=== PATIENT | female | born 1985 | race Caucasian/White ===

== ENCOUNTER 2017-07-03 02:22 | Emergency (ER) | payer SELFPAY ==
[2017-07-03 02:53] LABS: KETONE, URINE AUTO RFX NEGATIVE (NEGATIVE); LEUKOCYTE ESTERASE UR AUTO RFX NEGATIVE (NEGATIVE); NITRITE, URINE AUTO RFX NEGATIVE (NEGATIVE); RBC, URINE AUTO RFX 0 /HPF (0-3); SPECIFIC GRAVITY UR AUTO RFX 1.005 (1.002-1.035); SQUAM EPITHELIAL CELL UR AURFX 0 /HPF (0-6); WBC, URINE AUTO RFX 0 /HPF (0-3)
[2017-07-03 05:03] LABS: CONTROL LINE UCG INT CTR LINE PRESENT; URINE PREG TEST NEGATIVE (NEGATIVE)
[2017-07-03] MEDS: NORCO, ANEXSIA 5/325MG TABLET (HYDROcodone/ACETAMINOPHEN) PO (06:08)
[2017-07-03] MEDS: DOXYCYCLINE HYCLATE 100 MG TAB PO (06:45)
[2017-07-03] MEDS: cefTRIAXone SOD 250 MG VIAL (J0696) IM (06:45)
[2017-07-03] MEDS: NORCO 5/325MG TABLET (BULK FOR ED) PO (06:45)
[2017-07-03] MEDS ORDERED: LIDOCAINE 1% MDV 20ML VIAL As Ordered (06:49)
[2017-07-03 07:06] LABS: CHLAMYDIA DNA AMPLIFICATION NEGATIVE (NEGATIVE); GC DNA AMPLIFICATION NEGATIVE (NEGATIVE)
== END 2017-07-03 07:04 | disposition home or self-care (01) ==
LOC: M ED 02:22
DX: N73.9 Female pelvic inflammatory disease, unspecified (principal); Z87.42 Personal history of other diseases of the female genital tract
CPT/HCPCS: J0696

== ENCOUNTER 2017-07-07 06:07 | Emergency (ER) | payer SELFPAY ==
[2017-07-07 07:04] LABS: BASO % 0.2 % (0.0-1.0); EOS # 0.1 10^3/uL (0.0-0.50); HEMATOCRIT 39.6 % (36.0-47.0); HEMOGLOBIN 13.1 g/dl (12.0-15.5); IMMATURE GRANULOCYTE % 0.2 % (0-3.0); LYMPH # 1.7 10^3/uL (1.5-4.5); LYMPH % 28.5 % (24.0-44.0); MEAN CORPUSCULAR HEMOGLOBIN 30.5 pg (27.0-33.0); MEAN CORPUSCULAR HGB CONC 33.1 g/dl (32.0-36.5); MEAN CORPUSCULAR VOLUME 92.1 fl (80.0-96.0); MONO # 0.3 10^3/uL (0.0-0.8); MONO % 5.3 % (0.0-5.0); NEUTROPHILS # 3.9 10^3/uL (1.8-7.7); NEUTROPHILS % 64.8 % (36.0-66.0); PLATELET COUNT, AUTOMATED 238 10^3/uL (150-450); RED CELL DISTRIBUTION WIDTH 12.3 % (11.5-14.5)
[2017-07-07 07:07] LABS: KETONE, URINE AUTO RFX NEGATIVE (NEGATIVE); LEUKOCYTE ESTERASE UR AUTO RFX NEGATIVE (NEGATIVE); MUCUS, URINE RFX SMALL (NEGATIVE); NITRITE, URINE AUTO RFX NEGATIVE (NEGATIVE); RBC, URINE AUTO RFX 1 /HPF (0-3); SPECIFIC GRAVITY UR AUTO RFX 1.017 (1.002-1.035); SQUAM EPITHELIAL CELL UR AURFX 1 /HPF (0-6); WBC, URINE AUTO RFX 0 /HPF (0-3)
[2017-07-07 07:22] LABS: ANION GAP 5 MEQ/L (8-16); BLOOD UREA NITROGEN 10 MG/DL (7-18); CALCIUM LEVEL 9.3 MG/DL (8.5-10.1); CARBON DIOXIDE LEVEL 28 MEQ/L (21-32); CHLORIDE LEVEL 109 MEQ/L (98-107); CREATININE FOR GFR 0.78 MG/DL (0.55-1.30); GLOMERULAR FILTRATION RATE > 60.0 (>60); GLUCOSE, FASTING 100 MG/DL (70-100); SODIUM LEVEL 142 MEQ/L (136-145)
== END 2017-07-07 08:35 | disposition home or self-care (01) ==
LOC: M ED 06:07
DX: N73.9 Female pelvic inflammatory disease, unspecified (principal)
CPT/HCPCS: 80048

== ENCOUNTER 2017-12-01 17:17 | Emergency (ER) | payer OTHER, SELFPAY ==
[2017-12-01 17:55] LABS: CONTROL LINE UCG INT CTR LINE PRESENT; URINE PREG TEST NEGATIVE (NEGATIVE)
[2017-12-01 18:05] LABS: APPEARANCE, URINE CLEAR (CLEAR); BACTERIA, URINE AUTO 2+ (NEGATIVE); BILIRUBIN, URINE AUTO NEGATIVE (NEGATIVE); BLOOD, URINE BLOOD NEGATIVE (NEGATIVE); COLOR, URINE STRAW (YELLOW); GLUCOSE, URINE (UA) AUTO NEGATIVE (NEGATIVE); KETONE, URINE AUTO NEGATIVE (NEGATIVE); LEUKOCYTE ESTERASE, URINE AUTO NEGATIVE (NEGATIVE); NITRITE, URINE AUTO NEGATIVE (NEGATIVE); PROTEIN, URINE AUTO NEGATIVE (NEGATIVE); RBC, URINE AUTO 1 /HPF (0-3); SPECIFIC GRAVITY URINE AUTO 1.005 (1.002-1.035); SQUAMOUS EPITHELIAL CELL UR AU 0 /HPF (0-6); UROBILINOGEN, URINE AUTO 0.2 mg/dL (0.0-2.0); WBC, URINE AUTO 1 /HPF (0-3)
== END 2017-12-01 18:48 | disposition home or self-care (01) ==
LOC: M ED 17:17
DX: S30.1XXA Contusion of abdominal wall, initial encounter (principal); W51.XXXA Accidental striking against or bumped into by another person, initial encounter; Y92.210 Daycare center as the place of occurrence of the external cause; Y99.0 Civilian activity done for income or pay
CPT/HCPCS: 84703

== ENCOUNTER → 2018-02-08 | Outpatient (CLI) | payer OTHER ==
[2018-02-08 14:21] LABS: BASO % 0.2 % (0.0-1.0); EOS % 0.6 % (0.0-3.0); HEMATOCRIT 39.7 % (36.0-47.0); HEMOGLOBIN 13.6 g/dl (12.0-15.5); IMMATURE GRANULOCYTE % 0.2 % (0-3.0); LYMPH # 1.5 10^3/uL (1.5-4.5); LYMPH % 23.2 % (24.0-44.0); MEAN CORPUSCULAR HEMOGLOBIN 31.9 pg (27.0-33.0); MEAN CORPUSCULAR HGB CONC 34.3 g/dl (32.0-36.5); MONO # 0.4 10^3/uL (0.0-0.8); MONO % 5.6 % (0.0-5.0); NEUTROPHILS # 4.7 10^3/uL (1.8-7.7); NEUTROPHILS % 70.2 % (36.0-66.0); PLATELET COUNT, AUTOMATED 204 10^3/uL (150-450); RED BLOOD COUNT 4.27 10^6/uL (4.00-5.40); RED CELL DISTRIBUTION WIDTH 12.9 % (11.5-14.5); WHITE BLOOD COUNT 6.6 10^3/uL (4.0-10.0)
[2018-02-08 16:36] LABS: CHLAMYDIA DNA AMPLIFICATION NEGATIVE (NEGATIVE); GC DNA AMPLIFICATION NEGATIVE (NEGATIVE)
[2018-02-09 10:12] LABS: HBsAg Prenatal NEGATIVE (NEGATIVE); HIV 1&2 SCREEN CENTAUR NEGATIVE (NEGATIVE); RUBELLA IgG QUALITATIVE IMMUNE (IMMUNE)
[2018-02-09 10:12] LABS: HEPATITIS C VIRUS ABY INDEX < 0.0 INDEX (<0.8)
== END ==
LOC: M SMT 09:46
DX: Z34.81 Encounter for supervision of other normal pregnancy, first trimester (principal); Z3A.08 8 weeks gestation of pregnancy
CPT/HCPCS: 86762

== ENCOUNTER 2018-02-21 20:40 | Emergency (ER) | payer OTHER ==
[2018-02-21] MEDS: NS 1,000 ML IV (22:32)
[2018-02-21 22:40] LABS: BASO % 0.2 % (0.0-1.0); EOS # 0.1 10^3/uL (0.0-0.50); EOS % 0.7 % (0.0-3.0); HEMATOCRIT 35.6 % (36.0-47.0); IMMATURE GRANULOCYTE % 0.3 % (0-3.0); LYMPH # 2.4 10^3/uL (1.5-4.5); LYMPH % 24.7 % (24.0-44.0); MEAN CORPUSCULAR HEMOGLOBIN 31.3 pg (27.0-33.0); MEAN CORPUSCULAR HGB CONC 33.7 g/dl (32.0-36.5); MEAN CORPUSCULAR VOLUME 92.7 fl (80.0-96.0); MONO # 0.7 10^3/uL (0.0-0.8); MONO % 6.8 % (0.0-5.0); NEUTROPHILS # 6.6 10^3/uL (1.8-7.7); NEUTROPHILS % 67.3 % (36.0-66.0); PLATELET COUNT, AUTOMATED 209 10^3/uL (150-450); RED BLOOD COUNT 3.84 10^6/uL (4.00-5.40); RED CELL DISTRIBUTION WIDTH 12.6 % (11.5-14.5); WHITE BLOOD COUNT 9.8 10^3/uL (4.0-10.0)
[2018-02-21 23:07] LABS: ANION GAP 8 MEQ/L (8-16); BLOOD UREA NITROGEN 10 MG/DL (7-18); CALCIUM LEVEL 8.9 MG/DL (8.5-10.1); CARBON DIOXIDE LEVEL 26 MEQ/L (21-32); CHLORIDE LEVEL 108 MEQ/L (98-107); CK-MB VALUE MASS < 1.0 NG/ML (<3.6); CPK CREATINE PHOSPHOKINASE 72 U/L (26-192); CREATININE FOR GFR 0.66 MG/DL (0.55-1.30); GLOMERULAR FILTRATION RATE > 60.0 (>60); GLUCOSE, FASTING 96 MG/DL (70-100); MB/CK RELATIVE INDEX 1.39 (< OR =4); POTASSIUM SERUM 3.8 MEQ/L (3.5-5.1); SODIUM LEVEL 142 MEQ/L (136-145); TROPONIN I < 0.02 NG/ML (< 0.10)
== END 2018-02-22 01:17 | disposition home or self-care (01) ==
LOC: M ED 20:40
DX: O99.89 Other specified diseases and conditions complicating pregnancy, childbirth and the puerperium (principal); R00.2 Palpitations; Z3A.08 8 weeks gestation of pregnancy
CPT/HCPCS: 93005

== ENCOUNTER 2018-03-31 04:12 | Emergency (ER) | payer OTHER ==
[~2018-03-31] VITALS: Ht 162.6 cm; Wt 100.0 kg
[~2018-03-31 04:12] MED LIST: DOXY100C37 PO; IBUP-1022 PO
[2018-03-31 05:18] LABS: BASO % 0.1 % (0.0-1.0); EOS # 0.1 10^3/uL (0.0-0.50); EOS % 0.6 % (0.0-3.0); HEMATOCRIT 35.1 % (36.0-47.0); HEMOGLOBIN 12.3 g/dl (12.0-15.5); LYMPH # 1.7 10^3/uL (1.5-4.5); LYMPH % 21.2 % (24.0-44.0); MEAN CORPUSCULAR HEMOGLOBIN 32.1 pg (27.0-33.0); MEAN CORPUSCULAR VOLUME 91.6 fl (80.0-96.0); MONO # 0.4 10^3/uL (0.0-0.8); MONO % 5.5 % (0.0-5.0); NEUTROPHILS # 5.7 10^3/uL (1.8-7.7); NEUTROPHILS % 72.3 % (36.0-66.0); PLATELET COUNT, AUTOMATED 146 10^3/uL (150-450); RED BLOOD COUNT 3.83 10^6/uL (4.00-5.40); WHITE BLOOD COUNT 7.8 10^3/uL (4.0-10.0)
[2018-03-31 05:47] LABS: BLOOD UREA NITROGEN 8 MG/DL (7-18); CALCIUM LEVEL 8.2 MG/DL (8.5-10.1); CARBON DIOXIDE LEVEL 22 MEQ/L (21-32); CHLORIDE LEVEL 110 MEQ/L (98-107); CREATININE FOR GFR 0.52 MG/DL (0.55-1.30); GLOMERULAR FILTRATION RATE > 60.0 (>60); GLUCOSE, FASTING 86 MG/DL (70-100); POTASSIUM SERUM 3.7 MEQ/L (3.5-5.1); SODIUM LEVEL 142 MEQ/L (136-145)
[2018-03-31] MEDS ORDERED: ACETAMINOPHEN TAB 650MG DOSE (2X325MG) PO ONE (06:45)
[2018-03-31] MEDS ORDERED: KEFL500C17 PO (08:01)
--- NOTE | 2018-03-31 08:30 | REP ---
Clinical: Trauma/Fall. Evaluate for well being. Comparison: None . Findings: Examination demonstrates a single live intrauterine in cephalic presentation. motion is identified by technologist. Placenta is noted right lateral and grade 0 without evidence for placenta previa or abruption. Amniotic fluid volume is normal. Cervix measures 4.1 cm in length and appears closed. No evidence for nuchal cord. Gestational age by LMP 14 weeks 1 day with CHESTER 09/28/2018 . FHR equals 152 beats per minute. No gross abnormalities appreciated. Impression: Single live intrauterine at 14 weeks 1 day gestational age. No gross abnormalities are identified. Cervix appears closed. Amniotic fluid volume within normal limits. Electronically Signed by Enrique Valverde MD 03/31/2018 08:22 A
[2018-03-31 08:39] VITALS: BP 121/62
== END 2018-03-31 08:42 | disposition home or self-care (01) ==
LOC: M ED 04:12
DX: O23.42 Unspecified infection of urinary tract in pregnancy, second trimester (principal); O99.89 Other specified diseases and conditions complicating pregnancy, childbirth and the puerperium; R55 Syncope and collapse; M54.32 Sciatica, left side; W19.XXXA Unspecified fall, initial encounter; Y92.9 Unspecified place or not applicable; Y93.9 Activity, unspecified; Y99.9 Unspecified external cause status; Z87.440 Personal history of urinary (tract) infections; Z3A.14 14 weeks gestation of pregnancy

== ENCOUNTER → 2018-04-11 | Outpatient (REF) | payer OTHER ==
[~2018-04-11] MED LIST changes: +KEFL500C17 PO
[2018-04-11 21:52] LABS: APPEARANCE, URINE CLEAR (CLEAR); BACTERIA, URINE AUTO 1+ (NEGATIVE); BILIRUBIN, URINE AUTO NEGATIVE (NEGATIVE); BLOOD, URINE BLOOD NEGATIVE (NEGATIVE); COLOR, URINE STRAW (YELLOW); GLUCOSE, URINE (UA) AUTO NEGATIVE (NEGATIVE); KETONE, URINE AUTO NEGATIVE (NEGATIVE); LEUKOCYTE ESTERASE, URINE AUTO NEGATIVE (NEGATIVE); NITRITE, URINE AUTO NEGATIVE (NEGATIVE); PROTEIN, URINE AUTO NEGATIVE (NEGATIVE); RBC, URINE AUTO 0 /HPF (0-3); SPECIFIC GRAVITY URINE AUTO 1.004 (1.002-1.035); SQUAMOUS EPITHELIAL CELL UR AU 0 /HPF (0-6); UROBILINOGEN, URINE AUTO 0.2 mg/dL (0.0-2.0); WBC, URINE AUTO 0 /HPF (0-3)
[2018-04-11 22:14] LABS: INFLUENZA A AMPLIFICATION NEGATIVE (NEGATIVE); INFLUENZA B AMPLIFICATION NEGATIVE (NEGATIVE)
== END ==
LOC: M LAB REF 10:18
PROVIDERS: ATTEND Physician Assistant
DX: N39.0 Urinary tract infection, site not specified (principal)

== ENCOUNTER → 2018-04-22 | Outpatient (REF) | payer OTHER | LOC: M LAB REF 10:57 | PROVIDERS: ATTEND Physician Assistant | DX: J02.9 Acute pharyngitis, unspecified (principal) ==

== ENCOUNTER → 2018-05-02 | Outpatient (REF) | payer OTHER | LOC: M LAB REF 17:12 | PROVIDERS: ATTEND Specialist | DX: R30.0 Dysuria (principal) ==

== ENCOUNTER → 2018-05-07 | Outpatient (CLI) | payer OTHER ==
--- NOTE | 2018-05-07 14:20 | REP ---
Clinical: Anatomical evaluation. Comparison: 03/31/2018 . Findings: Examination demonstrates a single live intrauterine in breech presentation. motion is identified by technologist. Placenta is noted right fundal and grade grade 1 without evidence for placenta previa or abruption. Amniotic fluid volume is normal. Cervix measures 3.4 cm in length and appears closed. No evidence for nuchal cord. Gestational age by LMP 19 weeks 3 days with CHESTER 09/28/2018 . Gestational age by current measurements 19 weeks 4 days with CHESTER 09/27/2018 . FHR equals 144 beats per minute. BPD 4.5 cm 19 weeks 4 days HC 16.4 cm 19 weeks 1 day AC 14.8 cm 20 weeks 1 day FL 3.3 cm 20 weeks 1 day HL 3.1 cm 20 weeks 3 days HC/AC ratio 1.11 Estimated weight 326 grams ( 70th percentile). Anatomical assessment demonstrates normal structures including cranium, choroid plexus, cavum, cerebellum/posterior fossa, lungs, diaphragm, stomach, cord insertion/three-vessel cord, kidneys/bladder, and extremities. Limited evaluation of the facial features, heart/ventricular outflow tracts and spine. Impression: Single live intrauterine in breech presentation demonstrating appropriate interval growth. Anatomical limitations as described above warrant reevaluation and follow-up. No gross abnormality identified. Electronically Signed by Enrique Valverde MD 05/07/2018 02:11 P
== END ==
LOC: M SMT 13:06
PROVIDERS: ATTEND Advanced Practice Midwife
DX: O32.1XX0 Maternal care for breech presentation, not applicable or unspecified (principal); Z36.89 Encounter for other specified antenatal screening; Z3A.19 19 weeks gestation of pregnancy

== ENCOUNTER → 2018-05-27 | Outpatient (REF) | payer OTHER ==
[2018-05-27 21:52] LABS: AMORPHOUS SEDIMENT SMALL (NEGATIVE); APPEARANCE, URINE HAZY (CLEAR); BACTERIA, URINE AUTO 3+ (NEGATIVE); BILIRUBIN, URINE AUTO NEGATIVE (NEGATIVE); BLOOD, URINE BLOOD NEGATIVE (NEGATIVE); COLOR, URINE STRAW (YELLOW); GLUCOSE, URINE (UA) AUTO NEGATIVE (NEGATIVE); KETONE, URINE AUTO NEGATIVE (NEGATIVE); LEUKOCYTE ESTERASE, URINE AUTO TRACE (NEGATIVE); MUCUS, URINE SMALL (NEGATIVE); NITRITE, URINE AUTO NEGATIVE (NEGATIVE); PROTEIN, URINE AUTO NEGATIVE (NEGATIVE); RBC, URINE AUTO 1 /HPF (0-3); SPECIFIC GRAVITY URINE AUTO 1.004 (1.002-1.035); SQUAMOUS EPITHELIAL CELL UR AU 1 /HPF (0-6); UROBILINOGEN, URINE AUTO 0.2 mg/dL (0.0-2.0); WBC, URINE AUTO 1 /HPF (0-3)
== END ==
LOC: M LAB REF 09:46
PROVIDERS: ATTEND Physician Assistant Medical
DX: N39.0 Urinary tract infection, site not specified (principal)

== ENCOUNTER → 2018-06-13 | Outpatient (REF) | payer OTHER | LOC: M LAB REF 13:19 | PROVIDERS: ATTEND Advanced Practice Midwife | DX: Z34.02 Encounter for supervision of normal first pregnancy, second trimester (principal); Z3A.00 Weeks of gestation of pregnancy not specified ==

== ENCOUNTER → 2018-06-13 | Outpatient (CLI) | payer OTHER ==
--- NOTE | 2018-06-14 03:23 | REP ---
Clinical: Anatomical evaluation. Comparison: 05/07/2018 . Findings: Examination demonstrates a single live intrauterine in breech presentation. motion is identified by technologist. Placenta is noted anterior and grade 1 without evidence for placenta previa or abruption. Posterior fundal fibroid measures 2.4 cm maximal diameter. Amniotic fluid volume is normal. Cervix measures 4.2 cm in length and appears closed. Nuchal cord noted. Gestational age by LMP 24 weeks 5 days with CHESTER 09/28/2018 . Gestational age by current measurements 24 weeks 4 day with CHESTER 09/29/2018 . FHR equals 136 beats per minute. Estimated weight 777 grams ( 57th percentile). Anatomical assessment demonstrates normal structures including cranium, choroid plexus, cavum, cerebellum/posterior fossa, lungs, four-chamber heart/ left ventricular outflow tract, diaphragm, stomach, three-vessel cord, kidneys/bladder, spine, and extremities. Impression: 1. Single live intrauterine in breech presentation demonstrating appropriate interval growth. 2. Nuchal cord noted. 3. Continued limited evaluation of the facial features and right cardiac ventricular outflow tract. Remainder of the anatomical assessment is complete and normal. Electronically Signed by Enrique Valverde MD 06/14/2018 03:15 A
== END ==
LOC: M SMT 07:54
PROVIDERS: ATTEND Specialist
DX: O32.1XX0 Maternal care for breech presentation, not applicable or unspecified (principal); Z36.2 Encounter for other antenatal screening follow-up; Z3A.24 24 weeks gestation of pregnancy

== ENCOUNTER → 2018-07-04 | Outpatient (CLI) | payer OTHER ==
[2018-07-04 14:56] LABS: BASO % 0.1 % (0.0-1.0); EOS % 0.4 % (0.0-3.0); HEMATOCRIT 35.5 % (36.0-47.0); HEMOGLOBIN 12.1 g/dl (12.0-15.5); LYMPH # 0.9 10^3/uL (1.5-4.5); LYMPH % 12.3 % (24.0-44.0); MEAN CORPUSCULAR HGB CONC 34.1 g/dl (32.0-36.5); MEAN CORPUSCULAR VOLUME 93.9 fl (80.0-96.0); MONO # 0.5 10^3/uL (0.0-0.8); MONO % 7.2 % (0.0-5.0); NEUTROPHILS % 79.6 % (36.0-66.0); PLATELET COUNT, AUTOMATED 189 10^3/uL (150-450); RED BLOOD COUNT 3.78 10^6/uL (4.00-5.40); WHITE BLOOD COUNT 7.5 10^3/uL (4.0-10.0)
== END ==
LOC: M LAB 13:00
PROVIDERS: ATTEND Specialist
DX: Z34.82 Encounter for supervision of other normal pregnancy, second trimester (principal); Z3A.00 Weeks of gestation of pregnancy not specified

== ENCOUNTER → 2018-07-13 | Outpatient (CLI) | payer OTHER ==
[~2018-07-13] MED LIST changes: +OXYC1TAB23 PO
--- NOTE | 2018-07-13 13:32 | REP ---
OB ULTRASOUND: Real-time sonographic evaluation of the gravid uterus is performed. There is a single living intrauterine gestation. Estimated gestational age 29 weeks, EDC 09/28/2018. Today's measurements indicate appropriate growth. BPD 74 mm = 29 weeks 4 days, 62nd percentile HC 263 mm = 20 weeks 4 days, 42nd percentile AC 257 mm = 29 weeks 6 days, 68th percentile Femur length 58 mm = 30 weeks 3 days, 71st percentile HC/AC ratio 1.02 within normal range. Estimated weight 1475 grams, 63rd percentile. Cervix is closed and measures 5.4 cm in length. heart rate 141 beats per minute. Amniotic fluid appears lower limits of normal, ALTAGRACIA is 9.0. Normal range is 9.2-23.1. S/D ratio 2.30 is below normal range of 2.5 to 3.5. RI 0.56 is below normal range of 0.59-0.75. SEEN/GROSSLY UNREMARKABLE Lateral ventricles Yes Posterior fossa Yes Upper lip No Four-chamber heart No LVOT No RVOT No Stomach Yes Cord insertion No Three vessel cord Yes Kidneys Yes Bladder Yes Spine Yes position: Vertex. Placenta: Fundal and grade 1, to the right, with no previa or abruption. Please note the patient has a bicornuate uterus and the fetus appears to be located in the left horn of the uterus. Posterior fibroid is seen measuring 2.7 x 1.9 x 2.5 cm. Electronically Signed by Mendoza Mcgovern MD 07/13/2018 04:19 P
== END ==
LOC: M SMT 10:36
PROVIDERS: ATTEND Specialist
DX: O99.89 Other specified diseases and conditions complicating pregnancy, childbirth and the puerperium (principal); Z3A.29 29 weeks gestation of pregnancy

== ENCOUNTER 2018-07-19 07:57 | Outpatient (CLI) | payer OTHER ==
[~2018-07-19] VITALS: Ht 162.6 cm; Wt 108.1 kg
[~2018-07-19 07:57] MED LIST changes: -OXYC1TAB23 PO
[2018-07-19] MEDS ORDERED: OXYC1TAB23 PO (08:14)
[2018-07-19 08:28] VITALS: BP 134/87
[2018-07-19 09:58] LABS: HEMATOCRIT 36.8 % (36.0-47.0); HEMOGLOBIN 12.5 g/dl (12.0-15.5); MEAN CORPUSCULAR VOLUME 94.1 fl (80.0-96.0); PLATELET COUNT, AUTOMATED 177 10^3/uL (150-450); RED BLOOD COUNT 3.91 10^6/uL (4.00-5.40); WHITE BLOOD COUNT 8.8 10^3/uL (4.0-10.0)
[2018-07-19 10:24] LABS: ALBUMIN 2.7 GM/DL (3.2-5.2); ALT/SGPT 12 U/L (12-78); BILIRUBIN,TOTAL 0.3 MG/DL (0.2-1.0); BLOOD UREA NITROGEN 3 MG/DL (7-18); CALCIUM LEVEL 8.9 MG/DL (8.5-10.1); CARBON DIOXIDE LEVEL 25 MEQ/L (21-32); CHLORIDE LEVEL 107 MEQ/L (98-107); CREATININE FOR GFR 0.59 MG/DL (0.55-1.30); GLOMERULAR FILTRATION RATE > 60.0 (>60); GLUCOSE, FASTING 85 MG/DL (70-100); POTASSIUM SERUM 3.9 MEQ/L (3.5-5.1); SODIUM LEVEL 138 MEQ/L (136-145)
[2018-07-19 10:57] LABS: AMPHETAMINES URINE REFLEX NEGATIVE (NEGATIVE); BARBITURATES URINE REFLEX NEGATIVE (NEGATIVE); BENZODIAZEPINES URINE REFLEX NEGATIVE (NEGATIVE); CANNABINOIDS URINE REFLEX NEGATIVE (NEGATIVE); COCAINE METABOLITE URINE REFLE NEGATIVE (NEGATIVE); METHADONE URINE REFLEX NEGATIVE (NEGATIVE); OPIATES URINE REFLEX NEGATIVE (NEGATIVE); PHENCYCLIDINE URINE REFLEX NEGATIVE (NEGATIVE)
== END 2018-07-19 12:35 | disposition home or self-care (01) ==
LOC: M LDO 07:57
PROVIDERS: ATTEND Obstetrics & Gynecology
DX: O26.893 Other specified pregnancy related conditions, third trimester (principal); O99.613 Diseases of the digestive system complicating pregnancy, third trimester; K59.00 Constipation, unspecified; O26.813 Pregnancy related exhaustion and fatigue, third trimester; Z3A.30 30 weeks gestation of pregnancy

== ENCOUNTER → 2018-07-20 | Outpatient (CLI) | payer OTHER ==
[~2018-07-20] MED LIST changes: +OXYC1TAB23 PO
== END ==
LOC: M LAB 06:57
PROVIDERS: ATTEND Advanced Practice Midwife
DX: Z34.02 Encounter for supervision of normal first pregnancy, second trimester (principal); Z3A.00 Weeks of gestation of pregnancy not specified

== ENCOUNTER 2018-09-02 08:52 | Outpatient (CLI) | payer MEDICAID, OTHER ==
[~2018-09-02] VITALS: Ht 162.6 cm; Wt 111.7 kg
[2018-09-02] VITALS (16 sets, daily range): BP systolic 98–148; BP diastolic 59–90
[2018-09-02] MEDS ORDERED: TUMS500C PO (09:21)
[2018-09-02] MEDS ORDERED: PRENTAB9 PO (09:21)
[2018-09-02] MEDS ORDERED: LR 1,000 ML IV SCH (10:00)
[2018-09-02] MEDS ORDERED: LACTATED RINGER'S 1000 ML IV STA (10:00)
[2018-09-02 10:22] LABS: HEMATOCRIT 38.5 % (36.0-47.0); MEAN CORPUSCULAR HEMOGLOBIN 31.9 pg (27.0-33.0); MEAN CORPUSCULAR HGB CONC 33.8 g/dl (32.0-36.5); MEAN CORPUSCULAR VOLUME 94.4 fl (80.0-96.0); PLATELET COUNT, AUTOMATED 182 10^3/uL (150-450); RED BLOOD COUNT 4.08 10^6/uL (4.00-5.40); WHITE BLOOD COUNT 7.6 10^3/uL (4.0-10.0)
[2018-09-02 14:06] LABS: ALT/SGPT 12 U/L (12-78); BILIRUBIN,TOTAL 0.2 MG/DL (0.2-1.0); CREATININE FOR GFR 0.68 MG/DL (0.55-1.30); GLOMERULAR FILTRATION RATE > 60.0 (>60); LDH LACTATE DEHYDROGENASE 145 U/L (84-246); URIC ACID 5.8 MG/DL (2.6-6.0)
[2018-09-02 14:54] LABS: CREATININE,RANDOM URINE 37.5 MG/DL; TOTAL PROTEIN,RANDOM URINE < 5.0 MG/DL (0.0-12.0)
--- NOTE | 2018-09-02 23:11 | NUR ---
L&D Triage Note: S: 33yo G1 at 36wks presents with c/o LOF. She reports active movement. No vaginal bleeding or ctx. O: vss, AF cat 1 tracing gen: well appearing abd: soft, gravid, nttp cx: ft/long SSE: neg Nitrazine, neg ferning and pooling TAUS: ceph, ALTAGRACIA >14cm cbc and fingestick WNL -pt vagale syncope. Prolonged monitoring without further issued A/P: 33yo G1 at 36wks w/o c/o LOF, not ROM reassuring status -home with PTL precautions -FKCs -f/u at next OB appt this week Hilary Foster MD
== END 2018-09-02 16:49 | disposition home or self-care (01) ==
LOC: M LDO 08:52
PROVIDERS: ATTEND Obstetrics & Gynecology
DX: O26.893 Other specified pregnancy related conditions, third trimester (principal); N89.8 Other specified noninflammatory disorders of vagina; R55 Syncope and collapse; Z3A.36 36 weeks gestation of pregnancy

== ENCOUNTER 2018-09-05 01:38 | Inpatient (IN) | payer MEDICAID, OTHER, SELFPAY ==
[2018-09-05] VITALS (10 sets, daily range): BP systolic 132–156; BP diastolic 68–94
[~2018-09-05] VITALS: Ht 162.6 cm; Wt 110.4 kg
[~2018-09-05 01:38] MED LIST changes: +PRENTAB9 PO; +TUMS500C PO
[2018-09-05] MEDS ORDERED: LR 1,000 ML IV SCH (02:44)
[2018-09-05] MEDS ORDERED: LACTATED RINGER'S 1000 ML IV STA (02:44)
[2018-09-05 03:44] LABS: HEMATOCRIT 38.6 % (36.0-47.0); HEMOGLOBIN 13.3 g/dl (12.0-15.5); MEAN CORPUSCULAR HEMOGLOBIN 32.4 pg (27.0-33.0); MEAN CORPUSCULAR HGB CONC 34.5 g/dl (32.0-36.5); MEAN CORPUSCULAR VOLUME 94.1 fl (80.0-96.0); PLATELET COUNT, AUTOMATED 206 10^3/uL (150-450); WHITE BLOOD COUNT 11.7 10^3/uL (4.0-10.0)
[2018-09-05] MEDS ORDERED: RHOGAM 300 MCG (1500 IU) INJ (J2790) IM SCH (05:30)
[2018-09-05] MEDS ORDERED: LIDOCAINE 1% MDV 20ML VIAL INFIL ONE (05:30)
[2018-09-05] MEDS ORDERED: DOCUSATE SODIUM 100 MG CAP PO PRN (05:30)
[2018-09-05] MEDS ORDERED: METHYLERGONOVINE MALEATE 0.2 MG TAB PO PRN (05:30)
[2018-09-05] MEDS ORDERED: MEASLES,MUMPS,RUBELLA VACCINE INJ (MMR-II) (90707) SC SCH (05:30)
[2018-09-05] MEDS ORDERED: OXYTOCIN INJ 10 UNITS/ML VIAL (J2590) IM ONE (05:30)
[2018-09-05] MEDS ORDERED: METHYLERGONOVINE MALEATE 0.2 MG/ML VIAL (J2210) IM ONE (05:30)
[2018-09-05] MEDS ORDERED: ONDANSETRON 4MG/2ML VIAL (J2405) IV PRN (05:30)
[2018-09-05] MEDS ORDERED: DIBUCAINE 1% OINTMENT 30GM TOP PRN (05:30)
[2018-09-05] MEDS: ACETAMINOPHEN 500 MG TAB PO PRN ×3 (05:57→20:13)
[2018-09-05] MEDS: IBUPROFEN 800 MG TAB PO PRN (05:57)
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
[2018-09-05] MEDS: PRENATAL VITAMINS CHEWABLE TABLET PO SCH (08:12)
--- NOTE | 2018-09-05 09:53 | DN ---
DATE OF DELIVERY: 09/05/2018 PREDELIVERY DIAGNOSIS: 36 and 5/7 weeks gestation, active labor. POSTDELIVERY DIAGNOSIS: Delivered. PROCEDURE: Spontaneous vaginal delivery. STAMP PAD MAKER: Dr. Brian Gastelum ANESTHESIA: None. ESTIMATED BLOOD LOSS: 300 mL. FINDINGS: 5 pounds 3 ounce female with scores of 7 and 9. DELIVERY SUMMARY: After a short second stage, consisting of approximately 10 minutes, the patient had spontaneous delivery of a 5 pounds 3 ounce female with no delivery anesthesia. There was no nuchal cord. Shoulders delivered with ease. The was handed to the mother and cried. The cord was doubly clamped and cut. Placenta delivered spontaneously and appeared to be intact. The patient received Pitocin intramuscularly after delivery of the placenta. A second degree perineal laceration was repaired under local anesthesia with 2-0 chromic in the usual fashion. Sponge and needle counts were correct.
[2018-09-06 05:57] VITALS: BP 111/59
[2018-09-06] MEDS: IBUPROFEN 800 MG TAB PO PRN ×2 (06:29→17:54)
[2018-09-06] MEDS: PRENATAL VITAMINS CHEWABLE TABLET PO SCH (08:48)
[2018-09-06] MEDS: ACETAMINOPHEN 500 MG TAB PO PRN ×2 (12:31→22:20)
--- NOTE | 2018-09-06 15:39 | NUR ---
PPD# 1 S: Doing well w/o complaints. +voids, +ambulation and pain well controlled O: vss, AF gen: well appearing abd: soft, nttp ff@U ext: neg calf tenderness A/P: PPD # 1 s/p NSD, recovering in stable condition -continue routine care -d/c plans for tomorrow Hilary Foster MD
[2018-09-06 18:00] VITALS: BP 132/73
[2018-09-07 05:42] VITALS: BP 128/82
[2018-09-07] MEDS: PRENATAL VITAMINS CHEWABLE TABLET PO SCH (08:33)
[2018-09-07] MEDS ORDERED: MAPA500T2 PO (09:48)
[2018-09-07] MEDS ORDERED: COLA100C5 PO (09:48)
[2018-09-07] MEDS ORDERED: IBUP-1114 PO (09:48)
== END 2018-09-07 16:40 | disposition home or self-care (01) | DRG 560 ==
LOC: M LDO 01:38 → M LDI 02:38 → M OBS 09:50
PROVIDERS: ADMIT Specialist; ATTEND Specialist
PROC: 10E0XZZ Delivery of Products of Conception, External Approach (ICD-10-PCS; principal; 2018-09-05)
PROC: 0KQM0ZZ Repair Perineum Muscle, Open Approach (ICD-10-PCS; 2018-09-05)
DX: O60.14X0 Preterm labor third trimester with preterm delivery third trimester, not applicable or unspecified (principal); O24.420 Gestational diabetes mellitus in childbirth, diet controlled; Z3A.36 36 weeks gestation of pregnancy; O70.1 Second degree perineal laceration during delivery; Z37.0 Single live birth

== ENCOUNTER → 2019-05-09 | Outpatient (REF) | payer OTHER ==
[~2019-05-09] MED LIST changes: +COLA100C5 PO; +IBUP-1114 PO; +MAPA500T2 PO
== END ==
LOC: M SFHCWAGY 09:44
PROVIDERS: ATTEND Nurse Practitioner Women's Health
DX: Z12.4 Encounter for screening for malignant neoplasm of cervix (principal)

== ENCOUNTER → 2019-07-02 | Outpatient (CLI) | payer SELFPAY, OTHER ==
--- NOTE | 2019-07-02 13:35 | REPPI ---
Clinical: Recent pneumonia . Comparison: 03/21/2011 Technique: PA and lateral. Findings: The mediastinum and cardiac silhouette are normal. The lung sanon are clear and without acute consolidation, effusion, or pneumothorax. The skeletal structures are intact and normal. Impression: 1. No acute cardiopulmonary process. Electronically Signed by Enrique Valverde MD 07/02/2019 01:27 P
== END ==
LOC: M PLAIMG 13:09
PROVIDERS: ATTEND Nurse Practitioner Family
DX: J20.9 Acute bronchitis, unspecified (principal)

== ENCOUNTER → 2019-12-13 | Outpatient (CLI) | payer OTHER ==
[~2019-12-13] MED LIST changes: +ISOVUE-370 76% 100ML VIAL As Ordered ONE
--- NOTE | 2020-01-01 09:05 | REP ---
CHEST CT CLINICAL: Chest pain and shortness of breath. TECHNIQUE: Axial contrast enhanced images from the thoracic inlet to the upper abdomen with multiplanar reformations using pulmonary embolus technique. 75 mL Isovue-370 intravenous contrast material administered without complication. FINDINGS: Satisfactory enhancement of the pulmonary vasculature is achieved and no filling defects are identified to suggest pulmonary embolus. Thoracic aorta is normal and without aneurysm or dissection. Heart and pericardium are normal. No axillary, hilar, or mediastinal adenopathy is appreciated. The tracheobronchial tree is patent. The bilateral lung sanon are well-aerated and without acute consolidation, effusion, or pneumothorax. No obvious nodule or mass lesion. Surrounding musculoskeletal structures are intact. IMPRESSION: 1. No evidence for pulmonary embolus. Normal thoracic aorta. 2. No acute mediastinal or pleural parenchymal process. MTDD
== END ==
LOC: M RAD 07:42
PROVIDERS: ATTEND Nurse Practitioner Family
DX: R06.02 Shortness of breath (principal); R07.89 Other chest pain
CPT/HCPCS: 71275; Q9967

== ENCOUNTER → 2020-01-29 | Outpatient (CLI) | payer OTHER ==
[~2020-01-29] MED LIST changes: -ISOVUE-370 76% 100ML VIAL As Ordered ONE
--- NOTE | 2020-01-29 10:27 | REP ---
INDICATION: COUGH COMPARISON: 07/02/2019 TECHNIQUE: PA and lateral. FINDINGS: The mediastinum and cardiac silhouette are normal. The lung sanon are clear and without acute consolidation, effusion, or pneumothorax. The skeletal structures are intact and normal. IMPRESSION: No acute cardiopulmonary process. <Electronically signed by Enrique Valverde > 01/29/20 1022
== END ==
LOC: M LAB 09:30
PROVIDERS: ATTEND Nurse Practitioner Family
DX: R05 Cough (principal)

== ENCOUNTER 2020-04-09 17:31 | Emergency (ER) | payer OTHER ==
[~2020-04-09] VITALS: Ht 162.6 cm; Wt 107.3 kg
[2020-04-09 17:32] VITALS: BP 140/67
--- NOTE | 2020-04-09 18:19 | REP ---
INDICATION: cough COMPARISON: 01/29/2020 TECHNIQUE: PA and lateral. FINDINGS: The mediastinum and cardiac silhouette are normal. The lung sanon are clear and without acute consolidation, effusion, or pneumothorax. The skeletal structures are intact and normal. IMPRESSION: No acute cardiopulmonary process. <Electronically signed by Enrique Valverde > 04/09/20 3505
== END 2020-04-09 19:00 | disposition home or self-care (01) ==
LOC: M ED 17:31
DX: J06.9 Acute upper respiratory infection, unspecified (principal); B34.9 Viral infection, unspecified; Z79.899 Other long term (current) drug therapy

== ENCOUNTER 2020-05-05 22:57 | Emergency (ER) | payer OTHER ==
[~2020-05-05] VITALS: Ht 162.6 cm; Wt 107.1 kg
--- OUTSIDE RECORDS SUMMARY | 2020-05-05 23:04 | CCD | Continuity of Care Document ---
Author Author Malorie CLOUD [facility] Organization Unknown Address [address] [place] [address] Phone [phone] Care Team Providers Care Escort Car Driver Name Role Phone Sara Murrieta MD [facility] [phone] [facility] D[facility]at[facility] Problems Description No Information Available Social History Type Date Description Comments Sex Unknown Tobacco Use Start: Unknown Never Used Smokeless Tobacco ETOH Use Occasionally consumes alcohol Tobacco Use Start: Unknown Patient has never smoked Recreational Drug Use Never Used Drugs Smoking Status Reviewed: 04/21/20 Patient has never smoked Exercise Type/Frequency Exercises regularly Tattoo/Piercing Pierced ears Sun Exposure Moderate amount of sun exposure Seat Belt/Car Seat Always uses seat belt Bike Helmet Never Smoke Alarms Yes Smoke Alarms Carbon Monoxide Detector: Yes Allergies, Adverse Reactions, Alerts Description No Known Drug Allergies Medications Active Medications SIG Qnty Indications Ordering Provide r Date Levocetirizine Dihydrochloride 5mg Tablets 1 tab by mouth every evening 90tabs Zac Mcdaniel FNP 04/21/2020 Fluticasone Propionate 50mcg/Act Suspension two sprays each side of nose daily 48gm R0Pamella Echavarria ch, FNP 04/21/2020 Tessalon Perles 100mg Capsules one by mouth three times a day as needed 30caps Tao Mcdaniel FNP 04/21/2020 Biotin 5000 5mg Capsules Unknown B12 Folate 800-800mcg Capsules Unknown Woman's Vitamins OTC Tablets Unknown Immune Support With Vit.C And Elderberry/Zinc 2 daily Unknown Immunizations Description No Information Available Vital Signs Date Vital Result Comment 04/21/2020 1:35pm BP Systolic 118 mmHg BP Diastolic 89 mmHg Heart Rate 90 /min Body Temperature 96.9 F Respiratory Rate 18 /min Height 64.0 inches 5'4" Weight 236.12 lb O2 % BldC Oximetry 98 % Peak Expiratory Flow Rate 382 Estimated Peak Flow Rate [place] Body Weight 120 lb BMI (Body Mass Index) 40.5 kg/m2 01/29/2020 8:59am BP Systolic 115 mmHg BP Diastolic 78 mmHg Heart Rate 98 /min Body Temperature 98.0 F Respiratory Rate 16 /min Height 64.0 inches 5'4" Weight 238.12 lb O2 % BldC Oximetry 98 % Peak Expiratory Flow Rate 382 Estimated Peak Flow Rate Last Menstrual Period [id number] [place] Body Weight 120 lb BMI (Body Mass Index) 40.9 kg/m2 Results Description No Information Available Procedures Description No Information Available Medical Devices Description No Information Available Encounters Type Date Location Provider Dx Diagnosis Office Visit 04/21/2020 1:15p Main Office Pamella Cloud FNP R05 Cough Office Visit 01/29/2020 8:45a Main Office PlePamella newman, SENIOR NET DEVELOPER R05 Cough Office Visit 12/11/2019 11:45a Main Office Pamella Cloud, SENIOR NET DEVELOPER R06.0 2 Shortness of breath R07.89 Other chest pain Assessments Date Code Description Provider 04/21/2020 R05 Cough Pamella Cloud, SENIOR NET DEVELOPER 01/29/2020 R05 Cough Pamella Cloud, SENIOR NET DEVELOPER 12/11/2019 R06.02 Shortness of breath Zac Cloud, SENIOR NET DEVELOPER 12/11/2019 R07.89 Other chest pain Pamella Cloud , SENIOR NET DEVELOPER Plan of Treatment 04/21/2020 - Pamella Cloud FNP* R05 Cough* New Medication:* Levocetirizine Dihydrochloride 5 mg - 1 tab by mouth every evening * Fluticasone Propionate 50 mcg/Act - two sprays each side of nose daily * Tessalon Perles 100 mg - one by mouth three times a day as needed * Comments:* post viral with a component of chronic rhinitis Functional Status Functional Condition Comment Date Status .None Active Independent with all ADL's Activ e Independent with all IADL's Acti ve Mental Status Mental Condition Comment Date Status None Active Referrals Description No Information Available
--- OUTSIDE RECORDS SUMMARY | 2020-05-05 23:04 | CCD | Continuity of Care Document ---
Author Author Malorie CLOUD [facility] Organization Unknown Address [address] [place] [address] Phone [phone] Care Team Providers Care Od Grinder Operator Name Role Phone Sara Murrieta MD [facility] [phone] [facility] - Dermatology [facility] Problems Description [...] Flow Rate 382 Estimated Peak Flow Rate [place] Body Weight 120 lb BMI (Body Mass Index) 40.5 kg/m2 01/29/2020 8:59am BP Systolic 115 mmHg BP Diastolic 78 mmHg Heart Rate 98 /min Body Temperature 98.0 F Respiratory Rate 16 /min Height 64.0 inches 5'4" Weight 238.12 lb O2 % BldC Oximetry 98 % Peak Expiratory Flow Rate 382 Estimated Peak Flow Rate Last Menstrual Period [id number] [place] Body Weight 120 lb BMI (Body Mass Index) 40.9 kg/m2 Results Description No Information Available Procedures Description No Information Available Medical Devices Description No Information Available Encounters Type Date Location Provider Dx Diagnosis Office Visit 01/29/2020 8:45a Main Office Pamella Cloud FNP R05 Cough Office Visit 12/11/2019 11:45a Main Office Pamella Cloud, [employer] R06.0 2 Shortness of breath R07.89 Other chest pain Assessments Date Code Description Provider 04/21/2020 R05 Cough Pamella Cloud FNP 01/29/2020 R05 Cough Pamella Cloud FNP 12/11/2019 R06.02 Shortness of breath Zac Cloud, [employer] 12/11/2019 R07.89 Other chest pain Pamella Cloud FNP Plan of Treatment 04/21/2020 - Pamella Cloud FNP* R05 Cough* New Medication:* Levocetirizine Dihydrochloride 5 mg - 1 tab by mouth every evening * Fluticasone Propionate 50 mcg/Act - two sprays each side of nose daily * Tessalon Perles 100 mg - one by mouth three times a day as needed Functional Status Functional Condition Comment Date Status .None Active Independent with all ADL's Activ e Independent with all IADL's Acti ve Mental Status Mental Condition Comment Date Status None Active Referrals Description No Information Available
--- OUTSIDE RECORDS SUMMARY | 2020-05-05 23:04 | CCD ---
Author Author [facility] Organization [facility] Address Unknown Phone Unavailable Care Team Providers Care Platform Worker Name Role Phone Plepaty Pamella EDUCATIONAL DIAGNOSTICIAN Unavailable Unavailable Pleskach, Pamella EDUCATIONAL DIAGNOSTICIAN Unavailable Unavailable Pleskach, Pamella EDUCATIONAL DIAGNOSTICIAN Unavailable Unavailable Pleskach, Pamella EDUCATIONAL DIAGNOSTICIAN Unavailable Unavailable Pleskach, Pamella EDUCATIONAL DIAGNOSTICIAN Unavailable Unavailable Pleskach, Pamella EDUCATIONAL DIAGNOSTICIAN Unavailable Unavailable Pleskach, Pamella EDUCATIONAL DIAGNOSTICIAN Unavailable Unavailable Pleskach, Pamella EDUCATIONAL DIAGNOSTICIAN Unavailable Unavailable Pleskach, Pamella EDUCATIONAL DIAGNOSTICIAN Unavailable Unavailable Pleskach, Pamella EDUCATIONAL DIAGNOSTICIAN Unavailable Unavailable Pleskach, Pamella EDUCATIONAL DIAGNOSTICIAN Unavailable Unavailable Pleskach, Pamella EDUCATIONAL DIAGNOSTICIAN Unavailable Unavailable Pleskach, Pamella EDUCATIONAL DIAGNOSTICIAN Unavailable Unavailable Pleskach, Pamella EDUCATIONAL DIAGNOSTICIAN Unavailable Unavailable Pleskach, Pamella EDUCATIONAL DIAGNOSTICIAN Unavailable Unavailable Pleskach, Pamella EDUCATIONAL DIAGNOSTICIAN Unavailable Unavailable Pleskach, Pamella EDUCATIONAL DIAGNOSTICIAN Unavailable Unavailable Pleskach, Pamella EDUCATIONAL DIAGNOSTICIAN Unavailable Unavailable Pleskach, Pamella EDUCATIONAL DIAGNOSTICIAN Unavailable Unavailable Pleskach, Pamella EDUCATIONAL DIAGNOSTICIAN Unavailable Unavailable Pleskach, Pamella EDUCATIONAL DIAGNOSTICIAN Unavailable Unavailable Pleskach, Pamella EDUCATIONAL DIAGNOSTICIAN Unavailable Unavailable Pleskach, Pamella EDUCATIONAL DIAGNOSTICIAN Unavailable Unavailable Pleskach, Pamella EDUCATIONAL DIAGNOSTICIAN Unavailable Unavailable Pleskach, Pamella EDUCATIONAL DIAGNOSTICIAN Unavailable Unavailable Pleskach, Pamella EDUCATIONAL DIAGNOSTICIAN Unavailable Unavailable Pleskach, Pamella EDUCATIONAL DIAGNOSTICIAN Unavailable Unavailable Pleskach, Pamella EDUCATIONAL DIAGNOSTICIAN Unavailable Unavailable TURRIN, ALEJANDRA Unavailable Unavailable TURRIN, ALEJANDRA Unavailable Unavailable TURRIN, ALEJANDRA Unavailable Unavailable TURRIN, ALEJANDRA Unavailable Unavailable DilleManuel DDS Unavailable Unavailable DilleManuel Kendra DDS Unavailable Unavailable DilManuel gonzalez DDS Unavailable Unavailable Dille E Kendra DDS Unavailable Unavailable Abdifatah Javed MD Unavailable Unavailable Abdifatah Javed MD Unavailable Unavailable Abdifatah Javed MD Unavailable Unavailable Abdifatah Javed MD Unavailable Unavailable Abdifatah Javed MD Unavailable Unavailable Abdifatah Javed MD Unavailable Unavailable Abdifatah Javed MD Unavailable Unavailable Abdifatah Javed MD Unavailable Unavailable Abdifatah Javed MD Unavailable Unavailable Abdifatah Javed MD Unavailable Unavailable Abdifatah Javed MD Unavailable Unavailable Abdifatah Javed MD Unavailable Unavailable Abdifatah Javed MD Unavailable Unavailable Abdifatah Javed MD Unavailable Unavailable Abdifatah Javed MD Unavailable Unavailable Abdifatah Javed MD Unavailable Unavailable Abdifatah Javed MD Unavailable Unavailable Abdifatah Javed MD Unavailable Unavailable Abdifatah Javed MD Unavailable Unavailable Abdifatah Javed MD Unavailable Unavailable Abdifatah Javed MD Unavailable Unavailable Abdifatah Javed MD Unavailable Unavailable Abdifatah Javed MD Unavailable Unavailable Abdifatah Javed MD Unavailable Unavailable Abdifatah Javed MD Unavailable Unavailable Abdifatah Javed MD Unavailable Unavailable Abdifatah Javed MD Unavailable Unavailable Abdifatah Javed MD Unavailable Unavailable Abdifatah Javed MD Unavailable Unavailable Abdifatah Javed MD Unavailable Unavailable Abdfiatah Javed MD Unavailable Unavailable Abdifatah Javed MD Unavailable Unavailable Abdifatah Javed MD Unavailable Unavailable Abdifatah Javed MD Unavailable Unavailable Abdifatah Javed MD Unavailable Unavailable Abdifatah Javed MD Unavailable Unavailable Abdifatah Javed MD Unavailable Unavailable Abdifatah Javed MD Unavailable Unavailable Abdifatah Javed MD Unavailable Unavailable Abdifatah Javed MD Unavailable Unavailable Abdifatah Javed MD Unavailable Unavailable Abdifatah Javed MD Unavailable Unavailable Abdifatah Javed MD Unavailable Unavailable Abdifatah Javed MD Unavailable Unavailable Abdifatah Javed MD Unavailable Unavailable Abdifatah Javed MD Unavailable Unavailable Abdifatah Javed MD Unavailable Unavailable Abdifatah Javed MD Unavailable Unavailable Abdifatah Javed MD Unavailable Unavailable Abdifatah Javed MD Unavailable Unavailable Abdifatah Javed MD Unavailable Unavailable Abdifatah Javed MD Unavailable Unavailable Abdifatah Javed MD Unavailable Unavailable Abdifatah Javed MD Unavailable Unavailable Abdifatah Javed MD Unavailable Unavailable Abdifatah Javed MD Unavailable Unavailable Abdifatah Javed MD Unavailable Unavailable Abdifatah Javed MD Unavailable Unavailable Abdifatah Javed MD Unavailable Unavailable Abdifatah Javed MD Unavailable Unavailable Abdifatah Javed MD Unavailable Unavailable Abdifatah Javed MD Unavailable Unavailable Abdifatah Javed MD Unavailable Unavailable Abdifatah Javed MD Unavailable Unavailable Abdifatah Javed MD Unavailable Unavailable Abdifatah Javed MD Unavailable Unavailable Abdifatah Javed MD Unavailable Unavailable Abdifatah Javed MD Unavailable Unavailable Abdifatah Javed MD Unavailable Unavailable Abdifatah Javed MD Unavailable Unavailable Abdifatah Javed MD Unavailable Unavailable Abdifatah Javed MD Unavailable Unavailable Abdifatah Javed MD Unavailable Unavailable Abdifatah Javed MD Unavailable Unavailable Abdifatah Javed MD Unavailable Unavailable Abdifatah Javed MD Unavailable Unavailable Abdifatah Javed MD Unavailable Unavailable Abdifatah Javed MD Unavailable Unavailable Abdifatah Javed MD Unavailable Unavailable Abdifatah Javed MD Unavailable Unavailable Abdifatah Javed MD Unavailable Unavailable Abdifatah Javed MD Unavailable Unavailable Abdifatah Javed MD Unavailable Unavailable Abdifatah Javed MD Unavailable Unavailable Abdifatah Javed MD Unavailable Unavailable Abdifatah Javed MD Unavailable Unavailable Abdifatah Javed MD Unavailable Unavailable Abdifatah Javed MD Unavailable Unavailable Abdifatah Javed MD Unavailable Unavailable Agnieszka ABEBE MD Unavailable Unavailable Agnieszka ABEBE MD Unavailable Unavailable Agnieszka ABEBE MD Unavailable Unavailable Agnieszka ABEBE MD Unavailable Unavailable Agnieszka ABEBE MD Unavailable Unavailable Agnieszka ABEBE MD Unavailable Unavailable VENERUSAngieszka MD Unavailable Unavailable VENERUSAgnieszka MD Unavailable Unavailable VENERUS, Agnieszka JOEL MD Unavailable Unavailable BELEN, F COLIN DO Unavailable Unavailable BELEN, F COLIN DO Unavailable Unavailable BELEN, F COLIN DO Unavailable Unavailable BELEN, F COLIN DO Unavailable Unavailable BELEN, F COLIN DO Unavailable Unavailable BELEN, F COLIN DO Unavailable Unavailable BELEN, F COLIN DO Unavailable Unavailable BELEN, F COLIN DO Unavailable Unavailable BELEN, F COLIN DO Unavailable Unavailable BELEN, F COLIN DO Unavailable Unavailable BELEN, F COLIN DO Unavailable Unavailable BELEN, F COLIN DO Unavailable Unavailable BELEN, F COLIN DO Unavailable Unavailable BELEN, F COLIN DO Unavailable Unavailable BELEN, F COLIN DO Unavailable Unavailable BELEN, F COLIN DO Unavailable Unavailable BELEN, F COLIN DO Unavailable Unavailable BELEN, F COLIN DO Unavailable Unavailable BELEN, F COLIN DO Unavailable Unavailable BELEN, F COLIN DO Unavailable Unavailable BELEN, F COLIN DO Unavailable Unavailable BELEN, F COLIN DO Unavailable Unavailable BELEN, F COLIN DO Unavailable Unavailable BELEN, F COLIN DO Unavailable Unavailable BELEN, F COLIN DO Unavailable Unavailable BELEN, F COLIN DO Unavailable Unavailable BELEN, F COLIN DO Unavailable Unavailable BELEN, F COLIN DO Unavailable Unavailable BELEN, F COLIN DO Unavailable Unavailable BELEN, F COLIN DO Unavailable Unavailable BELEN, F COLIN DO Unavailable Unavailable BELEN, F COLIN DO Unavailable Unavailable NIR, M KIM PA Unavailable Unavailable NIR, M KIM PA Unavailable Unavailable NIR, M KIM PA Unavailable Unavailable NIR, M KIM PA Unavailable Unavailable NIR, M KIM PA Unavailable Unavailable NIR, M KIM PA Unavailable Unavailable NIR, M KIM PA Unavailable Unavailable NIR, M KIM PA Unavailable Unavailable NIR, M KIM PA Unavailable Unavailable NIR, M KIM PA Unavailable Unavailable NIR, M KIM PA Unavailable Unavailable NIR, M KIM PA Unavailable Unavailable NIR, M KIM PA Unavailable Unavailable NIR, M KIM PA Unavailable Unavailable NIR, M KIM PA Unavailable Unavailable NIR, M KIM PA Unavailable Unavailable NIR, M KIM PA Unavailable Unavailable NIR, M KIM PA Unavailable Unavailable NIR, M KIM PA Unavailable Unavailable NIR, M KIM PA Unavailable Unavailable NIR, M KMI PA Unavailable Unavailable Lorenza LOYOLA Unavailable Unavailable Lorenza LOYOLABEBO GIANG Unavailable Unavailable NIR Lorenza KIM GIANG Unavailable Unavailable Re-disclosure Warning The records that you are about to access may contain information from federally-assisted alcohol or drug abuse programs. If such information is present, then the following federally mandated warning applies: This information has been disclosed to you from records protected by federal confidentiality rules (42 CFR part 2). The federal rules prohibit you from making any further disclosure of this information unless further disclosure is expressly permitted by the written consent of the person to whom it pertains or as otherwise permitted by 42 CFR part 2. A general authorization for the release of medical or other information is NOT sufficient for this purpose. The Federal rules restrict any use of the information to criminally investigate or prosecute any alcohol or drug abuse patient.The records that you are about to access may contain highly sensitive health information, the redisclosure of which is protected by Article 27-F of the [facility] Public Health law. If you continue you may have access to information: Regarding HIV / AIDS; Provided by facilities licensed or operated by the [facility] Office of Mental Health; or Provided by the [facility] Office for People With Developmental Disabilities. If such information is present, then the following [facility] mandated warning applies: This information has been disclosed to you from confidential records which are protected by state law. State law prohibits you from making any further disclosure of this information without the specific written consent of the person to whom it pertains, or as otherwise permitted by law. Any unauthorized further disclosure in violation of state law may result in a fine or penitentiary sentence or both. A general authorization for the release of medical or other information is NOT sufficient authorization for further disc losure. Family History Family Member Name Family Member Gender Family Member Status Date o f Status Description Data Source(s) Unknown Unknown Problem [facility] ([facility]) Unknown Unknown Problem [facility] ([facility]) mother Encounters Encounter Providers Location Date Indications Data Source(s ) Outpatient Attender: Pamella Cloud [facility] Main Office 04/21/2020 1 2:15:00 PM EST [facility] ([facility] Outpatient Attender: KIM GIANG Physical Therapy 02/10 05:45:00 PM EST [facility] ([facility]) Outpatient Attender: Pamella Cloud [facility] Main Office 01/29/2020 0 8:45:00 AM EDT [facility] ([facility] Outpatient Attender: Pamella Cloud [facility] Main Office 12/11/2019 1 1:45:00 AM EDT [facility] ([facility] Outpatient 11/03/2019 05:20:00 AM EDT [facility] Emergency Attender: COLIN YEAGER DOConsultant: Tevin Javed MD 11/03/2019 03:42:00 AM EDT - 11/03/2019 08:23:00 AM EDT [facility] Patient discharged. Outpatient Attender: Pamella Cloud [facility] Main Office 06/27/2019 1 0:30:00 AM EDT [facility] ([facility] Outpatient Attender: Pamella Cloud [facility] Main Office 06/10/2019 0 9:00:00 AM EST [facility] ([facility] Outpatient Attender: Kendra RENEE 06/04/2019 07:13:00 A [facility] Outpatient Attender: Kendra RENEE 05/21/2019 03:18:01 P [facility] Outpatient Attender: Kendra RENEE 05/21/2019 03:17:01 P [facility] Outpatient Attender: Kendra ANDERSON 05/21/2019 02:11:02 P [facility] Outpatient Attender: Kendra ANDERSON 05/21/2019 01:17:00 P [facility] Outpatient Attender: Kendra RENEE 05/21/2019 01:15:01 P [facility] Outpatient Attender: Kendra ANDERSON 05/21/2019 10:18:01 A [facility] Outpatient Attender: Kendra RENEE 05/21/2019 10:17:01 A M [facility] [address] [place] [address] 05/09/2019 12:00:00 AM EST eCW1 ([facility]) Emergency Attender: ALEJANDRA HERNANDEZConsultant: Tevin Javed MD 04/25/2019 03:24:00 PM EST - 04/25/2019 05:15:00 PM [facility] Patient discharged. Emergency Attender: LEON ABEBE MDConsultant: Tevin castro MD 04/23/2019 06:02:00 PM EST - 04/23/2019 09:12:00 PM [facility] Patient discharged. Outpatient Attender: Kendra Dinero DDS [facility] 04/09/2019 10:07:01 A [facility] 03:57:59 P [facility] Outpatient Attender: Kendra Dniero DDS [facility] 03/22/2019 03:57:02 P [facility] Medications Medication Brand Name Start Date Product Form Dose Route Admi nistrative Instructions Pharmacy Instructions Status Indications Reaction Description Data Source(s) levocetirizine dihydrochloride 5 MG Oral Tablet Levocetirizi ne Dihydrochloride 04/21/2020 12:00:00 AM EST ORAL active [facility] ([facility] Fluticasone Propionate Fluticasone Propionate 04/21/2020 12:00:[address] active [facility] ([facility] benzonatate 100 MG Oral Capsule [Tessalon Perles] Tessalon P erles 04/21/2020 12:00:00 AM EST ORAL active M [facility] ([facility] 100,000 unit/gram 04/08/2020 12:00:00 AM EST cream 30 APPLY 1 APPLICATION TOPICALLY THREE TIMES A DAY FOR 7-14 DAYS APPLY 1 APPLICATION TOPICALLY THREE TIMES A DAY FOR 7-14 DAYS SOLD: 04/08/2020 [facility] Amoxicillin 875 MG / Clavulanate 125 MG Oral Tablet Am oxicillin/Clavulanate Potassium 06/27/2019 12:00:00 AM EDT ORAL completed [facility] ([facility] 250 mg 04/24/2019 12:00:00 AM EST tablet 6 TAKE TWO TABLETS BY MOUTH AT ONCE ON THE FIRST DAY THEN TAKE ONE DAILY THEREAFTER TAKE TWO TABLETS BY MOUTH AT ONCE ON THE FIRST DAY THEN TAKE ONE DAILY THEREAFTER SOLD: 04/24/2019 [facility] 2.5 mg /3 mL (0.083 %) 04/23/2019 12:00:00 AM EST solu tion for nebulization 150 INHALE CONTENTS OF 1 VIAL A NEBULIZER EVERY 4 HOURS NEEDED FOR COUGH FOR SHORTNESS OF BREATH WHEEZING INHALE CONTENTS OF 1 VIAL VIA NEBULIZER EVERY 4 HOURS NEEDED FOR COUGH FOR SHORTNESS OF BREATH WHEEZING SOLD: 04/24/2019 [facility] 875 mg 04/22/2019 12:00:00 AM EST tablet 20 TAKE ONE TABLET BY MOUTH EVERY 12 HOURS FOR 10 DAYS TAKE ONE TABLET BY MOUTH EVERY 12 HOURS FOR 10 DAYS SO LD: 04/22/2019 [facility] Insurance Providers Payer name Policy type / Coverage type Policy ID Covered green party ID Covered green party's relationship to benjamin Policy Benjamin Plan Information [facility] COMM[facility] [id number] SP [id number] [facility] COMMUNITY PLAN [facility] [id number] SP [id number] [facility] COMMUNITY PLAN [id number] 18 [id number] SELF PAY ONLY [id number] SP [id number] [employer] Essential Plan P [id number] S [id number] United Healthcare Essential Plan P [id number] S [id number] United Healthcare Essential Plan P UNAVAILABLE S UNAVAILABLE Managed Care - [facility] Community Plan P [id number] S [id number] Medicaid S UNAVAILABLE S UNAVAILA BLE MEDICAID [id number] SP [id number] [facility] COMMUNITY PL[facility] [id number] SP [id number] [facility] [id number] SP [id number] [facility] COMMUNITY PLAN [facility] [id number] SP [id number] UNITED HE[employer]CARE(MCAID) O [id number] S [id number] UNITED HE[employer]CARE [id number] SP [id number] UNITED HEALTHCARE [id number] SP [id number] SELF PAY ONLY UNAVAILABLE UNAV AILABLE TOTAL CARE INC O [id number] S [id number] MEDICAID M [id number] S [id number] SELF PAY UNAVAILABLE SP UNAVAILA BLE TOTAL CARE-MEDICAID MANAGED CR [id number] SELF [id number] MEDICAID [id number] SELF [id number] [place] [id number] SP [id number] BLUE CROSS [place] PLAN [id number] SP [id number] EXCELL[employer] BCBS P [id number] S [id number] NICE AND EASY [id number] SP [id number] Problems, Conditions, and Diagnoses Code Display Name Description Problem Type Effective Dates Data Source(s) J205 Acute bronchitis due to respiratory sync ytial virus Acute bronchitis due to respiratory syncytial virus Diagnosis 11/03/2019 03:42:[address] [facility] R509 Fever, unspecified Fever, unspecified Diagnosis 0 03:42:00 AM EDT [facility] J159 Unspecified bacterial pneumonia Unspecified bacterial pneumonia Diagnosis 04/25/2019 03:24:00 PM EST [facility] R05 Cough Cough Diagnosis 04/25/2019 03:24:[address] [facility] J180 Bronchopneumonia, unspecified organism B ronchopneumonia, unspecified organism Diagnosis 04/23/2019 06:02:00 PM EST [facility] Surgeries/Procedures Procedure Description Date Indications Data Source(s) RADEX TOE MINIMUM 2 VIEWS 03/09/2020 12:00:00 AM EST [facility] ([facility]) URINE TEST 05/09/2019 12:00:00 AM EST eCW1 ([facility]) Results ID Date Data Source [id number] 04/08/2020 12:00:00 AM EST [facility] Name Value Range Interpretation Code Description Data Svetlana rce(s) Supporting Document(s) Carestart Rapid COVID Antigen Test [facility] This lab was reported by [facility] silas. ID Date Data Source [id number] 04/08/2020 12:00:00 AM EST [facility] Name Value Range Interpretation Code Description Data Svetlana rce(s) Supporting Document(s) SARS coronavirus 2 RNA [Presence] in Res piratory specimen by ANATOLY with probe detection [facility] This lab was ordered by Pierce [facility] and reported by [address]. ID Date Data Source [id number] 11/03/2019 03:42:00 AM EDT [facility] 1 OrderSheet [facility] Emergency Department [address] [place] [address] Phone #: ext- [phone] 11/03/2019 03:41 Patient: CLARE LORENZO Sex: F : 1985 Age: 34yWEIGHT:112.2 kg (M) HEIGHT:64 inches (S) BMI:42.5ALLERGIES: No Known Drug AllergyCHIEF COMPLAINT: fever, cough, chills, muscle achesDIAGNOSIS: BronchitisLAB ORDERSOrder Description Priority Entered Acknowledged InitialedCBC w Diff STAT 04:11/03/2019 04:45 Flip Evans RN Physician;CMP STAT 04:11/03/2019 04:45 Flip Evans RN Physician;Beta-HCG, Qual STAT 04:11/03/2019 04:45 Wilbur Evans RN Physician;D-Dimer STAT 04:11/03/2019 04:45 Flip Evans RN Physician;Troponin-T STAT 04:11/03/2019 04:45 Flip Evans RN Physician;Urinalysis (Clean STAT 04:11/03/2019 Ack'd: 04:45 06:30 Nayeyl) Colin Evans RN Physician;Influenza Nasal A B STAT 04:11/03/2019 04:45 Flip Evans RN Physician;CORONAVIRUS STAT 04:11/03/2019 04:45 FavioenCOVID-19 Colin Evans RN Physician;Ferritin STAT 04:11/03/2019 04:45 Flip Evans RN Physician;Lactic Acid STAT 04:11/03/2019 06:31 Flip Evans RN Physician;Bl ood Culture STAT 04:25 11/03/2019 06:31 Flip 2 OrderSheet [facility] Emergency Department [address] [place] [address] Phone #: ext- [phone] 11/03/2019 03:41 Patient: CLARE LORENZO Sex: F : 1985 Age: [age]g X2 (Sched Colin Evans RN04:25 11/03/2019) Physician;Blood Culture STAT 04:11/03/2019 06:31 [id number] X2 (Sched Colin Evans RN04:35 11/03/2019) Physician;DIAGNOSTIC STUDY ORDERSOrder Description Priority Entered Acknowledged InitialedChest Portable 1 STAT 04:23 11/03/2019 Ack'd: 04:45 06:52 Jane Evans RN(Oxygen?(No)) Physician; Reason for Study: CoughMEDICATION/IV/DRIP/FLUID ORDERSOrder Description Priority Entered Acknowledged InitialedGENERAL ORDERSOrder Description Priority Entered Acknowledged InitialedEKG 04:23 11/03/2019 04:45 Flip Evans RN Physician;[Electronically signed by Colin Yeager Physician (06:59 11/03/2019)][Electronically signed by Flip Evans RN (07:13 11/03/2019)][Electronically locked by Flip Evans RN (07:13 11/03/2019)] Name Value Range Interpretation Code Description Data Svetlana rce(s) Supporting Document(s) ID Date Data Source [id number] 11/03/2019 03:42:00 AM EDT [facility] 1 Medication Reconciliation Report [facility] Emergency Department [address] [place] [address] Phone #: ext- [phone] 11/03/2019 03:41 [id number] Sex: F : 1985 Age: 34yWeight: 112.2 kgHeight/Length: 64 in.BMI: 42.5ALLERGIES: No Known Drug AllergyThe patient's Home Medications are listed below:NONE.The source(s) of the original Home Medication information:Not obtained.The following Medications were given to the patient in the Emergency Department:None.The follo wing Medications were prescribed to the patient:None. Name Value Range Interpretation Code Description Data Svetlana [facility](s) Supporting Document(s) ID Date Data Source [id number] 11/03/2019 03:42:00 AM EDT [place] [address] Medication Administration Record [facility] Emergency Department [address] [place] [address] Phone #: ext- [phone] 11/03/2019 03:41 Patient: CLARE LORENZO Sex: F : 1985 Age: 34yWeight: 112.2 kgHeight/Length: 64 inBMI: 42.5ALLERGIES: No Known Drug AllergyDate/Time Medication Administered Medication Ordered Name Value Range Interpretation Code Description Data Svetlana rce(s) Supporting Document(s) ID Date Data Source [id number] 11/03/2019 03:42:00 AM EDT [place] [address] General Instructions [facility] Emergency Department [address] [place] [address] Phone #: wdi- [phone] 11/03/2019 03:41 Patient: CLARE LORENZO Sex: F : 1985 Age: 34yAcute viral (RSV) bronchitis.INSTRUCTIONSNo strenuous activity.Drink plenty of fluids.(Tylenol or Ibuprofen.).Your Current Medications: .No home medication.Follow-up:Follow up with your healthcare provider in two days. Summary of care provided to patient via paper. ADDITIONAL INFORMATIONViral Bronchitis (Adult) 2 General Instructions [facility] Emergency Department [address] [place] [address] Phone #: ext- [phone] 11/03/2019 03:41 Patient: CLARE LORENZO Sex: F : 1985 Age: 34yYou have a viral bronchitis. Bronchitis is inflammation and swelling of the lining of the lungs. This isoften caused by an infection. Symptoms include a dry, hacking cough that is worse at night. Thecough may bring up yellow-green mucus. You may also feel short of breath or wheeze. Othersymptoms may include tiredness, chest discomfort, and chills.Bronchitis that is caused by a virus is not treated with antibiotics. Instead, medicines may be given tohelp relieve symptoms. Symptoms can last up to 2 weeks, although the cough may last much longer.This illness is contagious during the first few days and is spread thr ough the air by coughing andsneezing, or by direct contact (touching the sick person and then touching your own eyes, nose, ormouth).Most viral illnesses resolve within 10 to 14 days with rest and simple home remedies, although theymay sometimes last for several weeks.Home care If symptoms are severe, rest at home for the first 2 to 3 days. When you go back to your usual 3 General Instructions [facility] Emergency Department [address] [place] [address] Phone #: icd- [phone] 11/03/2019 03:41 Patient: CLARE LORENZO Sex: F : 1985 Age: 34y activities, don't let yourself get too tired. Do not smoke. Also avoid being exposed to secondhand smoke. You may use wvtq-efq-zjisfna medicine to control fever or pain, unless another pain medicine was prescribed. If you have chronic liver or kidney disease or have ever had a stomach ulcer or gastrointestinal bleeding, talk with your healthcare provider before using these medicines. Also talk to your provider if you are taking medicine to prevent blood clots. Aspirin should never be given to anyone younger than 18 years of age who is ill with a viral infection or fever. It may cause severe liver or brain damage. Your appetite may be poor, so a light diet is fine. Avoid dehydration by drinking 6 to 8 glasses of fluids per day (such as water, soft drinks, sports drinks, juices, tea, or soup). Extra fluids will help loosen secretions in the nose and lungs. Jngc-nvz-qpsbtaa cough, cold, and sore-throat medicines will not shorten the length of the illness, but they may help to reduce symptoms. Don't use decongestants if you have high blood pressure.Follow-up careFollow up with your healthcare provider, or as advised. If you had an X-ray or ECG(electrocardiogram), a specialist will review it. You will be notified of any new findings that may affectyour care.If you are age 65 or older, or if you have a chronic lung disease or condition that affects your immunesystem, or you smoke, ask your healthcare provider about getting a pneumococcal vaccine and ayearly flu shot (influenza vaccine).When to seek medical adviceCall your healthcare provider right away if any of these occur: Fever of 100.4F (38C) or higher, or as directed by your healthcare provider Coughing up increased amounts of colored sputum Weakness, drowsiness, headache, facial pain, ear pain, or a stiff neckCall 911Call 911 if any of these occur: Coughing up blood Worsening weakness, drowsiness, headache, or stiff neck 4 General Instructions [facility] Emergency Department [address] [place] [address] Phone #: ext- [phone] 11/03/2019 03:41 Patient: CLARE LORENZO Sex: F : 1985 Age: 34y Trouble breathing, wheezing, or pain with breathing [phone] [employer] [place] [address]. All rights reserved. This information is not intended as asubstitute for professional medical care. Always follow your healthcare professional's instructions. You have been given the following additional information: Bronchitis, No Antibiotic (Adult) No strenuous activity.(Electronically signed by Colin Yeager, Physician 11/03/2019 06:59) Name Value Range Interpretation Code Description Data Svetlana rce(s) Supporting Document(s) ID Date Data Source [id number] 11/03/2019 03:42:00 AM EDT [facility] 1 Clinical Report - Nurses [facility] Emergency Department [address] [place] [address] Phone #: ils- [phone] 11/03/2019 03:41 Patient: CLARE LORENZO Sex: F : 1985 Age: 34yTRIAGEArrived by EMS. Historian: patient.Triage time: 03:45 11/03/2019. Acuity: LEVEL 4.Chief Complaint: FEVER, CHILLS and "NOT FEELING WELL".Onset was gradual. Symptoms are constant and still present (3 days ago). She has had a coughproductive of clear sputum.SEPSIS SCREEN: Sepsis Screen negative. No suspected or confirmed signs of infection present. --03:5011/03/19 Flip Evans RN03:45 11/03/19. BP: 126/77 (regular adult cuff) taken on the right arm, via an automated monitor, whilelying. MAP: 93. HR: 95 (regular, normal rate and strong). RR: 16 (regular, unlabored and normal). L4orijhtctzz: 100% on room air. Temp: 97.6 F (oral). Pain level now: 0/10. --03:50 11/03/19 Flip Evans RNTreatment VETERINARY PRACTITIONER:None. --03:50 11/03/19 Flip Evans RN( chest tightness). --03:51 11/03/19 Flip Evans RN.Weight: 112.2 kg measured. Height/Length: 64 inches Per Patient. BMI: 42.5. --03:45 11/03/19 DOMINIQUE Ray.MedicationsNone. --03:47 11/03/19 Flip Evans RN.AllergiesNo Known Drug Allergy. --03:47 11/03/19 Flip Evans RN.HistoryPAST MEDICAL HX: Negative. Immunizations: up-to-date. Last normal menstrual period was 1 weekago.SURGERY HX: No history of previous surgery.SOCIAL HX: Never smoker. No alcohol use or drug use. No recent travel. No known contact with a sickindividual. She was offered HIV testing but declined and hepatitis C testing but declined. She has nottraveled outside the [place]Infectious disease exposure: No infectious disease exposure. 2 Clinical Report - Nurses [facility] Emergency Department [address] [place] [address] Phone #: ext- [phone] 11/03/2019 03:41 Patient: CLARE LORENZO [facility]#: [id number] Sex: F : 1985 Age: 34y SELF HARM ASSESSMENT: Self harm assessment was performed. The patient answered "no" to the question(s) "Have you recently felt down, depressed, or hopeless?", "Do you have thoughts of harming or killing yourself?", "Do you have a plan for harming or killing yourself?", "Have you recently had thoughts about harming or killing others?", "Do you have any dangerous items in your possession?", "Have you noticed less interest or pleasure in doing things?", "Are you here because you tried to hurt yourself?" and "Have you ever tried to hurt yourself before today?". ABUSE ASSESSMENT: No report of abuse. FALL RISK ASSESSMENT: Fall risk assessment completed. No risk factors identified. --03:50 11/03/19 Flip Evans RN. FAMILY HX: Negative. --04:24 11/03/19 Colin Yeager Physician. Assessment The patient states feels the same. --03:50 11/03/19 Flip Evans RN.PHYSICAL ASSESSMENTTo room via stretcher.GENERAL / NEURO / PSYCH: Alert. Oriented X 4. Appears in no acute distress.HEENT: Pupils equal, round and reactive to light. Mucous membranes are pink.RESPIRATORY: Respirations not labored. Chest nontender. Breath sounds within normal limits.CVS: Capillary refill less than 2 seconds. Pulses within normal limits.GI / : Abdomen nontender and normal bowel sounds.SKIN: Skin intact. Skin is warm and dry. Normal skin turgor. --03:51 11/03/19 Flip Evans RN.NURSING PROGRESS NOTESCardiac rhythm. Patient gowned. Reassurance given to the patient. Call light placed in reach of patient.Bed placed in lowest position. Brakes of bed on. Patient ready for evaluation- ED physician notified.--03:51 11/03/19 Flip Evans RN.DISPOSITION / DISCHARGE Andrew Coma Scale: 15- eyes open- spontaneous (4); best verbal response- oriented (5); best motor response- obeys commands (6). Departure time: 07:13 11/03/2019. Condition at departure: improved. No learning barriers present. Discharge instructions provided and reviewed with the patient. Reviewed fever care instructions. Reviewed referral to family practice for followup. Reviewed need for increased fluid intake. Patient verbalized understanding. Written instructions provided in Jordanian. The patient was discharged home and accompanied by spouse. She left ambulatory and via private vehicle. Spouse driving. --07:13 11/03/19 Flip Evans RN 07:11 11/03/19. BP: 114/68 (regular adult cuff) taken on the right arm, via an automated monitor, while lying. MAP: 83. HR: 82 (regular, normal rate and strong). RR: 16 (regular, unlabored and normal). O2 saturation: 97% on room air. Temp: 97.8 F (oral). Pain level now: 0/10. --07:13 11/03/19 Flip Evans RN. 3 Clinical Report - Nurses [facility] Emergency Department [address] [place] [address] Phone #: ext- [phone] 11/03/2019 03:41 Patient: CLARE LORENZO [facility]#: [id number] Sex: F : 1985 Age: 34yLocked/Released at 11/03/2019 07:13 by Flip Evans RN Name Value Range Interpretation Code Description Data Svetlana rce(s) Supporting Document(s) ID Date Data Source [id number] 11/03/2019 03:42:00 AM EDT [facility] 1 Clinical Report - Physicians/Mid Levels [facility] Emergency Department [address] [place] [address] Phone #: ext- [phone] 11/03/2019 03:41 Patient: CLARE LORENZO Sex: F : 1985 Age: 34y Time Seen: 04:06 11/03/2019. Arrived- By ambulance. Historian- patient. Disposition decision: 06:57 11/03/2019.HISTORY OF PRESENT ILLNESS Chief Complaint: COUGH, FEVER, CHILLS and MUSCLE ACHES. This started 4 days ago and is still present and worsening. The illness is described as moderate. The patient has had a cough, chest discomfort, difficulty breathing, nasal congestion and fever. She has had chills. No sputum production, chest pain, muscle aches, sore throat or hoarseness. No nasal discharge, sinus pressure, sinus drainage or ear pain. Additional history - No known contact with a sick individual. No recent travel. Similar symptoms previously. Patient has had similar symptoms occasionally. Recent medical care: Not recently seen/assessed.PAST HISTORYSee nurses notes. Problems: Pneumonia. Additional Surgeries: no known surgeries. Med ications: None. Allergies: No Known Drug Allergy.SOCIAL HISTORYNever smoker. Not exposed to second-hand smoke at home. No alcohol use or drug use. No recenttravel. She lives with spouse and a family member.FAMILY HISTORYNegative.ADDITIONAL NOTESThe nursing notes have been reviewed with agreement regarding the chief complaint, HPI, ROS, PMH andpatient medications and allergies. 2 Clinical Report - Physicians/Mid Levels [facility] Emergency Department [address] [place] [address] Phone #: ext- [phone] 11/03/2019 03:41 Patient: CLARE LORENZO Sex: F : 1985 Age: 34yPHYSICAL EXAMVital Signs: 11/03/2019 03:45 BP: lying 126/77. MAP: 93. HR: 95. RR: 16. O2 saturation: 100% on roomair. Temp: 97.6 F. Pain level now: 0/10. Have been reviewed as normal. Blood pressure normal. Heartrate normal. Respiratory rate normal. Temperature normal. Oxygen saturation normal.Appearance: Alert. No acute distress.Eyes: Pupils equal, round and reactive to light. Eyes normal inspection.ENT: Ears normal. Nose normal. Pharynx normal. Uvula midline.Neck: Normal inspection. Neck supple.CVS: Normal heart rate and rhythm. Heart sounds normal. Pulses normal.Respiratory: No respiratory distress. Painless inspiration. Breath sounds normal.Abdomen: Soft and nontender. No organomegaly. Obese.Back: Normal inspection.Skin: Skin warm and dry. Normal skin color. No rash. Normal skin turgor.Extremities: Extremities exhibit normal ROM. No lower extremity edema.Neuro: Oriented X 3. No motor deficit. No sensory deficit.LABS, X-RAYS, AND EKGEKG: Normal EKG(good tracing): independently viewed and interpreted contemporaneously by me.Normal sinus rhythm. Normal LA interval. Normal QRS complexes. Normal STs and T waves. No ectopy.Chest X-ray: Normal Chest X-Ray (AP and portable): independently viewed and interpretedcontemporaneously by me. Normal heart size. Normal mediastinum. Normal soft tissues. No infiltratespresent. No pneumothorax present.Laboratory Tests: Laboratory tests have been ordered, with results reviewed and considered in themedical decision making process. Lactic Acid: (IVELISSE: 11/03/2019 05:20) ( [facility] 11/03/2019 05:38) Final results Test Result Flag Units (Reference) LACTIC ACID 1.9 MMOL/L (0.2 - 2.2) CBC w Diff: (IVELISSE: 11/03/2019 04:45) ( [facility] 11/03/[facility] 04:55) Final results Test Result Flag Units (Reference) CBC W/AUTOMATED DIFF COMPLETE BLOOD COUNT WBC 9.0 10/uL (4.2 - 11.0) RBC 4.83 10/uL (4.20 - 5.40) HEMOGLOBIN 14.3 g/dL (12.0 - 16.0) HEMATOCRIT 44.0 % (37.0 - 47.0) MCV 91.1 fL (81.0 - 101) MCH 29.6 pg (27.0 - 34.0) MCHC 32.5 g/dL (31.0 - 36.0) RDW 12.5 % (11.5 - 14.5) PLATELETS 244 10/uL (150 - 450) MPV 11.8 H fL (7.4 - 10.4) NEUT 65.2 % (37.0 - 80.0) LYMPH 28.2 % (25.0 - 40.0) MONO 5.1 % (3.0 - 8.0) EOS 1.0 % (0.0 - 7.0) BASO 0.3 % (0.0 - 2.5) %IG 0.2 H % (0.0 - 0.0) 3 Clinical Report - Physicians/Mid Levels [facility] Emergency Department [address] [place] [address] Phone #: ext- [phone] 11/03/2019 03:41 Patient: CLARE LORENZO Sex: F : 1985 Age: 34y %NRBC 0.0 % (0.0 - 0.0) #NEUT 5.89 10/uL (2.00 - 6.90) #LYMPH 2.55 10/uL (0.60 - 3.40) #MONO 0.46 10/uL (0.00 - 0.90) #EOS 0.09 10/uL (0.00 - 0.70) #BASO 0.03 10/uL (0.00 - 0.20) #IG 0.02 10/uL (0.00 - 0.10) #NRBC 0.00 10/uL (0.00 - 0.00) MANUAL DIFF NOT INDICATED RBC MORPH NOT INDICATEDCMP: (IVELISSE: 11/03/2019 04:45) ( MsgRcvd 11/03/2019 05:45) Final results Test Result Flag Units (Reference) COMPREHENSIVE METABOLIC PANEL COMPREHENSIVE METABOLIC PANEL SODIUM 140 mEq/L (134 - 153) POTASSIUM 3.7 mEq/L (3.6 - 5.0) CHLORIDE 104 mEq/L (98 - 107) CO2 24 MEQ/L (22 - 30) GLUCOSE 102 MG/DL (65 - 110) BUN 7 MG/DL (7 - 21) CREATININE 0.6 L MG/DL (0.7 - 1.5) BUN/CREAT 12 (8 - 27) TOTAL PROTEIN 7.9 G/DL (6.3 - 8.2) ALBUMIN 5.0 G/DL (3.9 - 5.0) GLOBULIN 2.9 GM/DL (2.4 - 3.2) A/G RATIO 1.7 (0.8 - 2.0) CALCIUM 9.7 MG/DL (8.4 - 10.2) TOTAL BILI <0.7 MG/DL (0.2 - 1.3) ALKALINE PHOS 123 U/L (38 - 126) SGOT/AST 25 U/L (5 - 40) SGPT/ALT 25 U/L (7 - 56) ANION GAP 12.0 mmol/L (8.0 - 16.0) AGE 34 yrs NON-AA GFR >60 mL/min AFR AMER GFR >60 mL/min Male GFR Interprentation 20-49 yrs >60 mL/min Edaqcj57-05 yrs >56 mL/min Normal 60-69 yrs >49 mL/min Normal 70-79yrs>42 mL/min Normal 80 and above >35 mL/min Normal Female GFRInterpretation 20-39 yrs >60 mL/min Normal 40-49 yrs >58 mL/minNormal 50-59 yrs >51 mL/min Normal 60-69 yrs >45 mL/min Fbpohe22-34 yrs >39 mL/min Normal 80 and above >32 mL/min NormalBeta-HCG, Qual Urine: (IVELISSE: 11/03/2019 06:15) ( MsgRcvd 11/03/2019 06:39) Final results Test Result Flag Units (Reference) HCG URINE QUAL NEGATIVE (NORMAL: NEGAT HCG URINE QL REENTER NEGATIVE (NORMAL: NEGAT { KIT LOT # [id number] ){ KIT EXP DATE01.20.21 ){ PROCEDURAL CONTROL VALID)D-Dimer: (IVELISSE: 11/03/2019 05:20) ( [facility] 11/03/2019 05:46) Final results Test Result Flag Units (Reference) D-DIMER QUANT 0.44 ug/mL (0.27 - 0.50)Troponin-T: (IVELISSE: 11/03/2019 04:45) ( [facility] 11/03/2019 05:45) Final results 4 Clinical Report - Physicians/Mid Levels [facility] Emergency Department [address] [place] [address] Phone #: ext- [phone] 11/03/2019 03:41 Patient: CLARE LORENZO Sex: F : 1985 Age: 34y Test Result Flag Units (Reference) TROPONIN T <0.01 NG/ML (0.00 - 0.10) TROPONIN T0.1 ng/ml Recommended as the clinical threshold value forTroponin T. Urinalysis: (IVELISSE: 11/03/2019 06:15) ( [facility] 11/03/2019 06:37) Final results Test Result Flag Units (Reference) URINALYSIS URINALYSIS SOURCE R COLOR yellow (NORMAL: Yello CLARITY clear (NORMAL: Clear SPEC GRAVITY 1.015 (1.001 - 1.030 pH 6 (5 - 9) GLUCOSE NORM (NORMAL: Negat BILIRUBIN NEG (NORMAL: Negat KETONE NEG (NORMAL: Negat PROTEIN NEG (NORMAL: Negat NITRITE NEG (NORMAL: Negat BLOOD NEG (NORMAL: Negat LEUK EST NEG (NORMAL: Negat UROBILINOGEN NOR (less than 1.0 MICROSCOPIC Not Indicate Influenza Nasal A B: (IVELISSE: 11/03/2019 04:45) ( [facility] 11/03/2019 05:36) Final results Test Result Flag Units (Reference) INFLUENZA A NEGATIVE (NORMAL: NEGAT INFLUENZA B NEGATIVE (NORMAL: NEGAT INFLUENZA A REENTER NEGATIVE (NORMAL: NEGAT INFLUENZA B REENTER NEGATIVE (NORMAL: NEGAT PROCEDURAL CONTROL VALID KIT LOT # _[id number] 11/03/19.36.SID. KIT EXP DATE _02-74-23 11/03/1936.SID.The Influenza A utilizing an isothermal nucleic acid amplification technology for thequalitative detection of influenza A and B viral RNA.Negative results do not preclude influenza virus infection and should not beused as the sole basis for diagnosis, treatment or other patient managementdecisions. Ferritin: (IVELISSE: 11/03/2019 04:45) ( MsgRcvd 11/03/2019 05:55) Final results Test Result Flag Units (Reference) FERRITIN 34.0 ng/mL (3.0 - 105).PROGRESS AND PROCEDURESCourse of Care: 04:Nov 03 2019. (Patient's history obtained and exam completed. Treatment plandiscussed and agreed upon. Labs , Chest x-ray and Flu and Covid swabs obtained. EKG ordered.). 06:56 Nov 03 2019. (Follow up with PMD or return if worsen. Increase fluids , use Tylenol or Ibuprofen.). Disposition: Condition: stable.CLINICAL IMPRESSION 5 Clinical Report - Physicians/Mid Levels [facility] Emergency Department [address] [place] [address] Phone #: ext- [phone] 11/03/2019 03:41 Patient: CLARE LORENZO Sex: F : 1985 Age: 34y Acute viral (RSV) bronchitis.INSTRUCTIONS No strenuous activity. Drink plenty of fluids. (Tylenol or Ibuprofen.). Your Current Medications: . No home medication. Follow-up: Follow up with your healthcare provider in two days. Summary of care provided to patient via paper.(Electronically signed by Colin Yeager, Physician 11/03/2019 06:59) Name Value Range Interpretation Code Description Data [facility] rce(s) Supporting Document(s) ID Date Data Source [id number] 11/03/2019 03:42:00 AM EDT [facility] Addenda for CLARE LORENZO VisitID: [id number] Date: 10:24Lab results reviewed, SARS-CoV-2 Coronavirus NOT DETECTED. Communicated information [facility].(Electronically signed by Maria Schilling RN - 11/06/2019 10:24) Name Value Range Interpretation Code Description Data [facility] rce(s) Supporting Document(s) ID Date Data Source [id number] 11/04/2019 12:12:00 [place] [address] PHONE: [phone] FAX: [phone] Name .................. : MAURA Hermosillo Acct Number.................. : [id number] ROOM. ................. : TR-1B MR Number ................... : [id number] Stay type ............. : E/R Discharge Date......... ... : 11/03/19 Admit Date ... ...... : 11/03/19 Admit Phys .................... : BELEN GIANG Date of ....... : 1985 Family Phys ................... : JAVED SCOT Phone .................. : [phone] Age ................................ : 34 Film# .................. .:[id number] Sex ................................. : F Unsigned transcriptions are preliminary reports and do not represent a medical or legal document CHEST PORTABLE [id number] COMPLETE:11/03/19 06:53 PRICE [id number] Reason(s): Cough PORTABLE CHEST X-RAY: SINGLE VIEW COMPARISON: 04/25/19 FINDINGS: The cardiac and mediastinal silhouettes appear normal and the lungs are clear. The bones and soft tissues are normal. The upper abdomen is unremarkable. IMPRESSION: No acute disease identifiable. Electronically Reviewed and Signed By Chris Le MD , 11/04/19 12:12, TDS Transcribe Initials: DZ , Transcribe Date: 11/03/19 08:45, Dictation Date: Copy for: EMERGENCY DEPT via modem Copy for: 710 MED REC DISCHARGED Page 1 of 1 Name Value Range Interpretation Code Description Data Svetlana rce(s) Supporting Document(s) ID Date Data Source [id number] 11/03/2019 01:31:00 PM EDT [address] [address] RESPIRATORY CARE REPORT ==== ---------NAME------- NUMBER SEX AGE ADMIT DISC. XRAY# F/C [facility] Jaimee [id number] F 34 11/03/19 11/03/19 [id number] E/R DATE OF : 1985 M/R# [id number] PH#: [phone] TR-1B LOCATION: EMERGENCY DEPT [facility] [address] COMPLE TE:11/03/19 07:[place] [id number] PHYSICIAN: BELEN GIANG Name Value Range Interpretation Code Description Data Svetlana rce(s) Supporting Document(s) ID Date Data Source [id number] 11/03/2019 06:38:00 AM EDT [facility] Name Value Range Interpretation Code Description Data Svetlana rce(s) Supporting Document(s) HCG URINE QUAL NEGATIVE NORMAL: NEGATIVE [facility] HCG URINE QL REENTER NEGATIVE NORMAL: NEGATIVE [facility] { KIT LOT # [id number] ){ KIT EXP DATE 01.20.21 ){ PROCEDURAL CONTROL VALID ) ID Date Data Source [id number] 11/03/2019 06:37:00 AM EDT [facility] Name Value Range Interpretation Code Description Data Svetlana rce(s) Supporting Document(s) URINALYSIS [facility] julianne URINALYSIS SOURCE R [facility] COLOR yellow NORMAL: Yellow [facility] CLARITY clear NORMAL: Clear [facility] Specific gravity of Urine by Test strip 1.015 1.001 - 1.030 [facility] 6 5 - [facility] Gl[facility] [Mass/volume] in Urine by Test strip NORM NORMAL: Negat [facility] Bilirubin.total [Presence] in Urine by Test strip NEG NORMAL: Negative [facility] Ketones [Presence] in Urine by Test strip NEG NORMAL: Negative [facility] Protein [Mass/volume] in Urine by Test strip NEG NORMAL: Negat [facility] Nitrite [Presence] in Urine by Test strip NEG NORMAL: Negative [facility] BLOOD NEG NORMAL: Negative [facility] Leukocyte esterase [Presence] in Urine by Test strip NEG SEKOU L: Negative [facility] Urobilinogen [Mass/volume] in Urine by Test strip NOR less mario n 1.0 mg/dL [facility] MICROSCOPIC Not Indicate [facility] ID Date Data Source [id number] 11/08/2019 12:30:00 PM EDT [facility] [address] Name Value Range Interpretation Code Description Data Svetlana rce(s) Supporting Document(s) Bacteria identified in Blood by Culture [facility] NO GROWTH AFTER 5 DAYS ID Date Data Source [id number] 11/09/2019 01:05:00 PM EDT [facility] Name Value Range Interpretation Code Description Data Svetlana rce(s) Supporting Document(s) CULTURE BLOOD [facility] spital _CULTURE BLOOD_{ PRELIM TEST PERFORMED AT [address] [address] CLIA# [id number] SEE SCANNED REPORT ID Date Data Source [id number] 11/09/2019 01:05:00 PM EDT [facility] Name Value Range Interpretation Code Description Data Svetlana rce(s) Supporting Document(s) CULTURE BLOOD [facility] spital _CULTURE BLOOD_{ PRELIM TEST PERFORMED AT [address] [address] CLIA# [id number] SEE SCANNED REPORT ID Date Data Source [id number] 11/03/2019 05:46:00 AM EDT [facility] Name Value Range Interpretation Code Description Data Svetlana rce(s) Supporting Document(s) Fibrin D-dimer FEU [Mass/volume] in Platelet poor plasma 0.44 ug /mL 0.27 - 0.50 [facility] ID Date Data Source [id number] 11/03/2019 05:38:00 AM EDT [facility] Name Value Range Interpretation Code Description Data Svetlana rce(s) Supporting Document(s) Lactate [Moles/volume] in Serum or Plasma 1.9 MMOL/L 0.2 - 2.2 [facility] ID Date Data Source [id number] 11/03/2019 04:45:00 AM EDT [facility] Name Value Range Interpretation Code Description Data Svetlana rce(s) Supporting Document(s) SARS coronavirus 2 RNA [facility] This lab was ordered by [facility] rosalvatal and reported by [facility]. ID Date Data Source [id number] 11/06/2019 06:25:00 AM EDT [facility] Value Range Interpretation Code Description Data Svetlana rce(s) Supporting Document(s) SARS-CoV-2, ANATOLY Not Detected Not Detected [facility] Testing was performed using the [employer] ARS-CoV-2 assay.This test was developed and its performance characteristics determinedby [employer]. This test has not been FDA cleared orapproved. This test has been authorized by FDA under an Emergency UseAuthorization (EUA). This test is only authorized for the duration oftime the declaration that circumstances exist justifying theauthorization of the emergency use of in vitro diagnostic tests fordetection of SARS-CoV-2 virus and/or diagnosis of COVID-19 infectionunder section 564(b)(1) of the Act, 21 U.S.C. 360bbb-3(b)(1), unlessthe authorization is terminated or revoked sooner.When diagnostic testing is negative, the possibility of a falsenegative result should be considered in the context of a patient'srecent exposures and the presence of clinical signs and symptomsconsistent with COVID-19. An individual without symptoms of COVID-19and who is not shedding SARS-CoV-2 virus would expect to have anegative (not detected) result in this assay. ID Date Data Source [id number] 11/03/2019 05:55:00 AM EDT [facility] Value Range Interpretation Code Description Data Svetlana rce(s) Supporting Document(s) Ferritin [Mass/volume] in Serum or Plasma 34.0 ng/mL 3.0 - 105 [facility] ID Date Data Source [id number] 11/03/2019 05:45:00 AM EDT [facility] Value Range Interpretation Code Description Data Svetlana rce(s) Supporting Document(s) TROPONIN T <0.01 NG/ML 0.00 - 0.10 [facility] ospital TROPONIN T0.1 ng/ml Recommended as the c linical threshold value forTroponin T. ID Date Data Source [id number] 11/03/2019 05:45:00 AM EDT [facility] Value Range Interpretation Code Description Data Svetlana rce(s) Supporting Document(s) COMPREHENSIVE METABOLIC PANEL [facility] COMPREHENSIVE METABOLIC PANEL Sodium [Moles/volume] in Serum or Plasma 140 mEq/L 134 - 153 [facility] Potassium [Moles/volume] in Serum or Plasma 3.7 mEq/L 3.6 - 5.0 [facility] Chloride [Moles/volume] in Serum or Plasma 104 mEq/L 98 - 107 [facility] Carbon dioxide, total [Moles/volume] in Serum or Plasma 24 MEQ/L 22 - 30 [facility] Glucose [Mass/volume] in Serum or Plasma 102 MG/DL 65 - 110 [facility] BUN 7 MG/DL 7 - 21 [facility] al Creatinine [Mass/volume] in Serum or Plasma 0.6 MG/DL 0.7 - 1.5 L [facility] BUN/CREAT 12 8 - 27 [facility] Protein [Mass/volume] in Serum or Plasma 7.9 G/DL 6.3 - 8.2 [facility] Albumin [Mass/volume] in Serum or Plasma 5.0 G/DL 3.9 - 5.0 [facility] Globulin [Mass/volume] in Serum by calculation 2.9 GM/DL 2.4 - 3.2 [facility] A/G RATIO 1.7 0.8 - 2.0 [facility] Calcium [Mass/volume] in Serum or Plasma 9.7 MG/DL 8.4 - 10.2 [facility] Bilirubin.total [Mass/volume] in Serum or Plasma <0.7 MG/DL 0.2 - 1.3 [facility] Alkaline phosphatase [Enzymatic activity/volume] in Serum or Plasma 123 U/L 38 - 126 [facility] Aspartate aminotransferase [Enzymatic activity/volume] in Serum or Plasma 25 U/L 5 - 40 [facility] Alanine aminotransferase [Enzymatic activity/volume] in Seru m or Plasma 25 U/L 7 - 56 [facility] Anion gap 3 in Serum or Plasma 12.0 mmol/L 8.0 - 16.0 [facility] AGE 34 yrs [facility] al NON-AA GFR >60 mL/min [facility] ital AFR AMER GFR >60 mL/min [facility] Ho spital Male GFR In terprentation 20-49 yrs >60 mL/min Normal 50-59 yrs >56 mL/min Normal 60-69 yrs >49 mL/min Normal 70-79yrs >42 mL/min Normal 80 and above >35 mL/min Normal Female GFR Interpretation 20-39 yrs >60 mL/min Normal 40-49 yrs >58 mL/min Normal 50-59 yrs >51 mL/min Normal 60-69 yrs >45 mL/min Normal 70-79 yrs >39 mL/min Normal 80 and above >32 mL/min Normal ID Date Data Source [id number] 11/03/2019 05:36:00 AM EDT [facility] Name Value Range Interpretation Code Description Data Svetlana rce(s) Supporting Document(s) Influenza virus A Ag [Presence] in Nasopharynx by Immunoassa y NEGATIVE NORMAL: NEGATIVE [facility] Influenza virus B Ag [Presence] in Nasopharynx by Immunoassa y NEGATIVE NORMAL: NEGATIVE [facility] NEGATIVENEGATIVE PROCEDURAL CO NTROL VALID KIT LOT # _[id number] 11/03/19.0536.SID. KIT EXP DATE _[id number] 11/03/19.0536.SID.The Influenza A & B assay is a rapid molecular in vitro diagnostic testutilizing an isothermal nucleic acid amplification technology for thequalitative detection of influenza A and B viral RNA.Negative results do not preclude influenza virus infection and should not beused as the sole basis for diagnosis, treatment or other patient managementdecisions. ID Date Data Source [id number] 11/03/2019 04:55:00 AM EDT [facility] Name Value Range Interpretation Code Description Data Svetlana rce(s) Supporting Document(s) CBC W/AUTOMATED DIFF [facility] COMPLETE BLOOD COUNT Leukocytes [#/volume] in Blood by Automated count 9.0 10^3/uL 4.2 - 1 1.0 [facility] Erythrocytes [#/volume] in Blood by Automated count 4.83 10^6/uL 4. 20 - 5.40 [facility] Hemoglobin [Mass/volume] in Blood 14.3 g/dL 12.0 - 16.0 [facility] Hematocrit [Volume Fraction] of Blood by Automated count 44.0 % 3 7.0 - 47.0 [facility] Erythrocyte mean corpuscular volume [Entitic volume] by Auto mated count 91.1 fL 81.0 - 101 [facility] Erythrocyte mean corpuscular hemoglobin [Entitic mass] by Automated count 29.6 pg 27.0 - 34.0 [facility] Erythrocyte mean corpuscular hemoglobin concentration [Mass/volume] by Automated count 32.5 g/dL 31.0 - 36.0 [facility] Erythrocyte distribution width [Ratio] by Automated count 12.5 % 11.5 - 14.5 [facility] Platelets [#/volume] in Blood by Automated count 244 10^3/uL 150 - 45 0 [facility] Platelet mean volume [Entitic volume] in Blood by Automated count 11.8 fL 7.4 - 10.4 H [facility] Neutrophils/100 leukocytes in Blood by Automated count 65.2 % 37. 0 - 80.0 [facility] Lymphocytes/100 leukocytes in Blood by Manual count 28.2 % 25.0 - 40.0 [facility] Monocytes/100 leukocytes in Blood by Automated count 5.1 % 3.0 - 8.0 [facility] Eosinophils/100 leukocytes in Blood by Automated count 1.0 % 0.0 - 7.0 [facility] Basophils/100 leukocytes in Blood by Automated count 0.3 % 0.0 - 2.5 [facility] %IG 0.2 % 0.0 - 0.0 H [facility] al %NRBC 0.0 % 0.0 - 0.0 [facility] al Neutrophils [#/volume] in Blood by Automated count 5.89 10^3/uL 2.00 - 6.90 [facility] Lymphocytes [#/volume] in Blood by Automated count 2.55 10^3/uL 0.60 - 3.40 [facility] Monocytes [#/volume] in Blood by Automated count 0.46 10^3/uL 0.00 - 0.90 [facility] Eosinophils [#/volume] in Blood by Automated count 0.09 10^3/uL 0.00 - 0.70 [facility] Basophils [#/volume] in Blood by Automated count 0.03 10^3/uL 0.00 - 0.20 [facility] #IG 0.02 10^3/uL 0.00 - 0.10 [facility] ospital #NRBC 0.00 10^3/uL 0.00 - 0.00 [facility] MANUAL DIFF NOT INDICATED [facility] RBC MORPH NOT INDICATED [facility] Ho spital ID Date Data Source [id number] 05/21/2019 01:14:13 PM [facility] Current Problems: Dental caries (ICD-521 .00) (XAF22-K35.9)Glidden teeth impaction (ICD-520.6) (NCL63-Z23.1) Dental Chart: Procedures:Type - CDT Code - Description C - (D0120) Periodic oral evaluation - established patient (Performed by Kendra Dinero DDS) C - (D1110) Prophylaxis, adult (Performed by Marialuisa Mendes RDH) Chart Notes:ariana (May 21 2019 1:55PM): OH-GoodAdult prophy, No x-rays indicatedPt states she is brushing at least once a day, flossing 1-2 times a week. Stressed TB bid, flossing and Fl2/antimicrobial rinse QD. Trace biofilm and calculus. Tissue mild papillary inflammation; minimal bleeding with hand scaling. No caries detected on exam. Med Hx reviewed with pt- no changes. Exc ptReferral to OS for extraction of #1 and 32. Placed again pt stated she had to reschedule her consult appointment. Marialuisa Mendes RDH by ariana (05/21/2019 1:45 PM): ; vicki (May 21 2019 2:10PM): [facility]). CC: none. Reviewed Xrays. Exam: no caries detected. OCS: WNL, IO/ EO completed, No significant hard findings upon clinical exam Pt was cooperative.OHI givenReferral: OS # 1 and 32NV:recallMarialuisa Mendes RDH by vicki (05/21/2019 2:09 PM): Tooth Notes and Watches: Note: There are Un- Billed (C Type) procedures on this document.Assessment & Plan Allergies:No Known Allergies (updated 05/21/2019) Orders:Oral Surgery Referral [CPT-41108] Clinical Visit Summary Declined Curren t Problems: Dental caries (ICD-521.00) (AOC80-A20.9)Glidden teeth impaction (ICD- 520.6) (QIV68-N62.1) Dental Chart: Procedures:Type - CDT Code - Description B - (D0120) Periodic oral evaluation - established patient (Performed by Kendra Dinero DDS) B - (D1110) Prophylaxis, adult (Performed by Marialuisa Mendes RDH) Tooth Notes and Watches: Name Value Range Interpretation Code Description Data Svetlana rce(s) Supporting Document(s) ID Date Data Source [id number] 04/26/2019 02:04:00 PM [facility] [address] [place] [address] PHONE: [phone] FAX: [phone] Name .................. : MAURA Hermosillo Acct Number.................. : [id number] ROOM. ................. : [place]- Number ................... : [id number] Stay type ............. : E/R Discharge Date......... ... : 04/25/19 Admit Date ....... .. : 04/25/19 Admit Phys .................... : DAVID ASHBY Date of ....... : 1985 Family Phys ................... : JAVED SCOT Phone .................. : [phone] Age ................................ : 34 Film# .................. .:[id number] Sex ................................. : F Unsigned transcriptions are preliminary reports and do not represent a medical or legal document CHEST 2 VIEWS [id number] COMPLETE:04/25/19 16:52 [facility] [id number] Reason(s): worsening cough, recent RML infiltrate ? worsening pneumonia CHEST X-RAY: 2-VIEWS INDICATION: Worsening cough. FINDINGS: The cardiac and mediastinal silhouettes appear normal and the lungs are clear. The bones and soft tissues are normal. The upper abdomen is unremarkable. IMPRESSION: No acute disease identifiable. Electronically Reviewed and Signed By Jabier Oshea M.D. , 04/26/19 14:04, SCY Transcribe Initials: NEHEMIAS , Transcribe Date: 04/25/19 23:29, Dictation Date: Copy for: CHEPE Aaron via fax Copy for: EMERGENCY DEPT via mode Copy for: 710 MED REC DISCHARGED Page 1 of 1 Name Value Range Interpretation Code Description Data Svetlana rce(s) Supporting Document(s) ID Date Data Source [id number] 04/25/2019 03:24:00 PM [facility] 1 OrderSheet [facility] Emergency Department [address] [place] [address] Phone #: [phone]- [phone] 04/25/2019 15:24 Patient: CLARE LORENZO Sex: F : 1985 Age: 34yWEIGHT:95.2 kg (S) HEIGHT:64 inches (S) BMI:36.1ALLERGIES: No Known Drug AllergyCHIEF COMPLAINT: coughDIAGNOSIS: PneumoniaLAB ORDERSOrder Description Priority Entered Acknowledged InitialedCBC w Diff STAT 16:04 04/25/2019 Ack'd: 16:05 17:13 Filipe Veliz; Aleyda Rincon R.N., R.N.DIAGNOSTIC STUDY ORDERSOrder Description Priority Entered Acknowledged InitialedChest 2 View STAT 16:04 04/25/2019 Ack'd: 16:05 17:13 Keren,(Oxygen?(No)) Filipe GIANG; Aleyda Rincon R.N., R.N. Reason for Study: worsening cough, recent RML infiltate ? worsening pneumoniaMEDICATION/IV/DRIP/FLUID ORDERSOrder Description Priority Entered Acknowledged InitialedGENERAL ORDERSOrder Description Priority Entered Acknowledged Initialed[Electronically signed by Jacqueline Shi R.N. (17:59 04/25/2019)][Electronically signed by Filipe Velasquez (18:06 04/25/2019)][Electronically locked by Jacqueline Shi R.N. (17:59 04/25/2019)] Name Value Range Interpretation Code Description Data Svetlana rce(s) Supporting Document(s) ID Date Data Source [id number] 04/25/2019 03:24:00 PM EST [facility] 1 Medication Reconciliation Report [facility] Emergency Department [address] [place] [address] Phone #: ext- [phone] 04/25/2019 15:24 Patient: CLARE LORENZO Sex: F : 1985 Age: 34yWeight: 95.2 kgHeight/Length: 64 in.BMI: 36.1ALLERGIES: No Known Drug AllergyThe patient's Home Medications are listed below:CONTINUE TAKING THE FOLLOWING MEDICATIONS: Albuterol Sulfate HFA Inhalation Zithromax OralThe source(s) of the original Home Medication information:Not obtained.The f ollowing Medications were given to the patient in the Emergency Department:None.The following Medications were prescribed to the patient:None. Name Value Range Interpretation Code Description Data [facility](s) Supporting Document(s) ID Date Data Source [id number] 04/25/2019 03:24:00 PM [place] [address] Medication Administration Record [facility] Emergency Department [address] [place] [address] Phone #: ext- [phone] 04/25/2019 15:24 Patient: CLARE LORENZO Sex: F : 1985 Age: 34yWeight: 95.2 kgHeight/Length: 64 inBMI: 36.1ALLERGIES: No Known Drug AllergyDate/Time Medication Administered Medication Ordered Name Value Range Interpretation Code Description Data Svetlana rce(s) Supporting Document(s) ID Date Data Source [id number] 04/25/2019 03:24:00 PM [facility] 1 General Instructions [facility] Emergency Department [address] [place] [address] Phone #: ext- [phone] 04/25/2019 15:24 Patient: CLARE LORENZO Sex: F : 1985 Age: 34yBacterial pneumonia. (resolving right middle lobe pneumonia). No hypoxemia, respiratory failure or sepsis.INSTRUCTIONSNo strenuous activity until better.Drink plenty of fluids for the next 48 hours as needed.(continue azithromycin as prescribed.).Warnings: Further evaluation is necessary. It is very important to follow up with a healthcare provider.GENERAL WARNINGS: Return or contact your physician immediately if your condition worsens orchanges unexpectedly, if not improving as expected, or if other problems arise. Specifically return if pain,vomiting, bleeding, breathing difficulty or fever.Your Current Medications: Your current home medications have been revie wed.CONTINUE TAKING THE FOLLOWING MEDICATIONS:Albuterol Sulfate HFA Inhalation.Zithromax Oral.Follow-up:Follow up with your healthcare provider in three days even if well. Call for the next available appointment.Reason for referral: evaluation. Summary of care provided to patient and family via paper.Understanding of the discharge instructions verbalized by patient and family. Expected course of illness,discharge instructions, activity level, follow-up appointment and risks and benefits of treatment reviewedwith patient and understanding verbalized. Agrees to plan of care.No strenuous activity until better.(Electronically signed by PADMAJA Okeefe 04/25/2019 18:06) 2 General Instructions [facility] Emergency Department [address] [place] [address] Phone #: ext- [phone] 04/25/2019 15:24 Patient: CLARE LORENZO Sex: F : 1985 Age: 34y Name Value Range Interpretation Code Description Data Svetlana rce(s) Supporting Document(s) ID Date Data Source [id number] 04/25/2019 03:24:00 PM EST [facility] 1 Clinical Report - Nurses [facility] Emergency Department [address] [place] [address] Phone #: ext- [phone] 04/25/2019 15:24 Patient: CLARE LORENZO Sex: F : 1985 Age: 34yTRIAGEHistorian: patient.Triage time: 15:27 04/25/2019. Acuity: LEVEL 4.Chief Complaint: (pneumonia).Alert. No acute distress.( pt dx with pneumonia two days ago. here for f/u for pneumonia, pt does not have a pcp and told to f/uhere.).SEPSIS SCREEN: NEGATIVE. Infection suspected/documented. --15:34 04/25/19 Jose Guadalupe July, R.N.15:27 04/25/19. BP: 133/72. MAP: 92. HR: 100. RR: 18. O2 saturation: 99%. Temp: 97.1 F. Pain levelnow: 0/10. --15:34 04/25/19 Jose Guadalupe July, R.N.Weight: 95.2 kg stated. Height/Length: 64 inches Per Patient. BMI: 36.1. --15:27 04/25/19 Jose Guadalupe July, R.N.MedicationsZithromax Oral. --15:29 04/25/19 Corrinejuly, R.N. Albuterol Sulfate HFA Inhalation. --15:29 04/25/19 Jose GuadalupeJuly, R.N.AllergiesNo Known Drug Allergy. --15:30 04/25/19 Jose Guadalupe July, R.N.ADDITIONAL SURGERIES:no known surgeries.HistoryPAST MEDICAL HX: Last normal menstrual period- unknown.SOCIAL HX: Never smoker. No alcohol use or drug use. She was offered HIV testing but declined. Shehas not traveled outside the [place]Infectious disease exposure: No infectious disease exposure. Patient is not a known carrier of tuberculosis,hepatitis, HIV, MRSA or VRE. Patient is not a known carrier of CRE.SELF HARM ASSESSMENT: Self harm assessment was performed. The patient answered "no" to thequestion(s) "Have you recently felt down, depressed, or hopeless?", "Do you have thoughts of harming orkilling yourself?", "Do you have a plan for harming or killing yourself?", "Have you recently had thoughtsabout harming or killing others?", "Do you have any dangerous items in your possession?", "Have younoticed less interest or pleasure in doing things?", "Are you here because you tried to hurt yourself?" and"Have you ever tried to hurt yourself before today?". 2 Clinical Report - Nurses [facility] Emergency Department [address] [place] [address] Phone #: ext- [phone] 04/25/2019 15:24 Patient: CLARE LORENZO Sex: F : 1985 Age: 34y ABUSE ASSESSMENT: Abuse assessment. yes. The patient had positive responses to the question(s) "Do you feel safe in your home?". No report of abuse. NUTRITIONAL RISK ASSESSMENT: The nutritional risk assessment revealed no deficiencies. FUNCTIONAL ASSESSMENT: Functional assessment: no impairments noted. LEARNING NEEDS ASSESSMENT: The learning needs assessment revealed no barriers. FALL RISK ASSESSMENT: Fall risk assessment completed. No risk factors identified. SKIN INTEGRITY ASSESSMENT: Skin integrity risk assessment completed. No skin integrity risk identified. --15:34 04/25/19 Jacqueline Shi RJameN. Interventions To treatment room. --15:34 04/25/19 Jacqueline Shi RDougie.PHYSICAL ASSESSMENTGENERAL / NEURO / PSYCH: Alert. Oriented X 4.HEENT: Pupils equal, round and reactive to light. Mouth within normal limits upon inspection. Mucousmembranes are pink.RESPIRATORY: Respirations not labored. Breath sounds within normal limits.CVS: Capillary refill less than 2 seconds.SKIN: Skin is warm and dry. Normal skin turgor. --15:36 04/25/19 Aleyda Rincon R.N.NURSING PROGRESS NOTESHead of bed elevated. Reassurance given. Bed placed in lowest po sition. Brakes of bed on. Patientready for evaluation- ED physician and PA notified. --15:34 04/25/19 Jacqueline Shi R.N. Two patient identifiers checked. Call light placed in reach. Bed placed in lowest position. Brakes of bed on. --15:36 04/25/19 Aleyda Rincon R.N.DISPOSITION / DISCHARGE 17:15 04/25/19. Condition at departure: improved and stable. Discharge instructions provided and reviewed with the patient. Patient verbalized understanding. Written instructions provided in Jordanian. The patient was discharged by the physician activities assistant. She was discharged home. She left ambulatory and via private vehicle. Spouse driving. --17:59 04/25/19 Jacqueline Shi R.N. 17:15 04/25/19. BP: 118/79. MAP: 92. HR: 92. RR: 18. O2 saturation: 97%. Temp: 97.3 F. Pain level now: 0/10. --17:59 04/25/19 Jacqueline Shi R.N. 3 Clinical Report - Nurses [facility] Emergency Department [address] [place] [address] Phone #: ext- [phone] 04/25/2019 15:24 Patient: LCARE LORENZO Sex: F : 1985 Age: 34yLocked/Released at 04/25/2019 17:59 by Jacqueline Shi R.N. Name Value Range Interpretation Code Description Data Svetlana rce(s) Supporting Document(s) ID Date Data Source [id number] 04/25/2019 03:24:00 PM EST Table [facility] 1 Clinical Report - Physicians/Mid Levels [facility] Emergency Department [address] [place] [address] Phone #: ext- [phone] 04/25/2019 15:24 Patient: CLARE LORENZO Sex: F : 1985 Age: 34y Time Seen: 15:46 04/25/2019. Arrived- By private vehicle. Historian- patient. Disposition decision: 17:10 04/25/2019.HISTORY OF PRESENT ILLNESS Chief Complaint: COUGH. This started several days ago; Seen here 2 days ago with worsening cough, diagnosed with RML pneumonia, placed on z pack and states feeling somewhat worse with R sided achy chest pain with cough. States cough improved. Denies fever. The illness is described as moderate. The patient has had sputum production, a cough, nasal congestion, chest pain and a nasal discharge. No difficulty breathing, chest discomfort, sore throat, hoarseness or sinus pressure. No sinus drainage or ear pain. Additional history - The patient has had contact with a sick child. They have had similar symptoms. No recent travel. Similar symptoms previously. None. Recent medical care: The patient was seen recently in the emergency department.REVIEW OF SYSTEMSNo headache, eye discomfort, nausea, vomiting or diarrhea. No abdominal pain, hay fever, pedal edema,calf pain or difficulty with urination. No skin rash, enlarged lymph nodes, joint pain or tick bite. Currently: neg HCG 2 days ago here.PAST HISTORYSee nurses notes. Problems: Pneumonia. Additional Surgeries: no known surgeries. Medications: Albuterol Sulfate HFA Inhalation. Zithromax Oral. Allergies: No Known Drug Allergy.SOCIAL HISTORYNever smoker. Not exposed to second-hand smoke at home. No alcohol use or drug use. No recent 2 Clinical Report - Physicians/Mid Levels [facility] Emergency Department [address] [place] [address] Phone #: ext- [phone] 04/25/2019 15:24 Patient: CLARE LORENZO [facility]#: [id number] Sex: F : 1985 Age: 34y travel.ADDITIONAL NOTESThe nursing notes have been reviewed with agreement regarding the chief complaint, HPI, ROS, PMH andpatient medications and allergies.PHYSICAL EXAMVital Signs: 04/25/2019 15:27 BP: 133/72. MAP: 92. HR: 100. RR: 18. O2 saturation: 99%. Temp: 97.1 F.Pain level now: 0/10. Have been reviewed as abnormal and appear to be correct. Blood pressurenormal. Mean arterial pressure- normal. Heart rate normal. Respiratory rate normal. Temp eraturenormal. Oxygen saturation normal.Appearance: Alert. No acute distress.Eyes: Pupils equal, round and reactive to light. Eyes normal inspection.ENT: Ears normal. Nose normal. Pharynx normal. Uvula midline.Neck: Normal inspection. Neck supple.CVS: Normal heart rate and rhythm. Heart sounds normal. Pulses normal.Respiratory: No respiratory distress. Painless inspiration. Breath sounds normal.Abdomen: Soft and nontender. No organomegaly.Back: Normal inspection.Skin: Skin warm and dry. Normal skin color. No rash. Normal skin turgor.Extremities: Extremities exhibit normal ROM. No lower extremity edema.Neuro: Oriented X 3. No motor deficit. No sensory deficit. Reflexes normal.LABS, X-RAYS, AND EKGChest X-ray: No acute disease. Views: PA and lateral. A comparison with prior films reveals that thefindings are improved. Interpretation time: 16:49 04/25/2019.Laboratory Tests: Laboratory tests have been ordered, with results reviewed and considered in themedical decision making process. CBC w Diff: (IVELISES: 04/25/2019 16:22) ( MsgRcvd 04/25/2019 16:39) Final results Test Result Flag Units (Reference) CBC W/AUTOMAT ED DIFF COMPLETE BLOOD COUNT WBC 7.3 10/uL (4.2 - 11.0) RBC 4.69 10/uL (4.20 - 5.40) HEMOGLOBIN 14.1 g/dL (12.0 - 16.0) HEMATOCRIT 42.5 % (37.0 - 47.0) MCV 90.6 fL (81.0 - 101) MCH 30.1 pg (27.0 - 34.0) MCHC 33.2 g/dL (31.0 - 36.0) RDW 12.8 % (11.5 - 14.5) PLATELETS 272 10/uL (150 - 450) MPV 11.5 H fL (7.4 - 10.4) NEUT 65.5 % (37.0 - 80.0) LYMPH 28.1 % (25.0 - 40.0) MONO 4.8 % (3.0 - 8.0) EOS 1.2 % (0.0 - 7.0) BASO 0.1 % (0.0 - 2.5) %IG 0.3 H % (0.0 - 0.0) %NRBC 0.0 % (0.0 - 0.0) #NEUT 4.78 10/uL (2.00 - 6.90) #LYMPH 2.05 10/uL (0.60 - 3.40) #MONO 0.35 10/uL (0.00 - 0.90) 3 Clinical Report - Physicians/Mid Levels [facility] Emergency Department [address] [place] [address] Phone #: [phone]- [phone] 04/25/2019 15:24 Patient: CLARE LORENZO Sex: F : 1985 Age: 34y #EOS 0.09 10/uL (0.00 - 0.70) #BASO 0.01 10/uL (0.00 - 0.20) #IG 0.02 10/uL (0.00 - 0.10) #NRBC 0.00 10/uL (0.00 - 0.00) MANUAL DIFF NOT INDICATED RBC MORPH NOT INDICATED Chest 2 View: (IVELISSE: 04/25/2019 16:04) ( MsgRcvd 04/25/2019 16:52) In Progress CHEST 2 VIEWS Reason(s): worsening cough, recent RML infiltate ? worsening pneumonia TRANSPORTATION: IV? O2? Oxygen?(No) Room: ED : Will sign waiver.PROGRESS AND PROCEDURESCourse of Care: 18:05 Apr 25 2019. s/s c/w resolving RML pneumonia, advised return precautions,otherwise f/u with PCM x 3 days. Disposition: Disch arged home in good and improved condition.CLINICAL IMPRESSION Bacterial pneumonia. (resolving right middle lobe pneumonia). No hypoxemia, respiratory failure or sepsis.INSTRUCTIONS No strenuous activity until better. Drink plenty of fluids for the next 48 hours as needed. (continue azithromycin as prescribed.). Warnings: Further evaluation is necessary. It is very important to follow up with a healthcare provider. GENERAL WARNINGS: Return or contact your physician immediately if your condition worsens or changes unexpectedly, if not improving as expected, or if other problems arise. Specifically return if pain, vomiting, bleeding, breathing difficulty or fever. Your Current Medications: Your current home medications have been reviewed. CONTINUE TAKING THE FOLLOWING MEDICATIONS: Albuterol Sulfate HFA Inhalation. Zithromax Oral. Follow-up: Follow up with your healthcare provider in three days even if well. Call for the next available appointment. Reason for referral: evaluation. Summa ry of care provided to patient and family via paper. Understanding of the discharge instructions verbalized by patient and family. Expected course of illness, 4 Clinical Report - Physicians/Mid Levels [facility] Emergency Department [address] [place] [address] Phone #: ext- [phone] 04/25/2019 15:24 Patient: CLARE LORENZO Sex: F : 1985 Age: 34y discharge instructions, activity level, follow-up appointment and risks and benefits of treatment reviewed with patient and understanding verbalized. Agrees to plan of care.(Electronically signed by PADMAJA Okeefe 04/25/2019 18:06) Name Value Range Interpretation Code Description Data Svetlana rce(s) Supporting Document(s) ID Date Data Source [id number] 04/25/2019 04:39:00 PM EST [facility] Name Value Range Interpretation Code Description Data Svetlana rce(s) Supporting Document(s) CBC W/AUTOMATED DIFF [facility] COMPLETE BLOOD COUNT Leukocytes [#/volume] in Blood by Automated count 7.3 10^3/uL 4.2 - 1 1.0 [facility] Erythrocytes [#/volume] in Blood by Automated count 4.69 10^6/uL 4. 20 - 5.40 [facility] Hemoglobin [Mass/volume] in Blood 14.1 g/dL 12.0 - 16.0 [facility] Hematocrit [Volume Fraction] of Blood by Automated count 42.5 % 3 7.0 - 47.0 [facility] Erythrocyte mean corpuscular volume [Entitic volume] by Auto mated count 90.6 fL 81.0 - 101 [facility] Erythrocyte mean corpuscular hemoglobin [Entitic mass] by Automated count 30.1 pg 27.0 - 34.0 [facility] Erythrocyte mean corpuscular hemoglobin concentration [Mass/volume] by Automated count 33.2 g/dL 31.0 - 36.0 [facility] Erythrocyte distribution width [Ratio] by Automated count 12.8 % 11.5 - 14.5 [facility] Platelets [#/volume] in Blood by Automated count 272 10^3/uL 150 - 45 0 [facility] Platelet mean volume [Entitic volume] in Blood by Automated count 11.5 fL 7.4 - 10.4 H [facility] Neutrophils/100 leukocytes in Blood by Automated count 65.5 % 37. 0 - 80.0 [facility] Lymphocytes/100 leukocytes in Blood by Manual count 28.1 % 25.0 - 40.0 [facility] Monocytes/100 leukocytes in Blood by Automated count 4.8 % 3.0 - 8.0 [facility] Eosinophils/100 leukocytes in Blood by Automated count 1.2 % 0.0 - 7.0 [facility] Basophils/100 leukocytes in Blood by Automated count 0.1 % 0.0 - 2.5 [facility] %IG 0.3 % 0.0 - 0.0 H [facility] %NRBC 0.0 % 0.[facility] [#/volume] in Blood by Automated count 4.78 10^3/uL 2.00 - 6.90 [facility] Lymphocytes [#/volume] in Blood by Automated count 2.05 10^3/uL 0.60 - 3.40 [facility] Monocytes [#/volume] in Blood by Automated count 0.35 10^3/uL 0.00 - 0.90 [facility] Eosinophils [#/volume] in Blood by Automated count 0.09 10^3/uL 0.00 - 0.70 [facility] Basophils [#/volume] in Blood by Automated count 0.01 10^3/uL 0.00 - 0.20 [facility] #IG 0.02 10^3/uL 0.00 - 0.10 [facility] #NRBC 0.00 10^3/uL 0.00 - 0.00 [facility] MANUAL DIFF NOT INDICATED [facility] RBC MORPH NOT INDICATED [facility] ID Date Data Source [id number] 04/24/2019 01:59:00 PM EST [facility] [address] [place] [address] PHONE: [phone] FAX: [phone] Name .................. : MAURA SPARKS Acct Number.................. : [id number] ROOM. ................. : VT-01 Number ................... : [id number] Stay type ............. : E/R Discharge Date......... ... : 04/23/19 Admit Date ......... : 04/23/19 Admit Phys .................... : JAZMYNABHIJIT BR Date of ....... : 1985 Family Phys ................... : TEGAN COLES Phone .................. : [phone] Age ................................ : 34 Film# .................. .:[id number] Sex ................................. : F Unsigned transcriptions are preliminary reports and do not represent a medical or legal document CHEST 2 VIEWS [id number] COMPLETE:04/23/19 19:24 HOLLY [id number] Reason(s): Congestion CHEST X-RAY: FRONTAL AND LATERAL VIEWS COMPARISON: None available. FINDINGS: There is increased opacity in the right middle lobe consistent with apparent pneumonia and probable associated atelectasis. Clinical correlation is advised and consider follow up imaging if clinically warranted. The lungs are mildly hyperexpanded bilaterally. The heart is not enlarged. There is no obvious hilar adenopathy, although the right hilum is somewhat prominent. No pleural effusions. The upper spine is angled to the left. IMPRESSION: Findings suggest right middle lobe pneumonia. Consider follow up imaging if clinically warranted. Electronically Reviewed and Signed By Renard Lozoya MD , 04/24/19 13:59, AML Transcribe Initials: NEHEMIAS , Transcribe Date: 04/24/19 09:50, Dictation Date: Copy for: EMERGENCY DEPT via mode Copy for: 710 MED REC DISCHARGED Page 1 of 1 Name Value Range Interpretation Code Description Data Svetlana rce(s) Supporting Document(s) ID Date Data Source [id number] 04/23/2019 06:02:00 PM EST [facility] 1 OrderSheet [facility] Emergency Department [address] [place] [address] Phone #: [phone]- [phone] 04/23/2019 17:36 Patient: CLARE LORENZO Sex: F : 1985 Age: 34yWEIGHT:104.3 kg (S) HEIGHT:64 inches (S) BMI:39.5ALLERGIES: NoneCHIEF COMPLAINT: cough, "flu", possible, flu exposure:, runny noseDIAGNOSIS: PneumoniaLAB ORDERSOrder Description Priority Entered Acknowledged InitialedInfluenza Nasal A B STAT 18:16 04/23/2019 19:42 Leon Gary R.N. Physician;Rapid Strep Screen STAT 18:17 04/23/2019 Cancelled: Physician Order 19:45 Leon Abebe Physician Physician;HCG Serum Qual STAT 18:18 04/23/2019 19:38 Leon Gary R.N. Physician;CBC w Diff STAT 18:18 04/23/2019 19:38 Leon Gary R.N. Physician;RSV STAT 19:40 04/23/2019 19:42 Leon Gary R.N. Physician;DIAGNOSTIC STUDY ORDERSOrder Description Priority Entered Acknowledged InitialedChest 2 View STAT 19:15 04/23/2019 19:38 Cookie,(Oxygen?(No)) Leon Hisrch R.N. Physician; Reason for Study: Congestion, CoughMEDICATION/IV/DRIP/FLUID ORDERSOrder Description Priority Entered Acknowledged InitialedpredniSONE PO 60 19:40 04/23/2019 19:50 Cookiemg (NOW) Leno Hirsch R.N. Physician;DuoNeb Neb Tx 3 19:40 04/23/2019 19:57 CookiemL (NOW) Leon Hirsch R.N. Physician; 2 OrderSheet [facility] Emergency Department [address] [place] [address] Phone #: ext- [phone] 04/23/2019 17:36 Patient: CLARE LORENZO Sex: F : 1985 Age: 34yGENERAL ORDERSOrder Description Priority Entered Acknowledged Initialed[Electronically signed by Joycelyn Gary R.N. (:04/23/2019)][Electronically signed by Joycelyn Gary R.N. (:04/23/2019)][Electronically signed by Leon Abebe (10:04/24/2019)][Electronically locked by Joycelyn Gary R.N. (:04/23/2019)] Name Value Range Interpretation Code Description Data Svetlana rce(s) Supporting Document(s) ID Date Data Source [id number] 04/23/2019 06:02:00 PM EST [facility] 1 Medication Reconciliation Report [facility] Emergency Department [address] [place] [address] Phone #: ext- [phone] 04/23/2019 17:36 Patient: CLARE LORENZO Sex: F : 1985 Age: 34yWeight: 104.3 kgHeight/Length: 64 in.BMI: 39.5ALLERGIES: NoneThe patient's Home Medications are listed below:THE FOLLOWING MEDICATIONS NEED TO BE RECONCILED: Amoxicillin OralThe source(s) of the original Home Medication information:Not obtained.The following Medications were given to the patient in the Emergency Department:Prednisone [PO] PO 60 mg, administered: 04/23/2019 7:50:00 PMDuoneb [Neb Tx] Neb TX 1 unit dose, administered: 04/23/2019 7:57:00 PMThe following Medications were prescribed to the patient:albuterol sulfate 2.5 mg/3 mL (0.083 %) solution for nebulization Inhale 1 vial every four hours as neededfor 10 days -- for cough / SOB / wheezes. Dispense 60 vial. Refills: 1. Substitution permitted.HTP #15 - [address] [place] [address]. FaxNumber: [phone].Zithromax Z-Danielito 250 mg tablet Take as directed for 5 days -- Take packet as directed for pneumonia -2 tabs PO on day 1, then 1 tab each day for four days after. Dispense 6 tablet. Refills: 0. Substitutionpermitted.HTP #20 - [address] [facility] ; [place] [address]. . -- Leon Abebe, Physician Name Value Range Interpretation Code Description Data Svetlana rce(s) Supporting Document(s) ID Date Data Source [id number] 04/23/2019 06:02:00 PM EST [facility] 1 Medication Administration Record [facility] Emergency Department [address] [place] [address] Phone #: ext- [phone] 04/23/2019 17:36 Patient: CLARE LORENZO Sex: F : 1985 Age: 34yWeight: 104.3 kgHeight/Length: 64 inBMI: 39.5ALLERGIES: None Date/Time Medication Administered Medication OrderedGiven PREDNISONE [PO] predniSONE PO 60 mg (NOW)19:50 04/23/2019 Dose: 60 mg Tablets Joycelyn Shepherd R.N.Given DUONEB [NEB TX] DuoNeb Neb Tx 3 mL (NOW)19:57 04/23/2019 Dose: 1 unit dose Joycelyn Chong R.N. Name Value Range Interpretation Code Description Data Svetlana rce(s) Supporting Document(s) ID Date Data Source [id number] 04/23/2019 06:02:00 PM EST [facility] 1 General Instructions [facility] Emergency Department [address] [place] [address] Phone #: ext- [phone] 04/23/2019 17:36 Patient: CLARE LORENZO Sex: F : 1985 Age: 34yBronchopneumonia. No hypoxemia, respiratory failure or sepsis.INSTRUCTIONSAlternate Tylenol (Acetaminophen) or Motrin (Ibuprofen) for temperature greater than 100.4 degrees bytympanic thermometer. Take according to label instructions.Drink plenty of fluids.(Continue taking PO Amoxicillin (prior Rx)).Warnings: GENERAL WARNINGS: Return or contact your physician immediately if your conditionworsens or changes unexpectedly, if not improving as expected, or if other problems arise.Prescription Medications:albuterol sulfate 2.5 mg/3 mL (0.083 %) solution for nebulization Inhale 1 vial every four hours as neededfor 10 days -- for cough / SOB / wheezes. Dispense 60 vial. Refills: 1. Substitution permitted.HTP #47 - [address] [facility] ; [place] [address]. .Zithromax Z-Danielito 250 mg tablet Take as directed for 5 days -- Take packet as directed for pneumonia -2 tabs PO on day 1, then 1 tab each day for four days after. Dispense 6 tablet. Refills: 0. Substitutionpermitted.HTP #01 - [address] [facility] ; [place] [address]. .Follow-up:Follow up with your doctor in two days if not better. Call for an appointment. Reason for referral: evaluation,treatment and R pneumonia.Understanding of the discharge instructions verbalized by patient. ADDITIONAL INFORMATIONPneumonia (Adult)Pneumonia is an infection deep within the lungs. It is in the small air sacs (alveoli). Pneumonia maybe caused by a virus or bacteria. Pneumonia caused by bacteria is usually treated with an antibiotic.Severe cases may need to be treated in the hospital. Milder cases can be treated at home. 2 General Instructions [facility] Emergency Department [address] [place] [address] Phone #: ext- [phone] 04/23/2019 17:36 Patient: CLARE LORENZO Sex: F : 1985 Age: 34ySymptoms usually start to get better during the first 2 days of treatment.Home careFollow these guidelines when caring for yourself at home: Rest at home for the first 2 to 3 days, or until you feel stronger. Don't let yourself get overly tired when you go back to your activities. Stay away from cigarette smoke yours or other people's. 3 General Instructions [facility] Emergency Department [address] [place] [address] Phone #: ext- [phone] 04/23/2019 17:36 Patient: CLARE LORENZO Sex: F : 1985 Age: 34y You may use acetaminophen or ibuprofen to control fever or pain, unless another medicine was prescribed. If you have chronic liver or kidney disease, talk with your healthcare provider before using these medicines. Also talk with your provider if you've had a stomach ulcer or gastrointestinal bleeding. Don't give aspirin to anyone younger than 18 years of age who is ill with a fever. It may cause severe liver damage. Your appetite may be poor, so a light diet is fine. Drink 6 to 8 glasses of fluids every day to make sure you are getting enough fluids. Beverages can include water, sport drinks, sodas without caffeine, juices, tea, or soup. Fluids will help loosen secretions in the lung. This will make it easier for you to cough up the phlegm (sputum). If you also have heart or kidney disease, check with your healthcare provider before you drink extra fluids. Take antibiotic medicine prescribed until it is all gone, even if you are feeling better after a few days.Follow-up careFollow up with your healthcare provider in the next 2 to 3 days, or as advised. This is to be sure themedicine is helping you get better.If you are 65 or older, you should get a pneumococcal vaccine and a yearly flu (influenza) shot. Youshould also get these vaccines if you have chronic lung disease like asthma, emphysema, or COPD.Recently, a second type of pneumonia vaccine has become available for everyone over 65 years old.This is in addition to the previous vaccine. Ask your provider about this.When to seek medical adviceCall your healthcare provider right away if any of these occur: You don't get better within the first 48 hours of treatment Shortness of breath gets worse Rapid breathing (more than 25 breaths per minute) Coughing up blood Chest pain gets worse with breathing Fever of 100.4F (38C) or higher that doesn't get better with fever medicine Weakness, dizziness, or fainting that gets worse Thirst or dry mouth that gets worse 4 General Instructions [facility] Emergency Department [address] [place] [address] Phone #: ext- [phone] 04/23/2019 17:36 Patient: CLARE LORENZO Sex: F : 1985 Age: 34y Sinus pain, headache, or a stiff neck Chest pain not caused by coughing [id number] [employer] [place] [address]. All rights reserved. This information is not intended as asubstitute for professional medical care. Always follow your healthcare professional's instructions.Fever Control (Adult)A fever is a normal reaction of your body to an illness. The temperature itself usually isn't harmful. Itactually helps your body fight infections. You don't need to treat a fever unless you feel veryuncomfortable.Home careFollow these tips to take care of yourself at home: If you feel warm, check your temperature. Dress in light clothing. This will help you lose extra body heat through your skin. The fever will go up if you wear extra layers or wrap in blankets. Fever causes your body to lose water through evaporation. Drink plenty of fluids. These include water, juice, clear sodas, sheela jj, or lemonade.Fever medicinesYou can take acetaminophen every 4 to 6 hours if: You feel very uncomfortable Your oral temperature is 100.4F (38C) or higherIf you can't take or keep down oral medicine, ask your pharmacist for acetaminophen suppositories.You don't need a prescription for these.If the fever doesn't get better within 1 hour after you take acetaminophen, take ibuprofen. If thisworks, keep taking the ibuprofen every 6 to 8 hours.If you have chronic liver or kidney disease, talk with your healthcare provider before taking th esemedicines. Also talk with your provider if you ever had a stomach ulcer or GI (gastrointestinal)bleeding.If either medicine alone doesn't keep the fever down, you may switch off between the 2 medicinesevery 3 to 4 hours. But do this only if your healthcare provider has told you to. For example, takeibuprofen. Wait 3 hours. Then take acetaminophen. Wait 3 hours. Take ibuprofen, and so on. Followyour provider's instructions exactly. 5 General Instructions [facility] Emergency Department [address] [place] [address] Phone #: ext- [phone] 04/23/2019 17:36 Patient: CLARE LORENZO Sex: F : 1985 Age: 34yDon't give aspirin to anyone younger than age 19 who is ill with a fever. Aspirin can cause seriousside effects such as liver damage and Cassandra syndrome. Although rare, Cassandra syndrome is a veryserious illness usually found in children younger than age 15. The syndrome is closely linked to theuse of aspirin or aspirin-containing medicine during viral infection.Follow-up careFollow up with your healthcare provider if you don't get better after 48 hours.When to seek medical adviceCall your healthcare provider right away if any of these occur: Fever, as directed by your healthcare provider, or: o Fever of 100.4F (38C) or above lasting for 24 to 48 hours o Fever lasting more than 3 days, even without other symptoms o Fever that happens after visiting a foreign country o Fever that happens within a month after visiting a country with malaria. Malaria is a serious illness. A fever can still be malaria even if you took medicine to prevent it. The medicine does not work in all cases. Confusion or trouble thinking Headache or stiff neck Flat, small, purplish red spots on your skin Low blood pressure Fast heart rate Fast (rapid) breathing You are You just had surgery, another medical procedure, or were just discharged from the hospital Use of medicines that suppress the immune system (immunosuppressants). These include Prednisone, cancer medicines, and organ transplant rejection medicines. If you are not sure about whether your medicines suppress your immune system, ask your healthcare provider.Call 911Someone should call 911 if y ou: 6 General Instructions [facility] Emergency Department [address] [place] [address] Phone #: ext- [phone] 04/23/2019 17:36 -------- Patient: CLARE LORENZO Sex: F : 1985 Age: 34y Are having trouble breathing or shortness of breath Are unresponsiveImportant reminderCall your healthcare provider if you get a fever after visiting a place where infectious diseases arecommon. Many people slate picker a cold or other virus while traveling. This usually goes away without aproblem. But, some places have more serious diseases. Fever with certain other symptoms maymean you have a serious illness. Symptoms to watch for include diarrhea, skin rashes, insect bites,and skin boils, or infections. Your provider may ask you: What you did on your trip How long you were there Where you stayed (hotel, grindstone house, tent) What you ate and drank If you were bitten by insects or other bugs If you swam in freshwater If you had sex or got a tattoo or piercing while you were thereCheck the [facility] to get more information about specific infectious diseases in the areas you havetraveled. [id number] [employer]. [address] [place] [address]. All rights reserved. This information is not intended as asubstitute for professional medical care. Always follow your healthcare prof essional's instructions. You have been given the following additional information: Pneumonia (Adult) Fever Control (Adult)(Electronically signed by Leon Abebe, Physician 04/24/2019 10:02) Name Value Range Interpretation Code Description Data Svetlana rce(s) Supporting Document(s) ID Date Data Source [id number] 04/23/2019 06:02:00 PM EST [facility] 1 Clinical Report - Nurses [facility] Emergency Department [address] [place] [address] Phone #: [phone]- [phone] 04/23/2019 17:36 Patient: CLARE LORENZO Sex: F : 1985 Age: 34yTRIAGEArrived by private vehicle. Historian: patient. Accompanied by family. ( 04/05 had a cold went [facility] and was told that she has a upper respiratory infection given amoxicillin , does not beleivediagnosis, coughing up yellow mucous).Acuity: LEVEL 4.Chief Complaint: SHORTNESS OF BREATH.Alert.Onset. (1 week ago). She has had chills, a cough, chest pain (when deep breath and cough) and backpain. ( sweaty).SEPSIS SCREEN: Negative (no infection suspected/documented). --17:42 04/23/19 Sandra Rehman R.N.17:37 04/23/19. BP: 119/55. MAP: 76. HR: 105. RR: 20. O2 saturation: 94%. Temp: 97.3 F. Pain levelnow: 07/18. --17:42 04/23/19 Sandra Rehman R.N.Weight: 104.3 kg stated. Height/Length: 64 inches Per Patient. BMI: 39.5. --17:37 04/23/19 Sandra Rehman R.N.MedicationsAmoxicillin Oral. --17:39 04/23/19 Sandra Rehman R.N.AllergiesNone. --17:39 04/23/19 Sandra Rehman R.N.PROBLEMS:no known problems.ADDITIONAL SURGERIES:no known surgeries.HistoryPAST MEDICAL HX: Immunizations: up-to-date. Last normal menstrual period- Mar.SOCIAL HX: Never smoker. No alcohol use or drug use. She was offered HIV testing but declined. Shehas not traveled outside the [place]Infectious disease exposure: No infectious disease exposure. Patient is not a known carrier of tuberculosis,hepatitis, HIV, MRSA or VRE. Patient is not a known carrier of CRE.SELF HARM ASSESSMENT: Self harm assessment was performed. The patient answered "no" to thequestion(s) "Have you recently felt down, depressed, or hopeless?", "Do you have thoughts of harming orkilling yourself?", "Do you have a plan for harming or killing yourself?", "Have you recently had thoughts 2 Clinical Report - Nurses [facility] Department [address] [place] [address] Phone #: ext- [phone] 04/23/2019 17:36 [facility]: [id number] Sex: F : 1985 Age: 34y about harming or killing others?", "Do you have any dangerous items in your possession?", "Have you noticed less interest or pleasure in doing things?", "Are you here because you tried to hurt yourself?" and "Have you ever tried to hurt yourself before today?". ABUSE ASSESSMENT: Abuse assessment. Abuse denied. No suspicion of abuse. No report of abuse. NUTRITIONAL RISK ASSESSMENT: The nutritional risk assessment revealed no deficiencies. FUNCTIONAL ASSESSMENT: Functional assessment: no impairments noted. LEARNING NEEDS ASSESSMENT: The learning needs assessment revealed no barriers. FALL RISK ASSESSMENT: Fall risk assessment completed. No risk factors identified. SKIN INTEGRITY ASSESSMENT: Skin integrity risk assessment completed. No skin integrity risk identified. --17:42 04/23/19 Sandra Rehman R.N. Interventions Identification band on patient. To treatment room. --17:42 04/23/19 Sandra Rehman R.N.PHYSICAL JIQTOMQUEM15:19 04/23/19. BP: 139/88. MAP: 105. HR: 76. RR: 18. O2 saturation: 96%. Temp: 99.7 F. --18: Brian Roberts R.N. RESPIRATORY: No respiratory distress. Respirations not labored. Rhonchi present in the right lung base; rhonchi present in the left lung base. CVS: Normal sinus rhythm noted. Cardiac rhythm: normal sinus rhythm. Capillary refill less than 2 seconds. GI / : Bowel sounds within normal limits. SKIN: Skin is warm and dry. --18:23 04/23/19 Brian Roberts R.N. 18:23 04/23/19. Pain level now: 0/10. --18:23 04/23/19 Brian Roberts R.N.NURSING PROGRESS NOTESBlood samples drawn by tech. Head of bed elevated. Patient was carried to radiology with radiologytechnician. Two patient identifiers checked. Call light placed in reach. Side rails up x 1. Bed placed inlowest position. Brakes of bed on. Patient placed in chair. Brakes of chair on. Patient ready forevaluation- ED physician notified. --18:25 04/23/19 Brian Roberts R.N. Patient walked to radiology with data reduction technician. --19:19 04/23/19 Brian Roberts R.N. 19:50 04/23/2019 Prednisone PO Tablets 60 mg given. Allergies verified and confirmed 5 rights. Information reviewed with patient. --19:50 04/23/19 Joycelyn Gary R.N. 3 Clinical Report - Nurses [facility] Department [address] [place] [address] Phone #: ext- [phone] 04/23/2019 17:36 Patient: CLARE LORENZO Sex: F : 1985 Age: 34y 19:57 04/23/2019 Vivek MCKEON 1 unit dose given. Given by the nurse. Allergies verified and confirmed 5 rights. Information reviewed with patient. --19:57 04/23/19 Joycelyn Gary R.N.DISPOSITION / DISCHARGE No learning barriers present. Reviewed medication(s) side effects information. Prescription(s) given to the patient and sent electronically to pharmacy. Medication(s) for home use given to the patient per protocol. Reviewed fever care and nebulizer use instructions. Reviewed referral to a primary care physician. The patient has no activity restrictions. Patient verbalized understanding. --21:11 04/23/19 Joycelyn Gary R.N. 21:09 04/23/19. BP: 158/97. MAP: 117. HR: 107. RR: 18. O2 saturation: 99%. Temp: 98.5 F. Pain level now: 0/10. --21:11 04/23/19 Joycelyn Gary R.N. Departure time: 21:11 04/23/2019. --21:12 04/23/19 Joycelyn Gary R.N.Locked/Released at 04/23/2019 21:12 by Joycelyn Gary R.N. Name Value Range Interpretation Code Description Data Svetlana rce(s) Supporting Document(s) ID Date Data Source [id number] 04/23/2019 06:02:00 PM EST [facility] 1 Clinical Report - Physicians/Mid Levels [facility] Emergency Department [address] [place] [address] Phone #: ext- [phone] 04/23/2019 17:36 Patient: CLARE LORENZO Sex: F : 1985 Age: 34y Time Seen: 18:09 04/23/2019. Arrived- By private vehicle. Historian- patient. Disposition decision: 20:14 04/23/2019.HISTORY OF PRESENT ILLNESS Chief Complaint: COUGH and "FLU". RUNNY NOSE and possible FLU EXPOSURE. This started 7 days ago and is still present. It was abrupt in onset and has been waxing/waning. The illness is described as moderate. The patient has had a cough, chest discomfort, a sore throat, hoarseness and nasal congestion. She has had sinus pressure, sinus drainage, fever, chills and muscle aches. She has had a nasal discharge. She has had mild difficulty breathing at rest. No chest pain or ear pain. Additional history - The patient has had contact with a sick child. No recent travel. Similar symptoms previously. Patient has had similar symptoms occasionally. Recent medical care: Not recently seen/assessed.REVIEW OF SYS TEMSNo headache, eye discomfort, nausea, vomiting or diarrhea. No abdominal pain, hay fever, pedal edema,calf pain or difficulty with urination. No skin rash, enlarged lymph nodes, joint pain or tick bite. Deniescurrent .PAST HISTORYPast history not negative. See nurses notes.SOCIAL HISTORYNever smoker. Not exposed to second-hand smoke at home. No alcohol use. Recent travel.ADDITIONAL NOTESThe nursing notes have been reviewed with agreement regarding the chief complaint, HPI, ROS, PMH andpatient medications and allergies.PHYSICAL EXAMVital Signs: 04/23/2019 17:37 BP: 119/55. MAP: 76. HR: 105. RR: 20. O2 saturation: 94%. Temp: 97.3 F.Pain level now: 07/18. Have been reviewed and appear to be correct. Blood pressure normal.Tachycardic. Respiratory rate normal. Temperature normal. Oxygen saturation low.Appearance: Alert. Anxious. Patient in moderate distress. In distress.Eyes: Pupils equal, round and reactive to light. Eyes inspection not normal. Pale conjunctivae.ENT: Ears normal. Nose normal. Pharynx normal. Uvula midline.Neck: Normal inspection. Neck supple. 2 Clinical Report - Physicians/Mid Levels [facility] Emergency Department [address] [place] [address] Phone #: ext- [phone] 04/23/2019 17:36 Patient: CLARE LORENZO [facility]#: [id number] Sex: F : 1985 Age: 34y CVS: Normal heart rate and rhythm. Heart sounds normal. Pulses normal. Respiratory: No respiratory distress. Painless inspiration. Breath sounds normal. Abdomen: Soft and nontender. No organomegaly. Back: Normal inspection. Skin: Skin warm and dry. Normal skin color. No rash. Normal skin turgor. Extremities: Extremities exhibit normal ROM. No lower extremity edema. Neuro: Oriented X 3. No motor deficit. No sensory deficit.LABS, X-RAYS, AND EKGLaboratory Tests: Laboratory tests have been ordered, with results reviewed and considered in themedical decision making process. RSV: (IVELISSE: 04/23/2019 19:35) ( MsgRcvd 04/23/2019 20:09) Final results Test Result Flag Units (Re ference) RSV ANTIGEN NEGATIVE (NORMAL: NEGAT RSV ANTIGEN REENTER NEGATIVE (NORMAL: NEGAT { PROCEDURAL CONTROL VALID ){ KIT LOT # [id number] ){ KIT EXP DATE 02/08/20 ) Chest 2 View: (IVELISSE: 04/23/2019 19:15) ( MsgRcvd 04/24/2019 09:52) In Progress CHEST 2 VIEWS Reason(s): Congestion TRANSPORTATION: WC IV? O2? Oxygen?(No) Room: ED : HCG Negative Exam CHEST 2 VIEWS [facility] [address] [place] [address] PHONE: [phone] FAX: [phone] Name .................. : MAURA SPARKS Acct Number.................. : [id number] ROOM. ................. : VT-01 MR Number ................... : [id number] Stay type ............. : E/R Discharge Date......... ... : 04/23/19 Admit Date ......... : 04/23/19 Admit Phys .................... : ANDRAE ADAMS Date of ....... : 1985 Family Phys ................... : TEGAN COLES Phone .................. : [phone] Age ................................ : 34 Film# .................. .:[id number] Sex ................................. : F Unsigned transcriptions are preliminary reports and do not represent a medical or legal document CHEST 2 VIEWS [id number] COMPLETE:04/23/19 19:24 HOLLY [id number] Reason(s): Congestion Cough CHEST X- RAY: FRONTAL AND LATERAL VIEWS COMPARISON: None available. FINDINGS: There is increased opacity in the right middle lobe consistent with apparent pneumonia and probable associated atelectasis. Clinical correlation is advised and consider follow up imaging if clinically warranted. The lungs are mildly hyperexpanded bilaterally. The heart is not enlarged. There is no obvious hilar adenopathy, although the right hilum is somewhat prominent. No pleural effusions. The upper spine is angled to the left. 3 Clinical Report - Physicians/Mid Levels [facility] Emergency Department [address] [place] [address] Phone #: ext- [phone] 04/23/2019 17:36 Patient: CLARE LORNEZO Sex: F : 1985 Age: 34y IMPRESSION: Findings suggest right middle lobe pneumonia. Consider follow up imaging if clinically warranted. Electronically Reviewed and Signed By DCTNAME , SIGNDATE, AML Transcribe Initials: NEHEMIAS , Transcribe Date: 04/24/19 09:50, Dictation Date: <<REPDIST>> Page 1of 1Beta-HCG, Qual Serum: (IVELISSE: 04/23/2019 18:29) ( MsgRcvd 04/23/2019 18:59) Final results Test Result Flag Units (Reference) HCG SERUM QUAL NEGATIVE (NORMAL: NEGAT HCG SERUM QL REENTER NEGATIVE (NORMAL: NEGAT { KIT LOT # [id number] ){ KIT EXP DATE09/27/20 ){ PROCEDURAL CONTROL VALID)CBC w Diff: (IVELISSE: 04/23/2019 18:29) ( MsgRcvd 04/23/2019 18:48) Final results Test Result Flag Units (Reference) CBC W/AUTOMATED DIFF COMPLETE BLOOD COUNT WBC 7.3 10/uL (4.2 - 11.0) RBC 4.86 10/uL (4.20 - 5.40) HEMOGLOBIN 14.6 g/dL (12.0 - 16.0) HEMATOCRIT 44.1 % (37.0 - 47.0) MCV 90.7 fL (81.0 - 101) MCH 30.0 pg (27.0 - 34.0) MCHC 33.1 g/dL (31.0 - 36.0) RDW 12.6 % (11.5 - 14.5) PLATELETS 249 10/uL (150 - 450) MPV 11.2 H fL (7.4 - 10.4) NEUT 67.3 % (37.0 - 80.0) LYMPH 23.6 L % (25.0 - 40.0) MONO 7.1 % (3.0 - 8.0) EOS 1.4 % (0.0 - 7.0) BASO 0.3 % (0.0 - 2.5) %IG 0.3 H % (0.0 - 0.0) %NRBC 0.0 % (0.0 - 0.0) #NEUT 4.91 10/uL (2.00 - 6.90) #LYMPH 1.72 10/uL (0.60 - 3.40) #MONO 0.52 10/uL (0.00 - 0.90) #EOS 0.10 10/uL (0.00 - 0.70) #BASO 0.02 10/uL (0.00 - 0.20) #IG 0.02 10/uL (0.00 - 0.10) #NRBC 0.00 10/uL (0.00 - 0.00) MANUAL DIFF NOT INDICATED RBC MORPH NOT INDICATEDRapid Strep Screen: (IVELISSE: 04/23/2019 18:17) ( MsgRcvd 04/23/2019 19:51) CanceledInfluenza Nasal A B: (IVELISSE: 04/23/2019 19:35) ( MsgRcvd 04/23/2019 20:09) Final results Test Result Flag Units (Reference) 4 Clinical Report - Physicians/Mid Levels [facility] Emergency Department [address] [place] [address] Phone #: [phone]- [phone] 04/23/2019 17:36 Patient: CLARE LORENZO Sex: F : 1985 Age: 34y INFLUENZA A NEGATIVE (NORMAL: NEGAT INFLUENZA B NEGATIVE (NORMAL: NEGAT INFLUENZA A REENTER NEGATIVE (NORMAL: NEGAT INFLUENZA B REENTER NEGATIVE (NORMAL: NEGAT PROCEDURAL CONTROL VALID KIT LOT # _[id number] 04/23/19.SC . . . KIT EXP DATE _01/02/20 04/23/19.SC . . .The Influenza A utilizing an isothermal nucleic acid amplification technology for thequalitative detection of influenza A and B viral RNA.Negative results do not preclude influenza virus infection and should not beused as the sole basis for diagnosis, treatment or other patient managementdecisions. . Note - Tests: (CXR - R-sided infiltrate. RML).PROGRESS AND PROCEDURESCourse of Care: 19:22 Apr 23 2019. Patient is stable. Critical care performed (130 minutes). Time is exclusive of separately billable procedures. Time includes: direct patient care, patient reassessment, interpretation of data (laboratory data, pulse oximetry and chest xrays), review of patient's medical records and documentation of patient care- see progress notes. Procedures included in critical care time: phlebotomy- see progress notes. Disposition: Discharged home in good and improved condition (20:14 Apr 23 2019). Condition: good.CLINICAL IMPRESSION Bronchopneumonia. No hypoxemia, respiratory failure or sepsis.INSTRUCTIONS Alternate Tylenol (Acetaminophen) or Motrin (Ibuprofen) for temperature greater than 100.4 degrees by tympanic thermometer. Take according to label instructions. Drink plenty of fluids. (Continue taking PO Amoxicillin (prior Rx)). Warnings: GENERAL WARNINGS: Return or contact your physician immediately if your condition worsens or changes unexpectedly, if not improving as expected, or if other problems arise. Prescription Medications: albuterol sulfate 2.5 mg/3 mL (0.083 %) solution for nebulization Inhale 1 vial every four hours as needed for 10 days -- for cough / SOB / wheezes. Dispense 60 vial. Refills: 1. Substitution permitted. HTP #50 - [address] [facility] ; [place] [address]. . Zithromax Z-Danielito 250 mg tablet Take as directed for 5 days -- Take packet as directed for pneumonia - 2 tabs PO on day 1, then 1 tab each day for four days after. Dispense 6 tablet. Refills: 0. Substitution 5 Clinical Report - Physicians/Mid Levels [facility] Emergency Department [address] [place] [address] Phone #: [phone]- [phone] 04/23/2019 17:36 Patient: CLARE LORENZO Sex: F : 1985 Age: 34y permitted. HTP #66 - [address] [facility] ; [place] [address]. . Follow-up: Follow up with your doctor in two days if not better. Call for an appointment. Reason for referral: evaluation, treatment and R pneumonia. Understanding of the discharge instructions verbalized by patient.(Electronically signed by Leon Abebe, Physician 04/24/2019 10:02) Name Value Range Interpretation Code Description Data Svetlana rce(s) Supporting Document(s) ID Date Data Source [id number] 04/23/2019 08:09:00 PM [facility] Name Value Range Interpretation Code Description Data Svetlana rce(s) Supporting Document(s) Influenza virus A Ag [Presence] in Nasopharynx by Immunoassa y NEGATIVE NORMAL: NEGATIVE [facility] Influenza virus B Ag [Presence] in Nasopharynx by Immunoassa y NEGATIVE NORMAL: NEGATIVE [facility] NEGATIVENEGATIVE PROCEDURAL CO NTROL VALID KIT LOT # _[id number] 04/23/19.NH . . . KIT EXP DATE _01/02/20 04/23/19.NH . . .The Influenza A & B assay is a rapid molecular in vitro diagnostic testutilizing an isothermal nucleic acid amplification technology for thequalitative detection of influenza A and B viral RNA.Negative results do not preclude influenza virus infection and should not beused as the sole basis for diagnosis, treatment or other patient managementdecisions. ID Date Data Source [id number] 04/23/2019 08:09:00 PM [facility] Name Value Range Interpretation Code Description Data Svetlana rce(s) Supporting Document(s) RSV ANTIGEN NEGATIVE NORMAL: NEGATIVE [facility] RSV ANTIGEN REENTER NEGATIVE NORMAL: NEGATIVE [facility] { PROCEDURAL CONTROL VALID ){ KIT LOT # [id number] ){ KIT EXP DATE 02/08/20 ) ID Date Data Source [id number] 04/23/2019 06:59:00 PM [facility] Name Value Range Interpretation Code Description Data Svetlana rce(s) Supporting Document(s) HCG SERUM QUAL NEGATIVE NORMAL: NEGATIVE [facility] HCG SERUM QL REENTER NEGATIVE NORMAL: NEGATIVE [facility] { KIT LOT # [id number] ){ KIT EXP DATE 09/27/20 ){ PROCEDURAL CONTROL VALID ) ID Date Data Source [id number] 04/23/2019 06:48:00 PM [facility] Name Value Range Interpretation Code Description Data Svetlana rce(s) Supporting Document(s) CBC W/AUTOMATED DIFF [facility] COMPLETE BLOOD COUNT Leukocytes [#/volume] in Blood by Automated count 7.3 10^3/uL 4.2 - 1 1.0 [facility] Erythrocytes [#/volume] in Blood by Automated count 4.86 10^6/uL 4. 20 - 5.40 [facility] Hemoglobin [Mass/volume] in Blood 14.6 g/dL 12.0 - 16.0 [facility] Hematocrit [Volume Fraction] of Blood by Automated count 44.1 % 3 7.0 - 47.0 [facility] Erythrocyte mean corpuscular volume [Entitic volume] by Auto mated count 90.7 fL 81.0 - 101 [facility] Erythrocyte mean corpuscular hemoglobin [Entitic mass] by Automated count 30.0 pg 27.0 - 34.0 [facility] Erythrocyte mean corpuscular hemoglobin concentration [Mass/volume] by Automated count 33.1 g/dL 31.0 - 36.0 [facility] Erythrocyte distribution width [Ratio] by Automated count 12.6 % 11.5 - 14.5 [facility] Platelets [#/volume] in Blood by Automated count 249 10^3/uL 150 - 45 0 [facility] Platelet mean volume [Entitic volume] in Blood by Automated count 11.2 fL 7.4 - 10.4 H [facility] Neutrophils/100 leukocytes in Blood by Automated count 67.3 % 37. 0 - 80.0 [facility] Lymphocytes/100 leukocytes in Blood by Manual count 23.6 % 25.0 - 40.0 L [facility] Monocytes/100 leukocytes in Blood by Automated count 7.1 % 3.0 - 8.0 [facility] Eosinophils/100 leukocytes in Blood by Automated count 1.4 % 0.0 - 7.0 [facility] Basophils/100 leukocytes in Blood by Automated count 0.3 % 0.0 - 2.5 [facility] %IG 0.3 % 0.0 - [facility]BC 0.0 % 0.0 - 0.0 [facility] al Neutrophils [#/volume] in Blood by Automated count 4.91 10^3/uL 2.00 - 6.90 [facility] Lymphocytes [#/volume] in Blood by Automated count 1.72 10^3/uL 0.60 - 3.40 [facility] Monocytes [#/volume] in Blood by Automated count 0.52 10^3/uL 0.00 - 0.90 [facility] Eosinophils [#/volume] in Blood by Automated count 0.10 10^3/uL 0.00 - 0.70 [facility] Basophils [#/volume] in Blood by Automated count 0.02 10^3/uL 0.00 - 0.20 [facility] #IG 0.02 10^3/uL 0.00 - 0.10 [facility] #NRBC 0.00 10^3/uL 0.00 - 0.00 [facility] MANUAL DIFF NOT INDICATED [facility] RBC MORPH NOT INDICATED [facility]ital Procedure Social History Code Duration Value Status Description Data Source(s ) Smoking 04/21/2020 12:00:00 AM EST Patient has never smoked co mpleted Patient has never smoked [facility] ([facility] Vital Signs ID Date Data Source UNK Name Value Range Interpretation Code Description Data Source(s) Body mass index (BMI) [Ratio] 40.5 kg/m2 40.5 k g/m2 [facility] ([facility] [place] body weight 120 [lb_av] 120 [lb_av] [facility] T ([facility] Oxygen saturation in Arterial blood by Pulse oximetry 98 % 98 % [facility] ([facility] Body weight 236.12 [lb_av] 236.12 [lb_av] [facility] T ([facility] Body height 64.0 [in_i] 64.0 [in_i] [facility] ([facility] 5'4" Respiratory rate 18 /min 18 /min [facility] ( [facility] Body temperature 96.9 [degF] 96.9 [degF] [facility] ([facility] Heart rate 90 /min 90 /min [facility] ([facility] Diastolic blood pressure 89 mm[Hg] 89 mm[Hg] [facility] ([facility] Systolic blood pressure 118 mm[Hg] 118 mm[Hg] [facility] ([facility] Body mass index (BMI) [Ratio] 42.3 kg/m2 42.3 k g/m2 [facility] ([facility] ) Body weight 239.00 [lb_av] 239.00 [lb_av] [facility] T ([facility]) Body height 63 [in_i] 63 [in_i] [facility] ([facility]) 5'3" Body temperature 97.5 [degF] 97.5 [degF] [facility] ([facility]) Body mass index (BMI) [Ratio] 40.9 kg/m2 40.9 k g/m2 [facility] ([facility] [place] body weight 120 [lb_av] 120 [lb_av] [facility] T ([facility] Oxygen saturation in Arterial blood by Pulse oximetry 98 % 98 % [facility] ([facility] Body weight 238.12 [lb_av] 238.12 [lb_av] [facility] ([facility] Body height 64.0 [in_i] 64.0 [in_i] [facility] ([facility] 5'4" Respiratory rate 16 /min 16 /min [facility] ( [facility] Body temperature 98.0 [degF] 98.0 [degF] [facility] Heart rate 98 /min 98 /min [facility] Diastolic blood pressure 78 mm[Hg] 78 mm[Hg] [facility] Systolic blood pressure 115 mm[Hg] 115 mm[Hg] M [facility] ([facility] Body mass index (BMI) [Ratio] 41.6 kg/m2 41.6 k g/m2 [facility] ([facility] [place] body weight 120 [lb_av] 120 [lb_av] [facility] T ([facility] Oxygen saturation in Arterial blood by Pulse oximetry 98 % 98 % [facility] Body weight 242.50 [lb_av] 242.50 [lb_av] [facility] ([facility] Body height 64.0 [in_i] 64.0 [in_i] [facility] ([facility] 5'4" Respiratory rate 16 /min 16 /min [facility] ( [facility] Body temperature 98.0 [degF] 98.0 [degF] [facility] Heart rate 89 /min 89 /min [facility] Diastolic blood pressure 72 mm[Hg] 72 mm[Hg] [facility] Systolic blood pressure 111 mm[Hg] 111 mm[Hg] M [facility] ([facility] Body mass index (BMI) [Ratio] 40.6 kg/m2 40.6 k g/m2 [facility] Oxygen saturation in Arterial blood by Pulse oximetry 97 % 97 % [facility] Body weight 236.38 [lb_av] 236.38 [lb_av] [facility] T ([facility] Body height 64.0 [in_i] 64.0 [in_i] [facility] ([facility] 5'4" Respiratory rate 16 /min 16 /min [facility] ( [facility] Body temperature 99.2 [degF] 99.2 [degF] [facility] Heart rate 93 /min 93 /min [facility] Diastolic blood pressure 87 mm[Hg] 87 mm[Hg] [facility] ([facility] Systolic blood pressure 126 mm[Hg] 126 mm[Hg] M [facility] ([facility] Diastolic blood pressure 80 mm[Hg] 80 mm[Hg] eCW1 ([facility]) Systolic blood pressure 122 mm[Hg] 122 mm[Hg] e CW1 ([facility]) Body mass index (BMI) [Ratio] 40.5 kg/m2 40.5 k g/m2 eCW1 ([facility]) Body height 64 [in_us] 64 [in_us] eCW1 ([facility]) Body weight Measured 236 [lb_av] 236 [lb_av] eC W1 ([facility])
--- OUTSIDE RECORDS SUMMARY | 2020-05-06 01:34 | CCD | Continuity of Care Document ---
Author Author [facility] Organization Unknown Address [address] [place] [address] Phone [phone] Care Team Providers Care Cro Name Role Phone Sara Murrieta MD [facility] [phone] [facility] - Dermatology [facility] Problems Description [...] Flow Rate 382 Estimated Peak Flow Rate [place] Body Weight 120 lb BMI (Body Mass Index) 40.5 kg/m2 01/29/2020 8:59am BP Systolic 115 mmHg BP Diastolic 78 mmHg Heart Rate 98 /min Body Temperature 98.0 F Respiratory Rate 16 /min Height 64.0 inches 5'4" Weight 238.12 lb O2 % BldC Oximetry 98 % Peak Expiratory Flow Rate 382 Estimated Peak Flow Rate Last Menstrual Period [id number] [place] Body Weight 120 lb BMI (Body Mass Index) 40.9 kg/m2 Results Description No Information Available Procedures Description No Information Available Medical Devices Description No Information Available Encounters Type Date Location Provider Dx Diagnosis Office Visit 04/21/2020 1:15p Main Office Pleskach, Pamella, INSURANCE CLAIM APPROVER R05 Cough Office Visit 01/29/2020 8:45a Main Office Pleskach, Pamella, INSURANCE CLAIM APPROVER R05 Cough Office Visit 12/11/2019 11:45a Main Office Pleskach, Pamella, INSURANCE CLAIM APPROVER R06.0 2 Shortness of breath R07.89 Other chest pain Assessments Date Code Description Provider 04/21/2020 R05 Cough Pleskach, Pamella, INSURANCE CLAIM APPROVER 01/29/2020 R05 Cough Pleskach, Pamella, INSURANCE CLAIM APPROVER 12/11/2019 R06.02 Shortness of breath Pleskach, Mo lly, INSURANCE CLAIM APPROVER 12/11/2019 R07.89 Other chest pain Pleskach, Pamella , INSURANCE CLAIM APPROVER Plan of Treatment No Information Available Functional Status Functional Condition Comment Date Status .None Active Independent with all ADL's Activ e Independent with all IADL's Acti ve Mental Status Mental Condition Comment Date Status None Active Referrals Description No Information Available
--- OUTSIDE RECORDS SUMMARY | 2020-05-06 01:35 | CCD ---
Author Author [facility] Organization [facility] Address Unknown Phone Unavailable Care Team Providers Care Laborer Landscape Name Role Phone Pleskach, Pamella POLYMERIZATION ENGINEER Unavailable Unavailable Pleskach, Pamella POLYMERIZATION ENGINEER Unavailable Unavailable Pleskach, Pamella POLYMERIZATION ENGINEER Unavailable Unavailable Pleskach, Pamella POLYMERIZATION ENGINEER Unavailable Unavailable Pleskach, Pamella POLYMERIZATION ENGINEER Unavailable Unavailable Pleskach, Pamella POLYMERIZATION ENGINEER Unavailable Unavailable Pleskach, Pamella POLYMERIZATION ENGINEER Unavailable Unavailable Pleskach, Pamella POLYMERIZATION ENGINEER Unavailable Unavailable Pleskach, Pamella POLYMERIZATION ENGINEER Unavailable Unavailable Pleskach, Pamella POLYMERIZATION ENGINEER Unavailable Unavailable Pleskach, Pamella POLYMERIZATION ENGINEER Unavailable Unavailable Pleskach, Pamella POLYMERIZATION ENGINEER Unavailable Unavailable Pleskach, Pamella POLYMERIZATION ENGINEER Unavailable Unavailable Pleskach, Pamella POLYMERIZATION ENGINEER Unavailable Unavailable Pleskach, Pamella POLYMERIZATION ENGINEER Unavailable Unavailable Pleskach, Pamella POLYMERIZATION ENGINEER Unavailable Unavailable Pleskach, Pamella POLYMERIZATION ENGINEER Unavailable Unavailable Pleskach, Pamella POLYMERIZATION ENGINEER Unavailable Unavailable Pleskach, Pamella POLYMERIZATION ENGINEER Unavailable Unavailable Pleskach, Pamella POLYMERIZATION ENGINEER Unavailable Unavailable Pleskach, Pamella POLYMERIZATION ENGINEER Unavailable Unavailable Pleskach, Pamella POLYMERIZATION ENGINEER Unavailable Unavailable Pleskach, Pamella POLYMERIZATION ENGINEER Unavailable Unavailable Pleskach, Pamella POLYMERIZATION ENGINEER Unavailable Unavailable Pleskach, Pamella POLYMERIZATION ENGINEER Unavailable Unavailable Pleskach, Pamella POLYMERIZATION ENGINEER Unavailable Unavailable Pleskach, Pamella POLYMERIZATION ENGINEER Unavailable Unavailable Pleskach, Pamella POLYMERIZATION ENGINEER Unavailable Unavailable TURRIN, ALEJANDRA Unavailable Unavailable TURRIN, ALEJANDRA Unavailable Unavailable TURRIN, ALEJANDRA Unavailable Unavailable TURRIN, ALEJANDRA Unavailable Unavailable DilleManuel DDS Unavailable Unavailable Dille E Kendra DDS Unavailable Unavailable Dille E Kendra DDS Unavailable Unavailable Dilcarlos E Kendra DDS Unavailable Unavailable Abdifatah Javed MD Unavailable Unavailable Abdifatah Javed MD Unavailable Unavailable Abdifatah Javed MD Unavailable Unavailable Abdifatah Javed MD Unavailable Unavailable Abdifatah Javed MD Unavailable Unavailable Abdifatah Javed MD Unavailable Unavailable Abdifatah Javed MD Unavailable Unavailable Abdifatah Javed MD Unavailable Unavailable Abdifatah Javed MD Unavailable Unavailable Abdifatah Jaevd MD Unavailable Unavailable Abdifatah Javed MD Unavailable [...] Unavailable Unavailable Agnieszka ABEBE MD Unavailable Unavailable VENEAgnieszka LACEY MD Unavailable Unavailable BELEN, F COLIN DO Unavailable Unavailable BELEN, F COLIN DO Unavailable Unavailable BELEN, F COLIN DO Unavailable Unavailable BELEN, F COLIN DO Unavailable Unavailable BELEN, F CLOIN DO Unavailable Unavailable BELEN, F COLIN DO [...] Unavailable NIR, M KIM PA Unavailable Unavailable Lorenza LOYOLA Unavailable Unavailable Lorenza LOYOLA Unavailable Unavailable Re-disclosure Warning The records that [...] is protected by Article 27-F of the [facility] Public Health law. If you continue you may have access to information: Regarding HIV / AIDS; Provided by facilities licensed or operated by the [facility] Office of Mental Health; or Provided by the [facility] Office for People With Developmental Disabilities. If such information is present, then the following [facility] mandated warning applies: This information has [...] law may result in a fine or shelter sentence or both. A general authorization for [...] Data Source(s ) Outpatient Attender: Pamella Cloud [facility] Main Office 04/21/2020 1 2:15:00 PM EST [facility] ([facility] Outpatient Attender: KIM GIANG Physical Therapy 02/10 05:45:00 PM EST [facility] ([facility]) Outpatient Attender: Pamella Cloud [facility] Main Office 01/29/2020 0 8:45:00 AM EDT [facility] ([facility] Outpatient Attender: Pamella Cloud [facility] Main Office 12/11/2019 1 1:45:00 AM EDT [facility] ([facility] Outpatient 11/03/2019 05:20:00 AM EDT [facility] Emergency Attender: COLIN YEAGER DOConsultant: Tevin Javed MD 11/03/2019 03:42:00 AM EDT - 11/03/2019 08:23:00 AM EDT [facility] Patient discharged. Outpatient Attender: Pamella Cloud [facility] Main Office 06/27/2019 1 0:30:00 AM EDT [facility] ([facility] Outpatient Attender: Pamella Cloud [facility] Main Office 06/10/2019 0 9:00:00 AM EST [facility] ([facility] Outpatient Attender: Kendra RENEE 06/04/2019 07:13:00 A [facility] Outpatient Attender: Kendra RENEE 05/21/2019 03:18:01 P [facility] Outpatient Attender: Kendra RENEE 05/21/2019 03:17:01 P [facility] Outpatient Attender: Kendra ANDERSON 05/21/2019 02:11:02 P [facility] Outpatient Attender: Kendra RENEE 05/21/2019 01:17:00 P [facility] Outpatient Attender: Kendra RENEE 05/21/2019 01:15:01 P [facility] Outpatient Attender: Kendra RENEE 05/21/2019 10:18:01 A [facility] Outpatient Attender: Kendra RENEE 05/21/2019 10:17:01 A M [facility] [address] [place] [address] 05/09/2019 12:00:00 AM EST eCW1 ([facility]) Emergency Attender: ALEJANDRA HERNANDEZConsultant: Tevin Javed MD 04/25/2019 03:24:00 PM EST - 04/25/2019 05:15:00 PM [facility] Patient discharged. Emergency Attender: LEON ABEBE MDConsultant: Tevin castro MD 04/23/2019 06:02:00 PM EST - 04/23/2019 09:12:00 PM [facility] Patient discharged. Outpatient Attender: Kendra Dinero DDS [facility] 04/09/2019 10:07:01 A [facility]: [facility]/22/2019 03:57:59 P [facility] Outpatient Attender: Kendra Dinero DDS [facility] 03/22/2019 03:57:02 P [facility] Medications Medication Brand Name Start Date Product [...] A DAY FOR 7-14 DAYS SOLD: 04/08/2020 [facility] Amoxicillin 875 MG / Clavulanate 125 [...] THEN TAKE ONE DAILY THEREAFTER SOLD: 04/24/2019 [facility] 2.5 mg /3 mL (0.083 %) 04/23/2019 12:00:00 AM EST solu tion for nebulization 150 INHALE CONTENTS OF 1 VIAL A NEBULIZER EVERY 4 HOURS NEEDED FOR COUGH FOR SHORTNESS OF BREATH WHEEZING INHALE CONTENTS OF 1 VIAL VIA NEBULIZER EVERY 4 HOURS NEEDED FOR COUGH FOR SHORTNESS OF BREATH WHEEZING SOLD: 04/24/2019 [facility] 875 mg 04/22/2019 12:00:00 AM EST tablet 20 TAKE ONE TABLET BY MOUTH EVERY 12 HOURS FOR 10 DAYS TAKE ONE TABLET BY MOUTH EVERY 12 HOURS FOR 10 DAYS SO LD: 04/22/2019 [facility] Insurance Providers Payer name Policy type / Coverage type Policy ID Covered alliance party ID Covered alliance party's relationship to benjamin Policy Benjamin Plan Information [facility] COMMUNITY PLAN [facility] [id number] SP [id number] [facility] COMMUNITY PLAN [place] [id number] SP [id number] [facility] COMMUNITY PLAN XIX [id number] SELF PAY ONLY [id number] SP [id number] United [employer] Essential Plan P [id number] S [id number] United Healthcare Essential Plan P [id number] S [id number] United Healthcare Essential Plan P UNAVAILABLE S UNAVAILABLE Managed Care - [facility] Community Plan P [id number] S [id number] Medicaid S UNAVAILABLE S UNAVAILA BLE MEDICAID [id number] SP [id number] [facility] COMMUNITY PLAN [facility] [id number] SP [id number] [facility] COMMUNITY PLAN [place] [id number] SP [id number] [facility] COMMUNITY PLAN [place] [id number] SP [id number] UNITED HEALTHCARE(MCAID) O [id number] S [id number] UNITED HE[employer]CARE [id number] SP [id number] UNITED HE[employer]CARE [id number] SP [id number] SELF PAY ONLY UNAVAILABLE UNAV AILABLE TOTAL CARE INC O [id number] S [id number] MEDICAID M [id number] S [id number] SELF PAY UNAVAILABLE SP UNAVAILA BLE TOTAL CARE-MEDICAID MANAGED CR [id number] SELF [id number] MEDICAID [id number] SELF [id number] [place] [id number] SP [id number] BLUE CROSS ODEN PLAN [id number] SP [id number] EXCELLUS BCBS P [id number] S [id number] NICE AND EASY [id number] SP [id number] Problems, Conditions, and Diagnoses Code Display Name Description Problem Type Effective Dates Data Source(s) J205 Acute bronchitis due to respiratory sync ytial virus Acute bronchitis due to respiratory syncytial virus Diagnosis 11/03/2019 03:42:00 AM EDT [facility] R509 Fever, unspecified Fever, unspecified Diagnosis 0 03:42:00 AM EDT [facility] J159 Unspecified bacterial pneumonia Unspecified bacterial pneumonia Diagnosis 04/25/2019 03:24:00 PM EST [facility] R05 Cough Cough Diagnosis 04/25/2019 03:24:00 PM ES [facility] J180 Bronchopneumonia, unspecified organism B ronchopneumonia, unspecified organism Diagnosis 04/23/2019 06:02:00 PM EST [facility] Surgeries/Procedures Procedure Description Date Indications Data Source(s) RADEX TOE MINIMUM 2 VIEWS 03/09/2020 12:00:00 AM EST [facility] ([facility]) URINE TEST 05/09/2019 12:00:00 AM EST eCW1 ([facility]) Results ID Date Data Source [id number] 04/08/2020 12:00:00 AM EST [facility] Name Value Range Interpretation Code Description Data Svetlana rce(s) Supporting Document(s) Carestart Rapid COVID Antigen Test [facility] This lab was reported by Pierce [facility] silas. ID Date Data Source [id number] 04/08/2020 12:00:00 AM EST [facility] Name Value Range Interpretation Code Description Data Svetlana rce(s) Supporting Document(s) SARS coronavirus 2 RNA [Presence] in Res piratory specimen by ANATOLY with probe detection [facility] This lab was ordered by Pierce Quach and reported by code-laboration. ID Date Data Source [id number] 11/03/2019 03:42:00 AM EDT [facility] 1 OrderSheet [facility] Emergency Department [address] [place] [address] Phone #: ext- [phone] 11/03/2019 03:41 Patient: CLAER LORENZO Sex: F : 1985 Age: 34yWEIGHT:112.2 [...] Physician;Urinalysis (Clean STAT 04:11/03/2019 Ack'd: 04:45 06:30 Nayely) Colin Evans RN Physician;Influenza Nasal A B STAT 04:11/03/2019 04:45 Flip Evans RN Physician;CORONAVIRUS STAT 04:11/03/2019 04:45 FavioenCOVID-19 Colin Evans RN Physician;Ferritin STAT 04:11/03/2019 04:45 Flip Evans RN Physician;Lactic Acid STAT 04:11/03/2019 06:31 Flip Evans RN Physician;Bl ood Culture STAT 04:11/03/2019 06:31 Flip 2 OrderSheet [facility] Emergency Department [address] [place] [address] Phone #: ext- [phone] 11/03/2019 03:41 Patient: CLARE LORENZO Sex: F : 1985 Age: [age]y X2 (Sched Colin Evans RN04:25 11/03/2019) Physician;Blood Culture STAT 04:11/03/2019 06:31 [id number] X2 (Sched Colin Evans RN04:35 11/03/2019) Physician;DIAGNOSTIC STUDY ORDERSOrder Description Priority Entered Acknowledged InitialedChest Portable 1 STAT 04:11/03/2019 Ack'd: 04:45 06:52 Jane Evans RN(Oxygen?(No)) Physician; [...] rce(s) Supporting Document(s) ID Date Data Source [id number] 11/03/2019 03:42:00 AM EDT [facility] 1 Medication Reconciliation Report [facility] Emergency Department [address] [place] [address] Phone #: ext- [phone] 11/03/2019 03:41 [id number] Sex: F : 1985 Age: 34yWeight: 112.2 kgHeight/Length: 64 in.BMI: 42.5ALLERGIES: No Known Drug AllergyThe patient's Home Medications are listed below:NONE.The source(s) of the original Home Medication information:Not obtained.The following Medications were given to the patient in the Emergency Department:None.The follo wing Medications were prescribed to the patient:None. Name Value Range Interpretation Code Description Data Svetlana [facility](s) Supporting Document(s) ID Date Data Source [id number] 11/03/2019 03:42:00 AM EDT [place] [address] Medication Administration Record [facility] Emergency Department [address] [place] [address] Phone #: ext- [phone] 11/03/2019 03:41 Patient: CLARE LORENZO Sex: F : 1985 Age: 34yWeight: 112.2 kgHeight/Length: 64 inBMI: 42.5ALLERGIES: No Known Drug AllergyDate/Time Medication Administered Medication Ordered Name Value Range Interpretation Code Description Data Svetlana rce(s) Supporting Document(s) ID Date Data Source [id number] 11/03/2019 03:42:00 AM EDT [place] [address] General Instructions [facility] Emergency Department [address] [place] [address] Phone #: dnn- [phone] 11/03/2019 03:41 Patient: CLARE LORENZO Sex: F : 1985 Age: 34yAcute viral (RSV) bronchitis.INSTRUCTIONSNo strenuous activity.Drink plenty of fluids.(Tylenol or Ibuprofen.).Your Current Medications: .No home medication.Follow-up:Follow up with your healthcare provider in two days. Summary of care provided to patient via paper. ADDITIONAL INFORMATIONViral Bronchitis (Adult) 2 General Instructions [facility] Emergency Department [address] [place] [address] Phone #: ext- [phone] 11/03/2019 03:41 Patient: [...] back to your usual 3 General Instructions [facility] Emergency Department [address] [place], [place] [address] Phone #: neu- [phone] 11/03/2019 03:41 Patient: CLARE LORENZO Sex: F : 1985 Age: 34y activities, don't let yourself get too tired. Do not smoke. Also avoid being exposed to secondhand smoke. You may use auth-hgd-qenlqrf medicine to control fever or pain, unless [...] loosen secretions in the nose and lungs. Uzlq-pdl-ajlyast cough, cold, and sore-throat medicines will not [...] headache, or stiff neck 4 General Instructions [facility] Emergency Department [address] [place] [address] Phone #: ext- [phone] 11/03/2019 03:41 Patient: CLARE LORENZO Sex: F : 1985 Age: 34y Trouble breathing, wheezing, or pain with breathing [id number] [employer] [place] [address]. All rights reserved. This information is not intended as asubstitute for professional medical care. Always follow your healthcare professional's instructions. You have been given the following additional information: Bronchitis, No Antibiotic (Adult) No strenuous activity.(Electronically signed by Colin Yeager, Physician 11/03/2019 06:59) Name Value Range Interpretation Code Description Data Svetlana rce(s) Supporting Document(s) ID Date Data Source [id number] 11/03/2019 03:42:00 AM EDT [facility] 1 Clinical Report - Nurses [facility] Emergency Department [address] [place] [address] Phone #: ext- [phone] 11/03/2019 03:41 Patient: CLARE LORENZO Sex: F [...] strong). RR: 16 (regular, unlabored and normal). Z3irvrrpyngy: 100% on room air. Temp: 97.6 F (oral). Pain level now: 0/10. --03:50 11/03/19 Flip Evans RNTreatment BEAUTY PARLOR CLEANER:None. --03:50 11/03/19 Flip Evans RN( chest tightness). [...] disease exposure. 2 Clinical Report - Nurses [facility] Emergency Department [address] [place] [address] Phone #: ext- [phone] 11/03/2019 03:41 Patient: CLARE LORENZO Sex: F : 1985 Age: 34y SELF [...] notified.--03:51 11/03/19 Flip Evans RN.DISPOSITION / DISCHARGE Jelani Coma Scale: 15- eyes open- spontaneous (4); best verbal response- oriented (5); best motor response- obeys commands (6). Departure time: 07:13 11/03/2019. Condition at departure: improved. No learning barriers present. Discharge instructions provided and reviewed with the patient. Reviewed fever care instructions. Reviewed referral to family practice for followup. Reviewed need for increased fluid intake. Patient verbalized understanding. Written instructions provided in Ecuadorean. The patient was discharged home and accompanied [...] Evans RN. 3 Clinical Report - Nurses [facility] Emergency Department [address] [place] [address] Phone #: ext- [phone] 11/03/2019 03:41 Patient: CL[facility]EN[id number] Sex: F : 1985 Age: 34yLocked/Released at 11/03/2019 07:13 by Flip Evans RN Name Value Range Interpretation Code Description Data Svetlana rce(s) Supporting Document(s) ID Date Data Source [id number] 11/03/2019 03:42:00 AM EDT [facility] 1 Clinical Report - Physicians/Mid Levels [facility] Emergency Department [address] [place] [address] Phone #: ext- [phone] 11/03/2019 03:41 Patient: [...] allergies. 2 Clinical Report - Physicians/Mid Levels Health system Emergency Department [address] [place] [address] Phone #: ext- [phone] 11/03/2019 03:41 Patient: [...] interpreted contemporaneously by me.Normal sinus rhythm. Normal GA interval. Normal QRS complexes. Normal STs and T waves. No ectopy.Chest X-ray: Normal Chest X-Ray (AP and portable): independently viewed and interpretedcontemporaneously by me. Normal heart size. Normal mediastinum. Normal soft tissues. No infiltratespresent. No pneumothorax present.Laboratory Tests: Laboratory tests have been ordered, with results reviewed and considered in themedical decision making process. Lactic Acid: (IVELISSE: 11/03/2019 05:20) ( [facility] 11/03/2019 05:38) Final results Test Result Flag Units (Reference) LACTIC ACID 1.9 MMOL/L (0.2 - 2.2) CBC w Diff: (IVELISSE: 11/03/2019 04:45) ( [facility] 11/03/2019 04:55) Final results Test Result Flag [...] 0.0) 3 Clinical Report - Physicians/Mid Levels [facility] Emergency Department [address] [place] [address] Phone #: ext- [phone] 11/03/2019 03:41 Patient: [...] Male GFR Interprentation 20-49 yrs >60 mL/min Ocsqts00-99 yrs >56 mL/min Normal 60-69 yrs >49 mL/min Normal 70-79yrs>42 mL/min Normal 80 and above >35 mL/min Normal Female GFRInterpretation 20-39 yrs >60 mL/min Normal 40-49 yrs >58 mL/minNormal 50-59 yrs >51 mL/min Normal 60-69 yrs >45 mL/min Qaypzn67-11 yrs >39 mL/min Normal 80 and above >32 mL/min NormalBeta-HCG, Qual Urine: (IVELISSE: 11/03/2019 06:15) ( [facility] 11/03/2019 06:39) Final results Test Result Flag Units (Reference) HCG URINE QUAL NEGATIVE (NORMAL: NEGAT HCG URINE QL REENTER NEGATIVE (NORMAL: NEGAT { KIT LOT # [id number] ){ KIT EXP DATE01.20.21 ){ PROCEDURAL CONTROL VALID)D-Dimer: (IVELISSE: 11/03/2019 05:20) ( [facility] 11/03/2019 05:46) Final results Test Result Flag Units (Reference) D-DIMER QUANT 0.44 ug/mL (0.27 - 0.50)Troponin-T: (IVELISSE: 11/03/2019 04:45) ( [facility] 11/03/2019 05:45) Final results 4 Clinical Report - Physicians/Mid Levels [facility] Emergency Department [address] [place] [address] Phone #: ext- [phone] 11/03/2019 03:41 Patient: CLARE LORENZO Sex: F : 1985 Age: 34y Test Result Flag Units (Reference) TROPONIN T <0.01 NG/ML (0.00 - 0.10) TROPONIN T0.1 ng/ml Recommended as the clinical threshold value forTroponin T. Urinalysis: (IVELISSE: 11/03/2019 06:15) ( [facility] 11/03/2019 06:37) Final results Test [...] Nasal A B: (IVELISSE: 11/03/2019 04:45) ( [facility] 11/03/2019 05:36) Final results Test Result Flag Units (Reference) INFLUENZA A NEGATIVE (NORMAL: NEGAT INFLUENZA B NEGATIVE (NORMAL: NEGAT INFLUENZA A REENTER NEGATIVE (NORMAL: NEGAT INFLUENZA B REENTER NEGATIVE (NORMAL: NEGAT PROCEDURAL CONTROL VALID KIT LOT # [id number] 11/03/19.0536.SID. KIT EXP DATE _22-20-02 11/03/1936.SID.The Influenza A utilizing an isothermal nucleic [...] IMPRESSION 5 Clinical Report - Physicians/Mid Levels [facility] Emergency Department [address] [place] [address] Phone #: ext- [phone] 11/03/2019 03:41 Patient: [...] Name Value Range Interpretation Code Description Data [facility] rce(s) Supporting Document(s) ID Date Data Source [id number] 11/03/2019 03:42:00 AM EDT [facility] Addenda for CLARE LORENZO VisitID: [id number] Date: 10:24Lab results reviewed, SARS-CoV-2 Coronavirus NOT DETECTED. Communicated information [facility].(Electronically signed by Maria Schilling RN - 11/06/2019 10:24) Name Value Range Interpretation Code Description Data [facility] rce(s) Supporting Document(s) ID Date Data Source [id number] 11/04/2019 12:12:00 [place] [address] PHONE: [phone] FAX: [phone] Name .................. : MAURA Hermosillo Acct Number.................. : [id number] ROOM. ................. : TR-1B MR Number ................... : [id number] Stay type ............. : E/R Discharge Date......... ... : 11/03/19 Admit Date ... ...... : 11/03/19 Admit Phys .................... : BELEN GIANG Date of ....... : 1985 Family Phys ................... : JAVED SCOT Phone .................. : [phone] Age ................................ : 34 Film# .................. .:[id number] Sex ................................. : F Unsigned transcriptions are preliminary reports and do not represent a medical or legal document CHEST PORTABLE [id number] COMPLETE:11/03/19 06:53 PRICE [id number] Reason(s): Cough PORTABLE CHEST X-RAY: SINGLE VIEW [...] rce(s) Supporting Document(s) ID Date Data Source [id number] 11/03/2019 01:31:00 [place] [address] RESPIRATORY CARE REPORT ==== ---------NAME------- NUMBER SEX AGE ADMIT DISC. XRAY# F/C [facility] [id number] F 34 11/03/19 11/03/19 [id number] X6B E/R DATE OF : 1985 M/R# [id number] PH#: [phone] TR-1B LOCATION: EMERGENCY DEPT [facility] [address] COMPLE TE:11/03/19 07:39 [place] [id number] PHYSICIAN: BELEN GIANG Name Value Range Interpretation Code Description Data Svetlana rce(s) Supporting Document(s) ID Date Data Source [id number] 11/03/2019 06:38:00 AM EDT [facility] Name Value Range Interpretation Code Description Data Svetlana rce(s) Supporting Document(s) HCG URINE QUAL NEGATIVE NORMAL: NEGATIVE [facility] HCG URINE QL REENTER NEGATIVE NORMAL: NEGATIVE [facility] { KIT LOT # [id number] ){ KIT EXP DATE 01.20.21 ){ PROCEDURAL CONTROL VALID ) ID Date Data Source [id number] 11/03/2019 06:37:00 AM EDT [facility] Name Value Range Interpretation Code Description Data Svetlana rce(s) Supporting Document(s) [facility] COL[facility] yellow NORMAL: Yellow [facility] ospital CLARITY clear NORMAL: Clear [facility] Ho spital Specific gravity of Urine by Test strip 1.015 1.001 - 1.030 [facility] pH 6 5 - 9 [facility] Glucose [Mass/volume] in Urine by Test strip NORM NORMAL: Negat [facility] Bilirubin.total [Presence] in Urine by Test strip NEG NORMAL: Negative [facility] Ketones [Presence] in Urine by Test strip NEG NORMAL: Negative [facility] Protein [Mass/volume] in Urine by Test strip NEG NORMAL: Negat [facility] Nitrite [Presence] in Urine by Test strip NEG NORMAL: Negative [facility] BLOOD NEG NORMAL: Negative [facility] Leukocyte esterase [Presence] in Urine by Test strip NEG SEKOU L: Negative [facility] Urobilinogen [Mass/volume] in Urine by Test strip NOR less mario n 1.0 mg/dL [facility] MICROSCOPIC Not Indicate [facility] ospital ID Date Data Source [id number] 11/08/2019 12:30:00 PM EDT [facility] [address] Name Value Range Interpretation Code Description Data Svetlana rce(s) Supporting Document(s) Bacteria identified in Blood by Culture [facility] NO GROWTH AFTER 5 DAYS ID Date Data Source [id number] 11/09/2019 01:05:00 PM EDT [facility] Name Value Range Interpretation Code Description Data Svetlana rce(s) Supporting Document(s) CULTURE BLOOD [facility] spital _CULTURE BLOOD_{ PRELIM TEST PERFORMED AT [address] [address] CLIA# [id number] SEE SCANNED REPORT ID Date Data Source [id number] 11/09/2019 01:05:00 PM EDT [facility] Name Value Range Interpretation Code Description Data Svetlana rce(s) Supporting Document(s) CULTURE BLOOD [facility] spital _CULTURE BLOOD_{ PRELIM TEST PERFORMED AT [address] [address] CLIA# [id number] SEE SCANNED REPORT ID Date Data Source [id number] 11/03/2019 05:46:00 AM EDT [facility] Name Value Range Interpretation Code Description Data Svetlana rce(s) Supporting Document(s) Fibrin D-dimer FEU [Mass/volume] in Platelet poor plasma 0.44 ug /mL 0.27 - 0.50 [facility] ID Date Data Source [id number] 11/03/2019 05:38:00 AM EDT [facility] Name Value Range Interpretation Code Description Data Svetlana rce(s) Supporting Document(s) Lactate [Moles/volume] in Serum or Plasma 1.9 MMOL/L 0.2 - 2.2 [facility] ID Date Data Source [id number] 11/03/2019 04:45:00 AM EDT [facility] Name Value Range Interpretation Code Description Data Svetlana rce(s) Supporting Document(s) SARS coronavirus 2 RNA [facility] This lab was ordered by [facility] spital and reported by [facility]. ID Date Data Source [id number] 11/06/2019 06:25:00 AM EDT [facility] Value Range Interpretation Code Description Data Svetlana rce(s) Supporting Document(s) SARS-CoV-2, ANATOLY Not Detected Not Detected [facility] Testing was performed using the [employer] S ARS-CoV-2 assay.This test was developed and its performance characteristics determinedby [employer]. This test has not been FDA cleared [...] in this assay. ID Date Data Source [id number] 11/03/2019 05:55:00 AM EDT [facility] Value Range Interpretation Code Description Data Svetlana rce(s) Supporting Document(s) Ferritin [Mass/volume] in Serum or Plasma 34.0 ng/mL 3.0 - 105 [facility] ID Date Data Source [id number] 11/03/2019 05:45:00 AM EDT [facility] Value Range Interpretation Code Description Data Svetlana rce(s) Supporting Document(s) TROPONIN T <0.01 NG/ML 0.00 - 0.10 [facility] ospital TROPONIN T0.1 ng/ml Recommended as the c linical threshold value forTroponin T. ID Date Data Source [id number] 11/03/2019 05:45:00 AM EDT [facility] Value Range Interpretation Code Description Data Svetlana rce(s) Supporting Document(s) COMPREHENSIVE METABOLIC PANEL [facility] COMPREHENSIVE METABOLIC PANEL Sodium [Moles/volume] in Serum or Plasma 140 mEq/L 134 - 153 [facility] Potassium [Moles/volume] in Serum or Plasma 3.7 mEq/L 3.6 - 5.0 [facility] Chloride [Moles/volume] in Serum or Plasma 104 mEq/L 98 - 107 [facility] Carbon dioxide, total [Moles/volume] in Serum or Plasma 24 MEQ/L 22 - 30 [facility] Glucose [Mass/volume] in Serum or Plasma 102 MG/DL 65 - 110 [facility] BUN 7 MG/DL 7 - 21 [facility] Creatinine [Mass/volume] in Serum or Plasma 0.6 MG/DL 0.7 - 1.5 L [facility] BUN/CREAT 12 8 - 27 [facility] Protein [Mass/volume] in Serum or Plasma 7.9 G/DL 6.3 - 8.2 [facility] Albumin [Mass/volume] in Serum or Plasma 5.0 G/DL 3.9 - 5.0 [facility] Globulin [Mass/volume] in Serum by calculation 2.9 GM/DL 2.4 - 3.2 [facility] A/G RATIO 1.7 0.8 - 2.0 [facility] Calcium [Mass/volume] in Serum or Plasma 9.7 MG/DL 8.4 - 10.2 [facility] Bilirubin.total [Mass/volume] in Serum or Plasma <0.7 MG/DL 0.2 - 1.3 [facility] Alkaline phosphatase [Enzymatic activity/volume] in Serum or Plasma 123 U/L 38 - 126 [facility] Aspartate aminotransferase [Enzymatic activity/volume] in Serum or Plasma 25 U/L 5 - 40 [facility] Alanine aminotransferase [Enzymatic activity/volume] in Seru m or Plasma 25 U/L 7 - 56 [facility] Anion gap 3 in Serum or Plasma 12.0 mmol/L 8.0 - 16.0 [facility] AGE 34 yrs [facility] al NON-AA GFR >60 mL/min [facility] ital AFR AMER GFR >60 mL/min [facility] Ho spital Male GFR In terprentation 20-49 [...] >32 mL/min Normal ID Date Data Source [id number] 11/03/2019 05:36:00 AM EDT [facility] Name Value Range Interpretation Code Description Data Svetlana rce(s) Supporting Document(s) Influenza virus A Ag [Presence] in Nasopharynx by Immunoassa y NEGATIVE NORMAL: NEGATIVE [facility] Influenza virus B Ag [Presence] in Nasopharynx by Immunoassa y NEGATIVE NORMAL: NEGATIVE [facility] NEGATIVENEGATIVE PROCEDURAL CO NTROL VALID KIT LOT # _[id number] 11/03/19.0536.SID. KIT EXP DATE _46-22-41 11/03/19.0536.SID.The Influenza A & B assay is a rapid molecular in vitro diagnostic testutilizing an isothermal nucleic acid amplification technology for thequalitative detection of influenza A and B viral RNA.Negative results do not preclude influenza virus infection and should not beused as the sole basis for diagnosis, treatment or other patient managementdecisions. ID Date Data Source [id number] 11/03/2019 04:55:00 AM EDT [facility] Name Value Range Interpretation Code Description Data Svetlana rce(s) Supporting Document(s) CBC W/AUTOMATED DIFF [facility] COMPLETE BLOOD COUNT Leukocytes [#/volume] in Blood by Automated count 9.0 10^3/uL 4.2 - 1 1.0 [facility] Erythrocytes [#/volume] in Blood by Automated count 4.83 10^6/uL 4. 20 - 5.40 [facility] Hemoglobin [Mass/volume] in Blood 14.3 g/dL 12.0 - 16.0 [facility] Hematocrit [Volume Fraction] of Blood by Automated count 44.0 % 3 7.0 - 47.0 [facility] Erythrocyte mean corpuscular volume [Entitic volume] by Auto mated count 91.1 fL 81.0 - 101 [facility] Erythrocyte mean corpuscular hemoglobin [Entitic mass] by Automated count 29.6 pg 27.0 - 34.0 [facility] Erythrocyte mean corpuscular hemoglobin concentration [Mass/volume] by Automated count 32.5 g/dL 31.0 - 36.0 [facility] Erythrocyte distribution width [Ratio] by Automated count 12.5 % 11.5 - 14.5 [facility] Platelets [#/volume] in Blood by Automated count 244 10^3/uL 150 - 45 0 [facility] Platelet mean volume [Entitic volume] in Blood by Automated count 11.8 fL 7.4 - 10.4 H [facility] Neutrophils/100 leukocytes in Blood by Automated count 65.2 % 37. 0 - 80.0 [facility] Lymphocytes/100 leukocytes in Blood by Manual count 28.2 % 25.0 - 40.0 [facility] Monocytes/100 leukocytes in Blood by Automated count 5.1 % 3.0 - 8.0 [facility] Eosinophils/100 leukocytes in Blood by Automated count 1.0 % 0.0 - 7.0 [facility] Basophils/100 leukocytes in Blood by Automated count 0.3 % 0.0 - 2.5 [facility] %IG 0.2 % 0.0 - 0.0 H [facility] al %NRBC 0.0 % 0.0 - 0.0 [facility] Neutrophils [#/volume] in Blood by Automated count 5.89 10^3/uL 2.00 - 6.90 [facility] Lymphocytes [#/volume] in Blood by Automated count 2.55 10^3/uL 0.60 - 3.40 [facility] Monocytes [#/volume] in Blood by Automated count 0.46 10^3/uL 0.00 - 0.90 [facility] Eosinophils [#/volume] in Blood by Automated count 0.09 10^3/uL 0.00 - 0.70 [facility] Basophils [#/volume] in Blood by Automated count 0.03 10^3/uL 0.00 - 0.20 [facility] #IG 0.02 10^3/uL 0.00 - 0.10 [facility] ospital #NRBC 0.00 10^3/uL 0.00 - 0.00 [facility] ospital MANUAL DIFF NOT INDICATED [facility] RBC MORPH NOT INDICATED [facility] Ho spital ID Date Data Source [id number] 05/21/2019 01:14:13 PM [facility] Current Problems: Dental caries (ICD-521 .00) (QZT70-H08.9)[place] teeth impaction (ICD-520.6) (LXA80-U94.1) Dental Chart: Procedures:Type - CDT Code - [...] PM): ; vicki (May 21 2019 2:10PM): [facility](-). CC: none. Reviewed Xrays. Exam: no caries detected. OCS: WNL, IO/ EO completed, No significant hard findings upon clinical exam Pt was cooperative.OHI givenReferral: OS # 1 and 32NV:recallMarialuisa Mendes RDH by vicki (05/21/2019 2:09 PM): Tooth Notes and Watches: Note: There are Un- Billed (C Type) procedures on this document.Assessment & Plan Allergies:No Known Allergies (updated 05/21/2019) Orders:Oral Surgery Referral [CPT-[id number]] Clinical Visit Summary Declined Curren t Problems: Dental caries (ICD-521.00) (RJV63-Y12.9)[place] teeth impaction (ICD- 520.6) (SZC54-Q87.1) Dental Chart: Procedures:Type - CDT Code - Description B - (D0120) Periodic oral evaluation - established patient (Performed by Kendra Dinero DDS) B - (D1110) Prophylaxis, adult (Performed by Marialuisa Mendes RDH) Tooth Notes and Watches: Name Value Range Interpretation Code Description Data Svetlana rce(s) Supporting Document(s) ID Date Data Source [id number] 04/26/2019 02:04:00 [place] [address] PHONE: [phone] FAX: [phone] Name .................. : MAURA Hermosillo Acct Number.................. : [id number] ROOM. ................. : [place]- Number ................... : [id number] Stay type ............. : E/R Discharge Date......... ... : 04/25/19 Admit Date ....... .. : 04/25/19 Admit Phys .................... : DAVID ASHBY Date of ....... : 1985 Family Phys ................... : JAVED SCOT Phone .................. : [phone] Age ................................ : 34 Film# .................. .:[id number] Sex ................................. : F Unsigned transcriptions are preliminary reports and do not represent a medical or legal document CHEST 2 VIEWS [id number] COMPLETE:04/25/19 16:52 [facility] [address] Reason(s): worsening cough, recent RML infiltrate ? worsening pneumonia CHEST X-RAY: 2-VIEWS INDICATION: Worsening cough. FINDINGS: The cardiac and mediastinal silhouettes appear normal and the lungs are clear. The bones and soft tissues are normal. The upper abdomen is unremarkable. IMPRESSION: No acute disease identifiable. Electronically Reviewed and Signed By Jabier Oshea M.D. , 04/26/19 14:04, [facility] Transcribe Initials: NEHEMIAS , Transcribe Date: 04/25/19 23:29, Dictation Date: Copy for: CHEPE Aaron via fax Copy for: EMERGENCY DEPT via modem Copy for: 710 MED REC DISCHARGED Page 1 of 1 Name Value Range Interpretation Code Description Data Svetlana rce(s) Supporting Document(s) ID Date Data Source [id number] 04/25/2019 03:24:00 PM EST [facility] 1 OrderSheet [facility] Emergency Department [address] [place] [address] Phone #: [phone]- [phone] 04/25/2019 15:24 Patient: CLARE LORENZO Sex: F [...] rce(s) Supporting Document(s) ID Date Data Source [id number] 04/25/2019 03:24:00 PM EST [facility] 1 Medication Reconciliation Report [facility] Emergency Department [address] [place] [address] Phone #: ext- [phone] 04/25/2019 15:24 Patient: [...] Name Value Range Interpretation Code Description Data [facility](s) Supporting Document(s) ID Date Data Source [id number] 04/25/2019 03:24:00 PM [facility] 1 Medication Administration Record [facility] Emergency Department [address] [place] [address] Phone #: ext- [phone] 04/25/2019 15:24 Patient: CLARE LORENZO Sex: F : 1985 Age: 34yWeight: 95.2 kgHeight/Length: 64 inBMI: 36.1ALLERGIES: No Known Drug AllergyDate/Time Medication Administered Medication Ordered Name Value Range Interpretation Code Description Data Svetlana rce(s) Supporting Document(s) ID Date Data Source [id number] 04/25/2019 03:24:00 PM [facility] 1 General Instructions [facility] Emergency Department [address] [place] [address] Phone #: ext- [phone] 04/25/2019 15:24 Patient: [...] PADMAJA Okeefe 04/25/2019 18:06) 2 General Instructions [facility] Emergency Department [address] [place] [address] Phone #: ext- [phone] 04/25/2019 15:24 Patient: CLARE LORENZO Sex: F : 1985 Age: 34y Name Value Range Interpretation Code Description Data Svetlana rce(s) Supporting Document(s) ID Date Data Source [id number] 04/25/2019 03:24:00 PM EST [facility] 1 Clinical Report - Nurses [facility] Emergency Department [address] [place] [address] Phone #: ext- [phone] 04/25/2019 15:24 Patient: CLARE LORENZO Sex: F [...] Jose Guadalupe July, R.N.MedicationsZithromax Oral. --15:29 04/25/19 Jose GuadalupeJuly, R.N. Albuterol Sulfate HFA Inhalation. --15:29 04/25/19 Jose Guadalupe July, R.N.AllergiesNo Known Drug Allergy. --15:30 04/25/19 Jose [...] before today?". 2 Clinical Report - Nurses [facility] Emergency Department [address] [place] [address] Phone #: ext- [phone] 04/25/2019 15:24 Patient: [...] Patient verbalized understanding. Written instructions provided in Ecuadorean. 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 She was discharged home. She left ambulatory and via private vehicle. Spouse driving. --17:59 04/25/19 Jacqueline Shi R.N. 17:15 04/25/19. BP: 118/79. MAP: 92. HR: 92. RR: 18. O2 saturation: 97%. Temp: 97.3 F. Pain level now: 0/10. --17:59 04/25/19 Jacqueline Shi R.N. 3 Clinical Report - Nurses [facility] Emergency Department [address] [place] [address] Phone #: ext- [phone] 04/25/2019 15:24 Patient: CLARE LORENZO Sex: F : 1985 Age: 34yLocked/Released at 04/25/2019 17:59 by Jacqueline Shi R.N. Name Value Range Interpretation Code Description Data Svetlana rce(s) Supporting Document(s) ID Date Data Source [id number] 04/25/2019 03:24:00 PM EST [facility] 1 Clinical Report - Physicians/Mid Levels [facility] Emergency Department [address] [place] [address] Phone #: ext- [phone] 04/25/2019 15:24 [id number] Sex[facility] F : 1985 Age: 34y Time [...] recent 2 Clinical Report - Physicians/Mid Levels [facility] Emergency Department [address] [place] [address] Phone #: ext- [phone] 04/25/2019 15:24 Patient: CLARE LORENZO [facility]#: [id number] Sex: F : 1985 Age: 34y travel.ADDITIONAL [...] themedical decision making process. CBC w Diff: (IVELISSE: 04/25/2019 16:22) ( MsgRcvd 04/25/2019 16:39) Final [...] 0.90) 3 Clinical Report - Physicians/Mid Levels [facility] Emergency Department [address] [place] [address] Phone #: [phone]- [phone] 04/25/2019 15:24 Patient: CLARE LORENZO Sex: F [...] illness, 4 Clinical Report - Physicians/Mid Levels [facility] Emergency Department [address] [place] [address] Phone #: ext- [phone] 04/25/2019 15:24 Patient: CLARE LORENZO Sex: F : 1985 Age: 34y discharge instructions, activity level, follow-up appointment and risks and benefits of treatment reviewed with patient and understanding verbalized. Agrees to plan of care.(Electronically signed by PADMAJA Okeefe 04/25/2019 18:06) Name Value Range Interpretation Code Description Data Svetlana rce(s) Supporting Document(s) ID Date Data Source [id number] 04/25/2019 04:39:00 PM EST [facility] Name Value Range Interpretation Code Description Data Svetlana rce(s) Supporting Document(s) CBC W/AUTOMATED DIFF [facility] COMPLETE BLOOD COUNT Leukocytes [#/volume] in Blood by Automated count 7.3 10^3/uL 4.2 - 1 1.0 [facility] Erythrocytes [#/volume] in Blood by Automated count 4.69 10^6/uL 4. 20 - 5.40 [facility] Hemoglobin [Mass/volume] in Blood 14.1 g/dL 12.0 - 16.0 [facility] Hematocrit [Volume Fraction] of Blood by Automated count 42.5 % 3 7.0 - 47.0 [facility] Erythrocyte mean corpuscular volume [Entitic volume] by Auto mated count 90.6 fL 81.0 - 101 [facility] Erythrocyte mean corpuscular hemoglobin [Entitic mass] by Automated count 30.1 pg 27.0 - 34.0 [facility] Erythrocyte mean corpuscular hemoglobin concentration [Mass/volume] by Automated count 33.2 g/dL 31.0 - 36.0 [facility] Erythrocyte distribution width [Ratio] by Automated count 12.8 % 11.5 - 14.5 [facility] Platelets [#/volume] in Blood by Automated count 272 10^3/uL 150 - 45 0 [facility] Platelet mean volume [Entitic volume] in Blood by Automated count 11.5 fL 7.4 - 10.4 H [facility] Neutrophils/100 leukocytes in Blood by Automated count 65.5 % 37. 0 - 80.0 [facility] Lymphocytes/100 leukocytes in Blood by Manual count 28.1 % 25.0 - 40.0 [facility] Monocytes/100 leukocytes in Blood by Automated count 4.8 % 3.0 - 8.0 [facility] Eosinophils/100 leukocytes in Blood by Automated count 1.2 % 0.0 - 7.0 [facility] Basophils/100 leukocytes in Blood by Automated count 0.1 % 0.0 - 2.5 [facility] %IG 0.3 % 0.0 - 0.[address] [facility] al %NRBC 0.0 % 0.0 - 0.0 [facility] al Neutrophils [#/volume] in Blood by Automated count 4.78 10^3/uL 2.00 - 6.90 [facility] Lymphocytes [#/volume] in Blood by Automated count 2.05 10^3/uL 0.60 - 3.40 [facility] Monocytes [#/volume] in Blood by Automated count 0.35 10^3/uL 0.00 - 0.90 [facility] Eosinophils [#/volume] in Blood by Automated count 0.09 10^3/uL 0.00 - 0.70 [facility] Basophils [#/volume] in Blood by Automated count 0.01 10^3/uL 0.00 - 0.20 [facility] #IG 0.02 10^3/uL 0.00 - 0.10 [facility] ospital #NRBC 0.00 10^3/uL 0.00 - 0.00 [facility] MANUAL DIFF NOT INDICATED [facility] RBC MORPH NOT INDICATED [facility] spital ID Date Data Source [id number] 04/24/2019 01:59:00 PM EST [facility] [address] [place] [address] PHONE: [phone] FAX: [phone] Name .................. : MAURA SPARKS Acct Number.................. : [id number] ROOM. ................. : [place]- Number ................... : [id number] Stay type ............. : E/R Discharge Date......... ... : 04/23/19 Admit Date ......... : 04/23/19 Admit Phys .................... : VENERUS BR Date of ....... : 1985 Family Phys ................... : TEGAN COLES Phone .................. : [phone] Age ................................ : 34 Film# .................. .:[id number] Sex ................................. : F Unsigned transcriptions are preliminary reports and do not represent a medical or legal document CHEST 2 VIEWS [id number] COMPLETE:04/23/19 19:24 HOLLY [id number] Reason(s): Congestion CHEST X-RAY: FRONTAL AND LATERAL [...] rce(s) Supporting Document(s) ID Date Data Source [id number] 04/23/2019 06:02:00 PM EST [facility] 1 OrderSheet [facility] Emergency Department [address] [place] [address] Phone #: [phone]- [phone] 04/23/2019 17:36 Patient: CLARE LORENZO Sex: F [...] InitialedChest 2 View STAT 19:15 04/23/2019 19:38 [place],(Oxygen?(No)) Leon Hirsch R.N. Physician; Reason for Study: Congestion, CoughMEDICATION/IV/DRIP/FLUID ORDERSOrder Description Priority Entered Acknowledged InitialedpredniSONE PO 60 19:40 04/23/2019 19:50 Cookiemg (NOW) Loen Hirsch R.N. Physician;DuoNeb Neb Tx 3 19:40 04/23/2019 19:57 CookiemL (NOW) Leon Hirsch R.N. Physician; 2 OrderSheet [facility] Emergency Department [address] [place] [address] Phone #: ext- [phone] 04/23/2019 17:36 Patient: CLARE LORENZO Sex: F : 1985 Age: 34yGENERAL ORDERSOrder Description Priority Entered Acknowledged Initialed[Electronically signed by Joycelyn Gary R.N. (:04/23/2019)][Electronically signed by Joycelyn Gary R.N. (:04/23/2019)][Electronically signed by Leon Abebe (10:02 04/24/2019)][Electronically locked by Joycelyn Gary R.N. (:04/23/2019)] Name Value Range Interpretation Code Description Data Svetlana rce(s) Supporting Document(s) ID Date Data Source [id number] 04/23/2019 06:02:00 PM EST [facility] [facility] 1 Medication Reconciliation Report [facility] Emergency Department [address] [place] [address] Phone #: ext- [phone] 04/23/2019 17:36 Patient: [...] wheezes. Dispense 60 vial. Refills: 1. Substitution permitted.[facility] #[phone] - [phone] [facility] ; [place] [address]. FaxNumber: .Zithromax Z-Danielito 250 mg tablet Take as directed for 5 days -- Take packet as directed for pneumonia -2 tabs PO on day 1, then 1 tab each day for four days after. Dispense 6 tablet. Refills: 0. Substitutionpermitted.Swap[facility] #[phone] - [phone] [facility] ; [place] [address]. . -- Leon Abebe, Physician Name Value Range Interpretation Code Description Data Svetlana rce(s) Supporting Document(s) ID Date Data Source [id number] 04/23/2019 06:02:00 PM EST [facility] 1 Medication Administration Record [facility] Emergency Department [address] [place] [address] Phone #: ext- [phone] 04/23/2019 17:36 Patient: CLARE LORENZO Sex: F [...] rce(s) Supporting Document(s) ID Date Data Source [id number] 04/23/2019 06:02:00 PM EST [facility] 1 General Instructions [facility] Emergency Department [address] [place] [address] Phone #: ext- [phone] 04/23/2019 17:36 Patient: [...] wheezes. Dispense 60 vial. Refills: 1. Substitution permitted.Swapbox #40 - [address] [place] [address]. .Zithromax Z-Danielito 250 mg tablet Take as directed for 5 days -- Take packet as directed for pneumonia -2 tabs PO on day 1, then 1 tab each day for four days after. Dispense 6 tablet. Refills: 0. Substitutionpermitted.Swapbox #63 - [address] [facility] ; [place] [address]. .Follow-up:Follow up with your doctor in two [...] be treated at home. 2 General Instructions [facility] Emergency Department [address] [place] [address] Phone #: ext- [phone] 04/23/2019 17:36 Patient: [...] yours or other people's. 3 General Instructions [facility] Emergency Department [address] [place] [address] Phone #: ext- [phone] 04/23/2019 17:36 Patient: [...] mouth that gets worse 4 General Instructions [facility] Emergency Department [address] [place] [address] Phone #: ext- [phone] 04/23/2019 17:36 Patient: CLARE LORENZO Sex: F : 1985 Age: 34y Sinus pain, headache, or a stiff neck Chest pain not caused by coughing [id number] [employer] [place] [address]. All rights reserved. This information is not [...] Followyour provider's instructions exactly. 5 General Instructions [facility] Emergency Department [address] [place] [address] Phone #: ext- [phone] 04/23/2019 17:36 Patient: [id number] Sex: F : 1985 Age: 34yDon't give [...] 911 if y ou: 6 General Instructions [facility] Emergency Department [address] [place] [address] Phone #: ext- [phone] 04/23/2019 17:36 -------- Patient: CLARE LORENZO Sex: F : 1985 Age: 34y Are having trouble breathing or shortness of breath Are unresponsiveImportant reminderCall your healthcare provider if you get a fever after visiting a place where infectious diseases arecommon. Many people knot picker cloth a cold or other virus while traveling. [...] you were there Where you stayed (hotel, ute house, tent) What you ate and drank If you were bitten by insects or other bugs If you swam in freshwater If you had sex or got a tattoo or piercing while you were thereCheck the [facility] to get more information about specific infectious diseases in the areas you havetraveled. [phone] [employer]. [address] [place] [address]. All rights reserved. This information is not intended as asubstitute for professional medical care. Always follow your healthcare prof essional's instructions. You have been given the following additional information: Pneumonia (Adult) Fever Control (Adult)(Electronically signed by Leon Abebe, Physician 04/24/2019 10:02) Name Value Range Interpretation Code Description Data Svetlana rce(s) Supporting Document(s) ID Date Data Source [id number] 04/23/2019 06:02:00 PM EST [facility] 1 Clinical Report - Nurses [facility] Emergency Department [address] [place] [address] Phone #: [phone] ird- [phone] 04/23/2019 17:36 Patient: CLARE LORENZO Sex: F [...] had thoughts 2 Clinical Report - Nurses [facility] Emergency Department [address] [place] [address] Phone #: ext- [phone] 04/23/2019 17:36 Patient: CLARE LORENZO Sex: F : 1985 Age: 34y about [...] treatment room. --17:42 04/23/19 Sandra Rehman R.N.PHYSICAL [id number] 04/23/19. BP: 139/88. MAP: 105. HR: 76. [...] Roberts R.N. 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 --19:19 04/23/19 Brian Roberts R.N. 19:50 04/23/2019 Prednisone PO Tablets 60 mg given. Allergies verified and confirmed 5 rights. Information reviewed with patient. --19:50 04/23/19 Joycelyn Gary R.N. 3 Clinical Report - Nurses [facility] Emergency Department [address] [place] [address] Phone #: ext- [phone] 04/23/2019 17:36 Patient: [...] rce(s) Supporting Document(s) ID Date Data Source [id number] 04/23/2019 06:02:00 PM EST [facility] 1 Clinical Report - Physicians/Mid Levels [facility] Emergency Department [address] [place] [address] Phone #: ext- [phone] 04/23/2019 17:36 Patient: [...] supple. 2 Clinical Report - Physicians/Mid Levels [facility] Emergency Department [address] [place] [address] Phone #: ext- [phone] 04/23/2019 17:36 Patient: CL[facility]ORENZO [id number] Sex: F : 1985 Age: 34y CVS: [...] PROCEDURAL CONTROL VALID ){ KIT LOT # [id number] ){ KIT EXP DATE 02/08/20 ) Chest 2 View: (IVELISSE: 04/23/2019 19:15) ( MsgRcvd 04/24/2019 09:52) In Progress CHEST 2 VIEWS Reason(s): Congestion TRANSPORTATION: WC IV? O2? Oxygen?(No) Room: ED : HCG Negative Exam CHEST 2 VIEWS [facility] [address] [place] [address] PHONE: [phone] FAX: [phone] Name .................. : MAURA SPARKS Acct Number.................. : [id number] ROOM. ................. : VT-01 MR Number ................... : [id number] Stay type ............. : E/R Discharge Date......... ... : 04/23/19 Admit Date ......... : 04/23/19 Admit Phys .................... : ANDRAE ADAMS Date of ....... : 1985 Family Phys ................... : TEGAN COLES Phone .................. : [phone] Age ................................ : 34 Film# .................. .:[id number] Sex ................................. : F Unsigned transcriptions are preliminary reports and do not represent a medical or legal document CHEST 2 VIEWS [id number] COMPLETE:04/23/19 19:24 OHLLY [id number] Reason(s): Congestion Cough CHEST X- RAY: FRONTAL [...] left. 3 Clinical Report - Physicians/Mid Levels [facility] Emergency Department [address] [place] [address] Phone #: ext- [phone] 04/23/2019 17:36 Patient: CLARE LORENZO Sex: F : 1985 Age: 34y IMPRESSION: [...] NEGATIVE (NORMAL: NEGAT { KIT LOT # [id number] ){ KIT EXP DATE09/27/20 ){ PROCEDURAL CONTROL [...] (Reference) 4 Clinical Report - Physicians/Mid Levels [facility] Emergency Department [address] [place] [address] Phone #: [phone] ext- [phone] 04/23/2019 17:36 Patient: CLARE LORENZO Sex: F : 1985 Age: 34y INFLUENZA A NEGATIVE (NORMAL: NEGAT INFLUENZA B NEGATIVE (NORMAL: NEGAT INFLUENZA A REENTER NEGATIVE (NORMAL: NEGAT INFLUENZA B REENTER NEGATIVE (NORMAL: NEGAT PROCEDURAL CONTROL VALID KIT LOT # _[id number] 04/23/19.MA . . . KIT EXP DATE _01/02/20 04/23/19.MA . . .The Influenza A utilizing an isothermal nucleic acid amplification technology for thequalitative detection of influenza A and B viral RNA.Negative results do not preclude influenza virus infection and should not beused as the sole basis for diagnosis, treatment or other patient managementdecisions. . Note - Tests: (CXR - R-sided infiltrate. RML).PROGRESS AND PROCEDURESCourse of Care: 19:Apr 23 2019. Patient is stable. Critical care [...] Dispense 60 vial. Refills: 1. Substitution permitted. [facility]ap[facility] #60 - [address] [facility] ; [place] [address]. . Zithromax Z-Danielito 250 mg tablet Take as directed for 5 days -- Take packet as directed for pneumonia - 2 tabs PO on day 1, then 1 tab each day for four days after. Dispense 6 tablet. Refills: 0. Substitution 5 Clinical Report - Physicians/Mid Levels [facility] Emergency Department [address] [place] [address] Phone #: [phone] drq- [phone] 04/23/2019 17:36 Patient: CLARE LORENZO Sex: F : 1985 Age: 34y permitted. [facility] #[phone] - [address] [facility] ; [place] [address]. . Follow-up: Follow up with your doctor in two days if not better. Call for an appointment. Reason for referral: evaluation, treatment and R pneumonia. Understanding of the discharge instructions verbalized by patient.(Electronically signed by Leon Abebe, Physician 04/24/2019 10:02) Name Value Range Interpretation Code Description Data Svetlana rce(s) Supporting Document(s) ID Date Data Source [id number] 04/23/2019 08:09:00 PM [facility] Name Value Range Interpretation Code Description Data Svetlana rce(s) Supporting Document(s) Influenza virus A Ag [Presence] in Nasopharynx by Immunoassa y NEGATIVE NORMAL: NEGATIVE [facility] Influenza virus B Ag [Presence] in Nasopharynx by Immunoassa y NEGATIVE NORMAL: NEGATIVE [facility] NEGATIVENEGATIVE PROCEDURAL CO NTROL VALID KIT LOT [...] other patient managementdecisions. ID Date Data Source [id number] 04/23/2019 08:09:00 PM [facility] Name Value Range Interpretation Code Description Data Svetlana rce(s) Supporting Document(s) RSV ANTIGEN NEGATIVE NORMAL: NEGATIVE [facility] RSV ANTIGEN REENTER NEGATIVE NORMAL: NEGATIVE [facility] { PROCEDURAL CONTROL VALID ){ KIT LOT # [id number] ){ KIT EXP DATE 02/08/20 ) ID Date Data Source [id number] 04/23/2019 06:59:00 PM [facility] Name Value Range Interpretation Code Description Data Svetlana rce(s) Supporting Document(s) HCG SERUM QUAL NEGATIVE NORMAL: NEGATIVE [facility] HCG SERUM QL REENTER NEGATIVE NORMAL: NEGATIVE [facility] { KIT LOT # [id number] ){ KIT EXP DATE 09/27/20 ){ PROCEDURAL CONTROL VALID ) ID Date Data Source [id number] 04/23/2019 06:48:00 PM [facility] Name Value Range Interpretation Code Description Data Svetlana rce(s) Supporting Document(s) CBC W/AUTOMATED DIFF [facility] COMPLETE BLOOD COUNT Leukocytes [#/volume] in Blood by Automated count 7.3 10^3/uL 4.2 - 1 1.0 [facility] Erythrocytes [#/volume] in Blood by Automated count 4.86 10^6/uL 4. 20 - 5.40 [facility] Hemoglobin [Mass/volume] in Blood 14.6 g/dL 12.0 - 16.0 [facility] Hematocrit [Volume Fraction] of Blood by Automated count 44.1 % 3 7.0 - 47.0 [facility] Erythrocyte mean corpuscular volume [Entitic volume] by Auto mated count 90.7 fL 81.0 - 101 [facility] Erythrocyte mean corpuscular hemoglobin [Entitic mass] by Automated count 30.0 pg 27.0 - 34.0 [facility] Erythrocyte mean corpuscular hemoglobin concentration [Mass/volume] by Automated count 33.1 g/dL 31.0 - 36.0 [facility] Erythrocyte distribution width [Ratio] by Automated count 12.6 % 11.5 - 14.5 [facility] Platelets [#/volume] in Blood by Automated count 249 10^3/uL 150 - 45 0 [facility] Platelet mean volume [Entitic volume] in Blood by Automated count 11.2 fL 7.4 - 10.4 H [facility] Neutrophils/100 leukocytes in Blood by Automated count 67.3 % 37. 0 - 80.0 [facility] Lymphocytes/100 leukocytes in Blood by Manual count 23.6 % 25.0 - 40.0 L [facility] Monocytes/100 leukocytes in Blood by Automated count 7.1 % 3.0 - 8.0 [facility] Eosinophils/100 leukocytes in Blood by Automated count 1.4 % 0.0 - 7.0 [facility] Basophils/100 leukocytes in Blood by Automated count 0.3 % 0.0 - 2.5 [facility] %IG 0.3 % 0.0 - 0.0 [facility] 0.0 % 0.0 - 0.0 [facility] al Neutrophils [#/volume] in Blood by Automated count 4.91 10^3/uL 2.00 - 6.90 [facility] Lymphocytes [#/volume] in Blood by Automated count 1.72 10^3/uL 0.60 - 3.40 [facility] Monocytes [#/volume] in Blood by Automated count 0.52 10^3/uL 0.00 - 0.90 [facility] Eosinophils [#/volume] in Blood by Automated count 0.10 10^3/uL 0.00 - 0.70 [facility] Basophils [#/volume] in Blood by Automated count 0.02 10^3/uL 0.00 - 0.20 [facility] #IG 0.02 10^3/uL 0.00 - 0.10 [facility]ital #NRBC 0.00 10^3/uL 0.00 - 0.00 [facility] MANUAL DIFF NOT INDICATED [facility] RBC MORPH NOT INDICATED [facility] spital Procedure Social History Code Duration Value Status Description Data Source(s ) Smoking 04/21/2020 12:00:00 AM EST Patient has never smoked co mpleted Patient has never smoked [facility] ([facility] Vital Signs ID Date Data Source UNK Name Value Range Interpretation Code Description Data Source(s) Body mass index (BMI) [Ratio] 40.5 kg/m2 40.5 k g/m2 [facility] ([facility] [place] body weight 120 [lb_av] 120 [lb_av] MEDEN [...] Systolic blood pressure 118 mm[Hg] 118 mm[Hg] M EDENT ([facility] Body mass index (BMI) [Ratio] 42.3 kg/m2 42.3 k g/m2 [facility] ([facility] ) Body weight 239.00 [lb_av] 239.00 [lb_av] MEDEN T ([facility]) Body height 63 [in_i] 63 [in_i] [facility] ([facility]) 5'3" Body temperature 97.5 [degF] 97.5 [degF] [facility] ([facility]) Body mass index (BMI) [Ratio] 40.9 kg/m2 40.9 k g/m2 [facility] ([facility] [place] body weight 120 [lb_av] 120 [lb_av] MEDEN [...] rate 98 /min 98 /min [facility] ([facility] Diastolic blood pressure 78 mm[Hg] 78 mm[Hg] [facility] ([facility] Systolic blood pressure 115 mm[Hg] 115 mm[Hg] M EDENT ([facility] Body mass index (BMI) [Ratio] 41.6 kg/m2 41.6 k g/m2 [facility] ([facility] [place] body weight 120 [lb_av] 120 [lb_av] MEDEN [...] blood pressure 80 mm[Hg] 80 mm[Hg] eCW1 ([facility]) Systolic blood pressure 122 mm[Hg] 122 mm[Hg] e CW1 ([facility]) Body mass index (BMI) [Ratio] 40.5 kg/m2 40.5 k g/m2 eCW1 ([facility]) Body height 64 [in_us] 64 [in_us] eCW1 ([facility]) Body weight Measured 236 [lb_av] 236 [lb_av] eC W1 ([facility])
[2020-05-06 02:38] LABS: BASO % 0.1 % (0.0-1.0); EOS # 0.1 10^3/uL (0.0-0.5); HEMATOCRIT 39.7 % (36.0-47.0); HEMOGLOBIN 12.7 g/dl (12.0-15.5); LYMPH # 2.7 10^3/uL (1.5-5.0); MEAN CORPUSCULAR VOLUME 93.6 fl (80.0-96.0); MONO # 0.5 10^3/uL (0.0-0.8); MONO % 5.3 % (0.0-5.0); NEUTROPHILS % 64.4 % (36.0-66.0); PLATELET COUNT, AUTOMATED 207 10^3/uL (150-450); RED BLOOD COUNT 4.24 10^6/uL (4.00-5.40); WHITE BLOOD COUNT 9.3 10^3/uL (4.0-10.0)
[2020-05-06 03:08] LABS: CK-MB VALUE MASS < 1.0 NG/ML (<3.6); CPK CREATINE PHOSPHOKINASE 54 U/L (26-192); MB/CK RELATIVE INDEX 1.85 (< OR =4); TROPONIN I < 0.02 NG/ML (< 0.10)
[2020-05-06] MEDS ORDERED: ISOVUE-370 76% 100ML VIAL As Ordered ONE (03:26)
--- NOTE | 2020-05-06 03:46 | REPVR ---
PROCEDURE INFORMATION: Exam: XR Chest, 2 Views Exam date and time: 05/06/2020 2:42 AM Age: 35 years old Clinical indication: Shortness of breath; Additional info: SOB, chest discomfort TECHNIQUE: Imaging protocol: XR of the chest Views: 2 views. COMPARISON: CR Chest, 2 view PA, Lat 04/09/2020 5:46 PM FINDINGS: Lungs: There is no visualized lung consolidation. There is a tiny nodule or vessel en face at the right lung base measuring 2 mm. This is new compared to the prior study. Mild prominence of the pulmonary vascular markings. Pleural space: No pleural effusion. No pneumothorax. Heart/Mediastinum: No cardiomegaly. Bones/joints: No visualized acute osseous abnormality. IMPRESSION: 1. There is no visualized lung consolidation. 2. There is a tiny nodule or vessel en face at the right lung base measuring 2 mm. This is new compared to the prior study. Follow-up nonemergent radiographs or chest CT recommended. 3. Mild prominence of the pulmonary vascular markings. Electronically signed by: Johnathon Garcia On 05/06/2020 03:46:25 AM
--- NOTE | 2020-05-06 04:46 | REPVR ---
PROCEDURE INFORMATION: Exam: CT Angiography Chest With Contrast Exam date and time: 05/06/2020 3:21 AM Age: 35 years old Clinical indication: Chest pain; Type not specified; Additional info: Palpitations, pleuritic chest pain, ddimer TECHNIQUE: Imaging protocol: Computed tomographic angiography of the chest with intravenous contrast. 3D rendering (Not supervised by radiologist): MIP and/or 3D reconstructed images were created by the technologist. Radiation optimization: All CT scans at this facility use at least one of these dose optimization techniques: automated exposure control; mA and/or kV adjustment per patient size (includes targeted exams where dose is matched to clinical indication); or iterative reconstruction. Contrast material: ISO; Contrast volume: 75 ml; Contrast route: INTRAVENOUS (IV); COMPARISON: CT ANGIO CHEST 12/13/2019 8:44 AM FINDINGS: Pulmonary arteries: Artifact limits evaluation of proximal lobar pulmonary artery branches to the right upper lobe and right middle lobe, without occlusion. The main pulmonary trunk, right/left main pulmonary arteries, and the remaining proximal lobar branches demonstrate no definite intraluminal filling defect to suggest pulmonary embolism. Aorta: Artifact limits evaluation of the ascending aorta. No aneurysm or dissection of the remaining thoracic aorta. Lungs: Within the right upper lobe of the lung on series 401, image 69, there is a pleural-based nodule measuring 3-4 mm, without progression. Within the left lower lobe on series 401, image 115, there is a 3 mm nodule again visualized. Pleural spaces: No pneumothorax. No pleural effusion. Heart: No cardiomegaly. No pericardial effusion. Lymph nodes: No enlarged lymph nodes. Liver: Within the left lobe of the liver, there is a stable hypodense lesion measuring 1.2 cm, suggestive of a cyst. A small hypodense lesion is visualized within the right hepatic lobe, too small to characterize further. Spleen: Heterogeneous enhancement of the spleen, likely due to the phase of injection. Bones/joints: No acute fracture. Soft tissues: Unremarkable. IMPRESSION: 1. No occlusive pulmonary embolism. Artifact limits evaluation of proximal lobar pulmonary artery branches to the right upper lobe and right middle lobe. 2. A few small lung nodules are visualized, without progression. A follow-up chest CT in 6-12 months is suggested. 3. Within the left lobe of the liver, there is a stable hypodense lesion measuring 1.2 cm, suggestive of a cyst. A small hypodense lesion is visualized within the right hepatic lobe, too small to characterize further. 4. Additional findings described above. Electronically signed by: Johnathon Garcia On 05/06/2020 04:45:30 AM
--- NOTE | 2020-05-06 04:50 | REPVR ---
PROCEDURE INFORMATION: Exam: US Duplex Lower Extremity Veins, Bilateral Exam date and time: 05/06/2020 4:14 AM Age: 35 years old Clinical indication: Pain and abnormal findings; Abnormal lab test; Elevated d-dimer; Leg, upper and leg, lower; Bilateral; Additional info: Leg pain, ddimer TECHNIQUE: Imaging protocol: Real-time duplex ultrasound of the extremities with 2-D hansen scale, color Doppler flow and spectral waveform analysis with image documentation. Complete exam focused on the bilateral lower extremity veins. COMPARISON: No relevant prior studies available. FINDINGS: Right deep veins: The common femoral, femoral, proximal profunda femoral and popliteal veins are patent without thrombus. Normal compressibility and/or augmentation response. Right superficial veins: Saphenofemoral junction is patent without thrombus. Left deep veins: The common femoral, femoral, proximal profunda femoral and popliteal veins are patent without thrombus. Normal compressibility and/or augmentation response. Left superficial veins: Saphenofemoral junction is patent without thrombus. Soft tissues: Unremarkable. IMPRESSION: No evidence of deep venous thrombosis from the common femoral to the popliteal veins bilaterally. Electronically signed by: Johnathon Garcia On 05/06/2020 04:50:32 AM
[2020-05-06 05:00] VITALS: BP 148/97
--- NOTE | 2020-05-06 14:49 | ECGEPIP ---
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
--- NOTE | 2020-05-08 08:11 | ED PDOC ---
Post-Departure Follow-Up radiology report faxed to Jenny Menchaca MD May 08, 2020 08:11
== END 2020-05-06 05:25 | disposition home or self-care (01) ==
LOC: M ED 22:57
DX: R53.81 Other malaise (principal); M79.604 Pain in right leg; R91.8 Other nonspecific abnormal finding of lung field; K76.89 Other specified diseases of liver
CPT/HCPCS: 36415; 71046; 71275; 80047; 82550; 82553; 84702; 85025; 85379; 93005; 93970; 99284; Q9967

== ENCOUNTER 2020-05-29 05:06 | Emergency (ER) | payer OTHER ==
[~2020-05-29] VITALS: Ht 162.6 cm; Wt 107.0 kg
--- OUTSIDE RECORDS SUMMARY | 2020-05-29 05:12 | CCD | Continuity of Care Document ---
Author Author Malorie DHALIWAL M.D. Organization Unknown Address [address] [place] [address] Phone [phone] Care Team Providers Care Medical Parasitologist Name Role Phone Sara Dhaliwal MD AUTM [phone] [facility] Dermatology - Dermatology AUTM [phone] Problems Description No Information Available Social History [...] 1 tab by mouth every evening 90tabs R0Zac Rivera FNP 04/21/2020 Fluticasone Propionate 50mcg/Act Suspension two sprays each side of nose daily 48gm R05 Pamella Oliver ch, FNP 04/21/2020 Tessalon Perles 100mg Capsules [...] Flow Rate 382 Estimated Peak Flow Rate [place] Body Weight 120 lb BMI (Body Mass Index) 40.5 kg/m2 01/29/2020 8:59am BP Systolic 115 mmHg BP Diastolic 78 mmHg Heart Rate 98 /min Body Temperature 98.0 F Respiratory Rate 16 /min Height 64.0 inches 5'4" Weight 238.12 lb O2 % BldC Oximetry 98 % Peak Expiratory Flow Rate 382 Estimated Peak Flow Rate Last Menstrual Period [id number] [place] Body Weight 120 lb BMI (Body Mass Index) 40.9 kg/m2 Results Test Acquired Date Facility Test Result H/L Range Note CBC With Differential 05/06/2020 Patient Service [place], [place] [address]69 [phone] White Blood Count 9.3 10 Normal 4.0-10.0 Red Blood Count 4.24 10 Normal 4.00-5.40 Hemoglobin 12.7 g/dL Normal 12.0-15.5 Hematocrit 39.7 % Normal 36.0-47.0 Mean Corpuscular Volume 93.6 fl Normal 80.0-96.0 Mean Corpuscular Hemoglobin 30.0 pg Normal 27.0-33.0 Mean Corpuscular HGB Conc 32.0 g/dL Normal 32.0-36.5 Red Cell Distribution Width 12.7 % Normal 11.5-14.5 Platelet Count, Automated 207 10 Normal 150-450 Neutrophils % 64.4 % Normal 36.0-66.0 Lymph % 29.0 % Normal 24.0-44.0 [place] % 5.3 % High 0.0-5.0 Eos % 1.0 % Normal 0.0-3.0 Baso % 0.1 % Normal 0.0-1.0 Immature Granulocyte % 0.2 % Normal 0-3.0 Nucleated Red Blood Cell % 0.0 % Normal 0-0 Neutrophils # 6.0 10 Normal 1.5-8.5 Lymph # 2.7 10 Normal 1.5-5.0 [place] # 0.5 10 Normal 0.0-0.8 Eos # 0.1 10 Normal 0.0-0.5 Baso # 0.0 10 Normal 0.0-0.2 Laboratory test finding 05/06/2020 [place] [address] [phone] D-Dimer Quant 1005.41 ng/ml High <500 Laboratory test finding 05/06/2020 [place] [address] [phone] iSTAT B-hCG < 5.0 Normal 1 Istat Chem8+ Panel 05/06/2020 [place] [address] [phone] iSTAT HCT 41.0 % Normal 38.0-51.0 iSTAT Glucose 96 mg/dL Normal 70-105 iSTAT Sodium 138 mEq/L Normal 136-145 iSTAT Potassium 4.7 mEq/L Normal 3.5-5.1 iSTAT CA++ 4.5 mg/dL Normal 4.5-5.3 iSTAT Chloride 107 mEq/L Normal 98-109 iSTAT Co2 26.0 MM/L Normal 23.0-27.0 iSTAT BUN 11 mg/dL Normal 8-26 iSTAT Creatinine 0.7 mg/dL Normal 0.6-1.3 Cardiac Marker Panel 05/06/[address] [place] [address] [phone] CPK Creatine Phosphokinase 54 U/L Normal 26-19 2 CK-MB Value Mass < 1.0 NG/ML Normal <3.6 MB/CK Relative Index 1.85 Normal < Or =4 2 Troponin I < 0.02 NG/ML Normal < 0.10 3 1 QUANTITATIVE RESULT QUALITATIVE INTERPRETATION <5.0 IU/L NEGATIVE 5.0 - 25.0 IU/L INDETER MINATE >25.0 IU/L POSITIVE 2 DIAGNOSIS CRITERIA MMB ng/ml Relative Index (RI) NON-AMI < or = 5 N/A DASILVA ZONE > 5 < or = 4 AMI > 5 > 4 3 Troponin I Reference Interva l for Siemens [place] LOCI: 99th Percentile= 0.00-0.045 ng/ml Risk Stratification: <= 0.10 ng/ml Decreased Risk for Adverse Clinical Events. 0.10-1.50 ng/ml Increased Risk for Adv erse Clinical Events. Evaluation of additional criterion and/or repeat testing in 2-6 hours is suggested to rule out myocardial damage. >= 1.50 ng/ml Indicative of Myocardial Injury. Procedures Description No Information Available Medical Devices Description No Information Available Encounters Type Date Location Provider Dx Diagnosis Office Visit 05/05/2020 8:00a Main Office Pleskach, Pamella, YOU[employer] SERVICES LIBRARIAN J06.9 Acute upper respiratory infection, unspecified Office Visit 04/21/2020 1:15p Main Office Pleskach, Pamella, [employer] SERVICES LIBRARIAN R05 Cough Office Visit 01/29/2020 8:45a Main Office Pleskach, Pamella, YOU[employer] SERVICES LIBRARIAN R05 Cough Office Visit 12/11/2019 11:45a Main Office Pleskach, Pamella, YOU[employer] SERVICES LIBRARIAN R06.0 2 Shortness of breath R07.89 Other chest pain Assessments Date Code Description Provider 05/05/2020 J06.9 Acute upper respiratory infectio n, unspecified Pleskach, Pamella, YOU[employer] SERVICES LIBRARIAN 04/21/2020 R05 Cough Pleskach, Pamella, YOUTH SERVICES LIBRARIAN 01/29/2020 R05 Cough Pleskach, Pamella, YOU[employer] SERVICES LIBRARIAN 12/11/2019 R06.02 Shortness of breath Pleskach, Mo lly, YOU[employer] SERVICES LIBRARIAN 12/11/2019 R07.89 Other chest pain Pleskach, Pamella , YOU[employer] SERVICES LIBRARIAN Plan of Treatment 05/05/2020 - Pleskach, Pamella, YOU[employer] SERVICES LIBRARIAN* J06.9 Acute upper respiratory infection, unspecified* Comments:* discussed likely viral etiology and symptomatic care. Advised to have COVID testing done and f/u if symptoms change, worsen or continue beyond 7-10 days Functional Status Functional Condition Comment Date Status .None Active Independent with all ADL's Activ e Independent with all IADL's Acti ve Mental Status Mental Condition Comment Date Status None Active Referrals Description No Information Available
--- OUTSIDE RECORDS SUMMARY | 2020-05-29 05:12 | CCD | Continuity of Care Document ---
Author Author Malorie DHALIWAL M.D. Organization Unknown Address [address] [place] [address] Phone [phone] Care Team Providers Care Bundle Person Name Role Phone Sara Dhaliwal MD AUTM [phone] [facility] Dermatology - Dermatology AUTM [phone] Problems Description No Information Available Social History [...] Flow Rate 382 Estimated Peak Flow Rate [place] Body Weight 120 lb BMI (Body Mass Index) 40.5 kg/m2 01/29/2020 8:59am BP Systolic 115 mmHg BP Diastolic 78 mmHg Heart Rate 98 /min Body Temperature 98.0 F Respiratory Rate 16 /min Height 64.0 inches 5'4" Weight 238.12 lb O2 % BldC Oximetry 98 % Peak Expiratory Flow Rate 382 Estimated Peak Flow Rate Last Menstrual Period [id number] [place] Body Weight 120 lb BMI (Body Mass Index) 40.9 kg/m2 Results Test Acquired Date Facility Test Result H/L Range Note CBC With Differential 05/06/2020 Patient Service [place], [place] [address]30 [phone] White Blood Count 9.3 10 Normal 4.0-10.0 [...] 36.0-66.0 Lymph % 29.0 % Normal 24.0-44.0 [place] % 5.3 % High 0.0-5.0 Eos % 1.0 % Normal 0.0-3.0 Baso % 0.1 % Normal 0.0-1.0 Immature Granulocyte % 0.2 % Normal 0-3.0 Nucleated Red Blood Cell % 0.0 % Normal 0-0 Neutrophils # 6.0 10 Normal 1.5-8.5 Lymph # 2.7 10 Normal 1.5-5.0 [place] # 0.5 10 Normal 0.0-0.8 Eos # 0.1 10 Normal 0.0-0.5 Baso # 0.0 10 Normal 0.0-0.2 Laboratory test finding 05/06/2020 [place] [address] [phone] D-Dimer Quant 1005.41 ng/ml High <500 Laboratory test finding 05/06/2020 [place] [address] [phone] iSTAT B-hCG < 5.0 Normal 1 Istat Chem8+ Panel 05/06/2020 [place] [address] [phone] iSTAT HCT 41.0 % Normal 38.0-51.0 iSTAT Glucose 96 mg/dL Normal 70-105 iSTAT Sodium 138 mEq/L Normal 136-145 iSTAT Potassium 4.7 mEq/L Normal 3.5-5.1 iSTAT CA++ 4.5 mg/dL Normal 4.5-5.3 iSTAT Chloride 107 mEq/L Normal 98-109 iSTAT Co2 26.0 MM/L Normal 23.0-27.0 iSTAT BUN 11 mg/dL Normal 8-26 iSTAT Creatinine 0.7 mg/dL Normal 0.6-1.3 Cardiac Marker Panel 05/06/[address] [place] [address] [phone] CPK Creatine Phosphokinase 54 U/L Normal 26-19 [...] Troponin I Reference Interva l for Siemens [place] LOCI: 99th Percentile= 0.00-0.045 ng/ml Risk Stratification: [...] Visit 05/05/2020 8:00a Main Office Pleskach, Pamella, AIRCRAFT POWERTRAIN REPAIRER J06.9 Acute upper respiratory infection, unspecified Office Visit 04/21/2020 1:15p Main Office Pleskach, Pamella, AIRCRA[employer]OWERTRAIN REPAIRER R05 Cough Office Visit 01/29/2020 8:45a Main Office Pleskach, Pamella, AIRCRA[employer] POWERTRAIN REPAIRER R05 Cough Office Visit 12/11/2019 11:45a Main Office Pleskach, Pamella, AIRCRAFT POWERTRAIN REPAIRER R06.0 2 Shortness of breath R07.89 Other chest pain Assessments Date Code Description Provider 05/05/2020 J06.9 Acute upper respiratory infectio n, unspecified Pleskach, Pamella, AIRCRAFT POWERTRAIN REPAIRER 04/21/2020 R05 Cough Pleskach, Pamella, AIRCRAFT POWERTRAIN REPAIRER 01/29/2020 R05 Cough Pleskach, Pamella, AIRCRAFT POWERTRAIN REPAIRER 12/11/2019 R06.02 Shortness of breath Pleskach, Mo lly, AIRCRAFT POWERTRAIN REPAIRER 12/11/2019 R07.89 Other chest pain Pleskach, Pamella , AIRCRAFT POWERTRAIN REPAIRER Plan of Treatment 05/05/2020 - Pleskach, Pamella, AIRCRAFT POWERTRAIN REPAIRER* J06.9 Acute upper respiratory infection, unspecified* Comments:* [...]
--- OUTSIDE RECORDS SUMMARY | 2020-05-29 05:12 | CCD | Continuity of Care Document ---
Author Author Malorie DHALIWAL M.D. Organization Unknown Address [address] [place] [address] Phone [phone] Care Team Providers Care Air Tube Releaser Name Role Phone Sara Dhaliwal MD AUTM [phone] [facility] Dermatology - Dermatology AUTM [phone] Problems Description No Information Available Social History [...] Flow Rate 382 Estimated Peak Flow Rate [place] Body Weight 120 lb BMI (Body Mass Index) 40.5 kg/m2 01/29/2020 8:59am BP Systolic 115 mmHg BP Diastolic 78 mmHg Heart Rate 98 /min Body Temperature 98.0 F Respiratory Rate 16 /min Height 64.0 inches 5'4" Weight 238.12 lb O2 % BldC Oximetry 98 % Peak Expiratory Flow Rate 382 Estimated Peak Flow Rate Last Menstrual Period [id number] [place] Body Weight 120 lb BMI (Body Mass Index) 40.9 kg/m2 Results Test Acquired Date Facility Test Result H/L Range Note CBC With Differential 05/06/2020 Patient Service [place], [place] [address] [phone] White Blood Count 9.3 10 Normal 4.0-10.0 [...] 36.0-66.0 Lymph % 29.0 % Normal 24.0-44.0 [place] % 5.3 % High 0.0-5.0 Eos % 1.0 % Normal 0.0-3.0 Baso % 0.1 % Normal 0.0-1.0 Immature Granulocyte % 0.2 % Normal 0-3.0 Nucleated Red Blood Cell % 0.0 % Normal 0-0 Neutrophils # 6.0 10 Normal 1.5-8.5 Lymph # 2.7 10 Normal 1.5-5.0 [place] # 0.5 10 Normal 0.0-0.8 Eos # 0.1 10 Normal 0.0-0.5 Baso # 0.0 10 Normal 0.0-0.2 Laboratory test finding 05/06/2020 [place] [address] [phone] D-Dimer Quant 1005.41 ng/ml High <500 Laboratory test finding 05/06/2020 [place] [address] [phone] iSTAT B-hCG < 5.0 Normal 1 Istat Chem8+ Panel 05/06/[address] [place] [address] [phone] iSTAT HCT 41.0 % Normal 38.0-51.0 iSTAT Glucose 96 mg/dL Normal 70-105 iSTAT Sodium 138 mEq/L Normal 136-145 iSTAT Potassium 4.7 mEq/L Normal 3.5-5.1 iSTAT CA++ 4.5 mg/dL Normal 4.5-5.3 iSTAT Chloride 107 mEq/L Normal 98-109 iSTAT Co2 26.0 MM/L Normal 23.0-27.0 iSTAT BUN 11 mg/dL Normal 8-26 iSTAT Creatinine 0.7 mg/dL Normal 0.6-1.3 Cardiac Marker Panel 05/06/[address] [place] [address] [phone] CPK Creatine Phosphokinase 54 U/L Normal 26-19 [...] Troponin I Reference Interva l for Siemens [place] LOCI: 99th Percentile= 0.00-0.045 ng/ml Risk Stratification: [...] Visit 05/05/2020 8:00a Main Office Pleskach, Pamella, FISHING LURE ASSEMBLER J06.9 Acute upper respiratory infection, unspecified Office Visit 04/21/2020 1:15p Main Office Pleskach, Pamella, [employer]ING LURE ASSEMBLER R05 Cough Office Visit 01/29/2020 8:45a Main Office Pleskach, Pamella, FISHING LURE ASSEMBLER R05 Cough Office Visit 12/11/2019 11:45a Main Office Pleskach, Pamella, FISHING LURE ASSEMBLER R06.0 2 Shortness of breath R07.89 Other chest pain Assessments Date Code Description Provider 05/05/2020 J06.9 Acute upper respiratory infectio n, unspecified Pleskach, Pamella, FISHING LURE ASSEMBLER 04/21/2020 R05 Cough Pleskach, Pamella, FISHING LURE ASSEMBLER 01/29/2020 R05 Cough Pleskach, Pamella, FISHING LURE ASSEMBLER 12/11/2019 R06.02 Shortness of breath Pleskach, Mo lly, FISHING LURE ASSEMBLER 12/11/2019 R07.89 Other chest pain Pleskach, Pamella , FISHING LURE ASSEMBLER Plan of Treatment 05/05/2020 - Pleskach, Pamella, FISHING LURE ASSEMBLER* J06.9 Acute upper respiratory infection, unspecified* Comments:* [...]
--- OUTSIDE RECORDS SUMMARY | 2020-05-29 05:12 | CCD | Continuity of Care Document ---
Author Author Malorie DHALIWAL M.D. Organization Unknown Address [address] [place] [address] Phone [phone] Care Team Providers Care Area Sales Manager Name Role Phone Sara Dhaliwal MD AUTM [phone] [facility] Dermatology - Dermatology AUTM Problems Description No [...] Flow Rate 382 Estimated Peak Flow Rate [place] Body Weight 120 lb BMI (Body Mass Index) 40.5 kg/m2 01/29/2020 8:59am BP Systolic 115 mmHg BP Diastolic 78 mmHg Heart Rate 98 /min Body Temperature 98.0 F Respiratory Rate 16 /min Height 64.0 inches 5'4" Weight 238.12 lb O2 % BldC Oximetry 98 % Peak Expiratory Flow Rate 382 Estimated Peak Flow Rate Last Menstrual Period 6379000 [place] Body Weight 120 lb BMI (Body Mass Index) 40.9 kg/m2 Results Test Acquired Date Facility Test Result H/L Range Note CBC With Differential 05/06/2020 Patient Service [place], [place] [address] [phone] White Blood Count 9.3 10 Normal 4.0-10.0 [...] 36.0-66.0 Lymph % 29.0 % Normal 24.0-44.0 [place] % 5.3 % High 0.0-5.0 Eos % 1.0 % Normal 0.0-3.0 Baso % 0.1 % Normal 0.0-1.0 Immature Granulocyte % 0.2 % Normal 0-3.0 Nucleated Red Blood Cell % 0.0 % Normal 0-0 Neutrophils # 6.0 10 Normal 1.5-8.5 Lymph # 2.7 10 Normal 1.5-5.0 [place] # 0.5 10 Normal 0.0-0.8 Eos # 0.1 10 Normal 0.0-0.5 Baso # 0.0 10 Normal 0.0-0.2 Laboratory test finding 05/06/2020 [place] [address] [phone] D-Dimer Quant 1005.41 ng/ml High <500 Laboratory test finding 05/06/2020 [place] [address] [phone] iSTAT B-hCG < 5.0 Normal 1 Istat Chem8+ Panel 05/06/2020 [place] [address] [phone] iSTAT HCT 41.0 % Normal 38.0-51.0 iSTAT Glucose 96 mg/dL Normal 70-105 iSTAT Sodium 138 mEq/L Normal 136-145 iSTAT Potassium 4.7 mEq/L Normal 3.5-5.1 iSTAT CA++ 4.5 mg/dL Normal 4.5-5.3 iSTAT Chloride 107 mEq/L Normal 98-109 iSTAT Co2 26.0 MM/L Normal 23.0-27.0 iSTAT BUN 11 mg/dL Normal 8-26 iSTAT Creatinine 0.7 mg/dL Normal 0.6-1.3 Cardiac Marker Panel 05/06/[address] [place] [address] [phone] CPK Creatine Phosphokinase 54 U/L Normal 26-19 [...] Troponin I Reference Interva l for Siemens [place] LOCI: 99th Percentile= 0.00-0.045 ng/ml Risk Stratification: [...] Visit 05/05/2020 8:00a Main Office 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, 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, 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 J06.9 Acute upper respiratory infection, unspecified Office Visit 04/21/2020 1:15p Main Office Pleskach, Pamella, 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 R05 Cough Office Visit 01/29/2020 8:45a Main Office Pleskach, Pamella, 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 R05 Cough Office Visit 12/11/2019 11:45a Main Office Pleskach, Pamella, 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 R06.0 2 Shortness of breath R07.89 Other chest pain Assessments Date Code Description Provider 05/05/2020 J06.9 Acute upper respiratory infectio n, unspecified Pleskach, Pamella, 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 04/21/2020 R05 Cough Pleskach, Pmaella, 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 01/29/2020 R05 Cough Pleskach, Pamella, 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 12/11/2019 R06.02 Shortness of breath Pleskach, Mo lly, 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 12/11/2019 R07.89 Other chest pain Pleskach, Pamella , 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 Plan of Treatment 05/05/2020 - Pleskach, Pamella, 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* J06.9 Acute upper respiratory infection, unspecified* Comments:* [...]
--- OUTSIDE RECORDS SUMMARY | 2020-05-29 05:12 | CCD | Continuity of Care Document ---
Author Author Malorie TINAJERO [facility] Organization Unknown Address [address] [place] [address] Phone [phone] Care Team Providers Care Networks Software Consultant Name Role Phone Sara Murrieta MD AUTM [phone] [facility] - Dermatology AUTM Problems Description [...] Flow Rate 382 Estimated Peak Flow Rate [place] Body Weight 120 lb BMI (Body Mass Index) 40.5 kg/m2 01/29/2020 8:59am BP Systolic 115 mmHg BP Diastolic 78 mmHg Heart Rate 98 /min Body Temperature 98.0 F Respiratory Rate 16 /min Height 64.0 inches 5'4" Weight 238.12 lb O2 % BldC Oximetry 98 % Peak Expiratory Flow Rate 382 Estimated Peak Flow Rate Last Menstrual Period [id number] [place] Body Weight 120 lb BMI (Body Mass Index) 40.9 kg/m2 Results Test Acquired Date Facility Test Result H/L Range Note CBC With Differential 05/06/2020 Patient Service [place], [place] [address] [phone] White Blood Count 9.3 10 Normal 4.0-10.0 [...] 36.0-66.0 Lymph % 29.0 % Normal 24.0-44.0 [place] % 5.3 % High 0.0-5.0 Eos % 1.0 % Normal 0.0-3.0 Baso % 0.1 % Normal 0.0-1.0 Immature Granulocyte % 0.2 % Normal 0-3.0 Nucleated Red Blood Cell % 0.0 % Normal 0-0 Neutrophils # 6.0 10 Normal 1.5-8.5 Lymph # 2.7 10 Normal 1.5-5.0 [place] # 0.5 10 Normal 0.0-0.8 Eos # 0.1 10 Normal 0.0-0.5 Baso # 0.0 10 Normal 0.0-0.2 Laboratory test finding 05/06/2020 [place] [address] [phone] D-Dimer Quant 1005.41 ng/ml High <500 Laboratory test finding 05/06/2020 [place] [address] [phone] iSTAT B-hCG < 5.0 Normal 1 Istat Chem8+ Panel 05/06/[address] [place] [address] [phone] iSTAT HCT 41.0 % Normal 38.0-51.0 iSTAT Glucose 96 mg/dL Normal 70-105 iSTAT Sodium 138 mEq/L Normal 136-145 iSTAT Potassium 4.7 mEq/L Normal 3.5-5.1 iSTAT CA++ 4.5 mg/dL Normal 4.5-5.3 iSTAT Chloride 107 mEq/L Normal 98-109 iSTAT Co2 26.0 MM/L Normal 23.0-27.0 iSTAT BUN 11 mg/dL Normal 8-26 iSTAT Creatinine 0.7 mg/dL Normal 0.6-1.3 Cardiac Marker Panel 05/06/[address] [place] [address] [phone] CPK Creatine Phosphokinase 54 U/L Normal 26-19 [...] Troponin I Reference Interva l for Siemens [place] LOCI: 99th Percentile= 0.00-0.045 ng/ml Risk Stratification: [...] Visit 05/05/2020 8:00a Main Office Pleskach, Pamella, [employer] INTERNSHIP J06.9 Acute upper respiratory infection, unspecified Office Visit 04/21/2020 1:15p Main Office Pleskach, Pamella, [employer] INTERNSHIP R05 Cough Office Visit 01/29/2020 8:45a Main Office Pleskach, Pamella, [employer] INTERNSHIP R05 Cough Office Visit 12/11/2019 11:45a Main Office Pleskach, Pamella, [employer] INTERNSHIP R06.0 2 Shortness of breath R07.89 Other chest pain Assessments Date Code Description Provider 05/05/2020 J06.9 Acute upper respiratory infectio n, unspecified Pleskach, Pamella, [employer] INTERNSHIP 04/21/2020 R05 Cough Pleskach, Pamella, [employer] INTERNSHIP 01/29/2020 R05 Cough Pleskach, Pamella, [employer] INTERNSHIP 12/11/2019 R06.02 Shortness of breath Pleskach, Mo lly, [employer] INTERNSHIP 12/11/2019 R07.89 Other chest pain Pleskach, Pamella , [employer] INTERNS[employer]IP Plan of Treatment 05/05/2020 - Pleskach, Pamella, [employer] INTERNSHIP* J06.9 Acute upper respiratory infection, unspecified* Comments:* [...]
--- OUTSIDE RECORDS SUMMARY | 2020-05-29 05:13 | CCD ---
Author Author [facility] Organization [facility] Address Unknown Phone Unavailable Care Team Providers [employer] Instructor Name Role Phone Pleskach, Pamella PASSENGER ELEVATOR OPERATOR Unavailable Unavailable Pleskach, Pamella PASSENGER ELEVATOR OPERATOR Unavailable Unavailable Pleskach, Pamella PASSENGER ELEVATOR OPERATOR Unavailable Unavailable Pleskach, Pamella PASSENGER ELEVATOR OPERATOR Unavailable Unavailable Pleskach, Pamella PASSENGER ELEVATOR OPERATOR Unavailable Unavailable Pleskach, Pamella PASSENGER ELEVATOR OPERATOR Unavailable Unavailable Pleskach, Pamella PASSENGER ELEVATOR OPERATOR Unavailable Unavailable Pleskach, Pamella PASSENGER ELEVATOR OPERATOR Unavailable Unavailable Pleskach, Pamella PASSENGER ELEVATOR OPERATOR Unavailable Unavailable Pleskach, Pamella PASSENGER ELEVATOR OPERATOR Unavailable Unavailable Pleskach, Pamella PASSENGER ELEVATOR OPERATOR Unavailable Unavailable Pleskach, Pamella PASSENGER ELEVATOR OPERATOR Unavailable Unavailable Pleskach, Pamella PASSENGER ELEVATOR OPERATOR Unavailable Unavailable Pleskach, Pamella PASSENGER ELEVATOR OPERATOR Unavailable Unavailable Pleskach, Pamella PASSENGER ELEVATOR OPERATOR Unavailable Unavailable Pleskach, Pamella PASSENGER ELEVATOR OPERATOR Unavailable Unavailable Pleskach, Pamella PASSENGER ELEVATOR OPERATOR Unavailable Unavailable Pleskach, Pamella PASSENGER ELEVATOR OPERATOR Unavailable Unavailable Pleskach, Pamella PASSENGER ELEVATOR OPERATOR Unavailable Unavailable Pleskach, Pamella PASSENGER ELEVATOR OPERATOR Unavailable Unavailable Pleskach, Pamella PASSENGER ELEVATOR OPERATOR Unavailable Unavailable Pleskach, Pamella PASSENGER ELEVATOR OPERATOR Unavailable Unavailable Pleskach, Pamella PASSENGER ELEVATOR OPERATOR Unavailable Unavailable Pleskach, Pamella PASSENGER ELEVATOR OPERATOR Unavailable Unavailable Pleskach, Pamella PASSENGER ELEVATOR OPERATOR Unavailable Unavailable Pleskach, Pamella PASSENGER ELEVATOR OPERATOR Unavailable Unavailable Pleskach, Pamella PASSENGER ELEVATOR OPERATOR Unavailable Unavailable Pleskach, Pamella PASSENGER ELEVATOR OPERATOR Unavailable Unavailable Pleskach, Pamella PASSENGER ELEVATOR OPERATOR Unavailable Unavailable Pleskach, Pamella PASSENGER ELEVATOR OPERATOR Unavailable Unavailable TURRIN, ALEJANDRA Unavailable Unavailable TURRIN, ALEJANDRA Unavailable Unavailable TURRIN, ALEJANDRA Unavailable Unavailable TURRIN, ALEJANDRA Unavailable Unavailable Dille E Kendra DDS Unavailable Unavailable Dille, E Kendra DDS Unavailable Unavailable Dille, E Kendra DDS Unavailable Unavailable Dille, E Kendra DDS Unavailable Unavailable Abdifatah Javed [...] Unavailable Unavailable Abdifatah Javed MD Unavailable Unavailable Abdiftaah Javed MD Unavailable Unavailable Abdifatah Javed MD [...] Unavailable Unavailable Agnieszka ABEBE MD Unavailable Unavailable VENERUAgnieszka Medina MD Unavailable Unavailable VENERUSAgnieszka MD Unavailable Unavailable VENERUS, Agnieszka JOEL MD Unavailable Unavailable VENERUS, Agnieszka JOEL MD Unavailable Unavailable VENERUS, Agnieszka JOEL MD [...] Unavailable BELEN, F COLIN DO Unavailable Unavailable EBLEN, F COLIN DO Unavailable Unavailable BELEN, F COLIN DO Unavailable Unavailable BELEN, F COLIN DO Unavailable Unavailable BELEN, F COLIN DO Unavailable Unavailable BELNE, F COLIN DO Unavailable Unavailable BELEN, F [...] Unavailable BELEN, F CLOIN DO Unavailable Unavailable NIR, M KIM PA [...] Unavailable NIR, M KIM PA Unavailable Unavailable Feola, T Abi PA Unavailable Unavailable Feola, T Abi PA Unavailable Unavailable Feola, T Abi PA Unavailable Unavailable Feola, T Abi PA Unavailable Unavailable Feola, T Abi PA Unavailable Unavailable Feola, T Abi PA Unavailable Unavailable Feola, T Abi PA Unavailable Unavailable Feola, T Abi PA Unavailable Unavailable Feola, T Abi PA Unavailable Unavailable Feola, T Abi PA Unavailable Unavailable Feola, T Abi PA Unavailable Unavailable Feola, T Abi PA Unavailable Unavailable Feola, T Abi PA Unavailable Unavailable Feola, T Abi PA Unavailable Unavailable Feola, T Abi PA Unavailable Unavailable Feola, T Abi PA Unavailable Unavailable Feola, T Abi PA Unavailable Unavailable Feola, T Abi PA Unavailable Unavailable Feola, T Abi PA Unavailable Unavailable Feola, T Abi PA Unavailable Unavailable Feola, T Abi PA Unavailable Unavailable Feola, T Abi PA Unavailable Unavailable Feola, T Abi PA Unavailable Unavailable Feola, T Abi PA Unavailable Unavailable Feola, T Abi PA Unavailable Unavailable Feola, T Abi PA Unavailable Unavailable Feola, T Abi PA Unavailable Unavailable Feola, T Abi PA Unavailable Unavailable Feola, T Abi PA Unavailable Unavailable Feola, T Abi PA Unavailable Unavailable Feola, T Abi PA Unavailable Unavailable Feola, T Abi PA Unavailable Unavailable Feola, T Abi PA Unavailable Unavailable Feola, T Abi PA Unavailable Unavailable Feola, T Abi PA Unavailable Unavailable Feola, T Abi PA Unavailable Unavailable Feola, T Abi PA Unavailable Unavailable Re-disclosure Warning The records that [...] is protected by Article 27-F of the [facility] Public Health law. If you continue you may have access to information: Regarding HIV / AIDS; Provided by facilities licensed or operated by the [facility] Office of Mental Health; or Provided by the [facility] Office for People With Developmental Disabilities. If such information is present, then the following [facility] mandated warning applies: This information has [...] law may result in a fine or fpc sentence or both. A general authorization for [...] Date Indications Data Source(s ) Outpatient Attender: Abi GIANG 021 12:40:18 PM EST - 05/13/2020 01:14:25 PM EST [facility] ([facility] ) Outpatient Attender: Pamella Cloud [facility] Main Office 05/05/2020 0 7:00:00 AM EST [facility] ([facility] Outpatient Attender: Pamella Cloud [facility] Main Office 04/21/2020 1 2:15:00 PM EST [facility] ([facility] Outpatient Attender: KIM GIANG [facility] 02/10 05:45:00 PM EST [facility] ([facility] Outpatient Attender: Pamella Cloud [facility] Main Office 01/29/2020 0 8:45:00 AM EDT [facility] ([facility] Outpatient Attender: Pamella Cloud [facility] Main Office 12/11/2019 1 1:45:00 AM EDT [facility] ([facility] Outpatient 11/03/2019 05:20:00 AM EDT [facility] Emergency Attender: COLIN YEAGER DOConsultant: Tevin Javed MD 11/03/2019 03:42:00 AM EDT - 11/03/2019 08:23:00 AM EDT [facility] Patient discharged. Outpatient Attender: Pamella Cloud [facility] Main Office 06/27/2019 1 0:30:00 AM EDT [facility] ([facility] Outpatient Attender: Pamella Cloud [facility] Main Office 06/10/2019 0 9:00:00 AM EST [facility] ([facility] Outpatient Attender: Kendra RENEE 06/04/2019 07:13:[address] [facility] Outpatient Attender: Kendra ANDERSON 05/21/2019 03:18:[address] [facility] Outpatient Attender: Kendra ANDERSON 05/21/2019 03:17:[address] [facility] Outpatient Attender: Kendra ANDERSON 05/21/2019 02:11:[address] [facility] Outpatient Attender: Kendra ANDERSON 05/21/2019 01:17:[address] [facility] Outpatient Attender: Kendra ANDERSON 05/21/2019 01:15:[address] [facility] Outpatient Attender: Kendra ANDERSON 05/21/2019 10:18:[address] [facility] Outpatient Attender: Kendra ANDERSON 05/21/2019 10:17:[address] [address] 05/09/2019 12:00:00 AM EST eCW1 ([facility]) Emergency Attender: ALEJANDRA HERNANDEZConsultant: Tevin Javed MD 04/25/2019 03:24:00 PM EST - 04/25/2019 05:15:00 PM [facility] Patient discharged. Emergency Attender: LEON ABEBE MDConsultant: Tevin castro MD 04/23/2019 06:02:00 PM EST - 04/23/2019 09:12:00 PM EST [facility] Patient discharged. Outpatient Attender: Kendra Dinero Carol [facility] 04/09/2019 10:07:01 A M EST [facility] Medications Medication Brand Name Start Date Product Form Dose Route Admi nistrative Instructions Pharmacy Instructions Status Indications Reaction Description Data Source(s) silver sulfadiazine 10 MG/ML Topical Cream [SSD] SILVER SULF ADIAZINE 05/14/2020 12:00:00 AM EST cream 50 APPLY TO BURN ON LEFT HAND TWO TIMES A DAY UNTIL HEALED APPLY TO BURN ON LEFT HAND TWO TIMES A DAY UNTIL HEALED SOLD : 05/14/2020 [facility] 220 mg 05/13/2020 12:00:00 AM EST tablet 40 TAKE TWO TABLETS BY MOUTH TWICE A DAY NEEDED FOR PAIN FOR 10 DAYS TAKE TWO TABLETS BY MOUTH TWICE A DAY NEEDED FOR PAIN FOR 10 DAYS SOLD: 05/13/2020 [facility] Sulfamethoxazole 800 MG / Trimethoprim 160 MG Oral Tab let 800-160 mg SULFAMETHOXAZOLE/TRIMETHOPRIM 05/13/2020 12:00:00 AM EST tablet 20 TAKE ONE TABLET BY MOUTH TWICE A DAY FOR 10 DAYS TAKE ONE TABLET BY MOUTH TWICE A DAY FOR 10 DAYS SOLD: 05/13/2020 [facility] levocetirizine dihydrochloride 5 MG Oral Tablet Levocetirizi ne Dihydrochloride 04/21/2020 12:00:00 AM EST ORAL active [facility] ([facility] Fluticasone Propionate Fluticasone Propionate 04/21/2020 12:00:[address] active [facility] ([facility] benzonatate 100 MG Oral Capsule [Tessalon Perlwarner] Tessalon P erles 04/21/2020 12:00:00 AM EST [...] THEN TAKE ONE DAILY THEREAFTER SOLD: 04/24/2019 [facility] 2.5 mg /3 mL (0.083 %) [...] relationship to benjamin Policy Benjamin Plan Information [facility] COMMUNITY PLAN [facility] [id number] SP [id number] [employer] [facility] [id number] Self [id number] [facility] COMMUNITY PLAN [facility] [id number] SP [id number] [facility] COMMUNITY PLAN [id number] 18 [id number] SELF PAY ONLY [id number] SP [id number] United [employer] Essential Plan P [id number] S [id number] United [employer] Essential Plan P [id number] S [id number] [employer] Essential Plan P UNAVAILABLE S UNAVAILABLE Managed Care - [facility] Community Plan P [id number] S [id number] Medicaid S UNAVAILABLE S UNAVAILA BLE MEDICAID [id number] SP [id number] [facility] COMMUNITY PLAN [facility] [id number] SP [id number] [facility] [id number] SP [id number] UN COMMUNITY PLAN [facility] [id number] SP [id number] [facility]) O [id number] S [id number] [facility] [id number] SP [id number] [facility] [id number] SP [id number] SELF PAY ONLY UNAVAILABLE UNAV AILABLE TOTAL CARE INC O [id number] S [id number] MEDICAID M [id number] SELF PAY UNAVAILABLE SP UNAVAILA BLE TOTAL CARE-MEDICAID MANAGED CR [id number] SELF [id number] MEDICAID [id number] SELF [id number] [employer] [place] [id number] SP [id number] [employer] PLAN [id number] SP [id number] [employer]CE[employer] BCBS P [id number] S [id number] [employer] [id number] SP [id number] Problems, Conditions, and Diagnoses Code Display Name Description Problem Type Effective Dates Data Source(s) J205 Acute bronchitis due to respiratory sync ytial virus Acute bronchitis due to respiratory syncytial virus Diagnosis 11/03/2019 03:42:00 AM EDT [facility] R509 Fever, unspecified Fever, unspecified Diagnosis 0 03:42:00 AM EDT [facility] J159 Unspecified bacterial pneumonia Unspecified bacterial pneumonia Diagnosis 04/25/2019 03:24:00 PM [facility] R05 Cough Cough Diagnosis 04/25/2019 03:24:00 PM ES [facility] J180 Bronchopneumonia, unspecified organism B ronchopneumonia, unspecified organism Diagnosis 04/23/2019 06:02:00 PM [facility] Surgeries/Procedures Procedure Description Date Indications Data Source(s) RADEX TOE MINIMUM 2 VIEWS 03/09/2020 12:00:00 AM EST [facility] ([facility] ) URINE TEST 05/09/2019 12:00:00 AM EST eCW1 ([facility]) Results ID Date Data Source [id number] 05/06/2020 02:23:00 AM EST [facility] ([facility] Name Value Range Interpretation Code Description Data Svetlana rce(s) Supporting Document(s) Fibrin D-dimer FEU [Mass/volume] in Platelet poor plasma 1005.41 ng/m L [facility] ([facility] ID Date Data Source [id number] 05/06/2020 02:23:00 AM EST [facility] ([facility] Name Value Range Interpretation Code Description Data [facility](s) Supporting Document(s) White Blood Count 9.3 10 4.0-10.0 [facility] ([facility] Hemoglobin 12.7 g/dL 12.0-15.5 [facility] ([facility] Red Blood Count 4.24 10 4.00-5.40 [facility] ([facility] Hematocrit 39.7 % 36.0-47.0 [facility] ([facility] Mean Corpuscular Volume 93.6 fl 80.0-96.0 M EDENT ([facility] Mean Corpuscular Hemoglobin 30.0 pg 27.0-33.0 [facility] ([facility] Mean Corpuscular HGB Conc 32.0 g/dL 32.0-36.5 [facility] ([facility] Red Cell Distribution Width 12.7 % 11.5-14.5 [facility] ([facility] Platelet Count, Automated 207 10 150-450 [facility] ([facility] [place] % 5.3 % 0.0-5.0 [facility] ([facility] Neutrophils % 64.4 % 36.0-66.0 [facility] ([facility] Lymph % 29.0 % 24.0-44.0 [facility] Eos % 1.0 % 0.0-3.0 [facility] Baso % 0.1 % 0.0-1.0 [facility] Nucleated Red Blood Cell % 0.0 % 0-0 MED ENT ([facility] Immature Granulocyte % 0.2 % 0-3.0 [facility] ([facility] Neutrophils # 6.0 10 1.5-8.5 [facility] ([facility] Lymph # 2.7 10 1.5-5.0 [facility] Eos # 0.1 10 0.0-0.5 [facility] [place] # 0.5 10 0.0-0.8 [facility] Baso # 0.0 10 0.0-0.2 [facility] ID Date Data Source [id number] 05/06/2020 02:19:00 AM EST [facility] ([facility] Name Value Range Interpretation Code Description Data Svetlana rce(s) Supporting Document(s) Choriogonadotropin.beta subunit [Moles/volume] in Seru m or Plasma Laboratory test result [facility] <content>QUANTITATIVE RESULT QU ALITATIVE INTERPRETATION</content>
<content> </content>
<content><5.0 IU/L NEGATIVE</content>
<content>5.0 - 25.0 IU/L INDETERMINATE</content>
<content>>25.0 IU/L POSITIVE</content>
<content></content> ID Date Data Source [id number] 05/06/2020 01:53:00 AM EST [facility] ([facility] Name Value Range Interpretation Code Description Data Svetlana rce(s) Supporting Document(s) Laboratory test finding (navigational concept) 96 mg/dL 70-105 [facility] ([facility] Laboratory test finding (navigational concept) 41.0 % 38.0-51.0 [facility] ([facility] Laboratory test finding (navigational concept) 138 meq/L 136-145 [facility] ([facility] Laboratory test finding (navigational concept) 4.7 meq/L 3.5-5.1 [facility] ([facility] Laboratory test finding (navigational concept) 107 meq/L 98-109 [facility] ([facility] Laboratory test finding (navigational concept) 4.5 mg/dL 4.5-5.3 [facility] ([facility] Laboratory test finding (navigational concept) 26.0 MM/L 23.0-27.0 [facility] ([facility] Laboratory test finding (navigational concept) 11 mg/dL 8-26 [facility] ([facility] Laboratory test finding (navigational concept) 0.7 mg/dL 0.6-1.3 [facility] ([facility] ID Date Data Source [id number] 05/06/2020 01:36:00 AM EST [facility] ([facility] Name Value Range Interpretation Code Description Data Svetlana rce(s) Supporting Document(s) CPK Creatine Phosphokinase 54 U/L 26-192 [facility] ([facility] CK-MB Value Mass Laboratory test result [facility] ([facility] Troponin I Laboratory test result [facility] ([facility] <content>Troponin I Reference Interval f or Siemens Parsons LOCI:</content>
<content></content>
<content>99th Percentile= 0.00-0.045 ng/ml</content>
<content></content>
<content>Risk Stratification:</content>
<content><= 0.10 ng/ml Decreased Risk for Adverse Clinical</content>
<content>Events.</content>
<content>0.10-1.50 ng/ml Increased Risk for Adverse Clinical</content>
<content>Events. Evaluation of additional</content>
<content>criterion and/or repeat testing in 2-6</content>
<content>hours is suggested to rule out myocardial</content>
<content>damage.</content>
<content>>= 1.50 ng/ml Indicative of Myocardial Injury.</content>
<content></content> MB/CK Relative Index 1.85 [facility] ([facility] <content>DIAGNOSIS CRITERIA</content>
<content>MMB ng/ml Relative Index (RI)</content>
<content>NON-AMI < or = 5 N/A</content>
<content>DASILVA ZONE > 5 < or = 4</content>
<content>AMI > 5 > 4</content>
<content></content> ID Date Data Source [id number] 04/08/2020 12:00:00 AM EST [facility] Name Value Range Interpretation Code Description Data Svetlana rce(s) Supporting Document(s) Carestart Rapid COVID Antigen Test [facility] This lab was reported by Pierce rosen. ID Date Data Source [id number] 04/08/2020 12:00:00 AM EST [facility] Name Value Range Interpretation Code Description Data Svetlana rce(s) Supporting Document(s) SARS coronavirus 2 RNA [Presence] in Res piratory specimen by ANATOLY with probe detection [facility] This lab was ordered by Pierce Quach and reported by [employer]. ID Date Data Source [id number] 11/03/2019 03:42:00 AM EDT [facility] 1 OrderSheet [facility] [address] [place] [address] Phone #: ext- [phone] 11/03/2019 03:41 Patient: [...] Physician;Urinalysis (Clean STAT 04:11/03/2019 Ack'd: 04:45 06:30 StevenCatch) Colin Evans RN Physician;Influenza Nasal A B STAT 04:11/03/2019 04:45 Flip Evans RN Physician;CORONAVIRUS STAT 04:11/03/2019 04:45 FavioenCOVID-Lulu Evans RN Physician;Ferritin STAT 04:11/03/2019 04:45 Flip Evans RN Physician;Lactic Acid STAT 04:11/03/2019 06:31 Flip Evans RN Physician;Bl ood Culture STAT 04:11/03/2019 06:31 Flip Santos OrderSheet [facility] [address] [place] [address] Phone #: ext- [phone] 11/03/2019 03:41 Patient: CLARE LORENZO Sex: F : 1985 Age: [id number] X2 (Sched Colin Evans RN04:25 11/03/2019) Physician;Blood Culture STAT 04:11/03/2019 06:31 [id number] X2 (Sched Colin Evans RN04:35 11/03/2019) Physician;DIAGNOSTIC STUDY ORDERSOrder Description Priority Entered Acknowledged InitialedChest Portable 1 STAT 04:11/03/2019 Ack'd: 04:45 06:52 Jane Evans RN(Oxygen?(No)) Physician; Reason for Study: CoughMEDICATION/IV/DRIP/FLUID ORDERSOrder Description Priority Entered Acknowledged InitialedGENERAL ORDERSOrder Description Priority Entered Acknowledged InitialedEKG 04:11/03/2019 04:45 Flip Evans RN Physician;[Electronically signed by Colin Yeager Physician (06:59 11/03/2019)][Electronically signed by Flip Evans RN (07:13 11/03/2019)][Electronically locked by Flip Evans RN (07:13 11/03/2019)] Name Value Range Interpretation Code Description Data [facility](s) Supporting Document(s) ID Date Data Source [id number] 11/03/2019 03:42:00 AM EDT [facility] 1 Medication Reconciliation Report [facility] [address] [place] [address] Phone #: ext- [phone] 11/03/2019 03:41 Patient: CLARE LORENZO Sex: F : 1985 Age: 34yWeight: 112.2 kgHeight/Length: 64 in.BMI: 42.5ALLERGIES: No Known Drug AllergyThe patient's Home Medications are listed below:NONE.The source(s) of the original Home Medication information:Not obtained.The following Medications were given to the patient in the Emergency Department:None.The follo wing Medications were prescribed to the patient:None. Name Value Range Interpretation Code Description Data [facility](s) Supporting Document(s) ID Date Data Source [id number] 11/03/2019 03:42:00 AM EDT [facility] 1 Medication Administration Record [facility] [address] [place] [address] Phone #: ext [phone] 11/03/2019 03:41 Patient: CLARE LORENZO Sex: F : 1985 Age: 34yWeight: 112.2 kgHeight/Length: 64 inBMI: 42.5ALLERGIES: No Known Drug AllergyDate/Time Medication Administered Medication Ordered Name Value Range Interpretation Code Description Data [facility](s) Supporting Document(s) ID Date Data Source [id number] 11/03/2019 03:42:00 AM EDT [facility] 1 General Instructions [facility] [address] [place] [address] Phone #: [phone]- [phone] 11/03/2019 03:41 Patient: CLARE LORENZO Sex: F : 1985 Age: 34yAcute viral (RSV) bronchitis.INSTRUCTIONSNo strenuous activity.Drink plenty of fluids.(Tylenol or Ibuprofen.).Your Current Medications: .No home medication.Follow-up:Follow up with your healthcare provider in two days. Summary of care provided to patient via paper. ADDITIONAL INFORMATIONViral Bronchitis (Adult) 2 General Instructions [facility] [address] [place] [address] Phone #: ext- [phone] 11/03/2019 03:41 Patient: [...] back to your usual 3 General Instructions [facility] [address] [place] [address] Phone #: [phone]- [phone] 11/03/2019 03:41 [id number] Sex[facility] F : 1985 Age: 34y activities, don't let yourself get too tired. Do not smoke. Also avoid being exposed to secondhand smoke. You may use [id number] medicine to control fever or pain, unless [...] loosen secretions in the nose and lungs. Smma-[id number]-[id number] cough, cold, and sore-throat medicines will not [...] headache, or stiff neck 4 General Instructions [facility] [address] [place] [address] Phone #: ext- [phone] 11/03/2019 03:41 Patient: CLARE LORENZO Sex: F : 1985 Age: 34y Trouble breathing, wheezing, or pain with breathing [phone] [employer]. [address] [place] [address]. All rights reserved. This information is not intended as asubstitute for professional medical care. Always follow your healthcare professional's instructions. You have been given the following additional information: Bronchitis, No Antibiotic (Adult) No strenuous activity.(Electronically signed by Colin Yeager, Physician 11/03/2019 06:59) Name Value Range Interpretation Code Description Data Svetlana rce(s) Supporting Document(s) ID Date Data Source [id number] 11/03/2019 03:42:00 AM EDT [facility] 1 Clinical Report - Nurses [facility] [address] [place] [address] Phone #: [phone]- [phone] 11/03/2019 03:41 [facility]: [id number] Sex: F : 1985 Age: 34yTRIAGEArrived by [...] strong). RR: 16 (regular, unlabored and normal). [id number]: 100% on room air. Temp: 97.6 F (oral). Pain level now: 0/10. --03:50 11/03/19 Flip Evans RNTreatment ENGINEERING PSYCHOLOGIST:None. --03:50 11/03/19 Flip Evans RN( chest tightness). [...] disease exposure. 2 Clinical Report - Nurses [facility] [address] [place] [address] Phone #: ext- [phone] 11/03/2019 03:41 Patient: [...] RN. FAMILY HX: Negative. --04:24 11/03/19 Colin Yeager, Physician. Assessment The patient states feels the [...] Patient verbalized understanding. Written instructions provided in Liberian. The patient was discharged home and accompanied [...] Evans RN. 3 Clinical Report - Nurses [facility] [address] [place] [address] Phone #: ext- [phone] 11/03/2019 03:41 Patient: CLARE LORENZO Sex: F : 1985 Age: 34yLocked/Released at 11/03/2019 07:13 by Flip Evans RN Name Value Range Interpretation Code Description Data Svetlana rce(s) Supporting Document(s) ID Date Data Source [id number] 11/03/2019 03:42:00 AM EDT [facility] 1 Clinical Report - Physicians/Mid Levels [facility] [address] [place] [address] Phone #: ext- [phone] 11/03/2019 03:41 Patient: [...] allergies. 2 Clinical Report - Physicians/Mid Levels [facility] Emergency Department [address] [place] [address] Phone #: ext- [phone] 11/03/2019 03:41 Patient: CLARE LORENZO [facility]#: [id number] Sex: F : 1985 Age: 34yPHYSICAL EXAMVital [...] interpreted contemporaneously by me.Normal sinus rhythm. Normal MS interval. Normal QRS complexes. Normal STs and T waves. No ectopy.Chest X-ray: Normal Chest X-Ray (AP and portable): independently viewed and interpretedcontemporaneously by me. Normal heart size. Normal mediastinum. Normal soft tissues. No infiltratespresent. No pneumothorax present.Laboratory Tests: Laboratory tests have been ordered, with results reviewed and considered in themedical decision making process. Lactic Acid: (IVELISSE: 11/03/2019 05:20) ( MsgRcvd 11/03/2019 05:38) Final results Test Result Flag Units (Reference) LACTIC ACID 1.9 MMOL/L (0.2 - 2.2) CBC w Diff: (IVELISSE: 11/03/2019 04:45) ( MsgRcvd 11/03/2019 04:55) Final results Test Result Flag [...] 0.0) 3 Clinical Report - Physicians/Mid Levels [facility] Emergency Department [address] [place] [address] Phone #: ext- [phone] 11/03/2019 03:41 Patient: [...] Male GFR Interprentation 20-49 yrs >60 mL/min Ouimgq76-52 yrs >56 mL/min Normal 60-69 yrs >49 mL/min Normal 70-79yrs>42 mL/min Normal 80 and above >35 mL/min Normal Female GFRInterpretation 20-39 yrs >60 mL/min Normal 40-49 yrs >58 mL/minNormal 50-59 yrs >51 mL/min Normal 60-69 yrs >45 mL/min Jhidoz87-65 yrs >39 mL/min Normal 80 and above >32 mL/min NormalBeta-HCG, Qual Urine: (IVELISSE: 11/03/2019 06:15) ( [facility] 11/03/2019 06:39) Final results Test Result Flag Units (Reference) HCG URINE QUAL NEGATIVE (NORMAL: NEGAT HCG URINE QL REENTER NEGATIVE (NORMAL: NEGAT { KIT LOT # [id number] ){ KIT EXP DATE01.20.21 ){ PROCEDURAL CONTROL VALID)D-Dimer: (IVELISSE: 11/03/2019 05:20) ( [facility] 11/03/2019 05:46) Final results Test Result Flag Units (Reference) D-DIMER QUANT 0.44 ug/mL (0.27 - 0.50)Troponin-T: (IVELISSE: 11/03/2019 04:45) ( [facility] 11/03/2019 05:45) Final results 4 Clinical Report - Physicians/Mid Levels [facility] Emergency Department [address] [place] [address] Phone #: ext- [phone] 11/03/2019 03:41 Patient: CLARE LORENZO Sex: F : 1985 Age: 34y Test Result Flag Units (Reference) TROPONIN T <0.01 NG/ML (0.00 - 0.10) TROPONIN T0.1 ng/ml Recommended as the clinical threshold value forTroponin T. Urinalysis: (IVELISSE: 11/03/2019 06:15) ( [facility] 11/03/2019 06:37) Final results Test [...] A B: (IVELISSE: 11/03/2019 04:45) ( [facility] 11/03/2019 05:36) Final results Test Result Flag Units (Reference) INFLUENZA A NEGATIVE (NORMAL: NEGAT INFLUENZA B NEGATIVE (NORMAL: NEGAT INFLUENZA A REENTER NEGATIVE (NORMAL: NEGAT INFLUENZA B REENTER NEGATIVE (NORMAL: NEGAT PROCEDURAL CONTROL VALID KIT LOT # _[id number] 11/03/19.0536.SID. KIT EXP DATE _37-68-52 11/03/19.0536.SID.The Influenza A utilizing an isothermal nucleic acid amplification technology for thequalitative detection of influenza A and B viral RNA.Negative results do not preclude influenza virus infection and should not beused as the sole basis for diagnosis, treatment or other patient managementdecisions. Ferritin: (IVELISSE: 11/03/2019 04:45) ( [facility] 11/03/2019 05:55) Final results Test Result Flag [...] IMPRESSION 5 Clinical Report - Physicians/Mid Levels [facility] Emergency Department [address] [place] [address] Phone #: ext- [phone] 11/03/2019 03:41 Patient: [...] rce(s) Supporting Document(s) ID Date Data Source [id number] 11/03/2019 03:42:00 AM EDT [facility] VisitID: [id number] Date: 10:24Lab results reviewed, SARS-CoV-2 Coronavirus NOT DETECTED. Communicated information [facility].(Electronically signed by Maria Schilling RN - 11/06/2019 10:24) Name Value Range Interpretation Code Description Data Svetlana rce(s) Supporting Document(s) ID Date Data Source [id number] 11/04/2019 12:12:00 [place] [address] PHONE: [phone] FAX: [phone] Name .................. : MAURA Hermosillo Acct Number.................. : [id number] ROOM. ................. : TR-1B MR Number ................... : [id number] Stay type ............. : E/R Discharge Date......... ... : 11/03/19 Admit Date ... ...... : 11/03/19 Admit Phys .................... : BELEN GIANG Date of ....... : 1985 Family Phys ................... : JAVED SCOT Phone .................. : [phone] Age ................................ : 34 Film# .................. .:[id number] Sex ................................. : F Unsigned transcriptions are preliminary reports and do not represent a medical or legal document CHEST PORTABLE [id number] COMPLETE:11/03/19 06:53 PRICE [id number] Reason(s): Cough PORTABLE CHEST X-RAY: SINGLE VIEW [...] rce(s) Supporting Document(s) ID Date Data Source [id number] 11/03/2019 01:31:00 PM EDT [facility] [address] [place] [address] RESPIRATORY CARE REPORT ==== ---------NAME------- NUMBER SEX AGE ADMIT DISC. XRAY# [facility] [id number] F 34 11/03/19 11/03/19 [id number] X6B E/R DATE OF : 1985 M/R# [id number] PH#: [phone] TR-1B LOCATION: EMERGENCY DEPT EKG [id number] COMPLE TE:11/03/19 07:39 [place] [id number] PHYSICIAN: BELEN GIANG Name Value Range Interpretation Code Description Data Svetlana rce(s) Supporting Document(s) ID Date Data Source [id number] 11/03/2019 06:38:00 AM EDT [facility] Name Value Range Interpretation Code Description Data Svetlana rce(s) Supporting Document(s) HCG URINE QUAL NEGATIVE NORMAL: NEGATIVE [facility] HCG URINE QL REENTER NEGATIVE NORMAL: NEGATIVE [facility] { KIT LOT # [id number] ){ KIT EXP DATE 01.20.21 ){ PROCEDURAL CONTROL VALID ) ID Date Data Source [id number] 11/03/2019 06:37:00 AM EDT [facility] Name Value Range Interpretation Code Description Data Svetlana rce(s) Supporting Document(s) URINALYSIS [facility] julianne URINALYSIS SOURCE R [facility] COLOR yellow NORMAL: Yellow [facility] CLARITY clear NORMAL: Clear [facility] Specific gravity of Urine by Test strip 1.015 1.001 - 1.030 [facility] pH 6 5 - 9 [facility] Gl[facility] [Mass/volume] in Urine by Test strip NORM NORMAL: Negat linwood [facility] Bilirubin.total [Presence] in Urine by Test strip NEG NORMAL: Negative [facility] Ketones [Presence] in Urine by Test strip NEG NORMAL: Negative [facility] Protein [Mass/volume] in Urine by Test strip NEG NORMAL: Negat linwood [facility] Nitrite [Presence] in Urine by Test strip NEG NORMAL: Negative [facility] BLOOD NEG NORMAL: Negative [facility] Leukocyte esterase [Presence] in Urine by Test strip NEG SEKOU L: Negative [facility] Urobilinogen [Mass/volume] in Urine by Test strip NOR less mario n 1.0 mg/dL [facility] MICROSCOPIC Not Indicate [facility] ID Date Data Source [id number] 11/08/2019 12:30:00 PM EDT [facility] [address] Name Value Range Interpretation Code Description Data Svetlana rce(s) Supporting Document(s) Bacteria identified in Blood by Culture [facility] NO GROWTH AFTER 5 DAYS ID Date Data Source [id number] 11/09/2019 01:05:00 PM EDT [facility] Name Value Range Interpretation Code Description Data Svetlana rce(s) Supporting Document(s) CULTURE BLOOD [facility] spital _CULTURE BLOOD_{ PRELIM TEST PERFORMED AT [address] [address] CLIA# [id number] SEE SCANNED REPORT ID Date Data Source [id number] 11/09/2019 01:05:00 PM EDT [facility] Name Value Range Interpretation Code Description Data Svetlana rce(s) Supporting Document(s) CULTURE BLOOD [facility] spital _CULTURE BLOOD_{ PRELIM TEST PERFORMED AT [address] [address] CLIA# [id number] SEE SCANNED REPORT ID Date Data Source [id number] 11/03/2019 05:46:00 AM EDT [facility] Name Value Range Interpretation Code Description Data Svetlana rce(s) Supporting Document(s) Fibrin D-dimer FEU [Mass/volume] in Platelet poor plasma 0.44 ug /mL 0.27 - 0.50 [facility] ID Date Data Source [id number] 11/03/2019 05:38:00 AM EDT [facility] Name Value Range Interpretation Code Description Data Svetlana rce(s) Supporting Document(s) Lactate [Moles/volume] in Serum or Plasma 1.9 MMOL/L 0.2 - 2.2 [facility] ID Date Data Source [id number] 11/03/2019 04:45:00 AM EDT [facility] Name Value Range Interpretation Code Description Data Svetlana rce(s) Supporting Document(s) SARS coronavirus 2 RNA [facility] This lab was ordered by [facility] anup and reported by [facility]. ID Date Data Source [id number] 11/06/2019 06:25:00 AM EDT [facility] Name Value Range Interpretation Code Description Data Svetlana rce(s) Supporting Document(s) SARS-CoV-2, ANATOLY Not Detected Not Detected [facility] Testing was performed using the Ringio S ARS-CoV-2 assay.This test was developed and its performance characteristics determinedby [employer]. This test has not been FDA cleared [...] in this assay. ID Date Data Source [id number] 11/03/2019 05:55:00 AM EDT [facility] Name Value Range Interpretation Code Description Data Svetlana rce(s) Supporting Document(s) Ferritin [Mass/volume] in Serum or Plasma 34.0 ng/mL 3.0 - 105 [facility] ID Date Data Source [id number] 11/03/2019 05:45:00 AM EDT [facility] Name Value Range Interpretation Code Description Data Svetlana rce(s) Supporting Document(s) TROPONIN T <0.01 NG/ML 0.00 - 0.10 [facility] ospital TROPONIN T0.1 ng/ml Recommended as the c linical threshold value Brendaroponin T. ID Date Data Source [id number] 11/03/2019 05:45:00 AM EDT [facility] Name Value Range Interpretation Code Description Data Svetlana [facility](s) Supporting Document(s) COMPREHENSIVE METABOLIC PANEL [facility] COMPREHENSIVE METABOLIC PANEL Sodium [Moles/volume] in Serum or Plasma 140 mEq/L 134 - 153 [facility] Potassium [Moles/volume] in Serum or Plasma 3.7 mEq/L 3.6 - 5.0 [facility] Chloride [Moles/volume] in Serum or Plasma 104 mEq/L 98 - 107 [facility] Carbon dioxide, total [Moles/volume] in Serum or Plasma 24 MEQ/L 22 - 30 [facility] Glucose [Mass/volume] in Serum or Plasma 102 MG/DL 65 - 110 [facility] BUN 7 MG/DL 7 - 21 [facility] Creatinine [Mass/volume] in Serum or Plasma 0.6 MG/DL 0.7 - 1.5 L [facility] BUN/CREAT 12 8 - 27 [facility] Protein [Mass/volume] in Serum or Plasma 7.9 G/DL 6.3 - 8.2 [facility] Albumin [Mass/volume] in Serum or Plasma 5.0 G/DL 3.9 - 5.0 [facility] Globulin [Mass/volume] in Serum by calculation 2.9 GM/DL 2.4 - 3.2 [facility] A/G RATIO 1.7 0.8 - 2.0 [facility] Calcium [Mass/volume] in Serum or Plasma 9.7 MG/DL 8.4 - 10.2 [facility] Bilirubin.total [Mass/volume] in Serum or Plasma <0.7 MG/DL 0.2 - 1.3 [facility] Alkaline phosphatase [Enzymatic activity/volume] in Serum or Plasma 123 U/L 38 - 126 [facility] Aspartate aminotransferase [Enzymatic activity/volume] in Serum or Plasma 25 U/L 5 - 40 [facility] Alanine aminotransferase [Enzymatic activity/volume] in Seru m or Plasma 25 U/L 7 - 56 [facility] Anion gap 3 in Serum or Plasma 12.0 mmol/L 8.0 - 16.0 [facility] AGE 34 yrs [facility] NON-AA GFR >60 mL/min [facility] ital AFR AMER GFR >60 mL/min [facility] spital Male GFR In terprentation [...] >32 mL/min Normal ID Date Data Source [id number] 11/03/2019 05:36:00 AM EDT [facility] Name Value Range Interpretation Code Description Data Svetlana rce(s) Supporting Document(s) Influenza virus A Ag [Presence] in Nasopharynx by Immunoassa y NEGATIVE NORMAL: NEGATIVE [facility] Influenza virus B Ag [Presence] in Nasopharynx by Immunoassa y NEGATIVE NORMAL: NEGATIVE [facility] NEGATIVENEGATIVE PROCEDURAL CO NTROL VALID KIT LOT # _[id number] 11/03/19.0536.SID. KIT EXP DATE _15-58-25 11/03/19.0536.SID.The Influenza A & B assay is a rapid molecular in vitro diagnostic testutilizing an isothermal nucleic acid amplification technology for thequalitative detection of influenza A and B viral RNA.Negative results do not preclude influenza virus infection and should not beused as the sole basis for diagnosis, treatment or other patient managementdecisions. ID Date Data Source [id number] 11/03/2019 04:55:00 AM EDT [facility] Name Value Range Interpretation Code Description Data Svetlana rce(s) Supporting Document(s) CBC W/AUTOMATED DIFF [facility] COMPLETE BLOOD COUNT Leukocytes [#/volume] in Blood by Automated count 9.0 10^3/uL 4.2 - 1 1.0 [facility] Erythrocytes [#/volume] in Blood by Automated count 4.83 10^6/uL 4. 20 - 5.40 [facility] Hemoglobin [Mass/volume] in Blood 14.3 g/dL 12.0 - 16.0 [facility] Hematocrit [Volume Fraction] of Blood by Automated count 44.0 % 3 7.0 - 47.0 [facility] Erythrocyte mean corpuscular volume [Entitic volume] by Auto mated count 91.1 fL 81.0 - 101 [facility] Erythrocyte mean corpuscular hemoglobin [Entitic mass] by Automated count 29.6 pg 27.0 - 34.0 [facility] Erythrocyte mean corpuscular hemoglobin concentration [Mass/volume] by Automated count 32.5 g/dL 31.0 - 36.0 [facility] Erythrocyte distribution width [Ratio] by Automated count 12.5 % 11.5 - 14.5 [facility] Platelets [#/volume] in Blood by Automated count 244 10^3/uL 150 - 45 0 [facility] Platelet mean volume [Entitic volume] in Blood by Automated count 11.8 fL 7.4 - 10.4 H [facility] Neutrophils/100 leukocytes in Blood by Automated count 65.2 % 37. 0 - 80.0 [facility] Lymphocytes/100 leukocytes in Blood by Manual count 28.2 % 25.0 - 40.0 [facility] Monocytes/100 leukocytes in Blood by Automated count 5.1 % 3.0 - 8.0 [facility] Eosinophils/100 leukocytes in Blood by Automated count 1.0 % 0.0 - 7.0 [facility] Basophils/100 leukocytes in Blood by Automated count 0.3 % 0.0 - 2.5 [facility] %IG 0.2 % 0.0 - 0.0 [facility] %NRBC 0.0 % 0.0 - 0.0 [facility] Neutrophils [#/volume] in Blood by Automated count 5.89 10^3/uL 2.00 - 6.90 [facility] Lymphocytes [#/volume] in Blood by Automated count 2.55 10^3/uL 0.60 - 3.40 [facility] Monocytes [#/volume] in Blood by Automated count 0.46 10^3/uL 0.00 - 0.90 [facility] Eosinophils [#/volume] in Blood by Automated count 0.09 10^3/uL 0.00 - 0.70 [facility] Basophils [#/volume] in Blood by Automated count 0.03 10^3/uL 0.00 - 0.20 [facility] #IG 0.02 10^3/uL 0.00 - 0.10 [facility] ospital #NRBC 0.00 10^3/uL 0.00 - 0.00 [facility] ospital MANUAL DIFF NOT INDICATED [facility] RBC MORPH NOT INDICATED [facility] spital ID Date Data Source [id number] 05/21/2019 01:14:13 PM [facility] Current Problems: Dental caries (ICD-521 .00) (CLR85-O71.9)[place] teeth impaction (ICD-520.6) (FIR08-N66.1) Dental Chart: Procedures:Type - CDT Code - [...] PM): ; vicki (May 21 2019 2:10PM): [facility](-). CC: none. Reviewed Xrays. Exam: no caries detected. OCS: WNL, IO/ EO completed, No significant hard findings upon clinical exam Pt was cooperative.OHI givenReferral: OS # 1 and 32NV:recallMarialuisa Mendes RDH by vicki (05/21/2019 2:09 PM): Tooth Notes and Watches: Note: There are Un- Billed (C Type) procedures on this document.Assessment & Plan Allergies:No Known Allergies (updated 05/21/2019) Orders:Oral Surgery Referral [CPT-58115] Clinical Visit Summary Declined Curren t Problems: Dental caries (ICD-521.00) (JCN56-Y78.9)[place] teeth impaction (ICD- 520.6) (IVY13-X26.1) Dental Chart: Procedures:Type - CDT Code - Description B - (D0120) Periodic oral evaluation - established patient (Performed by Kendra Dinero DDS) B - (D1110) Prophylaxis, adult (Performed by Marialuisa Mendes RDH) Tooth Notes and Watches: Name Value Range Interpretation Code Description Data Svetlana rce(s) Supporting Document(s) ID Date Data Source [id number] 04/26/2019 02:04:00 PM [facility] [address] [place] [address] [place] [address] PHONE: [phone] FAX: [phone] Name .................. : MAURA Hermosillo Acct Number.................. : [id number] ROOM. ................. : MR Number ................... : [id number] Stay type ............. : E/R Discharge Date......... ... : 04/25/19 Admit Date ....... .. : 04/25/19 Admit Phys .................... : DAVID ASHBY Date of ....... : 1985 Family Phys ................... : JAVED SCOT Phone .................. : [phone] Age ................................ : 34 Film# .................. .:[id number] Sex ................................. : F Unsigned transcriptions are preliminary reports and do not represent a medical or legal document CHEST 2 VIEWS [id number] COMPLETE:04/25/19 16:52 [facility] [address] Reason(s): worsening cough, recent RML infiltrate ? worsening pneumonia CHEST X-RAY: 2-VIEWS INDICATION: Worsening cough. FINDINGS: The cardiac and mediastinal silhouettes appear normal and the lungs are clear. The bones and soft tissues are normal. The upper abdomen is unremarkable. IMPRESSION: No acute disease identifiable. Electronically Reviewed and Signed By Jabier Oshea M.D. , 04/26/19 14:04, [place] Transcribe Initials: NEHEMIAS , Transcribe Date: 04/25/19 23:29, Dictation Date: Copy for: CHEPE Aaron via fax Copy for: EMERGENCY DEPT via modem Copy for: 710 MED REC DISCHARGED Page 1 of 1 Name Value Range Interpretation Code Description Data Svetlana rce(s) Supporting Document(s) ID Date Data Source [id number] 04/25/2019 03:24:00 PM EST [facility] 1 OrderSheet [facility] Emergency Department [address] [place] [address] Phone #: [phone]- [phone] 04/25/2019 15:24 Patient: CLARE LORENZO Sex: F [...] Name Value Range Interpretation Code Description [facility] Supporting Document(s) ID Date Data Source [id number] 04/25/2019 03:24:00 PM [place] [address] Medication Reconciliation Report [facility] Department [address] [place] [address] Phone #: ext- [phone] 04/25/2019 15:24 Patient: [...] Name Value Range Interpretation Code Description Data [facility](s) Supporting Document(s) ID Date Data Source [id number] 04/25/2019 03:24:00 PM [place] [address] Medication Administration Record [facility] Department [address] [place] [address] Phone #: ext- [phone] 04/25/2019 15:24 Patient: CLARE LORENZO Sex: F : 1985 Age: 34yWeight: 95.2 kgHeight/Length: 64 inBMI: 36.1ALLERGIES: No Known Drug AllergyDate/Time Medication Administered Medication Ordered Name Value Range Interpretation Code Description Data [facility] rce(s) Supporting Document(s) ID Date Data Source [id number] 04/25/2019 03:24:00 PM EST [facility] 1 General Instructions [facility] Emergency Department [address] [place] [address] Phone #: ext- [phone] 04/25/2019 15:24 [facility]: [id number] Sex: F : 1985 Age: 34yBacterial pneumonia. [...] PADMAJA Okeefe 04/25/2019 18:06) 2 General Instructions [facility] Department [address] [place] [address] Phone #: ext- [phone] 04/25/2019 15:24 Patient: CLARE LORENZO Sex: F : 1985 Age: 34y Name Value Range Interpretation Code Description Data Svetlana rce(s) Supporting Document(s) ID Date Data Source [id number] 04/25/2019 03:24:00 PM EST [facility] 1 Clinical Report - Nurses [facility] Emergency Department [address] [place] [address] Phone #: ext- [phone] 04/25/2019 15:24 Patient: CLARE LORENZO Sex: F : 1985 Age: 34yTRIAGEHistorian: patient.Triage time: 15:27 04/25/2019. Acuity: LEVEL 4.Chief Complaint: (pneumonia).Alert. No acute distress.( pt dx with pneumonia two days ago. here for f/u for pneumonia, pt does not have a pcp and told to f/uhere.).SEPSIS SCREEN: NEGATIVE. Infection suspected/documented. --15:34 04/25/19July, R.N.15:27 04/25/19. BP: 133/72. MAP: 92. HR: 100. RR: 18. O2 saturation: 99%. Temp: 97.1 F. Pain levelnow: 0/10. --15:34 04/25/19July, R.N.Weight: 95.2 kg stated. Height/Length: 64 inches Per Patient. BMI: 36.1. --15:27 04/25/19July, R.N.MedicationsZithromax Oral. --15:29 04/25/19July, R.N. Albuterol Sulfate HFA Inhalation. --15:29 04/25/19July, R.N.AllergiesNo Known Drug Allergy. --15:30 04/25/19 Jacqueline Shi R.N.ADDITIONAL SURGERIES:no known surgeries.HistoryPAST MEDICAL HX: Last normal menstrual period- unknown.SOCIAL HX: Never smoker. No alcohol use or drug use. She was offered HIV testing but declined. Ellihas not traveled outside the [place]Infectious disease exposure: [...] before today?". 2 Clinical Report - Nurses [facility] Department [address] [place] [address] Phone #: ext- [phone] 04/25/2019 15:24 Patient: [...] integrity risk identified. --15:34 04/25/19 Jacqueline Shi R.N. Interventions To treatment room. --15:34 04/25/19 Jacqueline Shi R.N.PHYSICAL ASSESSMENTGENERAL / NEURO / PSYCH: Alert. Oriented [...] Patient verbalized understanding. Written instructions provided in [place]ian. 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 She was discharged home. She left ambulatory and via private vehicle. Spouse driving. --17:59 04/25/19 Jacqueline Shi R.N. 17:15 04/25/19. BP: 118/79. MAP: 92. HR: 92. RR: 18. O2 saturation: 97%. Temp: 97.3 F. Pain level now: 0/10. --17:59 04/25/19 Jacqueline Shi R.N. 3 Clinical Report - Nurses [facility] Emergency Department [address] [place] [address] Phone #: ext- [phone] 04/25/2019 15:24 Patient: CLARE LORENZO Sex: F : 1985 Age: 34yLocked/Released at 04/25/2019 17:59 by Jacqueline Shi R.N. Name Value Range Interpretation Code Description Data Svetlana rce(s) Supporting Document(s) ID Date Data Source [id number] 04/25/2019 03:24:00 PM EST [facility] 1 Clinical Report - Physicians/Mid Levels [facility] Emergency Department [address] [place] [address] Phone #: ext- [phone] 04/25/2019 15:24 Patient: [...] recent 2 Clinical Report - Physicians/Mid Levels [facility] Emergency Department [address] [place] [address] Phone #: ext- [phone] 04/25/2019 15:24 Patient: CLARE LORENZO Sex: F : 1985 Age: 34y travel.ADDITIONAL [...] 0.90) 3 Clinical Report - Physicians/Mid Levels [facility] Emergency Department [address] [place] [address] Phone #: [phone]- [phone] 04/25/2019 15:24 Patient: CLARE LORENZO Sex: F [...] illness, 4 Clinical Report - Physicians/Mid Levels [facility] Emergency Department [address] [place] [address] Phone #: ext- [phone] 04/25/2019 15:24 Patient: CLARE LORENZO [facility]#: [id number] Sex: F : 1985 Age: 34y discharge instructions, activity level, follow-up appointment and risks and benefits of treatment reviewed with patient and understanding verbalized. Agrees to plan of care.(Electronically signed by PADMAJA Okeefe 04/25/2019 18:06) Name Value Range Interpretation Code Description Data Svetlana rce(s) Supporting Document(s) ID Date Data Source [id number] 04/25/2019 04:39:00 PM EST [facility] Name Value Range Interpretation Code Description Data [facility] rce(s) Supporting Document(s) CBC W/AUTOMATED DIFF [facility] COMPLETE BLOOD COUNT Leukocytes [#/volume] in Blood by Automated count 7.3 10^3/uL 4.2 - 1 1.0 [facility] Erythrocytes [#/volume] in Blood by Automated count 4.69 10^6/uL 4. 20 - 5.40 [facility] Hemoglobin [Mass/volume] in Blood 14.1 g/dL 12.0 - 16.0 [facility] Hematocrit [Volume Fraction] of Blood by Automated count 42.5 % 3 7.0 - 47.0 [facility] Erythrocyte mean corpuscular volume [Entitic volume] by Auto mated count 90.6 fL 81.0 - 101 [facility] Erythrocyte mean corpuscular hemoglobin [Entitic mass] by Automated count 30.1 pg 27.0 - 34.0 [facility] Erythrocyte mean corpuscular hemoglobin concentration [Mass/volume] by Automated count 33.2 g/dL 31.0 - 36.0 [facility] Erythrocyte distribution width [Ratio] by Automated count 12.8 % 11.5 - 14.5 [facility] Platelets [#/volume] in Blood by Automated count 272 10^3/uL 150 - 45 0 [facility] Platelet mean volume [Entitic volume] in Blood by Automated count 11.5 fL 7.4 - 10.4 H [facility] Neutrophils/100 leukocytes in Blood by Automated count 65.5 % 37. 0 - 80.0 [facility] Lymphocytes/100 leukocytes in Blood by Manual count 28.1 % 25.0 - 40.0 [facility] Monocytes/100 leukocytes in Blood by Automated count 4.8 % 3.0 - 8.0 [facility] Eosinophils/100 leukocytes in Blood by Automated count 1.2 % 0.0 - 7.0 [facility] Basophils/100 leukocytes in Blood by Automated count 0.1 % 0.0 - 2.5 [facility] %IG 0.3 % 0.0 - 0.0 H [facility] Hospit al %NRBC 0.0 % 0.0 - 0.0 [facility] al Neutrophils [#/volume] in Blood by Automated count 4.78 10^3/uL 2.00 - 6.90 [facility] Lymphocytes [#/volume] in Blood by Automated count 2.05 10^3/uL 0.60 - 3.40 [facility] Monocytes [#/volume] in Blood by Automated count 0.35 10^3/uL 0.00 - 0.90 [facility] Eosinophils [#/volume] in Blood by Automated count 0.09 10^3/uL 0.00 - 0.70 [facility] Basophils [#/volume] in Blood by Automated count 0.01 10^3/uL 0.00 - 0.20 [facility] #IG 0.02 10^3/uL 0.00 - 0.10 [facility] ospital #NRBC 0.00 10^3/uL 0.00 - 0.00 [facility] H ospital MANUAL DIFF NOT INDICATED [facility] RBC MORPH NOT INDICATED [facility] spital ID Date Data Source [id number] 04/24/2019 01:59:00 PM EST [facility] [address] [place] [address] PHONE: [phone] FAX: [phone] Name .................. : MAURA SPARKS Acct Number.................. : [id number] ROOM. ................. : VT-01 MR Number ................... : [id number] Stay type ............. : E/R Discharge Date......... ... : 04/23/19 Admit Date ......... : 04/23/19 Admit Phys .................... : VENERUS BR Date of ....... : 1985 Family Phys ................... : JAVED SCOT Phone .................. : [phone] Age ................................ : 34 Film# .................. .:[id number] Sex ................................. : F Unsigned transcriptions are preliminary reports and do not represent a medical or legal document CHEST 2 VIEWS [id number] COMPLETE:04/23/19 19:24 HOLLY [id number] Reason(s): Congestion CHEST X-RAY: FRONTAL AND LATERAL [...] MD , 04/24/19 13:59, AML Transcribe Initials: DZ , Transcribe Date: 04/24/19 09:50, Dictation Date: Copy for: EMERGENCY DEPT via modem Copy for: 710 MED REC DISCHARGED Page 1 of 1 Name Value Range Interpretation Code Description Data Svetlana rce(s) Supporting Document(s) ID Date Data Source [id number] 04/23/2019 06:02:00 PM EST [facility] 1 OrderSheet [facility] Emergency Department [address] [place] [address] Phone #: [phone] 04/23/2019 17:36 Patient: CLARE LORENZO Sex: F [...] InitialedChest 2 View STAT 19:15 04/23/2019 19:38 Cookie(Oxygen?(No)) Leon Hirsch R.N. Physician; Reason for Study: Congestion, CoughMEDICATION/IV/DRIP/FLUID ORDERSOrder Description Priority Entered Acknowledged InitialedpredniSONE PO 60 19:40 04/23/2019 19:50 mg Cookie (NOW) Leon Hirsch R.N. Physician;Justyna Kennedy Tx 3 19:40 04/23/2019 19:57 Filippo Gary (NOW) Leon Hirsch R.N. Physician; 2 OrderSheet [facility] [address] [place] [address] Phone #: ext- [phone] 04/23/2019 17:36 Patient: CLARE LORENZO Sex: F : 1985 Age: 34yGENERAL ORDERSOrder Description Priority Entered Acknowledged Initialed[Electronically signed by Joycelyn Gary R.N. (21:11 04/23/2019)][Electronically signed by Joycelyn Gary R.N. (21:12 04/23/2019)][Electronically signed by Leon Abebe Physician (10:02 04/24/2019)][Electronically locked by Joycelyn Gary R.N. (21:11 04/23/2019)] Name Value Range Interpretation Code Description Data Svetlana rce(s) Supporting Document(s) ID Date Data Source [id number] 04/23/2019 06:02:00 PM EST [facility] 1 Medication Reconciliation Report [facility] [address] [place] [address] Phone #: ext- [phone] 04/23/2019 17:36 Patient: [...] wheezes. Dispense 60 vial. Refills: 1. Substitution permitted.[facility] #18 - [address] [place] [address]. FaxNumber: .Zithromax Z-Danielito 250 mg tablet Take as directed for 5 days -- Take packet as directed for pneumonia -2 tabs PO on day 1, then 1 tab each day for four days after. Dispense 6 tablet. Refills: 0. Substitutionpermitted.[facility] #77 - [address] [place] [address]. . -- Leon Abebe, Physician Name Value Range Interpretation Code Description Data Svetlana rce(s) Supporting Document(s) ID Date Data Source [id number] 04/23/2019 06:02:00 PM EST [facility] 1 Medication Administration Record [facility] [address] [place] [address] Phone #: ext- [phone] 04/23/2019 17:36 Patient: CLARE LORENZO Sex: F : 1985 Age: 34yWeight: 104.3 kgHeight/Length: 64 inBMI: 39.5ALLERGIES: None Date/Time Medication Administered Medication OrderedGiven PREDNISONE [PO] predniSONE PO 60 mg (NOW)19:50 04/23/2019 Dose: 60 mg Tablets Joycelyn Shepherd R.N.Given DUONEB [NEB TX] DuoNeb Neb Tx 3 mL (NOW)19:57 04/23/2019 Dose: 1 unit dose Neb TXJoycelyn Gary R.N. Name Value Range Interpretation Code Description Data Svetlana rce(s) Supporting Document(s) ID Date Data Source [id number] 04/23/2019 06:02:00 PM EST [facility] 1 General Instructions [facility] [address] [place] [address] Phone #: ext- [phone] 04/23/2019 17:36 Patient: [...] wheezes. Dispense 60 vial. Refills: 1. Substitution permitted.Pharmacy - [facility] #25 - [address] ; [place] [address]. .Zithromax Z-Danielito 250 mg tablet Take as directed for 5 days -- Take packet as directed for pneumonia -2 tabs PO on day 1, then 1 tab each day for four days after. Dispense 6 tablet. Refills: 0. Substitutionpermitted.[facility] #72 - [address] ; [place] [address]. .Follow-up:Follow up with your doctor in two [...] be treated at home. 2 General Instructions [facility] [address] [place] [address] Phone #: ext- [phone] 04/23/2019 17:36 Patient: CLARE LORENZO Sex: F [...] yours or other people's. 3 General Instructions [facility] [address] [place] [address] Phone #: ext- [phone] 04/23/2019 17:36 Patient: CLARE LORENZO [facility]#: [id number] Sex: F : 1985 Age: 34y You [...] mouth that gets worse 4 General Instructions [facility] [address] [place] [address] Phone #: ext- [phone] 04/23/2019 17:36 Patient: CLARE LORENZO Sex: F : 1985 Age: 34y Sinus pain, headache, or a stiff neck Chest pain not caused by coughing [id number] [employer]. [address] [place] [address]. All rights reserved. This information is not [...] Followyour provider's instructions exactly. 5 General Instructions [facility] [address] [place] [address] Phone #: ext- [phone] 04/23/2019 17:36 Patient: CLARE LORENZO Sex: F [...] 911 if y ou: 6 General Instructions [facility] [address] [place] [address] Phone #: ext- [phone] 04/23/2019 17:36 -------- Patient: CLARE LORENZO Sex: F : 1985 Age: 34y Are having trouble breathing or shortness of breath Are unresponsiveImportant reminderCall your healthcare provider if you get a fever after visiting a place where infectious diseases arecommon. Many people tile picker a cold or other virus while [...] you were there Where you stayed (hotel, mary's igloo house, tent) What you ate and drank If you were bitten by insects or other bugs If you swam in freshwater If you had sex or got a tattoo or piercing while you were thereCheck the [facility] to get more information about specific infectious diseases in the areas you havetraveled. [id number] [employer] [place] [address]. All rights reserved. This information is not intended as asubstitute for professional medical care. Always follow your healthcare prof essional's instructions. You have been given the following additional information: Pneumonia (Adult) Fever Control (Adult)(Electronically signed by Leon Abebe, Physician 04/24/2019 10:02) Name Value Range Interpretation Code Description Data Svetlana rce(s) Supporting Document(s) ID Date Data Source [id number] 04/23/2019 06:02:00 PM EST [facility] 1 Clinical Report - Nurses [facility] [address] [place] [address] Phone #: [phone]- [phone] 04/23/2019 17:36 Patient: CLARE LORENZO Sex: F [...] saturation: 94%. Temp: 97.3 F. Pain levelnow: 4/10. --17:42 04/23/19 Sandra Rehman R.N.Weight: 104.3 kg stated. Height/Length: 64 inches Per Patient. BMI: 39.5. --17:37 04/23/19 Sandra Rehman R.N.MedicationsAmoxicillin Oral. --17:39 04/23/19 Sandra Rehman R.N.AllergiesNone. --17:39 04/23/19 Sandra Rehman R.N.PROBLEMS:no known problems.ADDITIONAL SURGERIES:no known surgeries.HistoryPAST MEDICAL HX: Immunizations: up-to-date. Last normal menstrual period- Mar.SOCIAL HX: Never smoker. No alcohol use or drug use. She was offered HIV testing but declined. Yovanis not traveled outside the [place]Infectious disease exposure: [...] had thoughts 2 Clinical Report - Nurses [facility] [address] [place] [address] Phone #: ext- [phone] 04/23/2019 17:36 Patient: [...] treatment room. --17:42 04/23/19 Sandra Rehman R.N.PHYSICAL GHTOAUBDQO40:19 04/23/19. BP: 139/88. MAP: 105. HR: 76. RR: 18. O2 saturation: 96%. Temp: 99.7 F. --18:221/14/20 Brian Roberts R.N. RESPIRATORY: No respiratory distress. [...] Roberts R.N. 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 --19:19 04/23/19 Brian Roberts R.N. 19:50 04/23/2019 Prednisone PO Tablets 60 mg given. Allergies verified and confirmed 5 rights. Information reviewed with patient. --19:50 04/23/19 Joycelyn Gary R.N. 3 Clinical Report - Nurses [facility] [address] [place] [address] Phone #: ext- [phone] 04/23/2019 17:36 Patient: CLARE LORENZO Sex: F : 1985 Age: 34y 19:57 04/23/2019 Duoneb Neb TX 1 unit dose given. Given by the [...] 99%. Temp: 98.5 F. Pain level now: 010. --21:11 04/23/19 Joycelyn Gary R.N. Departure time: 21:11 04/23/2019. --21:12 04/23/19 Joycelyn Gary R.N.Locked/Released at 04/23/2019 21:12 by Joycelyn Gary R.N. Name Value Range Interpretation Code Description Data Svetlana rce(s) Supporting Document(s) ID Date Data Source [id number] 04/23/2019 06:02:00 PM [facility] 1 Clinical Report - Physicians/Mid Levels [facility] [address] [place] [address] Phone #: ext- [phone] 04/23/2019 17:36 Patient: [...] supple. 2 Clinical Report - Physicians/Mid Levels [facility] [address] [place] [address] Phone #: ext- [phone] 04/23/2019 17:36 Patient: CLARE LORENZO Sex: F : 1985 Age: 34y CVS: [...] PROCEDURAL CONTROL VALID ){ KIT LOT # [id number] ){ KIT EXP DATE 02/08/20 ) Chest 2 View: (IVELISSE: 04/23/2019 19:15) ( MsgRcvd 04/24/2019 09:52) In Progress CHEST 2 VIEWS Reason(s): Congestion TRANSPORTATION: WC IV? O2? Oxygen?(No) Room: ED : HCG Negative Exam CHEST [address] [place] [address] PHONE: [phone] FAX: [phone] Name .................. : MAURA SPARKS Acct Number.................. : [id number] ROOM. ................. : VT- MR Number ................... : [id number] Stay type ............. : E/R Discharge Date......... ... : 04/23/19 Admit Date ......... : 04/23/19 Admit Phys .................... : VENERUS BR Date of ....... : 1985 Family Phys ................... : TEGAN COLES Phone .................. : [phone] Age ................................ : 34 Film# .................. .:[id number] Sex ................................. : F Unsigned transcriptions are preliminary reports and do not represent a medical or legal document CHEST 2 VIEWS [id number] COMPLETE:04/23/19 19:24 HOLLY [id number] Reason(s): Congestion Cough CHEST X- RAY: FRONTAL [...] left. 3 Clinical Report - Physicians/Mid Levels [facility] [address] [place] [address] Phone #: ext- [phone] 04/23/2019 17:36 Patient: CLARE LORENZO Sex: F : 1985 Age: 34y IMPRESSION: Findings suggest right middle lobe pneumonia. Consider follow up imaging if clinically warranted. Electronically Reviewed and Signed By DCTNAME , SIGNDATE, AML Transcribe Initials: DZ , Transcribe Date: 04/24/19 09:50, Dictation Date: <<REPDIST>> Page 1of 1Beta-HCG, Qual Serum: (IVELISSE: 04/23/2019 18:29) ( MsgRcvd 04/23/2019 18:59) Final results Test Result Flag Units (Reference) HCG SERUM QUAL NEGATIVE (NORMAL: NEGAT HCG SERUM QL REENTER NEGATIVE (NORMAL: NEGAT { KIT LOT # [id number] ){ KIT EXP DATE09/27/20 ){ PROCEDURAL CONTROL [...] (Reference) 4 Clinical Report - Physicians/Mid Levels [facility] [address] [place] [address] Phone #: [phone] rex- [phone] 04/23/2019 17:36 Patient: CLARE LORENZO Sex: F : 1985 Age: 34y INFLUENZA A NEGATIVE (NORMAL: NEGAT INFLUENZA B NEGATIVE (NORMAL: NEGAT INFLUENZA A REENTER NEGATIVE (NORMAL: NEGAT INFLUENZA B REENTER NEGATIVE (NORMAL: NEGAT PROCEDURAL CONTROL VALID KIT LOT # [id number] 04/23/19.GA . . . KIT EXP DATE _01/02/20 04/23/19.GA . . .The Influenza A utilizing an [...] Discharged home in good and improved condition (:Apr 23 2019). Condition: good.CLINICAL IMPRESSION Bronchopneumonia. No [...] Dispense 60 vial. Refills: 1. Substitution permitted. Pharmacy - [facility] #82 - [address] ; [place] [address]. . Zithromax Z-Danielito 250 mg tablet Take as directed for 5 days -- Take packet as directed for pneumonia - 2 tabs PO on day 1, then 1 tab each day for four days after. Dispense 6 tablet. Refills: 0. Substitution 5 Clinical Report - Physicians/Mid Levels [facility] [address] [place] [address] Phone #: ext- [phone] 04/23/2019 17:36 Patient: CLARE LORENZO Sex: F : 1985 Age: 34y permitted. [facility] - [facility] #79 - [address] ; [place] [address]. . Follow-up: Follow up with your doctor in two days if not better. Call for an appointment. Reason for referral: evaluation, treatment and R pneumonia. Understanding of the discharge instructions verbalized by patient.(Electronically signed by Leon Abebe, Physician 04/24/2019 10:02) Name Value Range Interpretation Code Description Data Svetlana rce(s) Supporting Document(s) ID Date Data Source [id number] 04/23/2019 08:09:00 PM [facility] Name Value Range Interpretation Code Description Data Svetlana rce(s) Supporting Document(s) Influenza virus A Ag [Presence] in Nasopharynx by [facility] y NEGATIVE NORMAL: NEGATIVE [facility] Influenza virus B Ag [Presence] in Nasopharynx by Immuno[place] y NEGATIVE NORMAL: NEGATIVE [facility] NEGATIVENEGATIVE PROCEDURAL CO NTROL VALID KIT LOT [...] other patient managementdecisions. ID Date Data Source [id number] 04/23/2019 08:09:00 PM [facility] Name Value Range Interpretation Code Description Data Svetlana rce(s) Supporting Document(s) RSV ANTIGEN NEGATIVE NORMAL: NEGATIVE [facility] RSV ANTIGEN REENTER NEGATIVE NORMAL: NEGATIVE [facility] { PROCEDURAL CONTROL VALID ){ KIT LOT # [id number] ){ KIT EXP DATE 02/08/20 ) ID Date Data Source [id number] 04/23/2019 06:59:00 PM EST [facility] Name Value Range Interpretation Code Description Data Svetlana rce(s) Supporting Document(s) HCG SERUM QUAL NEGATIVE NORMAL: NEGATIVE [facility] HCG SERUM QL REENTER NEGATIVE NORMAL: NEGATIVE [facility] { KIT LOT # [id number] ){ KIT EXP DATE 09/27/20 ){ PROCEDURAL CONTROL VALID ) ID Date Data Source [id number] 04/23/2019 06:48:00 PM EST [facility] Name Value Range Interpretation Code Description Data Svetlana rce(s) Supporting Document(s) CBC W/AUTOMATED DIFF [facility] COMPLETE BLOOD COUNT Leukocytes [#/volume] in Blood by Automated count 7.3 10^3/uL 4.2 - 1 1.0 [facility] Erythrocytes [#/volume] in Blood by Automated count 4.86 10^6/uL 4. 20 - 5.40 [facility] Hemoglobin [Mass/volume] in Blood 14.6 g/dL 12.0 - 16.0 [facility] Hematocrit [Volume Fraction] of Blood by Automated count 44.1 % 3 7.0 - 47.0 [facility] Erythrocyte mean corpuscular volume [Entitic volume] by Auto mated count 90.7 fL 81.0 - 101 [facility] Erythrocyte mean corpuscular hemoglobin [Entitic mass] by Automated count 30.0 pg 27.0 - 34.0 [facility] Erythrocyte mean corpuscular hemoglobin concentration [Mass/volume] by Automated count 33.1 g/dL 31.0 - 36.0 [facility] Erythrocyte distribution width [Ratio] by Automated count 12.6 % 11.5 - 14.5 [facility] Platelets [#/volume] in Blood by Automated count 249 10^3/uL 150 - 45 0 [facility] Platelet mean volume [Entitic volume] in Blood by Automated count 11.2 fL 7.4 - 10.4 H [facility] Neutrophils/100 leukocytes in Blood by Automated count 67.3 % 37. 0 - 80.0 [facility] Lymphocytes/100 leukocytes in Blood by Manual count 23.6 % 25.0 - 40.0 L [facility] Monocytes/100 leukocytes in Blood by Automated count 7.1 % 3.0 - 8.0 [facility] Eosinophils/100 leukocytes in Blood by Automated count 1.4 % 0.0 - 7.0 [facility] Basophils/100 leukocytes in Blood by Automated count 0.3 % 0.0 - 2.5 [facility] %IG 0.3 % 0.0 - 0.0 H [facility] Hospit al %NRBC 0.0 % 0.0 - 0.0 [facility] al Neutrophils [#/volume] in Blood by Automated count 4.91 10^3/uL 2.00 - 6.90 [facility] Lymphocytes [#/volume] in Blood by Automated count 1.72 10^3/uL 0.60 - 3.40 [facility] Monocytes [#/volume] in Blood by Automated count 0.52 10^3/uL 0.00 - 0.90 [facility] Eosinophils [#/volume] in Blood by Automated count 0.10 10^3/uL 0.00 - 0.70 [facility] Basophils [#/volume] in Blood by Automated count 0.02 10^3/uL 0.00 - 0.20 [facility] #IG 0.02 10^3/uL 0.00 - 0.10 [facility] H ospital #NRBC 0.00 10^3/uL 0.00 - 0.00 [facility] H ospital MANUAL DIFF NOT INDICATED [facility] RBC MORPH NOT INDICATED [facility] Ho spital Procedure Social History Code [...] k g/m2 MEDENT ([facility] [place] body weight 120 [lb_av] 120 [lb_av] MEDEN [...] pressure 118 mm[Hg] 118 mm[Hg] EDENT ([facility] Body mass index (BMI) [Ratio] 42.3 kg/m2 42.3 k g/m2 [facility] ([facility]) Body weight 239.00 [lb_av] 239.00 [lb_av] MEDEN T ([facility]) Body height 63 [in_i] 63 [in_i] MEDENT ([facility]) 5'3" Body temperature 97.5 [degF] 97.5 [degF] MEDENT ([facility]) Body mass index (BMI) [Ratio] 40.9 kg/m2 40.9 k g/m2 [facility] ([facility] [place] body weight 120 [lb_av] 120 [lb_av] MEDEN [...] k g/m2 [facility] ([facility] [place] body weight 120 [lb_av] 120 [lb_av] MEDEN [...] blood pressure 80 mm[Hg] 80 mm[Hg] eCW1 ([facility]) Systolic blood pressure 122 mm[Hg] 122 mm[Hg] e CW1 ([facility]) Body mass index (BMI) [Ratio] 40.5 kg/m2 40.5 k g/m2 eCW1 ([facility]) Body height 64 [in_us] 64 [in_us] eCW1 ([facility]) Body weight Measured 236 [lb_av] 236 [lb_av] eC W1 ([facility])
--- OUTSIDE RECORDS SUMMARY | 2020-05-29 05:36 | CCD ---
Author Author [facility] Organization [facility] Address Unknown Phone Unavailable Care Team Providers Care Office Manager Receptionist Name Role Phone Pleskach, Pamella MACHINE II CUTTER Unavailable Unavailable Pleskach, Pamella MACHINE II CUTTER Unavailable Unavailable Pleskach, Pamella MACHINE II CUTTER Unavailable Unavailable Pleskach, Pamella MACHINE II CUTTER Unavailable Unavailable Pleskach, Pamella MACHINE II CUTTER Unavailable Unavailable Pleskach, Pamella MACHINE II CUTTER Unavailable Unavailable Pleskach, Pamella MACHINE II CUTTER Unavailable Unavailable Pleskach, Pamella MACHINE II CUTTER Unavailable Unavailable Pleskach, Pamella MACHINE II CUTTER Unavailable Unavailable Pleskach, Pamella MACHINE II CUTTER Unavailable Unavailable Pleskach, Pamella MACHINE II CUTTER Unavailable Unavailable Pleskach, Pamella MACHINE II CUTTER Unavailable Unavailable Pleskach, Pamella MACHINE II CUTTER Unavailable Unavailable Pleskach, Pamella MACHINE II CUTTER Unavailable Unavailable Pleskach, Pamella MACHINE II CUTTER Unavailable Unavailable Pleskach, Pamella MACHINE II CUTTER Unavailable Unavailable Pleskach, Pamella MACHINE II CUTTER Unavailable Unavailable Pleskach, Pamella MACHINE II CUTTER Unavailable Unavailable Pleskach, Pamella MACHINE II CUTTER Unavailable Unavailable Pleskach, Pamella MACHINE II CUTTER Unavailable Unavailable Pleskach, Pamella MACHINE II CUTTER Unavailable Unavailable Pleskach, Pamella MACHINE II CUTTER Unavailable Unavailable Pleskach, Pamella MACHINE II CUTTER Unavailable Unavailable Pleskach, Pamella MACHINE II CUTTER Unavailable Unavailable Pleskach, Pamella MACHINE II CUTTER Unavailable Unavailable Pleskach, Pamella MACHINE II CUTTER Unavailable Unavailable Pleskach, Pamella MACHINE II CUTTER Unavailable Unavailable Pleskach, Pamella MACHINE II CUTTER Unavailable Unavailable Pleskach, Pamella MACHINE II CUTTER Unavailable Unavailable Pleskach, Pamella MACHINE II CUTTER Unavailable Unavailable TURRIN, ALEJANDRA Unavailable Unavailable TURRIN, ALEJANDRA Unavailable Unavailable TURRIN, ALEJANDRA Unavailable Unavailable TURRIN, ALEJANDRA Unavailable Unavailable Dille E Kendra DDS Unavailable Unavailable Dille, E Kendra DDS Unavailable Unavailable Dille, E Kendra DDS Unavailable Unavailable Dilcarlos, E Kendra DDS Unavailable Unavailable Abdifatah Javed [...] Unavailable Abdifatah Javed MD Unavailable Unavailable Abdifatah Jvaed MD Unavailable Unavailable Abdifatah Javed MD Unavailable [...] Unavailable Unavailable Agnieszka ABEBE MD Unavailable Unavailable VENERUS, Agnieszka JOEL MD [...] is protected by Article 27-F of the [facility] Public Health law. If you continue you may have access to information: Regarding HIV / AIDS; Provided by facilities licensed or operated by the [facility] Office of Mental Health; or Provided by the [facility] Office for People With Developmental Disabilities. If such information is present, then the following [facility] mandated warning applies: This information has [...] law may result in a fine or custodial sentence or both. A general authorization for [...] EST - 05/13/2020 01:14:25 PM EST DocuTap ([facility] ) Outpatient Attender: Pamella Cloud [facility] Main Office 05/05/2020 0 7:00:00 AM EST [facility] ([facility] Outpatient Attender: Pamella Cloud [facility] Main Office 04/21/2020 1 2:15:00 PM EST [facility] ([facility] Outpatient Attender: KIM GIANG Physical [facility] 02/10 05:45:00 PM EST [facility] Attender: Pamella Cloud [facility] Main Office 01/29/2020 0 8:45:00 AM EDT [facility] ([facility] Outpatient Attender: Pamella Cloud [facility] Main Office 12/11/2019 1 1:45:00 AM EDT [facility] ([facility] Outpatient 11/03/2019 05:20:00 AM EDT [facility] Emergency Attender: COLIN YEAGER DOConsultant: Tevin Javed MD 11/03/2019 03:42:00 AM EDT - 11/03/2019 08:23:[address] [facility] Patient discharged. Outpatient Attender: Pamella Cloud [facility] Main Office 06/27/2019 1 0:30:00 AM EDT [facility] ([facility] Outpatient Attender: Pamella Cloud [facility] Main Office 06/10/2019 0 9:00:00 AM EST [facility] ([facility] Outpatient Attender: Kendra ANDERSON 06/04/2019 07:13:00 A [facility] Outpatient Attender: Kendra ANDERSON 05/21/2019 03:18:01 P [facility] Outpatient Attender: Kendra ANDERSON 05/21/2019 03:17:01 P [facility] Outpatient Attender: Kendra ANDERSON 05/21/2019 02:11:02 P [facility] Outpatient Attender: Kendra ANDERSON 05/21/2019 01:17:00 P [facility] Outpatient Attender: Kendra ANDERSON 05/21/2019 01:15:01 P [facility] Outpatient Attender: Kendra ADNERSON 05/21/2019 10:18:01 A [facility] Outpatient Attender: Kendra ANDESRON 05/21/2019 10:17:[address] [address] 05/09/2019 12:00:00 AM EST eCW1 ([facility]) Emergency Attender: ALEJANDRA HERNANDEZConsultant: Tevin Javed MD 04/25/2019 03:24:00 PM EST - 04/25/2019 05:15:[address] [facility] Patient discharged. Emergency Attender: LEON ABEBE MDConsultant: Tevin castro MD 04/23/2019 06:02:00 PM EST - 04/23/2019 09:12:[address] [facility] Patient discharged. Outpatient Attender: Kendra Mariecarlos [facility] 04/09/2019 10:07:01 A M EST [facility] Medications Medication Brand Name Start Date [...] type / Coverage type Policy ID Covered democrat ID Covered democrat's relationship to benjamin Policy Benjamin Plan Information [facility]LY [facility]AN [facility] [id number] SP [id number] [employer]. [id number] [id number] [facility] PLAN [facility] [id number] SP [id number] [facility] PLAN XIX [id number] 18 [id number] SELF PAY ONLY [id number] SP [id number] United [employer] Essential Plan P [id number] S [id number] United Healthcare Essential Plan P [id number] S [id number] [employer] Essential Plan P UNAVAILABLE S UNAVAILABLE Managed Care - [facility] Community Plan P [id number] S [id number] Medicaid S UNAVAILABLE S UNAVAILA BLE MEDICAID [id number] SP [id number] [facility] PLAN [facility] [id number] SP [id number] [facility] [id number] SP [id number] [facility] PLAN [facility] [id number] SP [id number] [facility]) O [id number] S [id number] [facility] [id number] SP [id number] [facility] [id number] SP [id number] SELF PAY ONLY UNAVAILABLE UNAV AILABLE TOTAL CARE INC O [id number] S [id number] MEDICAID M [id number] S [id number] SELF PAY UNAVAILABLE SP UNAVAILA BLE TOTAL CARE-MEDICAID MANAGED CR [id number] SELF [id number] MEDICAID [id number] SELF [id number] [place] [id number] SP [id number] BLUE CROSS [employer] PLAN [id number] SP [id number] [employer]CE[employer] BCBS P [id number] S [id number] [employer] [id number] SP [id number] Problems, Conditions, and Diagnoses Code Display Name Description Problem Type Effective Dates Data Source(s) J205 Acute bronchitis due to respiratory sync ytial virus Acute bronchitis due to respiratory syncytial virus Diagnosis 11/03/2019 03:42:00 AM EDT [facility] R509 Fever, unspecified Fever, unspecified Diagnosis 0 03:42:[address] [facility] J159 Unspecified bacterial pneumonia Unspecified bacterial pneumonia Diagnosis 04/25/2019 03:24:00 PM [facility] R05 Cough Cough Diagnosis 04/25/2019 03:24:[address] [facility] J180 Bronchopneumonia, unspecified organism B ronchopneumonia, unspecified organism Diagnosis 04/23/2019 06:02:00 PM [facility] Surgeries/Procedures Procedure Description Date Indications Data Source(s) RADEX TOE MINIMUM 2 VIEWS 03/09/2020 12:00:00 AM EST [facility] ([facility]) URINE TEST 05/09/2019 12:00:00 AM EST eCW1 ([facility]) Results ID Date Data Source [id number] 05/06/2020 02:23:00 AM EST [facility] ([facility] Name Value Range Interpretation Code Description Data Svetlana rce(s) Supporting Document(s) Fibrin D-dimer FEU [Mass/volume] in Platelet poor plasma 1005.41 ng/m L [facility] ([facility] ID Date Data Source [id number] 05/06/2020 02:23:00 AM EST [facility] ([facility] Name Value Range Interpretation Code Description Data Svetlana e(s) Supporting Document(s) White Blood Count 9.3 10 [...] 10 150-450 [facility] ([facility] [place] % 5.3 % 0.0-5.0 [facility] ([facility] ro[facility] [...] 10 0.0-0.5 [facility] [place] # 0.5 10 0.0-0.8 [facility] Baso # 0.0 10 0.0-0.2 [facility] ID Date Data Source [id number] 05/06/2020 02:19:00 AM EST [facility] ([facility] Name Value Range Interpretation Code Description Data Svetlana rce(s) Supporting Document(s) Choriogonadotropin.beta subunit [Moles/volume] in Seru m or Plasma Laboratory test result [facility] ([facility] <content>QUANTITATIVE RESULT QU ALITATIVE INTERPRETATION</content>
<content> </content>
<content><5.0 IU/L NEGATIVE</content>
<content>5.0 - 25.0 IU/L INDETERMINATE</content>
<content>>25.0 IU/L POSITIVE</content>
<content></content> ID Date Data Source [id number] 05/06/2020 01:53:00 AM EST [facility] ([facility] [...] [facility] ID Date Data Source [id number] 05/06/2020 01:36:00 AM EST [facility] ([facility] Name Value Range Interpretation Code Description Data Svetlana rce(s) Supporting Document(s) CPK Creatine Phosphokinase 54 U/L 26-192 [facility] ([facility] CK-MB Value Mass Laboratory test result [facility] ([facility] Troponin I Laboratory test result [facility] ([facility] <content>Troponin I Reference Interval f or Siemens Porter LOCI:</content>
<content></content>
<content>99th Percentile= 0.00-0.045 ng/ml</content>
<content></content>
[...] > 4</content>
<content></content> ID Date Data Source [id number] 04/08/2020 12:00:00 AM EST [facility] Name Value Range Interpretation Code Description Data Svetlana rce(s) Supporting Document(s) Carestart Rapid COVID Antigen Test [facility] This lab was reported by [facility] silas. ID Date Data Source [id number] 04/08/2020 12:00:00 AM EST [facility] Name Value Range Interpretation Code Description Data Svetlana rce(s) Supporting Document(s) SARS coronavirus 2 RNA [Presence] in Res piratory specimen by ANATOLY with probe detection [facility] This lab was ordered by Pierce [facility]in [facility] and reported by [employer]. ID Date Data Source [id number] 11/03/2019 03:42:[address] [facility] [address] [facility] Emergency Department [address] [place] [address] Phone #: ext- [phone] 11/03/2019 03:41 Patient: [...] Flip Evans RN Physician;Troponin-T STAT 04:11/03/2019 04:45 Flpi Evans RN Physician;Urinalysis (Clean STAT 04:11/03/2019 Ack'd: 04:45 06:30 Alvino Evans RN Physician;Influenza Nasal A B STAT 04:11/03/2019 04:45 Flip Evans RN Physician;CORONAVIRUS STAT 04:11/03/2019 04:45 FavioenCOVID-Lulu Evans RN Physician;Ferritin STAT 04:11/03/2019 04:45 Flip Evans RN Physician;Lactic Acid STAT 04:11/03/2019 06:31 Flip Evans RN Physician;Bl ood Culture STAT 04:11/03/2019 06:[address] [facility] Emergency Department [address] [place] [address] Phone #: ext- [phone] 11/03/2019 03:41 Patient: CLARE LORENZO Sex: F : 1985 Age: 39an73h X2 (Sched Colin Evans RN04:25 11/03/2019) Physician;Blood Culture STAT 04:11/03/2019 06:31 Oyzqpst85y X2 (Sched Colin Evans RN04:35 11/03/2019) Physician;DIAGNOSTIC [...] Name Value Range Interpretation Code Description Data [facility](s) Supporting Document(s) ID Date Data Source [id number] 11/03/2019 03:42:[address] [facility] [address] [facility] Emergency Department [address] [place] [address] Phone #: ext- [phone] 11/03/2019 03:41 Patient: CLARE LORENZO Sex: F : 1985 Age: 34yWeight: 112.2 kgHeight/Length: 64 in.BMI: 42.5ALLERGIES: No Known Drug AllergyThe patient's Home Medications are listed below:NONE.The source(s) of the original Home Medication information:Not obtained.The following Medications were given to the patient in the Emergency Department:None.The follo wing Medications were prescribed to the patient:None. Name Value Range Interpretation Code Description Data [facility](s) Supporting Document(s) ID Date Data Source [id number] 11/03/2019 03:42:[address] [facility] [address] [facility] Emergency Department [address] [place] [address] Phone #: ext- [phone] 11/03/2019 03:41 Patient: CLARE LORENZO Sex: F : 1985 Age: 34yWeight: 112.2 kgHeight/Length: 64 inBMI: 42.5ALLERGIES: No Known Drug AllergyDate/Time Medication Administered Medication Ordered Name Value Range Interpretation Code Description Data [facility](s) Supporting Document(s) ID Date Data Source [id number] 11/03/2019 03:42:[address] [facility] [address] [facility] Emergency Department [address] [place] [address] Phone #: [phone] cqk- [phone] 11/03/2019 03:41 Patient: CLARE LORENZO Sex: F : 1985 Age: 34yAcute viral (RSV) bronchitis.INSTRUCTIONSNo strenuous activity.Drink plenty of fluids.(Tylenol or Ibuprofen.).Your Current Medications: .No home medication.Follow-up:Follow up with your healthcare provider in two days. Summary of care provided to patient via paper. ADDITIONAL INFORMATIONViral Bronchitis (Adult) [address] [facility] Emergency Department [address] [place] [address] Phone #: ext- [phone] 11/03/2019 03:41 Patient: [...] back to your usual [address] [facility] Emergency Department [address] [place] [address] Phone #: [phone] exk- [phone] 11/03/2019 03:41 Patient: CLARE LORENZO Sex: F : 1985 Age: 34y activities, don't let yourself get too tired. Do not smoke. Also avoid being exposed to secondhand smoke. You may use lhgh-pyf-pwegxit medicine to control fever or pain, unless [...] loosen secretions in the nose and lungs. Euoz-uvh-yjxsexh cough, cold, and sore-throat medicines will not [...] headache, or stiff neck [address] [facility] Emergency Department [address] [place] [address] Phone #: ext- [phone] 11/03/2019 03:41 Patient: CLARE LORENZO Sex: F : 1985 Age: 34y Trouble breathing, wheezing, or pain with breathing [id number] [employer] [place] [address]. All rights reserved. This information is not intended as asubstitute for professional medical care. Always follow your healthcare professional's instructions. You have been given the following additional information: Bronchitis, No Antibiotic (Adult) No strenuous activity.(Electronically signed by Colin Yeager, Physician 11/03/2019 06:59) Name Value Range Interpretation Code Description Data Svetlana rce(s) Supporting Document(s) ID Date Data Source [id number] 11/03/2019 03:42:[address] [facility] 1 Clinical Report - Nurses [facility] Emergency Department [address] [place] [address] Phone #: [phone]- [phone] 11/03/2019 03:41 [id number] Sex[facility] F : 1985 Age: 34yTRIAGEArrived by [...] strong). RR: 16 (regular, unlabored and normal). S6vgrdvgdbzs: 100% on room air. Temp: 97.6 F (oral). Pain level now: 0/10. --03:50 11/03/19 Flip Evans RNTreatment SPARMAKER:None. --03:50 11/03/19 Flip Evans RN( chest tightness). [...] disease exposure. 2 Clinical Report - Nurses [facility] Emergency Department [address] [place] [address] Phone #: ext- [phone] 11/03/2019 03:41 Patient: [...] notified.--03:51 11/03/19 Flip Evans RN.DISPOSITION / DISCHARGE Blackey Coma Scale: 15- eyes open- spontaneous (4); best verbal response- oriented (5); best motor response- obeys commands (6). Departure time: 07:13 11/03/2019. Condition at departure: improved. No learning barriers present. Discharge instructions provided and reviewed with the patient. Reviewed fever care instructions. Reviewed referral to family practice for followup. Reviewed need for increased fluid intake. Patient verbalized understanding. Written instructions provided in Cameroonian. The patient was discharged home and accompanied [...] Evans RN. 3 Clinical Report - Nurses [facility] Emergency Department [address] [place] [address] Phone #: ext- [phone] 11/03/2019 03:41 Patient: CLARE LORENZO Sex: F : 1985 Age: 34yLocked/Released at 11/03/2019 07:13 by Flip Evans RN Name Value Range Interpretation Code Description Data Svetlana rce(s) Supporting Document(s) ID Date Data Source [id number] 11/03/2019 03:42:[address] [facility] 1 Clinical Report - Physicians/Mid Levels [facility] Emergency Department [address] [place] [address] Phone #: ext- [phone] 11/03/2019 03:41 Patient: [...] allergies. 2 Clinical Report - Physicians/Mid Levels [facility] Emergency Department [address] [place] [address] Phone #: ext- [phone] 11/03/2019 03:41 Patient: CLARE LORENZO [facility]#: [id number] Sex: F : 1985 Age: 34yPHYSICAL EXAMVital [...] interpreted contemporaneously by me.Normal sinus rhythm. Normal MT interval. Normal QRS complexes. Normal STs and [...] 0.0) 3 Clinical Report - Physicians/Mid Levels [facility] Emergency Department [address] [place] [address] Phone #: ext- [phone] 11/03/2019 03:41 [facility]: [id number] Sex: F : 1985 Age: 34y %NRBC [...] Male GFR Interprentation 20-49 yrs >60 mL/min Ucxciu22-42 yrs >56 mL/min Normal 60-69 yrs >49 mL/min Normal 70-79yrs>42 mL/min Normal 80 and above >35 mL/min Normal Female GFRInterpretation 20-39 yrs >60 mL/min Normal 40-49 yrs >58 mL/minNormal 50-59 yrs >51 mL/min Normal 60-69 yrs >45 mL/min Mthjvn43-36 yrs >39 mL/min Normal 80 and above >32 mL/min NormalBeta-HCG, Qual Urine: (IVELISSE: 11/03/2019 06:15) ( [facility] 11/03/2019 06:39) Final results Test Result Flag Units (Reference) HCG URINE QUAL NEGATIVE (NORMAL: NEGAT HCG URINE QL REENTER NEGATIVE (NORMAL: NEGAT { KIT LOT # [id number] ){ KIT EXP 01.20.21 ){ PROCEDURAL CONTROL VALID)D-Dimer: (IVELISSE: 11/03/2019 05:20) ( [facility] 11/03/2019 05:46) Final results Test Result Flag Units (Reference) D-DIMER QUANT 0.44 ug/mL (0.27 - 0.50)Troponin-T: (IVELISSE: 11/03/2019 04:45) ( [facility] 11/03/2019 05:45) Final results 4 Clinical Report - Physicians/Mid Levels [facility] Emergency Department [address] [place] [address] Phone #: ext- [phone] 11/03/2019 03:41 Patient: CLARE LORENZO Sex: F : 1985 Age: 34y Test Result Flag Units (Reference) TROPONIN T <0.01 NG/ML (0.00 - 0.10) TROPONIN T0.1 ng/ml Recommended as the clinical threshold value forTroponin T. Urinalysis: (IVELISSE: 11/03/2019 06:15) ( [facility] 11/03/2019 06:37) Final results Test Result Flag [...] Nasal A B: (IVELISSE: 11/03/2019 04:45) ( [facility] 11/03/2019 05:36) Final results Test Result Flag Units (Reference) INFLUENZA A NEGATIVE (NORMAL: NEGAT INFLUENZA B NEGATIVE (NORMAL: NEGAT INFLUENZA A REENTER NEGATIVE (NORMAL: NEGAT INFLUENZA B REENTER NEGATIVE (NORMAL: NEGAT PROCEDURAL CONTROL VALID KIT LOT # _[id number] 11/03/19.0536.SID. KIT EXP DATE _08-27-35 11/03/19.0536.SID.The Influenza A utilizing an isothermal nucleic acid amplification technology for thequalitative detection of influenza A and B viral RNA.Negative results do not preclude influenza virus infection and should not beused as the sole basis for diagnosis, treatment or other patient managementdecisions. Ferritin: (IVELISSE: 11/03/2019 04:45) ( [facility] 11/03/2019 05:55) Final results Test Result Flag Units (Reference) FERRITIN 34.0 ng/mL (3.0 - 105).PROGRESS AND PROCEDURESCourse of Care: 04:25 Nov 03 2019. (Patient's history obtained and exam completed. Treatment plandiscussed and agreed upon. Labs , Chest x-ray and Flu and Covid swabs obtained. EKG ordered.). 06:56 Nov 03 2019. (Follow up with PMD or return if worsen. Increase fluids , use Tylenol or Ibuprofen.). Disposition: Condition: stable.CLINICAL IMPRESSION 5 Clinical Report - Physicians/Mid Levels [facility] Emergency Department [address] [place] [address] Phone #: ext- [phone] 11/03/2019 03:41 Patient: CLARE LORENZO Sex: F [...] rce(s) Supporting Document(s) ID Date Data Source [id number] 11/03/2019 03:42:[address] [facility] Addenda for CLARE LORENZO VisitID: [id number] Date: 10:24Lab results reviewed, SARS-CoV-2 Coronavirus NOT DETECTED. Communicated information [facility].(Electronically signed by Maria Schilling RN - 11/06/2019 10:24) Name Value Range Interpretation Code Description Data Svetlana rce(s) Supporting Document(s) ID Date Data Source [id number] 11/04/2019 12:12:00 [place] [address] PHONE: [phone] FAX: [phone] Name .................. : MAURA Hermosillo Acct Number.................. : [id number] ROOM. ................. : TR-1B MR Number ................... : [id number] Stay type ............. : E/R Discharge Date......... ... : 11/03/19 Admit Date ... ...... : 11/03/19 Admit Phys .................... : BELEN GIANG Date of ....... : 1985 Family Phys ................... : JAVED SCOT Phone .................. : [phone] Age ................................ : 34 Film# .................. .:[id number] Sex ................................. : F Unsigned transcriptions are preliminary reports and do not represent a medical or legal document CHEST PORTABLE [id number] COMPLETE:11/03/19 06:53 PRICE [id number] Reason(s): Cough PORTABLE CHEST X-RAY: SINGLE VIEW COMPARISON: 04/25/19 FINDINGS: The cardiac and mediastinal silhouettes appear normal and the lungs are clear. The bones and soft tissues are normal. The upper abdomen is unremarkable. IMPRESSION: No acute disease identifiable. Electronically Reviewed and Signed By Chris Le MD , 11/04/19 12:12, TDS Transcribe Initials: NEHEMIAS , Transcribe Date: 11/03/19 08:45, Dictation Date: Copy for: EMERGENCY DEPT via modem Copy for: 710 MED REC DISCHARGED Page 1 of 1 Name Value Range Interpretation Code Description Data Svetlana rce(s) Supporting Document(s) ID Date Data Source [id number] 11/03/2019 01:31:00 PM EDT [facility] [address] [place] [address] RESPIRATORY CARE REPORT ==== ---------NAME------- NUMBER SEX AGE ADMIT DISC. XRAY# F/C TYPE[facility]ITALDE[facility]ORAH CLARE C [id number] F 34 11/03/19 11/03/19 [id number] X6B E/R DATE OF : 1985 M/R# [id number] PH#: [phone] TR-1B LOCATION: EMERGENCY DEPT [facility] [address] [facility] TE:11/03/19 07:39 [place] [id number] PHYSICIAN: BELEN GIANG Name Value Range Interpretation Code Description Data Svetlana rce(s) Supporting Document(s) ID Date Data Source [id number] 11/03/2019 06:38:[address] [facility] Name Value Range Interpretation Code Description Data Svetlana rce(s) Supporting Document(s) HCG URINE QUAL NEGATIVE NORMAL: NEGATIVE [facility] HCG URINE QL REENTER NEGATIVE NORMAL: NEGATIVE [facility] { KIT LOT # [id number] ){ KIT EXP DATE 01.20.21 ){ PROCEDURAL CONTROL VALID ) ID Date Data Source [id number] 11/03/2019 06:37:[address] [facility] Name Value Range Interpretation Code Description Data Svetlana rce(s) Supporting Document(s) URINALYSIS [facility] julianne URINALYSIS SOURCE R [facility] COLOR yellow NORMAL: Yellow [facility] CLARITY clear NORMAL: Clear [facility] Specific gravity of Urine by Test strip 1.015 1.001 - 1.030 [facility] 6 5 - [facility] Gl[facility] [Mass/volume] in Urine by Test strip NORM NORMAL: Negat [facility] [facility] Bilirubin.total [Presence] in Urine by Test strip NEG NORMAL: Negative [facility] Ketones [Presence] in Urine by Test strip NEG NORMAL: Negative [facility] Protein [Mass/volume] in Urine by Test strip NEG NORMAL: Negat [place] [facility] Nitrite [Presence] in Urine by Test strip NEG NORMAL: Negative [facility] BLOOD NEG NORMAL: Negative [facility] Leukocyte esterase [Presence] in Urine by Test strip NEG SEKOU L: Negative [facility] Urobilinogen [Mass/volume] in Urine by Test strip NOR less mario n 1.0 mg/dL [facility] MICROSCOPIC Not Indicate [facility] ID Date Data Source [id number] 11/08/2019 12:30:00 PM EDT [facility] [address] Name Value Range Interpretation Code Description Data Svetlana rce(s) Supporting Document(s) Bacteria identified in Blood by Culture [facility] NO GROWTH AFTER 5 DAYS ID Date Data Source [id number] 11/09/2019 01:05:[address] [facility] Name Value Range Interpretation Code Description Data Svetlana rce(s) Supporting Document(s) CULTURE BLOOD [facility] _CULTURE BLOOD_{ PRELIM TEST PERFORMED AT [address] [address] CLIA# [id number] SEE SCANNED REPORT ID Date Data Source [id number] 11/09/2019 01:05:00 PM EDT [facility] Value Range Interpretation Code Description Data Svetlana rce(s) Supporting Document(s) CULTURE BLOOD [facility] _CULTURE BLOOD_{ PRELIM TEST PERFORMED AT [address] [address] CLIA# [id number] SEE SCANNED REPORT ID Date Data Source [id number] 11/03/2019 05:46:[address] [facility] Name Value Range Interpretation Code Description Data Svetlana rce(s) Supporting Document(s) Fibrin D-dimer FEU [Mass/volume] in Platelet poor plasma 0.44 ug /mL 0.27 - 0.50 [facility] ID Date Data Source [id number] 11/03/2019 05:38:00 AM EDT [facility] Value Range Interpretation Code Description Data Svetlana rce(s) Supporting Document(s) Lactate [Moles/volume] in Serum or Plasma 1.9 MMOL/L 0.2 - 2.2 [facility] ID Date Data Source [id number] 11/03/2019 04:45:00 AM EDT [facility] Name Value Range Interpretation Code Description Data Svetlana rce(s) Supporting Document(s) SARS coronavirus 2 RNA [facility] This lab was ordered by [facility] anup and reported by [facility]. ID Date Data Source [id number] 11/06/2019 06:25:[address] [facility] Name Value Range Interpretation Code Description Data Svetlana rce(s) Supporting Document(s) SARS-CoV-2, ANATOLY Not Detected Not Detected [facility] Testing was performed using the OWM S ARS-CoV-2 assay.This test was developed and its performance characteristics determinedby [facility]. This test has not been FDA cleared [...] in this assay. ID Date Data Source [id number] 11/03/2019 05:55:[address] [facility] Name Value Range Interpretation Code Description Data Svetlana rce(s) Supporting Document(s) Ferritin [Mass/volume] in Serum or Plasma 34.0 ng/mL 3.0 - 105 [facility] ID Date Data Source [id number] 11/03/2019 05:45:00 AM EDT [facility] Name Value Range Interpretation Code Description Data [facility](s) Supporting Document(s) TROPONIN T <0.01 NG/ML 0.00 - 0.10 [facility] ospital TROPONIN T0.1 ng/ml Recommended as the c linical threshold value forTroponin T. ID Date Data Source [id number] 11/03/2019 05:45:[address] [facility] Name Value Range Interpretation Code Description Data [facility](s) Supporting Document(s) COMPREHENSIVE METABOLIC PANEL [facility] COMPREHENSIVE METABOLIC PANEL Sodium [Moles/volume] in Serum or Plasma 140 mEq/L 134 - 153 [facility] Potassium [Moles/volume] in Serum or Plasma 3.7 mEq/L 3.6 - 5.0 [facility] Chloride [Moles/volume] in Serum or Plasma 104 mEq/L 98 - 107 [facility] Carbon dioxide, total [Moles/volume] in Serum or Plasma 24 MEQ/L 22 - 30 [facility] Glucose [Mass/volume] in Serum or Plasma 102 MG/DL 65 - 110 [facility] BUN 7 MG/DL 7 - 21 [facility] al Creatinine [Mass/volume] in Serum or Plasma 0.6 MG/DL 0.7 - 1.[address] [facility] BUN/CREAT 12 8 - 27 [facility] Protein [Mass/volume] in Serum or Plasma 7.9 G/DL 6.3 - 8.2 [facility] Albumin [Mass/volume] in Serum or Plasma 5.0 G/DL 3.9 - 5.0 [facility] Globulin [Mass/volume] in Serum by calculation 2.9 GM/DL 2.4 - 3.2 [facility] A/G RATIO 1.7 0.8 - 2.0 [facility] Calcium [Mass/volume] in Serum or Plasma 9.7 MG/DL 8.4 - 10.2 [facility] Bilirubin.total [Mass/volume] in Serum or Plasma <0.7 MG/DL 0.2 - 1.3 [facility] Alkaline phosphatase [Enzymatic activity/volume] in Serum or Plasma 123 U/L 38 - 126 [facility] Aspartate aminotransferase [Enzymatic activity/volume] in Serum or Plasma 25 U/L 5 - 40 [facility] Alanine aminotransferase [Enzymatic activity/volume] in Seru m or Plasma 25 U/L 7 - 56 [facility] Anion gap 3 in Serum or Plasma 12.0 mmol/L 8.0 - 16.0 [facility] AGE 34 yrs [facility] NON-AA GFR >60 mL/min [facility] AFR AMER GFR >60 mL/min [facility] Male GFR In terprentation [...] >32 mL/min Normal ID Date Data Source [id number] 11/03/2019 05:36:[address] [facility] Name Value Range Interpretation Code Description Data Svetlana rce(s) Supporting Document(s) Influenza virus A Ag [Presence] in Nasopharynx by Immunoassa y NEGATIVE NORMAL: NEGATIVE [facility] Influenza virus B Ag [Presence] in Nasopharynx by Immunoassa y NEGATIVE NORMAL: NEGATIVE [facility] NEGATIVENEGATIVE PROCEDURAL CO NTROL VALID KIT LOT # _[id number] 11/03/19.0536.SID. KIT EXP DATE _21-08-80 11/03/19.0536.SID.The Influenza A & B assay is a rapid molecular in vitro diagnostic testutilizing an isothermal nucleic acid amplification technology for thequalitative detection of influenza A and B viral RNA.Negative results do not preclude influenza virus infection and should not beused as the sole basis for diagnosis, treatment or other patient managementdecisions. ID Date Data Source [id number] 11/03/2019 04:55:[address] [facility] Name Value Range Interpretation Code Description Data Svetlana rce(s) Supporting Document(s) CBC W/AUTOMATED DIFF [facility] COMPLETE BLOOD COUNT Leukocytes [#/volume] in Blood by Automated count 9.0 10^3/uL 4.2 - [address] [facility] Erythrocytes [#/volume] in Blood by Automated count 4.83 10^6/uL 4. 20 - 5.40 [facility] Hemoglobin [Mass/volume] in Blood 14.3 g/dL 12.0 - 16.0 [facility] Hematocrit [Volume Fraction] of Blood by Automated count 44.0 % 3 7.0 - 47.0 [facility] Erythrocyte mean corpuscular volume [Entitic volume] by Auto mated count 91.1 fL 81.0 - 101 [facility] Erythrocyte mean corpuscular hemoglobin [Entitic mass] by Automated count 29.6 pg 27.0 - 34.0 [facility] Erythrocyte mean corpuscular hemoglobin concentration [Mass/volume] by Automated count 32.5 g/dL 31.0 - 36.0 [facility] Erythrocyte distribution width [Ratio] by Automated count 12.5 % 11.5 - 14.5 [facility] Platelets [#/volume] in Blood by Automated count 244 10^3/uL 150 - [address] [facility] Platelet mean volume [Entitic volume] in Blood by Automated count 11.8 fL 7.4 - 10.[address] [facility] Neutrophils/100 leukocytes in Blood by Automated count 65.2 % 37. 0 - 80.0 [facility] Lymphocytes/100 leukocytes in Blood by Manual count 28.2 % 25.0 - 40.0 [facility] Monocytes/100 leukocytes in Blood by Automated count 5.1 % 3.0 - 8.0 [facility] Eosinophils/100 leukocytes in Blood by Automated count 1.0 % 0.0 - 7.0 [facility] Basophils/100 leukocytes in Blood by Automated count 0.3 % 0.0 - 2.5 [facility] %IG 0.2 % 0.0 - 0.0 [facility] %NRBC 0.0 % 0.0 - 0.0 [facility] al Neutrophils [#/volume] in Blood by Automated count 5.89 10^3/uL 2.00 - 6.90 [facility] Lymphocytes [#/volume] in Blood by Automated count 2.55 10^3/uL 0.60 - 3.40 [facility] Monocytes [#/volume] in Blood by Automated count 0.46 10^3/uL 0.00 - 0.90 [facility] Eosinophils [#/volume] in Blood by Automated count 0.09 10^3/uL 0.00 - 0.70 [facility] Basophils [#/volume] in Blood by Automated count 0.03 10^3/uL 0.00 - 0.20 [facility] #IG 0.02 10^3/uL 0.00 - 0.10 [facility] ospital #NRBC 0.00 10^3/uL 0.00 - 0.00 [facility] MANUAL DIFF NOT INDICATED [facility] RBC MORPH NOT INDICATED [facility] spital ID Date Data Source [id number] 05/21/2019 01:14:13 PM [facility] Current Problems: Dental caries (ICD-521 .00) (SGR80-H45.9)[place] teeth impaction (ICD-520.6) (MQA68-W36.1) Dental Chart: Procedures:Type - CDT Code - [...] PM): ; vicki (May 21 2019 2:10PM): BAY(-). CC: none. Reviewed Xrays. Exam: no caries detected. OCS: WNL, IO/ EO completed, No significant hard findings upon clinical exam Pt was cooperative.OHI givenReferral: OS # 1 and 32NV:recallMarialuisa Mendes RDH by vicki (05/21/2019 2:09 PM): Tooth Notes and Watches: Note: There are Un- Billed (C Type) procedures on this document.Assessment & Plan Allergies:No Known Allergies (updated 05/21/2019) Orders:Oral Surgery Referral [[id number]-[id number]] Clinical Visit Summary Declined Curren t Problems: Dental caries (ICD-521.00) (BFL75-J23.9)[place] teeth impaction (ICD- 520.6) (YYW17-V73.1) Dental Chart: Procedures:Type - CDT Code - Description B - (D0120) Periodic oral evaluation - established patient (Performed by Kendra Dinero DDS) B - (D1110) Prophylaxis, adult (Performed by Marialuisa Mendes RDH) Tooth Notes and Watches: Name Value Range Interpretation Code Description Data Svetlana rce(s) Supporting Document(s) ID Date Data Source [id number] 04/26/2019 02:04:00 PM [facility] [address] [place] [address] PHONE: [phone] FAX: [phone] Name .................. : MAURA Hermosillo Acct Number.................. : [id number] ROOM. ................. : MR Number ................... : [id number] Stay type ............. : E/R Discharge Date......... ... : 04/25/19 Admit Date ....... .. : 04/25/19 Admit Phys .................... : DAVID ASHBY Date of ....... : 1985 Family Phys ................... : JAVED SCOT Phone .................. : [phone] Age ................................ : 34 Film# .................. .:[id number] Sex ................................. : F Unsigned transcriptions are preliminary reports and do not represent a medical or legal document CHEST 2 VIEWS [id number] COMPLETE:04/25/19 16:52 [facility] [id number] Reason(s): worsening cough, recent RML infiltrate ? [...] rce(s) Supporting Document(s) ID Date Data Source [id number] 04/25/2019 03:24:[address] [facility] [address] [facility] Emergency Department [address] [place] [address] Phone #: [phone]- [phone] 04/25/2019 15:24 Patient: CLARE LORENZO Sex: F [...] Name Value Range Interpretation Code Description Data [facility](s) Supporting Document(s) ID Date Data Source [id number] 04/25/2019 03:24:00 PM [place] [address] [facility] Emergency Department [address] [place] [address] Phone #: ext- [phone] 04/25/2019 15:24 Patient: CLARE LORENZO Sex: F [...] Name Value Range Interpretation Code Description Data [facility](s) Supporting Document(s) ID Date Data Source [id number] 04/25/2019 03:24:00 PM [place] [address] [facility] Emergency Department [address] [place] [address] Phone #: ext- [phone] 04/25/2019 15:24 Patient: CLARE LORENZO Sex: F : 1985 Age: 34yWeight: 95.2 kgHeight/Length: 64 inBMI: 36.1ALLERGIES: No Known Drug AllergyDate/Time Medication Administered Medication Ordered Name Value Range Interpretation Code Description Data Svetlana guerrero(s) Supporting Document(s) ID Date Data Source [id number] 04/25/2019 03:24:[address] [facility] [address] [facility] Emergency Department [address] [place] [address] Phone #: ext- [phone] 04/25/2019 15:24 [id number] Sex: F : 1985 Age: 34yBacterial pneumonia. [...] PADMAJA Okeefe 04/25/2019 18:06) [address] [facility] Emergency Department [address] [place] [address] Phone #: ext- [phone] 04/25/2019 15:24 Patient: CLARE LORENZO Sex: F : 1985 Age: 34y Name Value Range Interpretation Code Description Data Svetlana rce(s) Supporting Document(s) ID Date Data Source [id number] 04/25/2019 03:24:[address] [facility] 1 Clinical Report - Nurses [facility] Emergency Department [address] [place] [address] Phone #: ext- [phone] 04/25/2019 15:24 Patient: CLARE LORENZO Sex: F : 1985 Age: 34yTRIAGEHistorian: patient.Triage time: 15:27 04/25/2019. Acuity: LEVEL 4.Chief Complaint: (pneumonia).Alert. No acute distress.( pt dx with pneumonia two days ago. here for f/u for pneumonia, pt does not have a pcp and told to f/uhere.).SEPSIS SCREEN: NEGATIVE. Infection suspected/documented. --15:34 04/25/19 Corrinejuly, R.N.15:27 04/25/19. BP: 133/72. MAP: 92. HR: 100. RR: 18. O2 saturation: 99%. Temp: 97.1 F. Pain levelnow: 0/10. --15:34 04/25/19 Jose Guadalupe July, R.N.Weight: 95.2 kg stated. Height/Length: 64 inches Per Patient. BMI: 36.1. --15:27 04/25/19 Jose GuadalupeJuly, R.N.MedicationsZithromax Oral. --15:29 04/25/19 Corrinejuly, R.N. Albuterol Sulfate HFA Inhalation. --15:29 04/25/19dedeJuly, R.N.AllergiesNo Known Drug Allergy. --15:30 04/25/19 Jose Guadalupe, Jacqueline, Christal.ADDITIONAL SURGERIES:no known surgeries.HistoryPAST MEDICAL HX: Last normal [...] before today?". 2 Clinical Report - Nurses [facility] Emergency Department [address] [place] [address] Phone #: ext- [phone] 04/25/2019 15:24 Patient: [...] Patient verbalized understanding. Written instructions provided in Cameroonian. The patient was discharged by the physician assistant education director. She was discharged home. She left ambulatory and via private vehicle. Spouse driving. --17:59 04/25/19 Jacqueline Shi R.N. 17:15 04/25/19. BP: 118/79. MAP: 92. HR: 92. RR: 18. O2 saturation: 97%. Temp: 97.3 F. Pain level now: 0/10. --17:59 04/25/19 Jose Guadalupe JacquelineRadha 3 Clinical Report - Nurses [facility] Emergency Department [address] [place] [address] Phone #: ext- [phone] 04/25/2019 15:24 Patient: CLARE LORENZO Sex: F : 1985 Age: 34yLocked/Released at 04/25/2019 17:59 by Jacqueline Shi R.N. Name Value Range Interpretation Code Description Data Svetlana rce(s) Supporting Document(s) ID Date Data Source [id number] 04/25/2019 03:24:00 PM [facility] 1 Clinical Report - Physicians/Mid Levels [facility] Emergency Department [address] [place] [address] Phone #: ext- [phone] 04/25/2019 15:24 Patient: [...] recent 2 Clinical Report - Physicians/Mid Levels [facility] Emergency Department [address] [place] [address] Phone #: ext- [phone] 04/25/2019 15:24 Patient: CLARE LORENZO Sex: F [...] 0.90) 3 Clinical Report - Physicians/Mid Levels [facility] Emergency Department [address] [place] [address] Phone #: [phone]- [phone] 04/25/2019 15:24 Patient: CLARE LORENZO Sex: F [...] illness, 4 Clinical Report - Physicians/Mid Levels [facility] Emergency Department [address] [place] [address] Phone #: ext- [phone] 04/25/2019 15:24 [id number] Sex: F : 1985 Age: 34y discharge instructions, activity level, follow-up appointment and risks and benefits of treatment reviewed with patient and understanding verbalized. Agrees to plan of care.(Electronically signed by PADMAJA Okeefe 04/25/2019 18:06) Name Value Range Interpretation Code Description Data Svetlana rce(s) Supporting Document(s) ID Date Data Source [id number] 04/25/2019 04:39:[address] [facility] Name Value Range Interpretation Code Description Data [facility] rce(s) Supporting Document(s) CBC W/AUTOMATED DIFF [facility] COMPLETE BLOOD COUNT Leukocytes [#/volume] in Blood by Automated count 7.3 10^3/uL 4.2 - [address] [facility] Erythrocytes [#/volume] in Blood by Automated count 4.69 10^6/uL 4. 20 - 5.40 [facility] Hemoglobin [Mass/volume] in Blood 14.1 g/dL 12.0 - 16.0 [facility] Hematocrit [Volume Fraction] of Blood by Automated count 42.5 % 3 7.0 - 47.0 [facility] Erythrocyte mean corpuscular volume [Entitic volume] by Auto mated count 90.6 fL 81.0 - 101 [facility] Erythrocyte mean corpuscular hemoglobin [Entitic mass] by Automated count 30.1 pg 27.0 - 34.0 [facility] Erythrocyte mean corpuscular hemoglobin concentration [Mass/volume] by Automated count 33.2 g/dL 31.0 - 36.0 [facility] Erythrocyte distribution width [Ratio] by Automated count 12.8 % 11.5 - 14.5 [facility] Platelets [#/volume] in Blood by Automated count 272 10^3/uL 150 - [address] [facility] Platelet mean volume [Entitic volume] in Blood by Automated count 11.5 fL 7.4 - 10.[address] [facility] Neutrophils/100 leukocytes in Blood by Automated count 65.5 % 37. 0 - 80.0 [facility] Lymphocytes/100 leukocytes in Blood by Manual count 28.1 % 25.0 - 40.0 [facility] Monocytes/100 leukocytes in Blood by Automated count 4.8 % 3.0 - 8.0 [facility] Eosinophils/100 leukocytes in Blood by Automated count 1.2 % 0.0 - 7.0 [facility] Basophils/100 leukocytes in Blood by Automated count 0.1 % 0.0 - 2.5 [facility] %IG 0.3 % 0.0 - 0.0 H [facility] %NRBC 0.0 % 0.0 - 0.0 [facility] al Neutrophils [#/volume] in Blood by Automated count 4.78 10^3/uL 2.00 - 6.90 [facility] Lymphocytes [#/volume] in Blood by Automated count 2.05 10^3/uL 0.60 - 3.40 [facility] Monocytes [#/volume] in Blood by Automated count 0.35 10^3/uL 0.00 - 0.90 [facility] Eosinophils [#/volume] in Blood by Automated count 0.09 10^3/uL 0.00 - 0.70 [facility] Basophils [#/volume] in Blood by Automated count 0.01 10^3/uL 0.00 - 0.20 [facility] #IG 0.02 10^3/uL 0.00 - 0.10 [facility] #NRBC 0.00 10^3/uL 0.00 - 0.00 [facility] MANUAL DIFF NOT INDICATED [facility] RBC MORPH NOT INDICATED [facility] spital ID Date Data Source [id number] 04/24/2019 01:59:00 PM EST [facility] [address] [place] [address] PHONE: [phone] FAX: [phone] Name .................. : MAURA SPARKS Acct Number.................. : [id number] ROOM. ................. : VT-01 MR Number ................... : [id number] Stay type ............. : E/R Discharge Date......... ... : 04/23/19 Admit Date ......... : 04/23/19 Admit Phys .................... : VENERUS BR Date of ....... : 1985 Family Phys ................... : JAVED SCOT Phone .................. : [phone] Age ................................ : 34 Film# .................. .:[id number] Sex ................................. : F Unsigned transcriptions are preliminary reports and do not represent a medical or legal document CHEST 2 VIEWS [id number] COMPLETE:04/23/19 19:24 [place] [id number] Reason(s): Congestion CHEST X-RAY: FRONTAL AND LATERAL [...] rce(s) Supporting Document(s) ID Date Data Source [id number] 04/23/2019 06:02:[address] [facility] [address] [facility] Emergency Department [address] [place] [address] Phone #: [phone]- [phone] 04/23/2019 17:36 Patient: CLARE LORENZO Sex: F [...] View STAT 19:15 04/23/2019 19:38 Cookie,(Oxygen?(No)) Leon Venerus Joycelyn R.N. Physician; Reason for Study: Congestion, CoughMEDICATION/IV/DRIP/FLUID ORDERSOrder Description Priority Entered Acknowledged InitialedpredniSONE PO 60 19:40 04/23/2019 19:50 mg Cookie (NOW) Leon Hirsch R.N. Physician;GuillermoCherise Marcia Tx 3 19:40 04/23/2019 19:57 Filippo Gary (NOW) Leon Hirsch R.N. Physician; [address] [facility] Emergency Department [address] [place] [address] Phone #: ext- [phone] 04/23/2019 17:36 Patient: CLARE LORENZO Sex: Hoang : 1985 Age: 34yGENERAL ORDERSOrder Description Priority Entered Acknowledged Initialed[Electronically signed by Joycelyn Gary R.N. (21:11 04/23/2019)][Electronically signed by Joycelyn Gary R.N. (21:12 04/23/2019)][Electronically signed by Leon Abebe Physician (10:02 04/24/2019)][Electronically locked by Joycelyn Gary R.N. (21:11 04/23/2019)] Name Value Range Interpretation Code Description Data Svetlana rce(s) Supporting Document(s) ID Date Data Source [id number] 04/23/2019 06:02:[address] [facility] [address] [facility] Emergency Department [address] [place] [address] Phone #: ext- [phone] 04/23/2019 17:36 Patient: [...] wheezes. Dispense 60 vial. Refills: 1. Substitution permitted.[employer] #[facility] - [address] [facility] ; [place] [address]. FaxNumber: .Zithromax Z-Danielito 250 mg tablet Take as directed for 5 days -- Take packet as directed for pneumonia -2 tabs PO on day 1, then 1 tab each day for four days after. Dispense 6 tablet. Refills: 0. Substitutionpermitted.[facility] #52 - [address] [facility] ; [place] [address]. . -- Leon Abebe, Physician Name Value Range Interpretation Code Description Data Svetlana rce(s) Supporting Document(s) ID Date Data Source [id number] 04/23/2019 06:02:[address] [facility] [address] [facility] Emergency Department [address] [place] [address] Phone #: ext- [phone] 04/23/2019 17:36 Patient: CLARE LORENZO Sex: F : 1985 Age: 34yWeight: 104.3 kgHeight/Length: 64 inBMI: 39.5ALLERGIES: None Date/Time Medication Administered Medication OrderedGiven PREDNISONE [PO] predniSONE PO 60 mg (NOW)19:50 04/23/2019 Dose: 60 mg Tablets Joycelyn Shepherd RRadhaGiven DUONEB [NEB TX] DuoNeb Neb Tx 3 mL (NOW)19:57 04/23/2019 Dose: 1 unit dose Neb TXJoycelyn Gary R.N. Name Value Range Interpretation Code Description Data Svetlana rce(s) Supporting Document(s) ID Date Data Source [id number] 04/23/2019 06:02:00 PM [facility] [address] [facility] Emergency Department [address] [place] [address] Phone #: ext- [phone] 04/23/2019 17:36 Patient: [...] 60 vial. Refills: 1. Substitution permitted.Pharmacy - [facility] #58 - [address] [facility] ; [place] [address]. .Zithromax Z-Danielito 250 mg tablet Take as directed for 5 days -- Take packet as directed for pneumonia -2 tabs PO on day 1, then 1 tab each day for four days after. Dispense 6 tablet. Refills: 0. Substitutionpermitted.Pharmacy - [facility] #04 - [address] [facility] ; [place] [address]. .Follow-up:Follow up with your doctor in two [...] be treated at home. [address] [facility] Emergency Department [address] [place] [address] Phone #: ext- [phone] 04/23/2019 17:36 Patient: CLARE LORENZO Sex: F [...] yours or other people's. [address] [facility] Emergency Department [address] [place] [address] Phone #: ext- [phone] 04/23/2019 17:36 Patient: CLARE LORENZO [facility]#: [id number] Sex: F : 1985 Age: 34y You [...] mouth that gets worse [address] [facility] Emergency Department [address] [place] [address] Phone #: ext- [phone] 04/23/2019 17:36 [id number] Sex[facility] F : 1985 Age: 34y Sinus pain, headache, or a stiff neck Chest pain not caused by coughing [id number] [employer] [place] [address]. All rights reserved. This information is not [...] Followyour provider's instructions exactly. [address] [facility] Emergency Department [address] [place] [address] Phone #: ext- [phone] 04/23/2019 17:36 Patient: [...] 911 if y ou: [address] [facility] Emergency Department [address] [place] [address] Phone #: ext- [phone] 04/23/2019 17:36 -------- Patient: CLARE LORENZO Sex: F : 1985 Age: 34y Are having trouble breathing or shortness of breath Are unresponsiveImportant reminderCall your healthcare provider if you get a fever after visiting a place where infectious diseases arecommon. Many people pickling operator a cold or other virus while traveling. [...] you were there Where you stayed (hotel, big sandy house, tent) What you ate and drank If you were bitten by insects or other bugs If you swam in freshwater If you had sex or got a tattoo or piercing while you were thereCheck the [facility] to get more information about specific infectious diseases in the areas you havetraveled. [id number] [employer]. [address] [place] [address]. All rights reserved. This information is not intended as asubstitute for professional medical care. Always follow your healthcare prof essional's instructions. You have been given the following additional information: Pneumonia (Adult) Fever Control (Adult)(Electronically signed by Leon Abebe, Physician 04/24/2019 10:02) Name Value Range Interpretation Code Description Data Svetlana rce(s) Supporting Document(s) ID Date Data Source [id number] 04/23/2019 06:02:[address] [facility] 1 Clinical Report - Nurses [facility] Emergency Department [address] [place] [address] Phone #: iuc- [phone] 04/23/2019 17:36 Patient: CLARE LORENZO Sex: F [...] saturation: 94%. Temp: 97.3 F. Pain levelnow: 10. --17:42 04/23/19 Sandra Rehman R.N.Weight: 104.3 kg stated. Height/Length: 64 inches Per Patient. BMI: 39.5. --17:37 04/23/19 Sandra Rehman R.N.MedicationsAmoxicillin Oral. --17:39 04/23/19 Sandra Rehman R.N.AllergiesNone. --17:39 04/23/19 Sandra Rehman R.N.PROBLEMS:no known problems.ADDITIONAL SURGERIES:no known surgeries.HistoryPAST MEDICAL HX: Immunizations: up-to-date. Last normal menstrual period- Mar.SOCIAL HX: Never smoker. No alcohol use or drug use. She was offered HIV testing but declined. Yoavnis not traveled outside the [place]Infectious disease exposure: [...] had thoughts 2 Clinical Report - Nurses [facility] Emergency Department [address] [place] [address] Phone #: ext- [phone] 04/23/2019 17:36 Patient: [...] treatment room. --17:42 04/23/19 Sandra Rehman R.N.PHYSICAL XAYMKDRGYM71:19 04/23/19. BP: 139/88. MAP: 105. HR: 76. [...] Roberts R.N. Patient walked to radiology with radiology therapist. --19:19 04/23/19 Brian Roberts R.N. 19:50 04/23/2019 Prednisone PO Tablets 60 mg given. Allergies verified and confirmed 5 rights. Information reviewed with patient. --19:50 04/23/19 Joycelyn Gary R.N. 3 Clinical Report - Nurses [facility] Emergency Department [address] [place] [address] Phone #: ext- [phone] 04/23/2019 17:36 Patient: CLARE LORENZO Sex: F [...] rce(s) Supporting Document(s) ID Date Data Source [id number] 04/23/2019 06:02:[address] [facility] 1 Clinical Report - Physicians/Mid Levels [facility] Emergency Department [address] [place] [address] Phone #: ext- [phone] 04/23/2019 17:36 Patient: [...] saturation: 94%. Temp: 97.3 F.Pain level now: 4/10. Have been reviewed and appear to be correct. Blood pressure normal.Tachycardic. Respiratory rate normal. Temperature normal. Oxygen saturation low.Appearance: Alert. Anxious. Patient in moderate distress. In distress.Eyes: Pupils equal, round and reactive to light. Eyes inspection not normal. Pale conjunctivae.ENT: Ears normal. Nose normal. Pharynx normal. Uvula midline.Neck: Normal inspection. Neck supple. 2 Clinical Report - Physicians/Mid Levels [facility] Emergency Department [address] [place] [address] Phone #: ext- [phone] 04/23/2019 17:36 [id number] Sex: F : 1985 Age: 34y CVS: [...] PROCEDURAL CONTROL VALID ){ KIT LOT # [id number] ){ KIT EXP DATE 02/08/20 ) Chest 2 View: (IVELISSE: 04/23/2019 19:15) ( MsgRcvd 04/24/2019 09:52) In Progress CHEST 2 VIEWS Reason(s): Congestion TRANSPORTATION: IV? O2? Oxygen?(No) Room: ED : HCG Negative Exam CHEST [place] [address] PHONE: [phone] FAX: [phone] Name .................. : MAURA SPARKS Acct Number.................. : [id number] ROOM. ................. : [place] MR Number ................... : [id number] Stay type ............. : E/R Discharge Date......... ... : 04/23/19 Admit Date ......... : 04/23/19 Admit Phys .................... : ANDRAE ADAMS Date of ....... : 1985 Family Phys ................... : JAVED SCOT Phone .................. : [phone] Age ................................ : 34 Film# .................. .:[id number] Sex ................................. : F Unsigned transcriptions are preliminary reports and do not represent a medical or legal document CHEST 2 VIEWS [id number] COMPLETE:04/23/19 19:24 HOLLY [id number] Reason(s): Congestion Cough CHEST X- RAY: FRONTAL [...] left. 3 Clinical Report - Physicians/Mid Levels [facility] Emergency Department [address] [place] [address] Phone #: ext- [phone] 04/23/2019 17:36 Patient: CLARE LORENZO Sex: F : 1985 Age: 34y IMPRESSION: Findings suggest right middle lobe pneumonia. Consider follow up imaging if clinically warranted. Electronically Reviewed and Signed By DCTUMA , SIGNDATE, KRISTINA Transcribe Initials: DZ , Transcribe Date: 04/24/19 09:50, Dictation Date: <<REPDIST>> Page 1of 1Beta-HCG, Qual Serum: (IVELISSE: 04/23/2019 18:29) ( MsgRcvd 04/23/2019 18:59) Final results Test Result Flag Units (Reference) HCG SERUM QUAL NEGATIVE (NORMAL: NEGAT HCG SERUM QL REENTER NEGATIVE (NORMAL: NEGAT { KIT LOT # [id number] ){ KIT EXP DATE09/27/20 ){ PROCEDURAL CONTROL [...] (Reference) 4 Clinical Report - Physicians/Mid Levels [facility] Emergency Department [address] [place] [address] Phone #: [phone] cem- [phone] 04/23/2019 17:36 Patient: CLARE LORENZO Sex: F : 1985 Age: 34y INFLUENZA A NEGATIVE (NORMAL: NEGAT INFLUENZA B NEGATIVE (NORMAL: NEGAT INFLUENZA A REENTER NEGATIVE (NORMAL: NEGAT INFLUENZA B REENTER NEGATIVE (NORMAL: NEGAT PROCEDURAL CONTROL VALID KIT LOT # [id number] 04/23/19.MD . . . KIT EXP DATE _01/02/20 04/23/19.MD . . .The Influenza A utilizing an [...] vial. Refills: 1. Substitution permitted. Pharmacy - [facility] #25 - [address] [facility] ; [place] [address]. . Zithromax Z-Danielito 250 mg tablet Take as directed for 5 days -- Take packet as directed for pneumonia - 2 tabs PO on day 1, then 1 tab each day for four days after. Dispense 6 tablet. Refills: 0. Substitution 5 Clinical Report - Physicians/Mid Levels [facility] Emergency Department [address] [place] [address] Phone #: [phone] ext- [phone] 04/23/2019 17:36 Patient: CLARE LORENZO Sex: F : 1985 Age: 34y permitted. Pharmacy - [facility] #36 - [address] [facility] ; [place] [address]. . Follow-up: Follow up with your doctor in two days if not better. Call for an appointment. Reason for referral: evaluation, treatment and R pneumonia. Understanding of the discharge instructions verbalized by patient.(Electronically signed by Leon Abebe, Physician 04/24/2019 10:02) Name Value Range Interpretation Code Description Data Svetlana rce(s) Supporting Document(s) ID Date Data Source [id number] 04/23/2019 08:09:00 PM [facility] Name Value Range Interpretation Code Description Data Svetlana rce(s) Supporting Document(s) Influenza virus A Ag [Presence] in Nasopharynx by [facility] y NEGATIVE NORMAL: NEGATIVE [facility] Influenza virus B Ag [Presence] in Nasopharynx by Immuno[facility] y NEGATIVE NORMAL: NEGATIVE [facility] NEGATIVENEGATIVE PROCEDURAL CO NTROL VALID KIT LOT [...] other patient managementdecisions. ID Date Data Source [id number] 04/23/2019 08:09:00 PM [facility] Name Value Range Interpretation Code Description Data Svetlana rce(s) Supporting Document(s) RSV ANTIGEN NEGATIVE NORMAL: NEGATIVE [facility] RSV ANTIGEN REENTER NEGATIVE NORMAL: NEGATIVE [facility] { PROCEDURAL CONTROL VALID ){ KIT LOT # [id number] ){ KIT EXP DATE 02/08/20 ) ID Date Data Source [id number] 04/23/2019 06:59:00 PM [facility] Name Value Range Interpretation Code Description Data Svetlana rce(s) Supporting Document(s) HCG SERUM QUAL NEGATIVE NORMAL: NEGATIVE [facility] HCG SERUM QL REENTER NEGATIVE NORMAL: NEGATIVE [facility] { KIT LOT # [id number] ){ KIT EXP DATE 09/27/20 ){ PROCEDURAL CONTROL VALID ) ID Date Data Source [id number] 04/23/2019 06:48:[address] [facility] Name Value Range Interpretation Code Description Data Svetlana rce(s) Supporting Document(s) CBC W/AUTOMATED DIFF [facility] COMPLETE BLOOD COUNT Leukocytes [#/volume] in Blood by Automated count 7.3 10^3/uL 4.2 - [address] [facility] Erythrocytes [#/volume] in Blood by Automated count 4.86 10^6/uL 4. 20 - 5.40 [facility] Hemoglobin [Mass/volume] in Blood 14.6 g/dL 12.0 - 16.0 [facility] Hematocrit [Volume Fraction] of Blood by Automated count 44.1 % 3 7.0 - 47.0 [facility] Erythrocyte mean corpuscular volume [Entitic volume] by Auto mated count 90.7 fL 81.0 - 101 [facility] Erythrocyte mean corpuscular hemoglobin [Entitic mass] by Automated count 30.0 pg 27.0 - 34.0 [facility] Erythrocyte mean corpuscular hemoglobin concentration [Mass/volume] by Automated count 33.1 g/dL 31.0 - 36.0 [facility] Erythrocyte distribution width [Ratio] by Automated count 12.6 % 11.5 - 14.5 [facility] Platelets [#/volume] in Blood by Automated count 249 10^3/uL 150 - [address] [facility] Platelet mean volume [Entitic volume] in Blood by Automated count 11.2 fL 7.4 - 10.[address] [facility] Neutrophils/100 leukocytes in Blood by Automated count 67.3 % 37. 0 - 80.0 [facility] Lymphocytes/100 leukocytes in Blood by Manual count 23.6 % 25.0 - 40.[address] [facility] Monocytes/100 leukocytes in Blood by Automated count 7.1 % 3.0 - 8.0 [facility] Eosinophils/100 leukocytes in Blood by Automated count 1.4 % 0.0 - 7.0 [facility] Basophils/100 leukocytes in Blood by Automated count 0.3 % 0.0 - 2.5 [facility] %IG 0.3 % 0.0 - 0.0 [facility] al %NRBC 0.0 % 0.0 - 0.0 [facility] al Neutrophils [#/volume] in Blood by Automated count 4.91 10^3/uL 2.00 - 6.90 [facility] Lymphocytes [#/volume] in Blood by Automated count 1.72 10^3/uL 0.60 - 3.40 [facility] Monocytes [#/volume] in Blood by Automated count 0.52 10^3/uL 0.00 - 0.90 [facility] Eosinophils [#/volume] in Blood by Automated count 0.10 10^3/uL 0.00 - 0.70 [facility] Basophils [#/volume] in Blood by Automated count 0.02 10^3/uL 0.00 - 0.20 [facility] #IG 0.02 10^3/uL 0.00 - 0.10 [facility] H ospital #NRBC 0.00 10^3/uL 0.00 - 0.00 [facility] ospital MANUAL DIFF NOT INDICATED [facility] RBC MORPH NOT INDICATED [facility] spital Procedure Social History Code [...] k g/m2 [facility] ([facility] [place] body weight 120 [lb_av] 120 [lb_av] MEDEN [...] [Ratio] 42.3 kg/m2 42.3 k g/m2 [facility] ([facility]) Body weight 239.00 [lb_av] 239.00 [lb_av] MEDEN T ([facility]) Body height 63 [in_i] 63 [in_i] [facility] ([facility]) 5'3" Body temperature 97.5 [degF] 97.5 [degF] [facility] ([facility]) Body mass index (BMI) [Ratio] 40.9 kg/m2 40.9 k g/m2 [facility] ([facility] [place] body weight 120 [lb_av] 120 [lb_av] MEDEN [...] k g/m2 [facility] ([facility] [place] body weight 120 [lb_av] 120 [lb_av] MEDEN [...] blood pressure 80 mm[Hg] 80 mm[Hg] eCW1 ([facility]) Systolic blood pressure 122 mm[Hg] 122 mm[Hg] e CW1 ([facility]) Body mass index (BMI) [Ratio] 40.5 kg/m2 40.5 k g/m2 eCW1 ([facility]) Body height 64 [in_us] 64 [in_us] eCW1 ([facility]) Body weight Measured 236 [lb_av] 236 [lb_av] eC W1 ([facility])
[2020-05-29 06:30] VITALS: BP 128/57
== END 2020-05-29 06:43 | disposition home or self-care (01) ==
LOC: M ED 05:06
DX: M79.652 Pain in left thigh (principal); G58.9 Mononeuropathy, unspecified; F41.9 Anxiety disorder, unspecified

== ENCOUNTER → 2020-06-11 | Outpatient (CLI) | payer OTHER ==
[2020-06-11 12:22] LABS: BASO % 0.2 % (0.0-1.0); EOS % 0.2 % (0.0-3.0); HEMOGLOBIN 13.5 g/dl (12.0-15.5); LYMPH # 1.2 10^3/uL (1.5-5.0); LYMPH % 17.9 % (24.0-44.0); MEAN CORPUSCULAR HEMOGLOBIN 30.2 pg (27.0-33.0); MEAN CORPUSCULAR HGB CONC 32.1 g/dl (32.0-36.5); MONO # 0.3 10^3/uL (0.0-0.8); MONO % 4.1 % (2.0-8.0); NEUTROPHILS # 5.1 10^3/uL (1.5-8.5); NEUTROPHILS % 77.3 % (36.0-66.0); PLATELET COUNT, AUTOMATED 262 10^3/uL (150-450); RED BLOOD COUNT 4.47 10^6/uL (4.00-5.40); WHITE BLOOD COUNT 6.6 10^3/uL (4.0-10.0)
[2020-06-11 13:46] LABS: ALT/SGPT 29 U/L (12-78); BILIRUBIN,TOTAL 0.3 MG/DL (0.2-1.0); BLOOD UREA NITROGEN 6 MG/DL (7-18); CALCIUM LEVEL 9.5 MG/DL (8.5-10.1); CARBON DIOXIDE LEVEL 27 MEQ/L (21-32); CHLORIDE LEVEL 105 MEQ/L (98-107); CHOLESTEROL LEVEL 208 MG/DL (<200); CREATININE FOR GFR 0.73 MG/DL (0.55-1.30); FERRITIN 24 NG/ML (8-252); FOLATE > 24.0 NG/ML; FREE T4 1.02 NG/DL (0.76-1.46); GLOMERULAR FILTRATION RATE > 60.0 (>60); GLUCOSE, FASTING 152 MG/DL (70-100); HDL CHOLESTEROL 50 MG/DL (>40); IRON (FE) 70 UG/DL (50-170); LDL CHOLESTEROL 135 MG/DL (<100); NON-HDL-C 158 MG/DL; PERCENT SATURATION 19.6 % (13.2-45.0); POTASSIUM SERUM 4.3 MEQ/L (3.5-5.1); RHEUMATOID FACTOR QUANT < 10.0 IU/ML (<15.0); SODIUM LEVEL 138 MEQ/L (136-145); TOTAL IRON BINDING CAPACITY 358 UG/DL (250-450); TOTAL PROTEIN 7.5 GM/DL (6.4-8.2); TRIGLYCERIDES LEVEL 117 MG/DL (<150); VITAMIN B12 LEVEL 612 PG/ML
[2020-06-11 15:25] LABS: HEMOGLOBIN A1c 5.2 %
== END ==
LOC: M LAB 11:08
PROVIDERS: ATTEND Nurse Practitioner Family
DX: J02.9 Acute pharyngitis, unspecified (principal); R53.83 Other fatigue

== ENCOUNTER 2021-01-09 17:04 | Emergency (ER) | payer OTHER ==
[~2021-01-09] VITALS: Ht 162.6 cm; Wt 104.6 kg
[~2021-01-09 17:04] MED LIST changes: -DOXY100C37 PO; +DOXY1CAP62 PO
[2021-01-09] MEDS ORDERED: AMOX250REC (17:09)
[2021-01-09] MEDS ORDERED: NAPR220C14 PO (17:29)
[2021-01-09] MEDS ORDERED: AUGM250S13 PO (18:35)
[2021-01-09] MEDS ORDERED: AUGMENTIN BID 400MG/5ML SUSP 50ML BTL PO ONE (18:35)
[2021-01-09 19:19] VITALS: BP 133/81
== END 2021-01-09 19:20 | disposition home or self-care (01) ==
LOC: M ED 17:04
DX: K04.7 Periapical abscess without sinus (principal); E66.9 Obesity, unspecified; Z88.2 Allergy status to sulfonamides

== ENCOUNTER 2021-01-15 02:51 | Emergency (ER) | payer OTHER ==
[~2021-01-15] VITALS: Ht 162.6 cm; Wt 105.5 kg
[~2021-01-15 02:51] MED LIST changes: +AMOX250REC; +AUGM250S13 PO; +NAPR220C14 PO
[2021-01-15 07:26] LABS: BASO % 0.1 % (0.0-1.0); EOS # 0.1 10^3/uL (0.0-0.5); EOS % 0.8 % (0.0-3.0); HEMATOCRIT 40.7 % (36.0-47.0); HEMOGLOBIN 13.6 g/dl (12.0-15.5); LYMPH # 1.8 10^3/uL (1.5-5.0); LYMPH % 24.6 % (24.0-44.0); MEAN CORPUSCULAR HEMOGLOBIN 30.9 pg (27.0-33.0); MEAN CORPUSCULAR HGB CONC 33.4 g/dl (32.0-36.5); MEAN CORPUSCULAR VOLUME 92.5 fl (80.0-96.0); MONO # 0.4 10^3/uL (0.0-0.8); MONO % 5.1 % (2.0-8.0); NEUTROPHILS % 69.1 % (36.0-66.0); PLATELET COUNT, AUTOMATED 219 10^3/uL (150-450); WHITE BLOOD COUNT 7.2 10^3/uL (4.0-10.0)
[2021-01-15 08:01] VITALS: BP 136/61
== END 2021-01-15 08:03 | disposition home or self-care (01) ==
LOC: M ED 02:51
DX: K01.1 Impacted teeth (principal); R68.83 Chills (without fever); Z79.2 Long term (current) use of antibiotics; Z88.1 Allergy status to other antibiotic agents; Z88.2 Allergy status to sulfonamides

== ENCOUNTER 2021-05-16 21:44 | Emergency (ER) | payer OTHER, SELFPAY ==
[~2021-05-16] VITALS: Ht 162.6 cm; Wt 200.0 kg
[~2021-05-16 21:44] MED LIST changes: +DOXY-443 PO; -DOXY1CAP62 PO
[2021-05-16] MEDS ORDERED: ACETAMINOPHEN TAB 650MG DOSE (2X325MG) PO ONE (22:10)
[2021-05-16] MEDS ORDERED: NS 1,000 ML IV ONE (22:10)
[2021-05-16 22:55] LABS: HEMOGLOBIN 12.7 g/dl (12.0-15.5); LYMPH % 30.6 % (24.0-44.0); MEAN CORPUSCULAR HEMOGLOBIN 29.5 pg (27.0-33.0); MEAN CORPUSCULAR HGB CONC 32.6 g/dl (32.0-36.5); MEAN CORPUSCULAR VOLUME 90.7 fl (80.0-96.0); MONO # 0.3 10^3/uL (0.0-0.8); MONO % 9.5 % (2.0-8.0); NEUTROPHILS % 59.9 % (36.0-66.0); PLATELET COUNT, AUTOMATED 132 10^3/uL (150-450); WHITE BLOOD COUNT 3.4 10^3/uL (4.0-10.0)
[2021-05-16 23:06] LABS: ALBUMIN 3.2 GM/DL (3.2-5.2); ALT/SGPT 37 U/L (12-78); BILIRUBIN,DIRECT 0.1 MG/DL (0.0-0.2); BILIRUBIN,TOTAL 0.1 MG/DL (0.2-1.0); BLOOD UREA NITROGEN 5 MG/DL (7-18); CALCIUM LEVEL 8.1 MG/DL (8.5-10.1); CARBON DIOXIDE LEVEL 27 MEQ/L (21-32); CHLORIDE LEVEL 108 MEQ/L (98-107); CREATININE FOR GFR 0.81 MG/DL (0.55-1.30); GLOMERULAR FILTRATION RATE > 60.0 (>60); GLUCOSE, FASTING 127 MG/DL (70-100); POTASSIUM SERUM 3.8 MEQ/L (3.5-5.1); SODIUM LEVEL 140 MEQ/L (136-145); TOTAL PROTEIN 6.5 GM/DL (6.4-8.2)
[2021-05-16 23:15] LABS: HCG, SERUM QUALITATIVE NEGATIVE (NEGATIVE)
[2021-05-17 00:29] LABS: APPEARANCE, URINE CLEAR (CLEAR); BACTERIA, URINE AUTO NEGATIVE (NEGATIVE); BILIRUBIN, URINE AUTO NEGATIVE (NEGATIVE); BLOOD, URINE BLOOD NEGATIVE (NEGATIVE); COLOR, URINE STRAW (YELLOW); GLUCOSE, URINE (UA) AUTO NEGATIVE (NEGATIVE); KETONE, URINE AUTO NEGATIVE (NEGATIVE); LEUKOCYTE ESTERASE, URINE AUTO NEGATIVE (NEGATIVE); NITRITE, URINE AUTO NEGATIVE (NEGATIVE); PROTEIN, URINE AUTO NEGATIVE (NEGATIVE); RBC, URINE AUTO 0 /HPF (0-3); SPECIFIC GRAVITY URINE AUTO 1.003 (1.002-1.035); SQUAMOUS EPITHELIAL CELL UR AU 0 /HPF (0-6); UROBILINOGEN, URINE AUTO 0.2 mg/dL (0.0-2.0); WBC, URINE AUTO 0 /HPF (0-3)
[2021-05-17 00:40] VITALS: BP 135/71
[2021-05-17] MEDS ORDERED: LevoFLOXacin 750 MG TABLET PO ONE (01:35)
[2021-05-17] MEDS ORDERED: LEVO750T13 PO (01:37)
[2021-05-17] MEDS ORDERED: BENZ200C70 PO (01:45)
[2021-05-17] MEDS ORDERED: VENTAER INH (01:45)
== END 2021-05-17 02:28 | disposition home or self-care (01) ==
LOC: M ED 21:44
DX: U07.1 COVID-19 (principal); J18.9 Pneumonia, unspecified organism; R94.31 Abnormal electrocardiogram [ECG] [EKG]; Z88.2 Allergy status to sulfonamides

== ENCOUNTER → 2021-12-27 | Outpatient (CLI) | payer OTHER ==
[~2021-12-27] MED LIST changes: +BENZ200C70 PO; +LEVO1TAB40 PO; +VENTAER INH
[2021-12-27 13:26] LABS: HEMOGLOBIN 13.2 g/dl (12.0-15.5); MEAN CORPUSCULAR HEMOGLOBIN 30.9 pg (27.0-33.0); MEAN CORPUSCULAR HGB CONC 33.8 g/dl (32.0-36.5); MEAN CORPUSCULAR VOLUME 91.3 fl (80.0-96.0); PLATELET COUNT, AUTOMATED 189 10^3/uL (150-450); RED BLOOD COUNT 4.27 10^6/uL (4.00-5.40); WHITE BLOOD COUNT 8.3 10^3/uL (4.0-10.0)
[2021-12-27 14:44] LABS: HEPATITIS C VIRUS ABY INDEX < 0.0 INDEX (<0.8); HIV 1&2 SCREEN CENTAUR NEGATIVE (NEGATIVE)
[2021-12-27 15:05] LABS: GC DNA AMPLIFICATION NEGATIVE (NEGATIVE)
== END ==
LOC: M PLALAB 09:16
PROVIDERS: ATTEND Specialist
DX: Z34.81 Encounter for supervision of other normal pregnancy, first trimester (principal)

== ENCOUNTER → 2022-02-24 | Outpatient (CLI) | payer OTHER | LOC: M WHC 07:35 | PROVIDERS: ATTEND Obstetrics & Gynecology | DX: Z34.92 Encounter for supervision of normal pregnancy, unspecified, second trimester (principal); Z3A.19 19 weeks gestation of pregnancy ==

== ENCOUNTER → 2022-03-17 | Outpatient (CLI) | payer MEDICAID, OTHER | LOC: M WHC 13:40 | PROVIDERS: ATTEND Obstetrics & Gynecology | DX: Z34.92 Encounter for supervision of normal pregnancy, unspecified, second trimester (principal); Z3A.22 22 weeks gestation of pregnancy ==

== ENCOUNTER 2022-03-28 08:00 | Outpatient (CLI) | payer OTHER ==
[~2022-03-28] VITALS: Ht 162.6 cm; Wt 107.5 kg
[2022-03-28 08:25] VITALS: BP 128/64
[2022-03-28] MEDS ORDERED: PREN1CHW6 PO (08:26)
[2022-03-28] MEDS ORDERED: HOME MED LIST COMPLETE! XX SCH (08:30)
[2022-03-28 09:49] VITALS: BP 107/54
[2022-03-28 09:59] LABS: APPEARANCE, URINE MANUAL HAZY (CLEAR); COLOR, URINE MANUAL DK YELLOW (YELLOW)
[2022-03-28 10:00] LABS: SPECIFIC GRAVITY,URINE MANUAL 1.015 (1.002-1.035)
[2022-03-28 10:01] LABS: GLUCOSE, URINE (UA) MANUAL NEGATIVE (NEGATIVE); KETONE, URINE MANUAL NEGATIVE (NEGATIVE); PROTEIN, URINE MANUAL 1+ mg/dL (NEGATIVE); UROBILINOGEN, URINE MANUAL NORMAL (NORMAL)
[2022-03-28 10:02] LABS: BILIRUBIN, URINE MANUAL NEGATIVE (NEGATIVE); NITRITE, URINE MANUAL NEGATIVE (NEGATIVE)
[2022-03-28 10:03] LABS: BLOOD URINE MANUAL POSITIVE (NEGATIVE); LEUKOCYTE ESTERASE, URINE MAN POSITIVE (NEGATIVE)
[2022-03-28 10:18] LABS: RBC, URINE TNTC /hpf (0-3); SQUAMOUS EPITHELIAL CELL URINE LARGE AMOUNT /hpf (SMALL AMT)
[2022-03-28 10:19] LABS: BACTERIA, URINE MOD AMOUNT
[2022-03-28 10:20] LABS: HYALINE CAST, URINE NONE SEEN /lpf (0-1); MUCUS, URINE SMALL AMOUNT (NEGATIVE)
[2022-03-28] MEDS ORDERED: BETAMETHASONE SOLUSPAN 6MG/ML 5ML VIAL IM SCH (11:00)
[2022-03-28 12:00] VITALS: BP 120/65
[2022-03-28 12:48] LABS: HEMATOCRIT 38.3 % (36.0-47.0); HEMOGLOBIN 12.7 g/dl (12.0-15.5); MEAN CORPUSCULAR HEMOGLOBIN 31.6 pg (27.0-33.0); MEAN CORPUSCULAR HGB CONC 33.2 g/dl (32.0-36.5); MEAN CORPUSCULAR VOLUME 95.3 fl (80.0-96.0); PLATELET COUNT, AUTOMATED 234 10^3/uL (150-450); RED BLOOD COUNT 4.02 10^6/uL (4.00-5.40); WHITE BLOOD COUNT 13.8 10^3/uL (4.0-10.0)
[2022-03-28 13:00] LABS: INR 0.93; PROTHROMBIN TIME 12.7 SECONDS (12.5-14.5)
[2022-03-28 13:09] VITALS: BP 129/83
== END 2022-03-28 15:00 | disposition other institution (70) ==
LOC: M LDO 08:00
PROVIDERS: ATTEND Advanced Practice Midwife
DX: O42.912 Preterm premature rupture of membranes, unspecified as to length of time between rupture and onset of labor, second trimester (principal); O24.410 Gestational diabetes mellitus in pregnancy, diet controlled; O09.512 Supervision of elderly primigravida, second trimester; O34.02 Maternal care for unspecified congenital malformation of uterus, second trimester; Z87.51 Personal history of pre-term labor; Z3A.24 24 weeks gestation of pregnancy
CPT/HCPCS: 36415; 59025; 76815; 81000; 85027; 85384; 85610; 87081; 87086; 87635; 96372; J0702

== ENCOUNTER → 2022-05-02 | Outpatient (CLI) | payer OTHER ==
[~2022-05-02] MED LIST changes: +PREN1CHW6 PO
== END ==
LOC: M WHC 10:05
PROVIDERS: ATTEND Advanced Practice Midwife
DX: O92.12 Cracked nipple associated with the puerperium (principal); Z3A.29 29 weeks gestation of pregnancy

== ENCOUNTER 2024-01-13 06:38 | Emergency (ER) | payer OTHER ==
[~2024-01-13] VITALS: Ht 162.6 cm; Wt 118.2 kg
[~2024-01-13 06:38] MED LIST changes: +DOXY-441 PO; -DOXY-443 PO
[2024-01-13] MEDS: CEPHALEXIN 500 MG CAP PO ONE (07:19)
[2024-01-13] MEDS: IBUPROFEN 600MG TAB PO ONE (07:20)
[2024-01-13] MEDS: ACETAMINOPHEN 325 MG TAB PO ONE (07:20)
[2024-01-13] MEDS ORDERED: CEPH500C PO (07:34)
[2024-01-13 08:13] VITALS: BP 125/84; TEMP 97.8; O2SAT 96
== END 2024-01-13 08:14 | disposition home or self-care (01) ==
LOC: M ED 06:38
DX: R22.41 Localized swelling, mass and lump, right lower limb (principal); L03.115 Cellulitis of right lower limb; Z88.2 Allergy status to sulfonamides; Z79.2 Long term (current) use of antibiotics; Z79.899 Other long term (current) drug therapy

== ENCOUNTER 2024-01-19 04:20 | Emergency (ER) | payer OTHER ==
[~2024-01-19] VITALS: Ht 162.6 cm; Wt 121.8 kg
[~2024-01-19 04:20] MED LIST changes: +CEPH500C PO
[2024-01-19] MEDS: DALBAVANCIN 1,500 MG in D5W 250 ML IV ONE (06:16)
[2024-01-19] MEDS: KETOROLAC 30 MG/ML 1ML VIAL IV ONE (06:18)
[2024-01-19 06:58] VITALS: BP 147/67; TEMP 97.4; O2SAT 97
== END 2024-01-19 07:02 | disposition home or self-care (01) ==
LOC: M ED 04:20
DX: L03.115 Cellulitis of right lower limb (principal); Z88.2 Allergy status to sulfonamides; Z79.2 Long term (current) use of antibiotics; Z79.899 Other long term (current) drug therapy
CPT/HCPCS: 80047; 87040; 96365; 96375; 99284; J0875; J1885